=== PATIENT | male | born 1960 | race Caucasian/White ===

== ENCOUNTER 2016-06-26 | Outpatient (CLI) | END 2016-06-26 19:19 | disposition EMS.NT ==

== ENCOUNTER 2016-06-27 | Outpatient (CLI) | END 2016-06-27 01:01 | disposition critical access hospital (66) | CPT/HCPCS: A0425; A0429 ==

== ENCOUNTER 2016-06-27 01:21 | Inpatient (IN) | payer MEDICARE, MEDICAID ==
[2016-06-27] MEDS ORDERED: IPRATROPIUM/ALBUTEROL 3 ML NEB INH STA (01:31)
[2016-06-27] MEDS ORDERED: SODIUM CHLORIDE 0.9% 1,000 ML IV ONE ×3 (01:31→05:01)
[2016-06-27] MEDS ORDERED: IPRATROPIUM/ALBUTEROL 3 ML NEB INH ONE (01:56)
[2016-06-27] MEDS ORDERED: POTASSIUM CHLORIDE 20 MEQ TABLET PO STA (02:53)
[2016-06-27] MEDS ORDERED: POTASSIUM CHLORIDE 20 MEQ TABLET PO ONE (02:56)
[2016-06-27] MEDS ORDERED: POTASSIUM CHLOR 20 MEQ/100 ML 100 ML IV ONE (05:01)
[2016-06-27] MEDS ORDERED: POTASSIUM CHLOR 10 MEQ/100 ML 100 ML IV ONE ×2 (05:21→06:06)
[2016-06-27] MEDS ORDERED: MORPHINE IR 15 MG TABLET PO PRN (08:01)
[2016-06-27] MEDS ORDERED: ONDANSETRON 4 MG/2 ML VIAL IVP PRN (08:01)
[2016-06-27] MEDS ORDERED: SODIUM CHLORIDE FLUSH 0.9% 10 ML SYRINGE IVP PRN (08:01)
[2016-06-27] MEDS: NICOTINE 14 MG PATCH TOP SCH (08:40)
[2016-06-27] MEDS: POLYETHYLENE GLYCOL 3350 17 GM PACKET PO SCH (08:40)
[2016-06-27] MEDS: POTASSIUM CHLORIDE 10 MEQ CAPSULE PO SCH ×3 (08:40→17:48)
[2016-06-27] MEDS ORDERED: MORPHINE ER 15 MG TABLET PO SCH (09:00)
[2016-06-27] MEDS: SODIUM CHLORIDE FLUSH 0.9% 10 ML SYRINGE IVP SCH ×2 (13:05→21:31)
[2016-06-27] MEDS: GABAPENTIN 400 MG CAPSULE PO SCH ×2 (14:53→21:31)
[2016-06-27] MEDS: MORPHINE ER 15 MG TABLET PO SCH ×2 (14:53→21:33)
[2016-06-27] MEDS: DARUNAVIR ETHANOLATE 800 MG PO SCH (16:31)
[2016-06-27] MEDS: RITONAVIR 100 MG PO SCH (16:31)
[2016-06-27] MEDS: TESTOSTERONE TOP SCH (16:32)
[2016-06-27] MEDS: [UNRECOGNIZED DRUG - OTHER] PO SCH (16:32)
[2016-06-27] MEDS: tiZANidine 4 MG TABLET PO PRN (17:48)
[2016-06-27] MEDS ORDERED: traZODone 50 MG TABLET PO SCH (21:00)
[2016-06-28] MEDS: GABAPENTIN 400 MG CAPSULE PO SCH ×2 (05:09→13:30)
[2016-06-28] MEDS: MORPHINE ER 15 MG TABLET PO SCH ×2 (05:10→13:30)
[2016-06-28] MEDS: SODIUM CHLORIDE FLUSH 0.9% 10 ML SYRINGE IVP SCH ×2 (05:10→13:31)
[2016-06-28] MEDS: NICOTINE 14 MG PATCH TOP SCH (08:51)
[2016-06-28] MEDS: DARUNAVIR ETHANOLATE 800 MG PO SCH (08:54)
[2016-06-28] MEDS: RITONAVIR 100 MG PO SCH (08:54)
[2016-06-28] MEDS: [UNRECOGNIZED DRUG - OTHER] PO SCH (08:55)
[2016-06-28] MEDS: TESTOSTERONE TOP SCH (08:55)
[2016-06-28] MEDS: POLYETHYLENE GLYCOL 3350 17 GM PACKET PO SCH (08:55)
[2016-06-28] MEDS: tiZANidine 4 MG TABLET PO PRN (13:36)
== END 2016-06-28 17:55 | disposition home or self-care (01) | DRG 683 ==
DX: N17.9 Acute kidney failure, unspecified (principal); E87.1 Hypo-osmolality and hyponatremia; E87.6 Hypokalemia; I95.9 Hypotension, unspecified; I73.9 Peripheral vascular disease, unspecified; N18.4 Chronic kidney disease, stage 4 (severe); I73.89 Other specified peripheral vascular diseases; F17.200 Nicotine dependence, unspecified, uncomplicated; F32.9 Major depressive disorder, single episode, unspecified; F41.0 Panic disorder [episodic paroxysmal anxiety]; F17.210 Nicotine dependence, cigarettes, uncomplicated; I69.392 Facial weakness following cerebral infarction; Z21 Asymptomatic human immunodeficiency virus [HIV] infection status; Z79.891 Long term (current) use of opiate analgesic; Z89.612 Acquired absence of left leg above knee; Z89.611 Acquired absence of right leg above knee; Z95.5 Presence of coronary angioplasty implant and graft; Z99.3 Dependence on wheelchair

== ENCOUNTER 2016-06-28 | Outpatient (CLI) | END 2016-06-28 17:57 | disposition home or self-care (01) | CPT/HCPCS: A0425; A0428 ==

== ENCOUNTER 2017-01-02 09:15 | Outpatient (CLI) | payer MEDICARE, MEDICAID ==
[2017-01-02] MEDS ORDERED: ALBUTEROL NEB 2.5 MG/3 ML INH ONE (09:54)
== END 2017-01-02 09:16 | disposition home or self-care (01) ==
LOC: RT 09:15
PROVIDERS: ATTEND Family Medicine
DX: G47.34 Idiopathic sleep related nonobstructive alveolar hypoventilation (principal)
CPT/HCPCS: 94060; 94729; J7613

== ENCOUNTER 2017-01-17 21:00 | Outpatient (CLI) | payer MEDICARE, MEDICAID | END 2017-01-17 21:01 | disposition EMS.NT | LOC: EMS 21:00 | PROVIDERS: ATTEND Surgery | DX: Z03.89 Encounter for observation for other suspected diseases and conditions ruled out (principal); W05.0XXA Fall from non-moving wheelchair, initial encounter; Y92.009 Unspecified place in unspecified non-institutional (private) residence as the place of occurrence of the external cause ==

== ENCOUNTER 2017-01-23 02:54 | Outpatient (CLI) | payer MEDICARE, MEDICAID | END 2017-01-23 02:55 | disposition EMS.NT | LOC: EMS 02:54 | PROVIDERS: ATTEND Surgery | DX: S00.81XA Abrasion of other part of head, initial encounter (principal); W22.8XXA Striking against or struck by other objects, initial encounter; W05.0XXA Fall from non-moving wheelchair, initial encounter; Y92.031 Bathroom in apartment as the place of occurrence of the external cause ==

== ENCOUNTER 2017-06-18 13:46 | Outpatient (CLI) | payer MEDICARE, MEDICAID | END 2017-06-18 13:47 | disposition EMS.NT | LOC: EMS 13:46 | PROVIDERS: ATTEND Surgery | DX: Z03.89 Encounter for observation for other suspected diseases and conditions ruled out (principal) ==

== ENCOUNTER 2017-07-02 12:18 | Outpatient (CLI) | payer MEDICARE, MEDICAID ==
[2017-07-02] MEDS ORDERED: IOPAMIDOL-300 100 ML VIAL ONE (12:40)
[2017-07-02] MEDS ORDERED: IOPAMIDOL-300 100 ML VIAL IVP ONE (13:14)
--- NOTE | 2017-07-02 16:26 | CT Report ---
DATE OF SERVICE: 07/02/2017 CT CHEST WITH CONTRAST: 07/02/2017 CLINICAL INDICATION: Unexplained weight loss, vascular disease, smoking history. TECHNIQUE: Axial CT images of the chest were obtained with 60 mL Isovue [address] is available for comparison. Comparison is made to chest x-ray of 06/27/2016. FINDINGS: The heart and great vessels demonstrate atherosclerotic calcifications. No hilar or mediastinal lymphadenopathy is present. The lungs demonstrate emphysematous changes. No suspicious pulmonary nodule or mass lesion is present. No effusion or pneumothorax is present. Limited evaluation of upper abdominal structures demonstrates normal adrenal glands. There is occlusion of the infrarenal abdominal aorta. Osseous structures demonstrate degenerative changes, with severe degeneration of both glenohumeral joints. IMPRESSION: 1. EMPHYSEMA. NO EVIDENT PULMONARY MALIGNANCY TO EXPLAIN PATIENT'S WEIGHT LOSS. 2. OCCLUSION OF THE INFRARENAL ABDOMINAL AORTA. In accordance with CT protocol optimization, one or more of the following dose reduction techniques were utilized for this exam: automated exposure control, adjustment of mA and/or KV based on patient size, or use of iterative reconstructive technique. TD: 07/02/2017 17:23
== END 2017-07-02 12:19 | disposition home or self-care (01) ==
LOC: DI 12:18
PROVIDERS: ATTEND Internal Medicine Infectious Disease
DX: Z12.2 Encounter for screening for malignant neoplasm of respiratory organs (principal); J43.9 Emphysema, unspecified; I70.1 Atherosclerosis of renal artery; F17.210 Nicotine dependence, cigarettes, uncomplicated; R63.4 Abnormal weight loss
CPT/HCPCS: 71260; Q9967

== ENCOUNTER 2017-07-17 13:49 | Outpatient (CLI) | payer MEDICARE, MEDICAID | END 2017-07-17 13:50 | disposition critical access hospital (66) | LOC: EMS 13:49 | PROVIDERS: ATTEND Surgery | DX: R53.1 Weakness (principal); R42 Dizziness and giddiness | CPT/HCPCS: A0425; A0429 ==

== ENCOUNTER 2017-07-17 14:09 | Emergency (ER) | payer MEDICARE, MEDICAID ==
--- NOTE | 2017-07-17 16:47 | ED Physician Documentation ---
History of Present Illness - Stated complaint Stated Complaint: WEAKNESS - Chief complaint Chief Complaint: Neuro - History obtained from History obtained from: Patient (pt is here for evaluation of feeling light headed. he staes that it happened while he was at home today. states that he did not eat today. did take his BP meds. He has bilateral AKA and was sitting at the time. EMS reports pt was hypotensive on their arrival. pt denied any other symptoms.) Review of Systems Constitutional: denies: Fever, Chills Cardiac: denies: Chest pain / pressure, Palpitations Respiratory: denies: Dyspnea, Cough GI: denies: Abdominal Pain, Nausea, Vomiting : denies: Dysuria Skin: denies: Rash, Lesions Musculoskeletal: denies: Back pain Neurologic: reports: Other (lightheaded). denies: Generalized weakness, Focal weakness, Syncope, Headache PD PAST MEDICAL HISTORY - Past Medical History Cardiovascular: Peripheral Vascular Disease Neuro: CVA GI: Hiatal hernia : None HEENT: Chronic sinusitis Psych: Depression, Panic attacks - Past Surgical History Past Surgical History: Yes General: Hiatal hernia repair Ortho: Amputation Cardiovascular: Coronary stent, Fempop bypass - Present Medications Home Medications: Ambulatory Orders Medication Instructions Recorded Confirmed tiZANidine [Zanaflex] 4 mg PO Q8H PRN 02/04/14 07/17/17 Lisinopril 10 mg PO DAILY 06/27/16 07/17/17 Morphine Sulfate [Ms Contin] 10 mg PO TID 06/27/16 07/17/17 Trazodone HCl 100 mg PO QPM 06/27/16 07/17/17 Dolutegravir Sodium [Tivicay] 1 tab PO DAILY 07/17/17 07/17/17 Emtricitabine/Tenofov Alafenam 1 tab PO DAILY 07/17/17 07/17/17 [Descovy 200-25 mg Tablet] - Allergies Allergies/Adverse Reactions: Allergies Allergy/AdvReac Type Severity Reaction Status Date / Time vancomycin Allergy Rash Verified 07/17/17 14:14 - Social History Does the pt smoke?: Yes Smoking Status: Current every day smoker Does the pt drink ETOH?: Yes Does the pt have substance abuse?: Yes - Immunizations Immunizations are current?: Yes - POLST Patient has POLST: No PD ED PE NORMAL - Vitals Vital signs reviewed: Yes - General General: Alert and oriented X 3, No acute distress - Cardiac Cardiac: RRR, No murmur - Respiratory Respiratory: No respiratory distress, Clear bilaterally - Abdomen Abdomen: Soft, Non tender - Derm Derm: Normal color, No rash - Extremities Extremities: Other (bilateral AKA) - Neuro Neuro: Alert and oriented X 3 Eye Opening: Spontaneous Motor: Obeys Commands Verbal: Oriented GCS Score: 15 - Psych Psych: Normal mood, Normal affect Results - Vitals Vitals: Vital Signs - 24 hr 07/17/17 07/17/17 07/17/17 14:10 14:39 14:43 Temperature 36.7 C Heart Rate 87 Respiratory 16 Rate Blood Pressure 86/57 L 69/48 L 72/58 L O2 Saturation 100 07/17/17 15:34 Temperature 36.5 C Heart Rate 86 Respiratory 18 Rate Blood Pressure 82/56 L O2 Saturation 100 Oxygen O2 Source Room air - EKG (time done) 1419 Rate: Rate (enter#) Rhythm: NSR [place]: Normal Intervals: QRS normal. No: Prolonged QT QRS: Normal Ischemia: Non specific changes PD MEDICAL DECISION MAKING - ED course Complexity details: d/w patient ED course: pt was asymptomatic in the ER. was able to transition between his chair and the bed without problems. was hypotensive in the ER with SBPin th 80's but map in the mid 60's discussed with the patient. he was given return precautions. Departure - Departure Disposition: 01 Home, Self Care Clinical Impression: Hypotensive episode Condition: Good Instructions: Hypotension Dc Follow-Up: ASHISH ENGLAND [Primary Care Provider] - Comments: Increase your fluid intake. Call your primary care provider for a follow up. Return to the ER for any new or worsening symptoms.
[2017-07-17 17:34] VITALS: BP 88/62
== END 2017-07-17 18:20 | disposition home or self-care (01) ==
LOC: EDUNIT# → ED 14:09
DX: I95.9 Hypotension, unspecified (principal); I73.9 Peripheral vascular disease, unspecified; F17.200 Nicotine dependence, unspecified, uncomplicated; Z86.73 Personal history of transient ischemic attack (TIA), and cerebral infarction without residual deficits; Z95.5 Presence of coronary angioplasty implant and graft
CPT/HCPCS: 93005; 99283

== ENCOUNTER 2017-09-12 22:16 | Outpatient (CLI) | payer MEDICARE, MEDICAID | END 2017-09-12 22:17 | disposition critical access hospital (66) | LOC: EMS 22:16 → EDUNIT# 22:16 → EMS 22:17 | PROVIDERS: ATTEND Surgery | DX: R06.00 Dyspnea, unspecified (principal) | CPT/HCPCS: A0425; A0427 ==

== ENCOUNTER 2017-09-12 22:33 | Inpatient (IN) | payer MEDICARE, MEDICAID ==
[2017-09-12] MEDS ORDERED: methylPREDNISolone SUCCINATE 125 MG/2 ML VIAL IVP STA (22:43)
[2017-09-12] MEDS ORDERED: IPRATROPIUM/ALBUTEROL 3 ML NEB INH STA (22:43)
[2017-09-12 23:10] LABS: BASOPHILS % (AUTO) 5.1 %; EOSINOPHILS % (AUTO) 1.9 %; LYMPHOCYTES % (AUTO) 34.5 %; MEAN CORPUSCULAR HEMOGLOBIN 28.2 pg (27.0-31.0); MEAN CORPUSCULAR HGB CONC 32.3 g/dL (32.0-36.0); MEAN CORPUSCULAR VOLUME 87.3 fL (80.0-94.0); MEAN PLATELET VOLUME 10.8 fL (7.4-11.4); MONOCYTES % (AUTO) 5.5 %; PLT - PLATELET COUNT 103 10^3/uL (130-450); RED BLOOD COUNT 2.05 10^6/uL (4.70-6.10); RED CELL DISTRIBUTION WIDTH 23.1 % (12.0-15.0); WHITE BLOOD COUNT 8.8 x10^3/uL (4.8-10.8)
[2017-09-12 23:11] LABS: ALBUMIN/GLOBULIN RATIO 1.2 (1.0-2.2); BILIRUBIN,TOTAL 0.9 mg/dL (0.2-1.0); CALCIUM 8.3 mg/dL (8.5-10.3); CREATININE 1.4 mg/dL (0.6-1.2); TOTAL PROTEIN 7.3 g/dL (6.7-8.2)
[2017-09-12 23:12] LABS: HGB - HEMOGLOBIN 5.8 g/dL (14.0-18.0)
[2017-09-12 23:13] LABS: ABNORMAL LYMPHS % (MANUAL) 0 %
--- NOTE | 2017-09-12 23:16 | XRAY Preliminary Report ---
Exam: XR CHEST 1 VIEW X-RAY IMPRESSION: 1. Bilateral interstitial and air space opacities possibly due to pulmonary edema or volume overload. Infiltrate not excluded. [facility] SITE ID: [id number]
--- NOTE | 2017-09-12 23:17 | XRAY Report ---
EXAM: CHEST RADIOGRAPHY EXAM DATE: 09/12/2017 10:52 PM. CLINICAL HISTORY: Cough, hypoxia. COMPARISON: 06/27/2016. TECHNIQUE: 1 view. FINDINGS: Lungs/Pleura: Bilateral interstitial and airspace opacities. Small pleural effusions. No pneumothorax . Mediastinum: Within exam limitations, the cardiomediastinal contour is normal. Other: Severe chronic deformities in both shoulders. Old bilateral rib fractures. IMPRESSION: 1. Bilateral interstitial and air space opacities possibly due to pulmonary edema or volume overload. Infiltrate not excluded. [facility] Referring Provider Line: [phone] SITE ID: [id number]
[2017-09-12 23:29] LABS: INR 1.2 (0.8-1.2); PT - PROTHROMBIN TIME 13.9 secs (9.9-12.6)
[2017-09-13 00:02] LABS: BAND NEUTROPHILS % (MANUAL) 3 %; BASOPHILS # (MANUAL) 0.3 10^3/uL (0-0.1); BASOPHILS % (MANUAL) 3 %; EOSINOPHILS # (MANUAL) 0.3 10^3/uL (0-0.7); LYMPHOCYTES # (MANUAL) 3.2 10^3/uL (1.5-3.5); LYMPHOCYTES % (MANUAL) 36 %; METAMYELOCYTES % (MANUAL) 1 %; MONOCYTES # (MANUAL) 0.3 10^3/uL (0.0-1.0); NEUTROPHILS # (MANUAL) 4.8 10^3/uL (1.5-6.6); NEUTROPHILS % (MANUAL) 51 %
[2017-09-13 00:03] LABS: DIFFERENTIAL COMMENT MANUAL DIFFERENTIAL; PLATELET ESTIMATE, MANUAL DECREASED (<130,000) (NORMAL)
[2017-09-13] MEDS ORDERED: SODIUM CHLORIDE 0.9% 500 ML IV ONE (00:12)
[2017-09-13] MEDS ORDERED: SODIUM CHLORIDE FLUSH 0.9% 10 ML SYRINGE IVP PRN (00:18)
[2017-09-13] MEDS ORDERED: ONDANSETRON ODT 4 MG TABLET TL PRN (00:18)
[2017-09-13] MEDS ORDERED: ONDANSETRON 4 MG/2 ML VIAL IVP PRN (00:18)
[2017-09-13] MEDS ORDERED: oxyCODONE 5 MG TABLET PO PRN (00:18)
[2017-09-13] MEDS ORDERED: ACETAMINOPHEN 325 MG TABLET PO PRN (00:18)
[2017-09-13] MEDS ORDERED: ACETAMINOPHEN 325 MG TABLET PO SCH (00:21)
--- NOTE | 2017-09-13 00:30 | ED Physician Documentation ---
PD HPI DYSPNEA - Stated complaint Stated Complaint: SOA - Chief complaint Chief Complaint: Resp - History obtained from History obtained from: Patient, EMS - History of Present Illness Timing - onset: Today Timing - onset during: Rest Timing - details: Gradual onset, Still present Improved by: O2 Worsened by: Laying flat Associated symptoms: Cough, Wheezing Similar symptoms before: Has not had sx before Recently seen: Not recently seen - Additional information Additional information: Patient is a 57 year old male with severe peripheral vascular disease s/p aka and copd who still smokes who is presenting to the emergency department for shortness of breath. Patient states that the symptoms started this evening around 6. Patient wasn't feeling too well at that time and got progressively more short of breath. patient states that he called ems around 10. When ems arrived patient had accessory muscle use but was oxygenating in the high 90s on room air. Review of Systems Constitutional: denies: Fever, Chills Eyes: reports: Reviewed and negative Ears: reports: Reviewed and negative Nose: reports: Reviewed and negative Throat: reports: Reviewed and negative Cardiac: reports: Chest pain / pressure, Palpitations Respiratory: reports: Dyspnea, Cough, Wheezing GI: denies: Nausea, Vomiting : reports: Reviewed and negative Skin: denies: Rash, Lesions Musculoskeletal: denies: Back pain Neurologic: denies: Generalized weakness, Focal weakness Immunocompromised: denies: Immunocompromised PD PAST MEDICAL HISTORY - Past Medical History Past Medical History: Yes Cardiovascular: Peripheral Vascular Disease Neuro: CVA GI: Hiatal hernia : None HEENT: Chronic sinusitis Psych: Depression, Panic attacks - Past Surgical History Past Surgical History: Yes General: Hiatal hernia repair Ortho: Amputation Cardiovascular: Coronary stent, Fempop bypass - Present Medications Home Medications: Ambulatory Orders Medication Instructions Recorded Confirmed tiZANidine [Zanaflex] 4 mg PO Q8H PRN 02/04/14 07/17/17 Lisinopril 10 mg PO DAILY 06/27/16 07/17/17 Morphine Sulfate [Ms Contin] 10 mg PO TID 06/27/16 07/17/17 Trazodone HCl 100 mg PO QPM 06/27/16 07/17/17 Dolutegravir Sodium [Tivicay] 1 tab PO DAILY 07/17/17 07/17/17 Emtricitabine/Tenofov Alafenam 1 tab PO DAILY 07/17/17 07/17/17 [Descovy 200-25 mg Tablet] - Allergies Allergies/Adverse Reactions: Allergies Allergy/AdvReac Type Severity Reaction Status Date / Time vancomycin Allergy Rash Verified 09/12/17 22:44 - Social History Does the pt smoke?: Yes Smoking Status: Current every day smoker Does the pt drink ETOH?: Yes Does the pt have substance abuse?: Yes - Immunizations Immunizations are current?: Yes - POLST Patient has POLST: No PD ED PE NORMAL - General General: Alert and oriented X 3 - HEENT HEENT: Atraumatic - Abdomen Abdomen: Soft, Non tender, Non distended PD ED PE EXPANDED - HEENT HEENT: Dry mucous membranes - Neck Neck: JVD present - Cardiac Cardiac: Tachy - Rectal Rectal: Heme Occult Pos - QC +, Other (occult stool slightly positive but firm light colored stool) - Extremities Extremities: Other (aka amputations bilaterally) Results - Vitals Vitals: Vital Signs - 24 hr 09/12/17 09/12/17 09/12/17 22:39 23:00 23:05 Temperature 36.6 C Heart Rate 133 H 124 H 121 H Respiratory 32 H 20 20 Rate Blood Pressure 189/106 H 155/73 H O2 Saturation 100 100 09/12/17 09/13/17 09/13/17 23:36 00:03 00:31 Temperature Heart Rate 120 H 114 H 110 H Respiratory 19 23 21 Rate Blood Pressure 135/75 H 95/55 L 92/52 L O2 Saturation 96 100 100 09/13/17 00:43 Temperature Heart Rate 109 H Respiratory 22 Rate Blood Pressure 99/54 L O2 Saturation 100 Oxygen O2 Source Nasal cannula Oxygen Flow Rate 2 - EKG (time done) 2244 Rate: Rate (enter#) (132) Rhythm: Sinus tachycardia [place]: Normal QRS: LVH Other comments: Other comments (rate related ischemia) - Labs Labs: Laboratory Tests 09/12/17 09/12/17 09/12/17 22:53 22:53 22:53 WBC 8.8 RBC 2.05 L Hgb 5.8 L* Hct 17.9 L* MCV 87.3 MCH 28.2 MCHC 32.3 RDW 23.1 H Plt Count 103 L MPV 10.8 Neut # Not Reportable Lymph # Not Reportable [place] # Not Reportable Eos # Not Reportable Baso # Not Reportable Absolute Nucleated RBC Not Reportable Total Counted 100 Band Neuts % (Manual) 3 Abnorm Lymph % (Manual) 0 Metamyelocytes % 1 H Nucleated RBC % Not Reportable Neutrophils # (Manual) 4.8 Lymphocytes # (Manual) 3.2 Monocytes # (Manual) 0.3 Eosinophils # (Manual) 0.3 Basophils # (Manual) 0.3 H Nucleated RBCs 4 Differential Comment MANUAL DIFFERENTIAL Platelet Estimate DECREASED (<130,000) Platelet Morphology 1+ GIANT PLATELETS RBC Morph Micro Appear 1+ SCHISTOCYTES PT INR APTT Sodium 132 L Potassium 3.7 Chloride 102 Carbon Dioxide 15 L Anion Gap 15.0 H BUN 15 Creatinine 1.4 H Estimated GFR (MDRD) 52 L Glucose 260 H Calcium 8.3 L Total Bilirubin 0.9 AST 24 ALT 13 Alkaline Phosphatase 66 Troponin I 0.06 B-Natriuretic Peptide Total Protein 7.3 Albumin 4.0 Globulin 3.3 Albumin/Globulin Ratio 1.2 Lipase 15 L Blood Type Blood Type Recheck Antibody Screen Crossmatch IS Only 09/12/17 09/12/17 09/12/17 22:53 22:53 22:55 WBC RBC Hgb Hct MCV MCH MCHC RDW Plt Count MPV Neut # Lymph # [place] # Eos # Baso # Absolute Nucleated RBC Total Counted Band Neuts % (Manual) Abnorm Lymph % (Manual) Metamyelocytes % Nucleated RBC % Neutrophils # (Manual) Lymphocytes # (Manual) Monocytes # (Manual) Eosinophils # (Manual) Basophils # (Manual) Nucleated RBCs Differential Comment Platelet Estimate Platelet Morphology RBC Morph Micro Appear PT 13.9 H INR 1.2 APTT 23.2 L Sodium Potassium Chloride Carbon Dioxide Anion Gap BUN Creatinine Estimated GFR (MDRD) Glucose Calcium Total Bilirubin AST ALT Alkaline Phosphatase Troponin I B-Natriuretic Peptide 470 H Total Protein Albumin Globulin Albumin/Globulin Ratio Lipase Blood Type Blood Type Recheck A POSITIVE Antibody Screen Crossmatch IS Only 09/12/17 09/12/17 23:30 23:30 WBC RBC Hgb Hct MCV MCH MCHC RDW Plt Count MPV Neut # Lymph # [place] # Eos # Baso # Absolute Nucleated RBC Total Counted Band Neuts % (Manual) Abnorm Lymph % (Manual) Metamyelocytes % Nucleated RBC % Neutrophils # (Manual) Lymphocytes # (Manual) Monocytes # (Manual) Eosinophils # (Manual) Basophils # (Manual) Nucleated RBCs Differential Comment Platelet Estimate Platelet Morphology RBC Morph Micro Appear PT INR APTT Sodium Potassium Chloride Carbon Dioxide Anion Gap BUN Creatinine Estimated GFR (MDRD) Glucose Calcium Total Bilirubin AST ALT Alkaline Phosphatase Troponin I 0.06 B-Natriuretic Peptide Total Protein Albumin Globulin Albumin/Globulin Ratio Lipase Blood Type A POSITIVE Blood Type Recheck Antibody Screen NEGATIVE Crossmatch IS Only See Detail - Rads (name of study) chest x-ray Radiology: Final report received (bilateral opacities likely pulmonary edema) PD MEDICAL DECISION MAKING - ED course Complexity details: reviewed old records, reviewed results, re-evaluated patient , considered differential, d/w patient, d/w design center consultant ED course: Patient was seen and examined at bedside. IV access was gained and labs were drawn. Patient was originally treated with duoneb and solumedrol. patient was placed on a monitor. ekg was performed and showed sinus tach with rate related ischemia. Chest x-ray was performed and it was concerning for edema, vascular congestion. When patient's labs came back he was found to have hemoglobin of 5.6. rbcs were ordered for the patient. Patient was treated with a 500ml bolus. Case was discussed with the hospitalist and patient was admitted for further evaluation and care. Departure - Departure Disposition: 66 [facility] DC/Xfer Clinical Impression: Congestive heart failure, Symptomatic anemia Condition: Stable
[2017-09-13] MEDS: SODIUM CHLORIDE FLUSH 0.9% 10 ML SYRINGE IVP SCH ×3 (02:33→17:16)
--- NOTE | 2017-09-13 06:44 | HISTORY & PHYSICAL EXAMINATION ---
DATE OF SERVICE: 09/13/2017 Physician: Suzanna Sr MD PRIMARY CARE PROVIDER: Jose Kang MD ADMITTING PROVIDER: Suzanna Sr MD CHIEF COMPLAINT: Shortness of breath. HISTORY OF PRESENT ILLNESS: This 57-year-old, white male has a long history of smoking and COPD. He does have nighttime hypoxemia and is supposed to be on oxygen. He continues to smoke. He has had several episodes for which he was seen in the emergency room over the past couple of years, but has never had to be intubated for acute respiratory failure. He states that he has not had any antecedent illness. No fevers, no chills, no chest congestion. He does not feel like he has had a flu or a cold. Today, around 6 o'clock, he started getting short of breath. He is always short of breath and always tired, but this was worse than usual. As the evening progressed, he was not getting any better and he called EMS. EMS brought him to the emergency room, where his temperature was 36.6. Pulse was 109 and blood pressure 99/54, with respirations of 22, and he was 100% saturating with 2 liters nasal cannula. On examination, he was alert and oriented, had dry mucous membranes, was tachycardic. Abdomen was benign, and his stool was Hemoccult positive, but only slightly. It was a very hard, light-colored stool. He has his amputations present. A pertinent finding was a hemoglobin of 5.8 and a hematocrit of 17.9. This gentleman had a hemoglobin of 15.9 on 06/27/2016, and a hematocrit of 46.3. Platelets back then were 280 and today they are 103. He denies any hematochezia, hematemesis. He takes antiviral therapies for HIV status, but does not take nonsteroidals on a regular basis. He is not an alcoholic. The patient is now brought in for hypotension, shortness of breath, most likely secondary to anemia. ASSESSMENT/PLAN 1. Human immunodeficiency virus positive, on antivirals. 2. Hepatitis in 1980s. 3. Peripheral vascular disease with femoral-popliteal bypass surgery, subsequently followed by 2 [id number] amputations. and essentially a hemipelvectomy. 4. Coronary artery disease history with stent. 5. Transient ischemic attacks x2. 6. Hiatal hernia with repair in the past. 7. Chronic sinusitis. 8. Depression with panic attacks. 9. Osteoporosis with chronic pain syndrome. He has had bilateral shoulder fractures, approximately 2012. 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 He also has glenohumeral deformity. 10. Chronic pain syndrome. He was seen by pain specialist in September 2014. An attempt was made to see if they could decrease his opiates, but the patient refused to interact, and left the appointment and refuses to consider anything but opiates. 11. Mild nighttime hypoxemia. ALLERGIES: ALLERGIC TO VANCOMYCIN. MEDICATIONS 1. Tivicay 50 mg tablet daily. 2. Emtricitabine/tenofovir alafenamide 1 tablet daily. 3. Lisinopril 10 mg daily. 4. MS Contin 10 mg p.o. t.i.d. 5. Zanaflex 4 mg daily. 6. Trazodone 100 mg q.p.m. SOCIAL HISTORY: He was born in [place], raised and went to school in [place]. In 2012, while visiting someone in [place], he played wheelchair rugby and fell out of the chair, and had bilateral broken shoulders. He has been living on [facility] since approximately 2014. 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 He used to smoke 3 packs per day, and now smokes 1 pack per day. He denies a history of alcohol abuse. He denies recreational substance abuse. FAMILY HISTORY: Dad is . Mom with alcoholism, cancer, diabetes, glaucoma, and [place]. One brother of alcoholism and also had an [place], hypertension and cancer. One sister of a stroke. REVIEW OF SYSTEMS CONSTITUTIONAL: He has no generalized complaints of fever, chills, unexpected weight changes. HEENT: Has chronic sinusitis problems, but denies any change in vision or hearing or swallowing or speaking. PULMONARY: He always has coughing and wheezing. More short of breath today than usual. No change in phlegm production. CARDIAC: He occasionally has chest pain with palpitations, especially when he is stressed out. GASTROINTESTINAL: Denies change in bowel habits. Mildly constipated. No blood in urine or stool. GENITOURINARY: Negative for urgency, frequency, dysuria. SKIN: Negative for any new lesions or rash. MUSCULOSKELETAL: Chronic pain from the shoulders and back. NEUROLOGIC: He denies any focal weakness, headaches, syncope, seizures. PHYSICAL EXAMINATION VITAL SIGNS: On examination in ICU temperature is 36.7, pulse is 104, blood pressure 117/63. 96-100% with 2 liters. Repiratory rate 20. I have ordered 2 units of blood, but unfortunately the blood was typed and crossed using identification that cannot be matched to the patient. As such, there we will be delay and he will have to be redrawn. GENERAL: He is a nonstop talker, circumferential tangential speaker. Thin balding, there seems to be area of scarring from soft tissue loss at the top of his scalp. HEAD AND NECK: Unremarkable. Neck is supple, with minimal JVD sitting upright. LUNGS: Clear to auscultation and percussion in spite of CHF on CXR. No increased respiratory rate and he appears comfortable with uninterrupted speech and no tachypnea but he keeps stating "I' m short of breath." No wheezing. HEART: PMI is normally placed with a regular rate and rhythm, and a soft murmur. ABDOMEN: Soft, nontender. Normal bowel sounds. No hepatosplenomegaly. EXTREMITIES: Show the amputations/hemipelvectomy. NEUROLOGIC: He is alert and oriented to person, place and time. No focal deficits. LABORATORY DATA: White cell count is 8.8, hemoglobin 5.8, hematocrit 17.9, platelets 103. One percent metamyelocytes. INR is 1.2. Sodium 132 and he is chronically hyponatremic in the EMR. Potassium 3.7, anion gap is high at 15, BUN 15, creatinine 1.4, and stable for him. His creatinine varies between 1.3 to 1.8. GFR varies from 40-58. Random glucose 260. Troponin #1 is 0.06. Troponin #2 is 0.06. Liver enzymes normal. BNP mildly elevated at 470. In June 2016, his BNP was 96. Chest x-ray with bilateral interstitial and airspace opacities due to pulmonary edema. ASSESSMENT/PLAN 1. Shortness of breath at rest secondary to problem #2 and #3. No acute failure at this time needing bilevel positive airway pressure. Attestation: The patient will be admitted less than 96 hours. At 96 hours, he will be evaluated for transfer or discharge. 2. Acute on chronic systolic failure by examination. Give Lasix once blood has been given. Check echo. Two sets of troponins were already negative. TSH is normal. 3. Chronic anemia that seems to have been worsening over the last year. In June 2016, his hemoglobin was 15.9. A day later, hemoglobin was 12.7. Today it is 5.8. He has thrombocytopenia as well. Check iron studies. Stool was faintly positive in the emergency room. Transfused 2 units, after surgery consult for EGD possibility. Start proton pump inhibitor. Avoid nonsteroidals. 4. Chronic kidney disease stage 2, stable. 5. Chronic obstructive pulmonary disease history, stable. 6. Human immunodeficiency virus status. Continue antivirals. See if the medication he is on would cause pancytopenia. 7. Chronic pain syndrome. He is on extended release morphine 3 times a day and that will be continued. No change in regimen anticipated. 8. FULL CODE. 9. Deep venous thrombosis prophylaxis. TD: 09/13/2017 06:43 [place]
[2017-09-13] MEDS: PANTOPRAZOLE 40 MG VIAL IVP SCH ×2 (07:33→16:08)
[2017-09-13 10:19] LABS: BASOPHILS % (AUTO) 1.3 %; EOSINOPHILS % (AUTO) 0.3 %; HGB - HEMOGLOBIN 8.5 g/dL (14.0-18.0); LYMPHOCYTES % (AUTO) 13.2 %; MEAN CORPUSCULAR HEMOGLOBIN 28.8 pg (27.0-31.0); MEAN CORPUSCULAR HGB CONC 35.3 g/dL (32.0-36.0); MEAN CORPUSCULAR VOLUME 81.6 fL (80.0-94.0); MEAN PLATELET VOLUME 10.9 fL (7.4-11.4); MONOCYTES % (AUTO) 2.4 %; NEUTROPHILS % (AUTO) 82.8 %; RED BLOOD COUNT 2.96 10^6/uL (4.70-6.10); RED CELL DISTRIBUTION WIDTH 18.9 % (12.0-15.0); WHITE BLOOD COUNT 6.1 x10^3/uL (4.8-10.8)
[2017-09-13 10:20] LABS: RED BLOOD COUNT 2.96 10^6/uL (4.70-6.10)
[2017-09-13] MEDS: POLYETHYLENE GLYCOL 3350 17 GM PACKET PO SCH (10:35)
[2017-09-13 10:53] LABS: PLATELET ESTIMATE, MANUAL DECREASED (<130,000) (NORMAL); PLATELET MORPHOLOGY RARE GIANT PLATELETS (NORMAL)
[2017-09-13 10:54] LABS: ABNORMAL LYMPHS % (MANUAL) 0 %
[2017-09-13 11:01] LABS: BAND NEUTROPHILS % (MANUAL) 1 %; LYMPHOCYTES % (MANUAL) 12 %; METAMYELOCYTES % (MANUAL) 3 %; MONOCYTES # (MANUAL) 0.2 10^3/uL (0.0-1.0); MYELOCYTES % (MANUAL) 2 %; NEUTROPHILS # (MANUAL) 4.6 10^3/uL (1.5-6.6); NEUTROPHILS % (MANUAL) 74 %; RBC MORPHOLOGY (MULTIPLE) 3+ ANISOCYTOSIS (NORMAL)
[2017-09-13 11:02] LABS: DIFFERENTIAL COMMENT MANUAL DIFFERENTIAL
[2017-09-13 11:03] LABS: PLT - PLATELET COUNT 62 10^3/uL (130-450)
[2017-09-13 11:08] LABS: % IRON SATURATION 83 % (20-50); IRON 243 ug/dL (45-182); TOTAL IRON BINDING CAPACITY 293 ug/dL (250-450); TRANSFERRIN 209 mg/dL (180-329)
[2017-09-13] MEDS ORDERED: LIDOCAINE OINTMENT 5% 35.44 GM TUBE TOP SCH (12:00)
[2017-09-13] MEDS: NICOTINE 21 MG PATCH TOP SCH (12:08)
[2017-09-13] MEDS: LIDOCAINE OINTMENT 5% 35.44 GM TUBE TOP SCH ×3 (12:10→22:59)
--- NOTE | 2017-09-13 14:39 | CONSULTATION NOTE ---
Referring Provider Name of Referring Provider:: Dr. Sr Consult Date: 09/13/17 Chief Complaint - Chief Complaint Chief Complaint: Shortness of breath - anemia (new diagnosis) History of Present Illness - Admitted From Admitted From:: Emergency Department [facility] - History Obtained From Records Reviewed: Yes History obtained from: Patient Exam Limitations: None but patient a bit difficult to keep focused - History of Present Illness HPI Comment/Other: Patient is a 57 year old male with HIV, COPD, PVD, wo continues to smoke but he is down to 1 ppd from his previous normal of 3 ppd. In reference he felt so badly yesterday he only smoked 6 cigarettes. His shortness of breath was the worst he ever experienced and he told the first responders to hurry up because he thought he would . He states that he has never been diagnosed with anemia previously. He has not had a recent colonoscopy or endoscopy and states that the last 2 Hemoccult cards were negative. He denies hematochezia, hematemesis, melena or hematuria. He states that recently he has had a profound weight loss. History - Past Medical History Cardiovascular: reports: Peripheral Vascular Disease Respiratory: reports: COPD, Shortness of breath, Other (Chronic inveterate smoker.) Neuro: reports: CVA GI: reports: Hiatal hernia : reports: None HEENT: reports: Chronic sinusitis Psych: reports: Depression, Panic attacks MRSA Hx?: Yes - Past Surgical History General: reports: Hiatal hernia repair Ortho: reports: Amputation Cardiovascular: reports: Coronary stent, Fempop bypass - POLST Patient has POLST: No Meds/Allgy - Home Medications Home Medications: Ambulatory Orders Medication Instructions Recorded Confirmed tiZANidine [Zanaflex] 8 mg PO Q8H PRN 02/04/14 09/13/17 Lisinopril 10 mg PO DAILY 06/27/16 07/17/17 Trazodone HCl 100 mg PO QPM 06/27/16 09/13/17 Dolutegravir Sodium [Tivicay] 50 mg PO DAILY 07/17/17 09/13/17 Emtricitabine/Tenofov Alafenam 1 tab PO DAILY 07/17/17 09/13/17 [Descovy 200-25 mg Tablet] Albuterol Sulfate [Proair Hfa 2 puffs INH Q4H PRN 09/13/17 09/13/17 Inhaler] Azelastine HCl 2 spray ELI BID 09/13/17 09/13/17 Mirtazapine [Mirtazapine] 15 mg PO QPM 09/13/17 09/13/17 Morphine Sulfate [Morphine Sulfate 30 mg PO DAILY 09/13/17 09/13/17 ER] Omeprazole [Omeprazole] 40 mg PO QDAC 09/13/17 09/13/17 Tiotropium [place] [Spiriva] 2 puffs INH DAILY 09/13/17 09/13/17 - Allergies Allergies/Adverse Reactions: Allergies Allergy/AdvReac Type Severity Reaction Status Date / Time vancomycin Allergy Rash Verified 09/12/17 22:44 Review of Systems - Constitutional Constitutional: reports: Fatigue, Poor appetite, Weight loss - Eyes Eyes: denies: Pain - Ears, Nose & Throat Ears, Nose & Throat: denies: Ear pain - Cardiovascular Cariovascular: reports: Syncope. denies: Irregular heart rate - Respiratory Respiratory: reports: Cough, SOB at rest, SOB with exertion - Gastrointestinal Gastrointestinal: reports: Change in bowel habits (More constipation recently.) . denies: Abdominal pain, Black stools, Bloody stools, Nausea, Vomiting, Edwardo blood emesis, Coffee grounds emesis - Genitourinary Genitourinary: denies: Hematuria - Neurological Neurological: reports: General weakness - Psychiatric Psychiatric: reports: Anxiety - Endocrine Endocrine: denies: Polyuria, Polydypsia, Polyphagia - Hematologic/Lymphatic Hematologic/Lymphatic: reports: Anemia (New.) Exam - Vital Signs Reviewed Vital Signs: Yes Vital Signs: Vital Signs x48h Temp Pulse Pulse Resp BP BP Pulse Ox 09/13/17 14:19 37.5 C 09/13/17 14:06 100 22 141/76 H 95 09/13/17 13:26 107 H 19 141/76 H 97 09/13/17 12:00 103 H 20 148/83 H 96 09/13/17 11:42 104 H 20 144/74 H 98 09/13/17 11:17 103 H 24 144/74 H 100 09/13/17 10:34 107 H 17 155/91 H 100 09/13/17 10:00 107 H 21 155/91 H 100 09/13/17 09:20 37.5 C 108 H 18 153/82 H 09/13/17 09:03 103 H 18 170/79 H 100 09/13/17 09:00 21 100 09/13/17 08:03 101 H 10 L 118/68 100 09/13/17 07:45 37.5 C 09/13/17 06:52 37.8 C H 105 H 17 150/78 H - Physical Exam General Appearance: positive: No acute distress, Other (Some cachexia.) Eyes Bilateral: positive: No lid inflammation, Conjunctivae nml, No scleral icterus ENT: positive: Dry mucous membranes Neck: positive: Trachea midline Respiratory: positive: Chest non-tender, Other (Decreased motion and air sounds throughout.) Cardiovascular: positive: Tachycardia Skin: positive: Pallor Extremities: positive: Other (Bilateral AKA.) Neurologic/Psychiatric: positive: Oriented x3 Conclusion/Plan - Diagnosis Diagnosis: Anemia - Plan Plan: Esophagogastroduodenoscopy with possible biopsies and/or polypectomies. Verbal and written informed consent was obtained. Patient is aware of risks, benefits and alternatives. Continue NPO have patient in endoscopy suite as soon as possible. - Lab Results Fish Bones: 09/13/17 09:57 09/12/17 22:53
[2017-09-13] MEDS ORDERED: PROPOFOL 200 MG/20 ML VIAL IVP ONE (15:00)
[2017-09-13] MEDS ORDERED: MIDAZOLAM 2 MG/2 ML VIAL IVP ONE (15:00)
[2017-09-13] MEDS ORDERED: ETOMIDATE 40 MG/20 ML VIAL IVP ONE (15:00)
[2017-09-13] MEDS ORDERED: IOPAMIDOL-300 100 ML VIAL ONE (16:49)
[2017-09-13] MEDS ORDERED: IOPAMIDOL-300 100 ML VIAL IVP ONE (19:33)
--- NOTE | 2017-09-13 19:51 | CT Report ---
EXAM: CT ABDOMEN AND PELVIS EXAM DATE: 09/13/2017 07:30 PM. CLINICAL HISTORY: Anemia with negative EGD. HIV+. R/o rectal CA. COMPARISONS: None. TECHNIQUE: Routine helical CT imaging was performed through the abdomen and pelvis. IV contrast: 56 M L ISOVUE 300. Enteric contrast: No. Reconstructions: Coronal and sagittal. In accordance with CT protocol optimization, one or more of the following dose reduction techniques w ere utilized for this exam: automated exposure control, adjustment of mA and/or KV based on patient s ize, or use of iterative reconstructive technique. FINDINGS: Lung Bases: Small bilateral pleural effusions. Liver: Normal. No masses. Gallbladder/Bile Ducts: Unremarkable. Spleen: Normal. Pancreas: Normal. Adrenal Glands: Normal. Kidneys: Atrophic right kidney, otherwise unremarkable Peritoneal Cavity/Bowel: Normal. No free fluid, free air or adenopathy. No masses or acute inflammato ry process. The appendix is well visualized and normal. Pelvic Organs: The prostate and bladder are unremarkable. 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 Bones: Chronic pars defects at L5 with anterolisthesis at L5-S1. Aseptic necrosis of both femoral hea ds. Other: None. IMPRESSION: 1. Small bilateral pleural effusions. 2. Atrophic right kidney. 3. 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 4. Chronic pars defects at L5 with anterolisthesis at L5-S1. 5. Aseptic necrosis of both femoral heads. [facility] Referring Provider Line: [phone] SITE ID: [id number]
[2017-09-13] MEDS ORDERED: AZELASTINE HCL NAS SCH (21:00)
[2017-09-13] MEDS ORDERED: ALBUTEROL NEB 2.5 MG/3 ML INH PRN (21:25)
[2017-09-13] MEDS ORDERED: ACETAMINOPHEN 1,000 MG/100 ML 100 ML IV SCH (21:42)
[2017-09-13] MEDS: METOPROLOL 5 MG/5 ML VIAL IVP SCH ×2 (21:42→21:49)
[2017-09-13] MEDS ORDERED: MORPHINE 2 MG/ML SYRINGE IVP PRN (21:44)
[2017-09-13] MEDS ORDERED: diphenhydrAMINE INJ 50 MG/ML VIAL IVP SCH (21:48)
[2017-09-13] MEDS ORDERED: METOPROLOL 5 MG/5 ML VIAL IVP SCH (21:49)
[2017-09-13] MEDS: IPRATROPIUM/ALBUTEROL 3 ML NEB INH SCH (21:50)
[2017-09-13] MEDS ORDERED: SODIUM CHLORIDE 0.9% 1,000 ML IV ONE (21:53)
[2017-09-13] MEDS ORDERED: SODIUM CHLORIDE FLUSH 0.9% 10 ML SYRINGE ONE (21:54)
--- NOTE | 2017-09-13 22:12 | XRAY Report ---
EXAM: CHEST RADIOGRAPHY EXAM DATE: 09/13/2017 10:04 PM. CLINICAL HISTORY: Acute HTN shortness of breath wheezing, tachycardia to 170 w blood transfusion. COMPARISON: 09/12/2017. TECHNIQUE: 1 view. FINDINGS: Lungs/Pleura: Bilateral interstitial and airspace opacities are unchanged or slightly improved. Trace pleural effusions are suspected. No pneumothorax is seen. Mediastinum: Within exam limitations, the cardiomediastinal contour is normal. Other: Severe chronic deformity is again seen in the shoulders. IMPRESSION: 1. Bilateral interstitial and airspace opacities are unchanged or slightly improved. 2. Probable trace pleural effusions. [facility] Referring Provider Line: [phone] SITE ID: [id number]
--- NOTE | 2017-09-13 22:12 | XRAY Preliminary Report ---
Exam: XR CHEST 1 VIEW X-RAY IMPRESSION: 1. Bilateral interstitial and airspace opacities are unchanged or slightly improved. 2. Probable trace pleural effusions. [facility] SITE ID: [id number]
--- NOTE | 2017-09-13 22:53 | PROVIDER PROGRESS NOTE ---
Rn Clinical Documentation Note - Rn Clinical Documentation Note Rn Clinical Documentation Note: 09/13/17 23:21 I was called to see the patient at 21:40 for sudden shortness of breath, tachycardia to 170's, hypertension to 210 systolic with acute respiratory distress. He is in the midst of receiving his 4th unit of PRBC's for anemia of unknown cause with his pretransfusion Hgb being 5.6 grams last night. He usually takes LABA and steroid inhalers and hasn't received any here so far for his COPD. He has severe PVD and has a hemipelvectomy for loss of blood below the distal aorta. So far he doesn't have CHF hx or CAD hx. EGD today did not reveal ulcers or source of bleeding. At 21:42 he was diaphoretic w sweat pouring off of him, beet red face, struggling to breath with audible wheezing, RR of 24, Temp 37.7 and O2 sat 96% on NRB. Pulse was 170's and narrow complex tachy on tele. No chest pain, "I just can't catch my breath". he feel this is the same thing he did when he was home and EMS was called to take him to ER and the same thing that happened once he got to ICU last night. Exam showed thin, white male with no legs, sitting forward in bed trying to tripod and in respiratory distress. JVD evident. Transfusion stopped. metoprolol 5 mg IVP slowed him to 140. Systolic of 210 went to 160. Duoneb given stat Ofimerv given stat Benadryl driven stat 21:49 Metoprolol 5 mg IVP slowed rate from 140 to 109. Systolic went from 160 to 140. Morphine 2 mg slowed respiration to 20. wheezing no longer audible without a stethescope and moving more air. CXR compared to 09/12/17 and bilat interstitial and airspace opacities unchanged or slightly improved, Probable trace pleural effusions. 21:57 Within 15 minutes, able to lay back. Relax. Still c/o sob but no longer sitting forward. no longer diaphoretic except at base of cricoid. Blood bank here to assess for transfusion reaction and checking band. I've ordered BNP, retic, LDH, Direct Kj. 22:[address] elevation in a lead. EKG done and he has NSR, rate of 90. LVH and old Q waves in inferior leads but no ST elevation. 23:19 He now has pulse 88, 97%, RR 20, BP 129/94 Temp 37.6 He has musical rhonchi and wheezing diffusely and bilaterally but able to breathe still a little sob subjectively A/P TACO vs. TRALI or anaphylaxis or AHTR. Will await blood work. Continue to monitor. patient would like some steroids to help w wheezing.
[2017-09-13] MEDS: CETIRIZINE 10 MG TABLET PO SCH (23:02)
[2017-09-14] MEDS: methylPREDNISolone SUCCINATE 125 MG/2 ML VIAL IVP SCH ×2 (00:12→06:40)
[2017-09-14] MEDS: SODIUM CHLORIDE FLUSH 0.9% 10 ML SYRINGE IVP SCH ×2 (00:13→06:40)
[2017-09-14 06:03] LABS: BASOPHILS # (AUTO) 0.1 10^3/uL (0.0-0.1); BASOPHILS % (AUTO) 0.9 %; EOSINOPHILS % (AUTO) 0.4 %; HGB - HEMOGLOBIN 13.5 g/dL (14.0-18.0); LYMPHOCYTES # (AUTO) 1.2 10^3/uL (1.5-3.5); LYMPHOCYTES % (AUTO) 11.2 %; MEAN CORPUSCULAR HEMOGLOBIN 28.7 pg (27.0-31.0); MEAN CORPUSCULAR HGB CONC 34.5 g/dL (32.0-36.0); MEAN CORPUSCULAR VOLUME 83.2 fL (80.0-94.0); MONOCYTES # (AUTO) 0.3 10^3/uL (0.0-1.0); MONOCYTES % (AUTO) 2.8 %; NEUTROPHILS # (AUTO) 8.8 10^3/uL (1.5-6.6); NEUTROPHILS % (AUTO) 84.7 %; RED BLOOD COUNT 4.73 10^6/uL (4.70-6.10); RED CELL DISTRIBUTION WIDTH 17.4 % (12.0-15.0); WHITE BLOOD COUNT 10.3 x10^3/uL (4.8-10.8)
[2017-09-14 06:21] LABS: MEAN RETIC VALUE 120.7; RED BLOOD COUNT 4.78 10^6/uL (4.70-6.10)
[2017-09-14] MEDS: PANTOPRAZOLE 40 MG VIAL IVP SCH (06:40)
[2017-09-14 06:52] LABS: DIFFERENTIAL COMMENT MANUAL=AUTO DIFF; MEAN PLATELET VOLUME 11.8 fL (7.4-11.4); PLATELET ESTIMATE, MANUAL DECREASED (<130,000) (NORMAL); PLATELET MORPHOLOGY NORMAL APPEARANCE (NORMAL); PLT - PLATELET COUNT 71 10^3/uL (130-450)
[2017-09-14] MEDS: IPRATROPIUM/ALBUTEROL 3 ML NEB INH SCH ×2 (07:12→10:37)
[2017-09-14] MEDS: LIDOCAINE OINTMENT 5% 35.44 GM TUBE TOP SCH (07:42)
[2017-09-14] MEDS: CETIRIZINE 10 MG TABLET PO SCH (08:57)
[2017-09-14] MEDS: NICOTINE 21 MG PATCH TOP SCH (08:58)
[2017-09-14 11:09] VITALS: BP 159/91
[2017-09-14] MEDS: POLYETHYLENE GLYCOL 3350 17 GM PACKET PO SCH (11:09)
--- NOTE | 2017-09-14 11:33 | Discharge Plan ---
Discharge Plan Disposition: Home, Self Care Condition: Fair Prescriptions: Lisinopril 2.5 mg PO DAILY #30 tablet Metoprolol Succinate 25 mg PO DAILY #30 tab.er.24h Pantoprazole Sodium [Protonix] 20 mg PO DAILY #30 tablet. Diet: Regular Activity Restrictions: Activity as Tolerated Shower Restrictions: No Driving Restrictions: No Assistance Devices: Wheelchair Additional Instructions or Follow Up instructions: You presented to the ER with shortness of breath and were found to have a hb of 5.6 after receiving 3 units of blood it came up to normal. You underwent an EGD which did not show any source of bleeding. We also did a CT scan of your abdomen which did not show any source of bleeding either. Your Iron and B12 levels were normal. We could not figure out why your blood count dropped down the way it did. We would like you to follow up with the surgical clinic for a colonoscopy in 2 weeks. In the meantime please take protonix which we have prescribed to you. Also you were found to have congestive heart failure with an ejection fraction of 45%. To help to improve that we would like you to restart your lopressor and continue taking lisinopril. 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 No Smoking: If you smoke, Please STOP! Call for help. Follow-up with: Jonny Yates MD [Provider Admit Priv/Credential] -
--- NOTE | 2017-09-14 18:17 | DISCHARGE SUMMARY ---
Discharge Summary Admit Date: 09/13/17 Discharge Date: 09/14/17 Discharging Provider: Isiah Neri MD Primary Care Provider: Radha Mendieta MD Code Status: Attempt Resuscitation Condition at Discharge: Fair Discharge Disposition: 01 Home, Self Care - DIAGNOSES Admission Diagnoses: 1. Shortness of breath at rest 2. Acute on chronic systolic heart failure 3. Chronic anemia with worsening 4. Chronic kidney disease stage II 5. Chronic obstructive pulmonary disease 6. Human immunodeficiency virus 7. Chronic pain syndrome 8. DVT prophylaxis Discharge Diagnoses with Status of Each Condition: 1. Anemia unspecified: Stable 2. Systolic heart failure: Stable 3. Chronic kidney disease stage II: Stable 4. COPD: Stable 5. HIV: Stable 6. Chronic pain syndrome: Stable - HPI History of Present Illness: Patient is a 57-year-old gentleman with a past medical history significant for HIV, hepatitis status post treatment, peripheral vascular disease with femoropopliteal bypass surgery, subsequently followed by above-knee amputations and essentially a milady-polypectomy, coronary disease with stents, TIA, chronic sinusitis, depression, osteoporosis and COPD who presented to the emergency department with a chief complaint of shortness of breath. EMS brought the patient to the emergency department at which time his temperature was 36.6, pulse was 109 and blood pressure was 99/55 with respiration rate of 22 and he was saturating at 100% on 2 L. Patient's examination revealed that he had dry mucous membranes, was tachycardic and appeared pale. Patient's abdomen was benign and his stool was Hemoccult positive but only slightly. The patient's initial hemoglobin was 5.8 with hematocrit of 17.9. Patient was admitted to the ICU with GI bleed and anemia. - HOSPITAL COURSE Hospital Course: Patient was hospitalized with severe anemia and likely GI bleed. The patient was transfused 3 units of packed RBCs with which the patient's hemoglobin improved from 5.8 up to 13.5 by the time of discharge. The patient underwent an EGD which was completely clean with no evidence of any active bleeding. The patient did have a Hemoccult in the hospital which was negative. The patient underwent iron studies which were all within normal limits. The patient also had vitamin B12 checked which was normal. The patient underwent a CT of his abdomen and pelvis looking for possible rectal cancer or other source of bleeding and this was also negative. The patient had no further evidence of bleeding during the hospitalization. The surgeon asked for the patient to follow-up in 2 weeks for an outpatient colonoscopy as he was stable. During the hospitalization the patient did have an episode of respiratory distress while he was getting his third unit of blood. This resolved after a few hours and at the time of discharge the patient was stable. The patient did undergo an echocardiogram which did show that the patient had a reduced ejection fraction of 40%. The patient was placed on optimal treatment for congestive heart failure with metoprolol and lisinopril. The patient was also discharged home on Protonix which she will take until he is seen by surgery. Patient will follow up with his primary care physician. - ALLERGIES Allergies/Adverse Reactions: Allergies Allergy/AdvReac Type Severity Reaction Status Date / Time vancomycin Allergy Rash Verified 09/12/17 22:44 - MEDICATIONS Home Medications: Ambulatory Orders Medication Instructions Recorded Confirmed tiZANidine [Zanaflex] 8 mg PO Q8H PRN 02/04/14 09/13/17 Lisinopril 10 mg PO DAILY 06/27/16 07/17/17 Trazodone HCl 100 mg PO QPM 06/27/16 09/13/17 Dolutegravir Sodium [Tivicay] 50 mg PO DAILY 07/17/17 09/13/17 Emtricitabine/Tenofov Alafenam 1 tab PO DAILY 07/17/17 09/13/17 [Descovy 200-25 mg Tablet] Albuterol Sulfate [Proair Hfa 2 puffs INH Q4H PRN 09/13/17 09/13/17 Inhaler] Azelastine HCl 2 spray ELI BID 09/13/17 09/13/17 Mirtazapine 15 mg PO QPM 09/13/17 09/13/17 Morphine Sulfate [Morphine Sulfate 30 mg PO DAILY 09/13/17 09/13/17 ER] Omeprazole 40 mg PO QDAC 09/13/17 09/13/17 Tiotropium [place] [Spiriva] 2 puffs INH DAILY 09/13/17 09/13/17 Lisinopril 2.5 mg PO DAILY #30 tablet 09/14/17 Metoprolol Succinate 25 mg PO DAILY #30 tab.er.24h 09/14/17 Pantoprazole Sodium [Protonix] 20 mg PO DAILY #30 tablet. 09/14/17 - PHYSICAL EXAM AT DISCHARGE General Appearance: positive: No acute distress, Alert Eyes Bilateral: positive: Normal inspection, PERRL, EOMI, No lid inflammation, Conjunctivae nml, No scleral icterus ENT: positive: ENT inspection nml, Pharynx nml, No signs of dehydration. negative: Purulent nasal drainage, Pharyngeal erythema, Oral lesions Neck: positive: Nml inspection, Thyroid nml, No JVD, Trachea midline. negative : Thyromegaly, Lymphadenopathy (R), Lymphadenopathy (L), Stiff neck, Carotid bruit, Tracheal deviation Respiratory: positive: Chest non-tender, No respiratory distress, Breath sounds nml. negative: Wheezes, Rales, Rhonchi Cardiovascular: positive: Regular rate & rhythm, No murmur, No gallop Peripheral Pulses: positive: 2+ Abdomen: positive: Non-tender, No organomegaly, Nml bowel sounds, No distention. negative: Guarding, Rebound, Hepatomegaly, Splenomegaly Back: positive: Nml inspection. negative: CVA tenderness (R), CVA tenderness (L ) Skin: positive: Color nml, No rash, Warm. negative: Diaphoresis Extremities: positive: Non-tender, Other (Above knee amputation) Neurologic/Psychiatric: positive: Oriented x3, CN's nml (2-12), Motor nml, Sensation nml, Mood/affect nml - LABS Result Diagrams: 09/14/17 05:27 09/12/17 22:53 Other Lab Results: Laboratory Results WBC 10.3 x10^3/uL (4.8-10.8) 09/14/17 05:27 RBC 4.78 10^6/uL (4.70-6.10) 09/14/17 05:27 Hgb 13.5 g/dL (14.0-18.0) L 09/14/17 05:27 Hct 39.3 % (42.0-52.0) L 09/14/17 05:27 MCV 83.2 fL (80.0-94.0) 09/14/17 05:27 MCH 28.7 pg (27.0-31.0) 09/14/17 05:27 MCHC 34.5 g/dL (32.0-36.0) 09/14/17 05:27 RDW 17.4 % (12.0-15.0) H 09/14/17 05:27 Plt Count 71 10^3/uL (130-450) L 09/14/17 05:27 MPV 11.8 fL (7.4-11.4) H 09/14/17 05:27 Reticulocyte % (Auto) 0.83 % (0.5-2.3) 09/14/17 05:27 Neut # 8.8 10^3/uL (1.5-6.6) H 09/14/17 05:27 Lymph # 1.2 10^3/uL (1.5-3.5) L 09/14/17 05:27 Perkins # 0.3 10^3/uL (0.0-1.0) 09/14/17 05:27 Eos # 0.0 10^3/uL (0.0-0.7) 09/14/17 05:27 Baso # 0.1 10^3/uL (0.0-0.1) 09/14/17 05:27 Absolute Nucleated RBC 0.05 x10^3/uL 09/14/17 05:27 Total Counted 100 09/13/17 09:57 Band Neuts % (Manual) Not Reportable 09/14/17 05:27 Reactive Lymphs % (Man) 4 % 09/13/17 09:57 Abnorm Lymph % (Manual) Not Reportable 09/14/17 05:27 Metamyelocytes % 3 % (-0) H 09/13/17 09:57 Myelocytes % 2 % (-0) H 09/13/17 09:57 Nucleated RBC % 0.5 /100WBC 09/14/17 05:27 Neutrophils # (Manual) Not Reportable 09/14/17 05:27 Lymphocytes # (Manual) Not Reportable 09/14/17 05:27 Monocytes # (Manual) Not Reportable 09/14/17 05:27 Eosinophils # (Manual) Not Reportable 09/14/17 05:27 Basophils # (Manual) Not Reportable 09/14/17 05:27 Nucleated RBCs 5 % 09/13/17 09:57 Differential Comment MANUAL=AUTO DIFF 09/14/17 05:27 Manual Slide Review Indicated 09/14/17 05:27 Platelet Estimate DECREASED (<130,000) (NORMAL) 09/14/17 05:27 Platelet Morphology RARE GIANT PLATELETS (NORMAL) 09/13/17 09:57 Platelet Morphology NORMAL APPEARANCE (NORMAL) 09/14/17 05:27 RBC Morph Micro Appear 3+ ANISOCYTOSIS (NORMAL) 1+ MACROCYTOSIS (NORMAL) 2+ MICROCYTOSIS (NORMAL) 2+ OVALOCYTES (NORMAL) 1+ SCHISTOCYTES (NORMAL) 09/12 22:53 RBC Morph Micro Appear 3+ ANISOCYTOSIS (NORMAL) 1+ MACROCYTOSIS (NORMAL) 2+ MICROCYTOSIS (NORMAL) 2+ OVALOCYTES (NORMAL) 1+ SCHISTOCYTES (NORMAL) 09/12 22:53 RBC Morph Micro Appear 3+ ANISOCYTOSIS (NORMAL) 1+ MACROCYTOSIS (NORMAL) 2+ MICROCYTOSIS (NORMAL) 2+ OVALOCYTES (NORMAL) 1+ SCHISTOCYTES (NORMAL) 09/12 22:53 RBC Morph Micro Appear 3+ ANISOCYTOSIS (NORMAL) 09/13/17 09:57 RBC Morph Micro Appear 1+ ANISOCYTOSIS (NORMAL) 1+ POLYCHROMASIA (NORMAL) 09/14/17 05:27 RBC Morph Micro Appear 1+ ANISOCYTOSIS (NORMAL) 1+ POLYCHROMASIA (NORMAL) 09/14/17 05:27 Absolute Retic 0.040 10^6/uL (0.020-0.110) 09/14/17 05:27 PT 13.9 secs (9.9-12.6) H 09/12/17 22:53 INR 1.2 (0.8-1.2) 09/12/17 22:53 APTT 23.2 secs (24.9-33.3) L 09/12/17 22:53 Sodium 132 mmol/L (135-145) L 09/12/17 22:53 Potassium 3.7 mmol/L (3.5-5.0) 09/12/17 22:53 Chloride 102 mmol/L (101-111) 09/12/17 22:53 Carbon Dioxide 15 mmol/L (21-32) L 09/12/17 22:53 Anion Gap 15.0 (6-13) H 09/12/17 22:53 BUN 15 mg/dL (6-20) 09/12/17 22:53 Creatinine 1.4 mg/dL (0.6-1.2) H 09/12/17 22:53 Estimated GFR (MDRD) 52 (>89) L 09/12/17 22:53 Glucose 260 mg/dL (70-100) H 09/12/17 22:53 Calcium 8.3 mg/dL (8.5-10.3) L 09/12/17 22:53 Iron 243 ug/dL (45-182) H 09/13/17 09:57 TIBC 293 ug/dL (250-450) 09/13/17 09:57 % Saturation 83 % (20-50) H 09/13/17 09:57 Transferrin 209 mg/dL (180-329) 09/13/17 09:57 Ferritin 317.3 ng/mL (23.9-336.2) 09/13/17 09:57 Total Bilirubin 0.9 mg/dL (0.2-1.0) 09/12/17 22:53 AST 24 IU/L (10-42) 09/12/17 22:53 ALT 13 IU/L (10-60) 09/12/17 22:53 Alkaline Phosphatase 66 IU/L (42-121) 09/12/17 22:53 Lactate Dehydrogenase 444 IU/L (91-225) H 09/13/17 22:41 Troponin I 0.06 ng/mL (<0.49) 09/12/17 23:30 B-Natriuretic Peptide 2013 pg/mL (5-100) H 09/14/17 05:27 Total Protein 7.3 g/dL (6.7-8.2) 09/12/17 22:53 Albumin 4.0 g/dL (3.2-5.5) 09/12/17 22:53 Globulin 3.3 g/dL (2.1-4.2) 09/12/17 22:53 Albumin/Globulin Ratio 1.2 (1.0-2.2) 09/12/17 22:53 Lipase 15 U/L (22-51) L 09/12/17 22:53 Vitamin B12 546 pg/mL (180-914) 09/13/17 09:57 Blood Type A POSITIVE 09/13/17 03:00 Blood Type Recheck A POSITIVE 09/12/17 22:55 Antibody Screen NEGATIVE 09/13/17 03:00 ANNALEE, Polyspecific NEGATIVE 09/14/17 08:00 Crossmatch IS Only See Detail 09/13/17 03:00 - DIAGNOSTIC IMAGING Diagnostic Imaging Results: Final report reviewed Diagnostic Imaging Results Comments: EXAM: [id number] XR/[id number] ([id number]) EXAM: CHEST RADIOGRAPHY EXAM DATE: 09/13/2017 10:04 PM. CLINICAL HISTORY: Acute HTN shortness of breath wheezing, tachycardia to 170 w blood transfusion. COMPARISON: 09/12/2017. TECHNIQUE: 1 view. FINDINGS: Lungs/Pleura: Bilateral interstitial and airspace opacities are unchanged or slightly improved. Trace pleural effusions are suspected. No pneumothorax is seen. Mediastinum: Within exam limitations, the cardiomediastinal contour is normal. Other: Severe chronic deformity is again seen in the shoulders. IMPRESSION: 1. Bilateral interstitial and airspace opacities are unchanged or slightly improved. 2. Probable trace pleural effusions. EXAM: [id number] XR/[id number] ([id number]) EXAM: CHEST RADIOGRAPHY EXAM DATE: 09/13/2017 10:04 PM. CLINICAL HISTORY: Acute HTN shortness of breath wheezing, tachycardia to 170 w blood transfusion. COMPARISON: 09/12/2017. TECHNIQUE: 1 view. FINDINGS: Lungs/Pleura: Bilateral interstitial and airspace opacities are unchanged or slightly improved. Trace pleural effusions are suspected. No pneumothorax is seen. Mediastinum: Within exam limitations, the cardiomediastinal contour is normal. Other: Severe chronic deformity is again seen in the shoulders. IMPRESSION: 1. Bilateral interstitial and airspace opacities are unchanged or slightly improved. 2. Probable trace pleural effusions. EXAM: [id number] XR/[id number] ([id number]) EXAM: CHEST RADIOGRAPHY EXAM DATE: 09/12/2017 10:52 PM. CLINICAL HISTORY: Cough, hypoxia. COMPARISON: 06/27/2016. TECHNIQUE: 1 view. FINDINGS: Lungs/Pleura: Bilateral interstitial and airspace opacities. Small pleural effusions. No pneumothorax. Mediastinum: Within exam limitations, the cardiomediastinal contour is normal. Other: Severe chronic deformities in both shoulders. Old bilateral rib fractures. IMPRESSION: 1. Bilateral interstitial and air space opacities possibly due to pulmonary edema or volume overload. Infiltrate not excluded. - FOLLOW UP Follow Up: Patient will follow up with PCP and surgery in 2 weeks. Will need colonoscopy with surgery. Started on protonix. Also prescribed metoprolol and lisinopril for CHF. - TIME SPENT Time Spent in Discharge (Minutes): 40
== END 2017-09-14 12:34 | disposition home or self-care (01) | DRG 811 ==
LOC: EDUNIT# → ED 22:33 → EDUNIT# 09-13 00:18 → ICU 09-13 00:18
PROVIDERS: ADMIT Specialist; ATTEND Internal Medicine
PROC: 30233N1 Transfusion of Nonautologous Red Blood Cells into Peripheral Vein, Percutaneous Approach (ICD-10-PCS; 2017-09-13)
PROC: 0DJ08ZZ Inspection of Upper Intestinal Tract, Via Natural or Artificial Opening Endoscopic (ICD-10-PCS; principal; 2017-09-13 15:00)
DX: I50.9 Heart failure, unspecified (principal); D64.9 Anemia, unspecified; I50.23 Acute on chronic systolic (congestive) heart failure; D69.6 Thrombocytopenia, unspecified; F17.200 Nicotine dependence, unspecified, uncomplicated; N18.2 Chronic kidney disease, stage 2 (mild); J44.9 Chronic obstructive pulmonary disease, unspecified; G89.4 Chronic pain syndrome; Z89.612 Acquired absence of left leg above knee; Z89.611 Acquired absence of right leg above knee; T80.89XA Other complications following infusion, transfusion and therapeutic injection, initial encounter; R06.03 Acute respiratory distress; Y84.8 Other medical procedures as the cause of abnormal reaction of the patient, or of later complication, without mention of misadventure at the time of the procedure; Y92.230 Patient room in hospital as the place of occurrence of the external cause; I73.9 Peripheral vascular disease, unspecified; I25.10 Atherosclerotic heart disease of native coronary artery without angina pectoris; F32.9 Major depressive disorder, single episode, unspecified; M81.0 Age-related osteoporosis without current pathological fracture; K44.9 Diaphragmatic hernia without obstruction or gangrene; K21.9 Gastro-esophageal reflux disease without esophagitis; F17.210 Nicotine dependence, cigarettes, uncomplicated; Z79.899 Other long term (current) drug therapy; Z21 Asymptomatic human immunodeficiency virus [HIV] infection status; Z95.5 Presence of coronary angioplasty implant and graft; Z89.629 Acquired absence of unspecified hip joint; Z89.619 Acquired absence of unspecified leg above knee; Z86.73 Personal history of transient ischemic attack (TIA), and cerebral infarction without residual deficits; Z79.891 Long term (current) use of opiate analgesic; Z79.51 Long term (current) use of inhaled steroids
CPT/HCPCS: 36415; 71045; 74177; 80053; 82270; 82607; 82728; 83540; 83615; 83690; 83880; 84466; 84484; 85025; 85044; 85610; 85730; 86850; 86880; 86900; 86901; 86920; 87150; 93005; 93306; 94640; 96374; 99284; 99285

== ENCOUNTER 2017-10-20 07:25 | Day surgery (SDC) | payer MEDICARE, MEDICAID ==
[2017-10-20] MEDS ORDERED: LACTATED RINGERS 1,000 ML IV ONE (08:18)
[2017-10-20] MEDS ORDERED: fentaNYL 250 MCG/5 ML VIAL IVP ONE (09:19)
[2017-10-20] MEDS ORDERED: MIDAZOLAM 2 MG/2 ML VIAL IVP ONE (09:19)
[2017-10-20 09:36] VITALS: BP 90/66
== END 2017-10-20 07:26 | disposition home or self-care (01) ==
LOC: SDS 07:25
PROVIDERS: ATTEND Surgery
PROC: 0DBN8ZX Excision of Sigmoid Colon, Via Natural or Artificial Opening Endoscopic, Diagnostic (ICD-10-PCS; principal; 2017-10-20 08:45)
DX: D50.9 Iron deficiency anemia, unspecified (principal); D12.5 Benign neoplasm of sigmoid colon; K64.8 Other hemorrhoids; F17.210 Nicotine dependence, cigarettes, uncomplicated; I50.9 Heart failure, unspecified; B20 Human immunodeficiency virus [HIV] disease; K21.9 Gastro-esophageal reflux disease without esophagitis; J45.909 Unspecified asthma, uncomplicated
CPT/HCPCS: 45385; J3010; J7120; 88305

== ENCOUNTER 2017-10-23 12:00 | Outpatient (CLI) | payer MEDICARE, MEDICAID | END 2017-10-23 23:59 | LOC: RT 12:00 | PROVIDERS: ATTEND Internal Medicine Cardiovascular Disease | DX: I50.9 Heart failure, unspecified (principal) | CPT/HCPCS: 93005 ==

== ENCOUNTER 2017-11-09 20:18 | Outpatient (CLI) | payer MEDICARE, MEDICAID | END 2017-11-09 20:19 | disposition EMS.NT | LOC: EMS 20:18 | PROVIDERS: ATTEND Surgery | DX: Z03.89 Encounter for observation for other suspected diseases and conditions ruled out (principal); W07.XXXA Fall from chair, initial encounter; Y92.039 Unspecified place in apartment as the place of occurrence of the external cause ==

== ENCOUNTER 2017-11-12 14:18 | Outpatient (CLI) | payer MEDICARE, MEDICAID | END 2017-11-12 14:19 | disposition critical access hospital (66) | LOC: EMS 14:18 | PROVIDERS: ATTEND Surgery | DX: R42 Dizziness and giddiness (principal) | CPT/HCPCS: A0425; A0427 ==

== ENCOUNTER 2017-11-12 14:36 | Inpatient (IN) | payer MEDICARE, MEDICAID ==
[2017-11-12] MEDS ORDERED: SODIUM CHLORIDE 0.9% 1,000 ML IV ONE (15:47)
--- NOTE | 2017-11-12 15:49 | ED Physician Documentation ---
History of Present Illness - Stated complaint Stated Complaint: DIZZY - Chief complaint Chief Complaint: Cardiac - History obtained from History obtained from: Patient - History of Present Illness Timing: Today - Additonal information Additional information: 57 y/o male with bilateral AKA from peripheral vascular disease has had a recent transfusion for symptomatic anemia and he is again feeling light headed and dizzy. He has called the ambulance to come to the hospital. Review of Systems Constitutional: denies: Fever Eyes: denies: Decreased vision Ears: denies: Ear pain Nose: denies: Congestion Throat: denies: Sore throat Cardiac: denies: Chest pain / pressure, Palpitations Respiratory: denies: Dyspnea, Cough GI: denies: Abdominal Pain, Nausea, Vomiting : denies: Dysuria, Frequency Skin: denies: Rash Musculoskeletal: denies: Neck pain, Back pain, Extremity pain Neurologic: reports: Generalized weakness. denies: Focal weakness, Numbness PD PAST MEDICAL HISTORY - Past Medical History Past Medical History: Yes Cardiovascular: Congestive heart failure, Hypertension, High cholesterol, Peripheral Vascular Disease, Deep vein thrombosis Respiratory: COPD, Other Endocrine/Autoimmune: Other GI: GERD, Hiatal hernia : None HEENT: Chronic sinusitis Psych: Depression, Panic attacks Musculoskeletal: Other Derm: Other - Past Surgical History Past Surgical History: Yes General: Colonoscopy, Other Ortho: Amputation Cardiovascular: Fempop bypass - Present Medications Home Medications: Ambulatory Orders Medication Instructions Recorded Confirmed tiZANidine [Zanaflex] 8 mg PO Q8H PRN 02/04/14 11/12/17 Trazodone HCl 100 mg PO QPM 06/27/16 11/12/17 Dolutegravir Sodium [Tivicay] 50 mg PO DAILY 07/17/17 11/12/17 Emtricitabine/Tenofov Alafenam 1 tab PO DAILY 07/17/17 11/12/17 [Descovy 200-25 mg Tablet] Albuterol Sulfate [Proair Hfa 2 puffs INH Q4H PRN 09/13/17 11/12/17 Inhaler] Azelastine HCl 2 spray ELI BID 09/13/17 11/12/17 Mirtazapine 15 mg PO QPM 09/13/17 11/12/17 Morphine Sulfate [Morphine Sulfate 30 mg PO DAILY 09/13/17 11/12/17 ER] Omeprazole 40 mg PO QDAC 09/13/17 11/12/17 Tiotropium [place] [Spiriva] 2 puffs INH DAILY 09/13/17 11/12/17 Metoprolol Succinate 25 mg PO DAILY #30 tab.er.24h 09/14/17 11/12/17 Pantoprazole Sodium [Protonix] 20 mg PO DAILY #30 tablet. 09/14/17 11/12/17 Gabapentin 800 mg PO TID PRN 10/20/17 11/12/17 Lisinopril [Lisinopril] 2.5 mg PO DAILY 11/12/17 11/12/17 - Allergies Allergies/Adverse Reactions: Allergies Allergy/AdvReac Type Severity Reaction Status Date / Time vancomycin Allergy Rash Verified 09/12/17 22:44 - Social History Does the pt smoke?: Yes Smoking Status: Current every day smoker Does the pt drink ETOH?: Yes Does the pt have substance abuse?: Yes - Immunizations Immunizations are current?: Yes - POLST Patient has POLST: No PD ED PE NORMAL - Vitals Vital signs reviewed: Yes (tachy and hypoxia) - General General: Alert and oriented X 3, No acute distress, Well developed/nourished, Other (small 57 y/o male with no legs ) - HEENT HEENT: Atraumatic, PERRL - Neck Neck: Supple, no meningeal sign - Cardiac Cardiac: No murmur, Other (tachy to 110) - Respiratory Respiratory: No respiratory distress, Clear bilaterally - Abdomen Abdomen: Soft, Non tender - Derm Derm: Normal color, Warm and dry, No rash - Extremities Extremities: No edema, Other (there are bilateral AKA's ) - Neuro Neuro: Alert and oriented X 3, No motor deficit, No sensory deficit Eye Opening: Spontaneous Motor: Obeys Commands Verbal: Oriented GCS Score: 15 - Psych Psych: Normal mood, Normal affect Results - Vitals Vitals: Vital Signs - 24 hr 11/12/17 14:46 Temperature 37.0 C Heart Rate 99 Respiratory 18 Rate Blood Pressure 101/69 O2 Saturation 89 L Oxygen O2 Source Room air - EKG (time done) 1444 Rate: Rate (enter#) (95) Ischemia: ST elevation c/w ischemia (isolated to V1 and V2 mild ), Q waves, Other (lateral T wave flatening. ) Compare to prior EKG: Changed from prior EKG (SPT 10-23-2017 rate has increased. ) Computer interpretation: Agree with computer - Labs Labs: Laboratory Tests 11/12/17 11/12/17 11/12/17 15:49 15:49 15:49 WBC 6.2 RBC 1.82 L Hgb 5.2 L* Hct 15.3 L* MCV 83.9 MCH 28.8 MCHC 34.3 RDW 18.4 H Plt Count 29 L* MPV 11.5 H Manual Slide Review Indicated Sodium 130 L Potassium 4.5 Chloride 99 L Carbon Dioxide 21 Anion Gap 10.0 BUN 21 H Creatinine 1.3 H Estimated GFR (MDRD) 57 L Glucose 110 H Calcium 8.2 L Total Bilirubin 0.7 AST 15 ALT 10 Alkaline Phosphatase 48 Troponin I < 0.04 Total Protein 7.0 Albumin 3.8 Globulin 3.2 Albumin/Globulin Ratio 1.2 Lipase 25 Procedures - IVC sono (time) 1525 Bedside IVC sono: IVC measures (cm) (1.22), IVC collapsed c insp (cm) (complete) , Dehydration (est 1 liter deficit) PD MEDICAL DECISION MAKING - ED course Complexity details: reviewed results, re-evaluated patient, considered differential, d/w patient ED course: 57-year-old male who has peripheral vascular disease and is status post bilateral AKA has developed some lightheadedness and dizziness today. He states that this is happened to him previously when his blood pressure is fluctuating and that he does not have a blood pressure cuff but feels that it would be important to take his blood pressure before taking his blood pressure medicines. He has come to the emergency department with this previously has been diagnosed with anemia and required transfusion and work up was negative for source of bleeding. Today he is volume depleted and has significant anemia. Departure - Departure Disposition: [facility] DC/Xfer Clinical Impression: Symptomatic anemia
[2017-11-12 16:12] LABS: BASOPHILS % (AUTO) 4.9 %; EOSINOPHILS % (AUTO) 0.5 %; LYMPHOCYTES % (AUTO) 18.8 %; MEAN CORPUSCULAR HEMOGLOBIN 28.8 pg (27.0-31.0); MEAN CORPUSCULAR HGB CONC 34.3 g/dL (32.0-36.0); MEAN CORPUSCULAR VOLUME 83.9 fL (80.0-94.0); MEAN PLATELET VOLUME 11.5 fL (7.4-11.4); MONOCYTES % (AUTO) 4.3 %; NEUTROPHILS % (AUTO) 71.5 %; RED BLOOD COUNT 1.82 10^6/uL (4.70-6.10); RED CELL DISTRIBUTION WIDTH 18.4 % (12.0-15.0); WHITE BLOOD COUNT 6.2 x10^3/uL (4.8-10.8)
[2017-11-12 16:14] LABS: HGB - HEMOGLOBIN 5.2 g/dL (14.0-18.0); PLT - PLATELET COUNT 29 10^3/uL (130-450)
[2017-11-12 16:28] LABS: ALBUMIN 3.8 g/dL (3.2-5.5); ALBUMIN/GLOBULIN RATIO 1.2 (1.0-2.2); BILIRUBIN,TOTAL 0.7 mg/dL (0.2-1.0); CALCIUM 8.2 mg/dL (8.5-10.3); CREATININE 1.3 mg/dL (0.6-1.2)
[2017-11-12] MEDS ORDERED: SODIUM CHLORIDE FLUSH 0.9% 10 ML SYRINGE IVP PRN (16:46)
--- NOTE | 2017-11-12 16:48 | HISTORY & PHYSICAL EXAMINATION ---
Chief Complaint - Chief Complaint Chief Complaint: dizziness, lethargy History of Present Illness - Admitted From Admitted From:: ED - History Obtained From Records Reviewed: yes, including Centricity History obtained from: patient, chart review Exam Limitations: none, patient very talkative. Poor historian. - History of Present Illness HPI Comment/Other: Jonny Jang is an ill appearing 57-year old white male with a past medical history of benign neoplasm of sigmoid colon, internal hemorrhoids, CHF, asthma, COPD, GERD, hiatal hernia, HIV since 1996, depression, anxiety, panic disorder, insomnia, tobacco dependence, marijuana use, vaping use, chronic opioid dependence, PVD with claudication, CVA, status post bilateral AKA, hypertension , coronary stent, fempop bypass, skin CA, osteoarthritis, history of left humerus fracture, bilateral carpal tunnel syndrome, sinusitis, chronic pain, osteomylitis with +MRSA, hypoganadism, dental caries, and malnutrition. The patient was brought in by EMS after complaints of dizziness, lethargy and once in the ED was found to be very anemic with a hemoglobin of 5.2 and a hematocrit of 15.3. He underwent a colonoscopy on 10/20/17 in which polyps were removed, sent to pathology and was negative for neoplasm. The patient will be admitted to inpatient for further work up; including administration of PRBCs. He denies SOB, chest pain, N/V, abdominal pain, changes in urination or bowel habits, or recent headaches. Case management will be contacted in the morning for insurance issues and a PCP who can prescribe chronic narcotics. 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 carpel tunnel) Derm: reports: Other (skin cancer anterior head (scalp).) MRSA Hx?: Yes - Past Surgical History General: reports: Colonoscopy, Other (bilateral inguinal hernia repair at age 18 years.) Ortho: reports: Amputation (bilateral AKA) Cardiovascular: reports: Coronary stent, Cardiac catheterization, Fempop bypass Derm: reports: Skin grafts, Skin cancer surgery - Family & Social History Family History: Mother: , Alzheimer's Disease, Diabetes, Type 2, Father : , PVD/PAD, Sister: , PVD/PAD, Brother: , PVD/PAD Family History Comment/Other: The patient has no more direct living family members. His mother had Alzheimers, DM, father had vascular disease, sister and brother with vascular disease. Living arrangement: At home Living Situation: Alone, With caregiver(s) (5 days per week commercial housekeeper. Patient is home bound. Having no legs inhibits his mobility.) Social History Notes: The patient grew up in [place], had no children and has never been . 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 He contracted HIV in the year 1996 and has been on disability since the year 1999. He moved to [facility] about 4 years ago as he had friends that live here. He no longer has any close family, friends or support to speak of. He currently lives alone and is considered home bound due to his extreme debility of having no legs. He has a resident care technician only for house work that comes to his home during the 5 week days. He has been affiliated with several clinics, but cannot seem to keep a provider for very long due to his chronic narcotic prescriptions, and claims that he can never urinate on command for a drug screen. He admits to previous alcohol use, current tobacco dependence that has decreased from ~3 PPD to just 1 PPD and he has been a life long smoker with no interest of quitting. He also admits to marijuana use and denies heroin, cocaine, or other illicit drug use. He wishes to be a FULL code. - Substance History Use: Uses substance without health or social issues: Tobacco, Cannabis Use Issues: Anxiety Disorder, Mood Disorder, Opioid Induced Psychotic, Sleep Disorder Abuse: Recurrent use of substance despite neg consequences: NONE, Cannabis Abuse Issues: Anxiety Disorder, Mood Disorder, Sleep Disorder Dependence: Experiences withdrawal or developed tolerances: Tobacco, Cannabis Dependence Issues: Anxiety Disorder, Mood Disorder Tobacco Details: Cigarettes, E-Cigarettes (vape) - POLST Patient has POLST: No POLST Status: Full Code Meds/Allgy - Home Medications Home Medications: Ambulatory Orders Medication Instructions Recorded Confirmed tiZANidine [Zanaflex] 8 mg PO Q8H PRN 02/04/14 11/12/17 Trazodone HCl 100 mg PO QPM 06/27/16 11/12/17 Dolutegravir Sodium [Tivicay] 50 mg PO DAILY 07/17/17 11/12/17 Emtricitabine/Tenofov Alafenam 1 tab PO DAILY 07/17/17 11/12/17 [Descovy 200-25 mg Tablet] Albuterol Sulfate [Proair Hfa 2 puffs INH Q4H PRN 09/13/17 11/12/17 Inhaler] Azelastine HCl 2 spray ELI BID 09/13/17 11/12/17 Mirtazapine 15 mg PO QPM 09/13/17 11/12/17 Morphine Sulfate [Morphine Sulfate 30 mg PO DAILY 09/13/17 11/12/17 ER] Omeprazole 40 mg PO QDAC 09/13/17 11/12/17 Tiotropium [place] [Spiriva] 2 puffs INH DAILY 09/13/17 11/12/17 Metoprolol Succinate 25 mg PO DAILY #30 tab.er.24h 09/14/17 11/12/17 Pantoprazole Sodium [Protonix] 20 mg PO DAILY #30 tablet.dr 09/14/17 11/12/17 Gabapentin 800 mg PO TID PRN 10/20/17 11/12/17 Lisinopril [Lisinopril] 2.5 mg PO DAILY 11/12/17 11/12/17 - Allergies Allergies/Adverse Reactions: Allergies Allergy/AdvReac Type Severity Reaction Status Date / Time vancomycin Allergy Rash Verified 09/12/17 22:44 Review of Systems - Constitutional Constitutional: reports: Fatigue, Weakness, Poor appetite - Eyes Eyes: reports: Corrective lenses - Ears, Nose & Throat Ears, Nose & Throat: reports: Postnasal drainage, Dental decay - Cardiovascular Cariovascular: reports: Lightheadedness - Respiratory Respiratory: reports: Orthopnea - Gastrointestinal Gastrointestinal: reports: Reflux/heartburn, Poor appetite - Musculoskeletal Musculoskeletal: reports: Muscle aches, Limited range of motion, Joint pain, Joint swelling - Integumentary Integumentary: reports: Lesions (skin cancer-not acute.), Dryness - Neurological Neurological: reports: General weakness, Dizziness, Memory problems, Pre- existing deficit - Psychiatric Psychiatric: reports: Depression, Anxiety, Other (panic disorder) - Hematologic/Lymphatic Hematologic/Lymphatic: reports: Anemia - All Other Systems All Other Systems: reports: Reviewed and negative Exam - Vital Signs Reviewed Vital Signs: Yes Vital Signs: Vital Signs x48h Temp Pulse Resp BP Pulse Ox 11/12/17 14:46 37.0 C 99 18 101/69 89 L - Physical Exam General Appearance: positive: No acute distress, Alert Eyes Bilateral: positive: Normal inspection, PERRL ENT: positive: ENT inspection nml, Pharynx nml, Pharyngeal erythema, Dry mucous membranes Neck: positive: Nml inspection, Thyroid nml, No JVD, Trachea midline, Stiff neck Respiratory: positive: Chest non-tender, No respiratory distress, Breath sounds nml Cardiovascular: positive: Regular rate & rhythm, No gallop, Systolic murmur, Decreased pulse(s) Peripheral Pulses: positive: 1+ (bilateral AKA) Abdomen: positive: Non-tender, No organomegaly, Nml bowel sounds Back: positive: Nml inspection Skin: positive: No rash, Warm, Dry, Pallor Extremities: positive: Non-tender (bilateral AKA, no other edema noted.) Neurologic/Psychiatric: positive: Oriented x3, CN's nml (2-12), Motor nml, Sensation nml, Weakness, Sensory loss, Depressed mood/affect Reflexes: Bicep (R): 3+, Bicep (L): 3+ Conclusion/Plan - Problem List (1) Iron deficiency anemia Conclusion/Plan: The patient has a history of this as per chart review. There is not suspected acute blood loss. This is likely a gradual decline of blood, and today the patient became symptomatic with a feeling of dizziness, lethargy and increased weakness/fatigue. He has +HIV, CKD and a history of osteomylitis that could be contributors to this anemia. Upon presentation to ED he was found to have an H/ H of just 5.2/15.3. He had a colonoscopy on 10/20/[address] Yates in which ~ 5 polyps were discovered, sent for pathology and was negative for neoplasm. Given that the patient has long-standing HIV infection, this may be the most likely cause of his anemia. Plan: Replace with PRBCs; one unit tonight followed by another tomorrow as per patient request. AM labs will include; CVC, peripheral blood smear, CMP, lactate dehydrogenase, haptoglobin levels, direct antiglobin (Kj) testing, vitamin B12, folate, serum iron, transferrin, ferritin, stool testing for malaria/intestinal parasitic infections, CD4 count, and erythropoietin levels. Qualifiers: Iron deficiency anemia type: unspecified iron deficiency Qualified Code(s) : D50.9 - Iron deficiency anemia, unspecified (2) HIV (human immunodeficiency virus infection) Conclusion/Plan: The patient is prescribed a combo regimn for his disease that include emtricitabine/tenofovir and dolutegravir. He states that he does not have the actual pill bottles as these are at his apartment. I suspect that our pharmacy does not provide these, so these may have to be placed on hold during this hospital stay. The patient is thought to be in stage 3 of 4 of his disease progression. Now he has unexplained anemia, and chronic thrombocytopenia for greater than one month, confirmatory diagnostic testing should be completed to confirm the AIDs diagnoses. Plan: Order CD4 level for the AM and monitor CBC. (3) S/P bilateral above knee amputation Conclusion/Plan: The patient has known PVD disease and has a history of a Fempop procedure. He states that he had a bilateral AKA in the year 2003 due to vascular disease. This has caused him to be permanently home bound and severely debilitated. He recieves house keeping services during the week 5 days per week, but no personal aides. He has had numerous episodes of osteomylitis and has been to our wound clinic in the past. He remains with 2 areas of non-healing lesions that appear scabbed over and slightly red upon exam, both on LLE. Plan: Continue to monitor, prevent falls by using a bed alarm if indicated. (4) Protein-calorie malnutrition Conclusion/Plan: As per literature review, nutritional deficiencies are common in patients with advanced immunosuppression, stemming from the combined impact of anorexia, medication related GI disturbances, wasting, and malabsorption. The patient admits to long standing anorexia and states, "I am just not hungry". Plan: Encourage PO intake and I appreciate a nutritional consult in the AM. Qualifiers: Protein-calorie malnutrition severity: mild Qualified Code(s): E44.1 - Mild protein-calorie malnutrition (5) Opioid dependence Conclusion/Plan: The patient admits to several years of narcotic use. He talked about not being able to get transportation to his previous pain clinics and being rejected care at pain clinics due to the urine drug screen non-compliance in which he could not provide a urine sample "on demand" as requested. He is astranged from most everyone from his past, including friends and family. He states that he has weaned off of his previous dose of up to 90mg daily to just 30mg daily ER. He is very concerned about his new PCP and her inability to prescribe a chronic narcotic. Plan: Prescribe short acting IV morphine for overnight and continue long acting is B/P allows. (6) Tobacco dependence Conclusion/Plan: The patient admits to life-long tobacco abuse, and states that he has really cut back from his previous habit of over 3 PPD now to just 1 PPD. He expresses no interest in quitting. Plan: Provide a nicotine patch while in the hospital. (7) Anxiety disorder Conclusion/Plan: The patient has evidence of "a loss of control", and talks about his difficulties with the healthcare system. Specifically regarding finding a PCP who will prescribe his chronic extended release morphine. He states that for several years he was prescribed up to 90mg per day, that is now at 30mg ER. He also stated that he took his long acting dose this AM and will not need another dose until tomorrow. The home medication list does not include any antipsychotic medications or antidepressants. Plan: Monitor mental status and well being. Provide extra time as needed for further recreational counselor. Refer patient to our case management team for assistance with a narcotic prescriber/pain clinic in the patient's community. Qualifiers: Anxiety disorder type: other mixed anxiety disorder Qualified Code(s): F41.3 - Other mixed anxiety disorders (8) Short-term memory loss Conclusion/Plan: The patient's chart does not reveal this and this may be a temporary problem due to his acute anemia. When questioned on certain facts regarding chronic illnesses, he denied or could not elaborate on details. Plan: Continue to monitor mental status. (9) Complete immobility due to severe physical disability or frailty Conclusion/Plan: The patient has profound debility and is considered home bound due to his ongoing bilateral AKA. He has house keeping services 5 days per week. Plan: PT/OT evaluation before discharge. Fall precautions and call light within reach. (10) CKD (chronic kidney disease) stage 3, GFR 30-59 ml/min Conclusion/Plan: The patient has known kidney failure and is considered in CKD stage 3. His GFR was 57 with a creatinine of 1.5 upon admit. This is likely a combination of factors including vascular disease, multiple surgeries, several chronic wounds with osteomylitis that required termite inspector antibiotics that were likely nephrotoxic. Plan: Continue to monitor labs, avoid nephrotoxins, and replace H/H. (11) Thrombocytopenia Conclusion/Plan: In addition to the patient being severely anemic, he is also found to have a low platelet level of just 29. This combination of both anemia; with a hemoglobin of less than 8, and a low platelet level less than 50, may be indicative of advanced HIV infection, AIDS, or a type of lymphoma. If the patient's platelet count is less than 10, I will plan to replace. Plan: I will reach out to a provider through the that specialize in the treatment and management of AIDs/HIVs. Watch for signs of bleeding or decline. - Lab Results Lab results reviewed: Yes Celso Bones: 11/12/17 15:49 11/12/17 15:49 - Diagnostic Imaging Results Diagnostic Imaging Results: positive: Prelim report reviewed - EKG Results EKG Interpreted Independently: Yes Core Measures - Anticipated LOS I expect patient to be DC'd or transferred within 96 hours.: Yes - DVT/VTE - Prophylaxis VTE/DVT Device ordered at admit?: Yes VTE/DVT Prophylaxis med ordered at admit?: Yes - Stroke - Rehab Assessment Rehab services assessment to be ordered?: Yes - AMI - Statin at Admit Aspirin Prescribed on Admit: Yes
[2017-11-12 17:11] LABS: ABNORMAL LYMPHS % (MANUAL) 3 %; BAND NEUTROPHILS % (MANUAL) 14 %; LYMPHOCYTES # (MANUAL) 1.1 10^3/uL (1.5-3.5); LYMPHOCYTES % (MANUAL) 15 %; METAMYELOCYTES % (MANUAL) 7 %; MONOCYTES # (MANUAL) 0.1 10^3/uL (0.0-1.0); MYELOCYTES % (MANUAL) 7 %; NEUTROPHILS % (MANUAL) 50 %; PROMYELOCYTES % (MANUAL) 3 %
[2017-11-12 17:13] LABS: PLATELET ESTIMATE, MANUAL DECREASED (<130,000) (NORMAL); PLATELET MORPHOLOGY 1+ GIANT PLATELETS (NORMAL)
[2017-11-12] MEDS ORDERED: ACETAMINOPHEN 325 MG TABLET PO ONE (17:44)
[2017-11-12] MEDS ORDERED: diphenhydrAMINE 25 MG CAPSULE PO ONE (17:45)
[2017-11-12] MEDS ORDERED: SODIUM CHLORIDE 0.9% 1,000 ML IV SCH (18:00)
[2017-11-12] MEDS: SODIUM CHLORIDE FLUSH 0.9% 10 ML SYRINGE IVP SCH ×3 (18:36→23:40)
[2017-11-12] MEDS: BUDESONIDE 0.5 MG/2 ML NEB INH SCH (20:10)
[2017-11-12] MEDS: IPRATROPIUM/ALBUTEROL 3 ML NEB INH PRN (20:10)
[2017-11-12] MEDS: traZODone 50 MG TABLET PO SCH (22:36)
[2017-11-12] MEDS: MORPHINE 2 MG/ML SYRINGE IVP PRN (22:36)
[2017-11-12] MEDS: NICOTINE 21 MG PATCH TOP SCH (22:37)
[2017-11-13] MEDS ORDERED: SODIUM CHLORIDE 0.65% NASAL SPRAY NAS PRN (00:02)
[2017-11-13] MEDS: OXYMETAZOLINE NASAL SPRAY NAS SCH ×3 (01:00→21:36)
[2017-11-13] MEDS ORDERED: ENOXAPARIN 40 MG/0.4 ML SYRINGE SUBQ SCH (01:00)
[2017-11-13] MEDS ORDERED: LIDOCAINE PATCH 5% TOP PRN (07:12)
[2017-11-13] MEDS: IPRATROPIUM/ALBUTEROL 3 ML NEB INH PRN ×2 (07:50→18:06)
[2017-11-13] MEDS: BUDESONIDE 0.5 MG/2 ML NEB INH SCH ×2 (07:50→18:06)
[2017-11-13] MEDS: METOPROLOL SUCCINATE 25 MG TABLET PO SCH (09:46)
[2017-11-13] MEDS: NICOTINE 21 MG PATCH TOP SCH (09:47)
[2017-11-13] MEDS: Emtricitabine/Tenofov Alafenam [Descovy 200-25 Mg Tablet] PO SCH (09:49)
[2017-11-13] MEDS: POLYETHYLENE GLYCOL 3350 17 GM PACKET PO SCH (09:49)
[2017-11-13] MEDS: SODIUM CHLORIDE FLUSH 0.9% 10 ML SYRINGE IVP SCH ×3 (09:49→23:47)
[2017-11-13] MEDS: Dolutegravir Sodium [Tivicay] 50 MG PO SCH (09:49)
[2017-11-13 10:10] LABS: BASOPHILS % (AUTO) 2.9 %; EOSINOPHILS % (AUTO) 0.7 %; LYMPHOCYTES % (AUTO) 15.4 %; MEAN CORPUSCULAR HEMOGLOBIN 30.1 pg (27.0-31.0); MEAN CORPUSCULAR HGB CONC 34.6 g/dL (32.0-36.0); MEAN PLATELET VOLUME 10.7 fL (7.4-11.4); RED BLOOD COUNT 2.31 10^6/uL (4.70-6.10); RED CELL DISTRIBUTION WIDTH 17.8 % (12.0-15.0); WHITE BLOOD COUNT 5.2 x10^3/uL (4.8-10.8)
[2017-11-13 10:17] LABS: HGB - HEMOGLOBIN 6.9 g/dL (14.0-18.0); PLT - PLATELET COUNT 22 10^3/uL (130-450)
[2017-11-13 10:24] LABS: ALBUMIN 3.7 g/dL (3.2-5.5); ALBUMIN/GLOBULIN RATIO 1.2 (1.0-2.2); BILIRUBIN,TOTAL 0.9 mg/dL (0.2-1.0); CALCIUM 8.4 mg/dL (8.5-10.3); CREATININE 1.1 mg/dL (0.6-1.2); TOTAL PROTEIN 6.8 g/dL (6.7-8.2)
[2017-11-13 10:42] LABS: ABNORMAL LYMPHS % (MANUAL) 0 %
[2017-11-13 10:51] LABS: BAND NEUTROPHILS % (MANUAL) 12 %; BASOPHILS # (MANUAL) 0.2 10^3/uL (0-0.1); BASOPHILS % (MANUAL) 4 %; LYMPHOCYTES # (MANUAL) 1.2 10^3/uL (1.5-3.5); LYMPHOCYTES % (MANUAL) 18 %; METAMYELOCYTES % (MANUAL) 7 %; MONOCYTES # (MANUAL) 0.1 10^3/uL (0.0-1.0); MYELOCYTES % (MANUAL) 9 %; NEUTROPHILS # (MANUAL) 2.9 10^3/uL (1.5-6.6); NEUTROPHILS % (MANUAL) 43 %
[2017-11-13 10:52] LABS: PLATELET ESTIMATE, MANUAL DECREASED (<130,000) (NORMAL); PLATELET MORPHOLOGY RARE GIANT PLATELETS (NORMAL); RBC MORPHOLOGY (MULTIPLE) 4+ ANISOCYTOSIS (NORMAL)
[2017-11-13 10:53] LABS: DIFFERENTIAL COMMENT MANUAL DIFFERENTIAL
[2017-11-13] MEDS ORDERED: TESTOSTERONE CYPIONATE 200 MG/ML VIAL IM ONE (17:12)
[2017-11-13] MEDS ORDERED: LORazepam 0.5 MG TABLET PO PRN (17:13)
[2017-11-13] MEDS ORDERED: tiZANidine 4 MG TABLET PO PRN (17:14)
[2017-11-13] MEDS ORDERED: GABAPENTIN 400 MG CAPSULE PO PRN (17:14)
--- NOTE | 2017-11-13 17:16 | PROVIDER PROGRESS NOTE ---
Subjective - Prog Note Date Prog Note Date: 11/13/17 Prog Note Time: 09:00 - Subjective Pt reports feeling: Improved Subjective: Jonny claims to feel much improved since getting only one unit of blood. He denies SOB, chest pain, N/V or a new cough. He wishes to be discharged, but I encouraged him to allow for one more unit of blood, allow for the send out results, and to obtain records from [facility], Dr. Munoz who is the patient's HIV provider. Current Medications - Current Medications Current Medications: Active Medications Albuterol/Ipratropium (Duoneb) 3 ml INH Q4HR PRN PRN Reason: Wheezing Last Admin: 11/13/17 07:50 Dose: 3 ml Budesonide (Pulmicort) 0.5 mg INH RTBID [facility] Last Admin: 11/13/17 07:50 Dose: 0.5 mg Diphenhydramine HCl (Benadryl) 25 mg PO Q4HR PRN PRN Reason: Allergy Symptoms Dronabinol (Marinol) 2.5 mg PO TID [facility] Lidocaine (Lidoderm Patch) 1 patch TOP DAILY PRN PRN Reason: PAIN Lorazepam (Ativan) 0.5 mg PO Q6H PRN PRN Reason: Anxiety Metoprolol Succinate (Toprol Xl) 25 mg PO DAILY [facility] Last Admin: 11/13/17 09:46 Dose: Not Given Mirtazapine (Remeron) 15 mg PO QPM [facility] Morphine Sulfate (Morphine) 2 mg IVP Q2H PRN PRN Reason: PAIN Last Admin: 11/12/17 22:36 Dose: 2 mg Nicotine (Nicoderm) 1 patch TOP DAILY [facility] Last Admin: 11/13/17 09:47 Dose: 1 patch Non-Formulary Medication (Gabapentin [Gabapentin]) 800 mg PO TID PRN PRN Reason: PAIN Non-Formulary Medication (Morphine Sulfate [Morphine Sulfate Er]) 30 mg PO DAILY [facility] Non-Formulary Medication (Pantoprazole Sodium [Protonix]) 20 mg PO DAILY [facility] Oxymetazoline HCl (Afrin) 2 sprays ELI BID [facility] Stop: 11/16/17 00:59 Last Admin: 11/13/17 13:12 Dose: Not Given Dolutegravir Sodium ([Tivicay] 50 Mg) 1 each PO DAILY [facility] Last Admin: 11/13/17 09:49 Dose: Not Given Emtricitabine/Tenofov Alafenam [ Descovy 200-25 Mg Tablet] 1 each PO DAILY [facility] Last Admin: 11/13/17 09:49 Dose: Not Given Polyethylene Glycol (Miralax) 17 gm PO DAILY [facility] Last Admin: 11/13/17 09:49 Dose: Not Given Multivit/Folic Acid/Iron ([facility] Rx 1) [facility] Sodium Chloride (Normal Saline Flush 0.9%) 10 ml IVP PRN PRN PRN Reason: NEEDED PER PROVIDER ORDERS Sodium Chloride (Normal Saline Flush 0.9%) 10 ml IVP 0100,0900,1700 [facility] Last Admin: 11/13/17 09:49 Dose: 10 ml Sodium Chloride (Blanche) 2 sprays ELI Q4HR PRN PRN Reason: Nasal Congestion Last Admin: 11/13/17 09:48 Dose: 1 spr Testosterone Cypionate (Depo-Testosterone) 200 mg IM ONCE ONE Stop: 11/13/17 17:13 Tizanidine HCl (Zanaflex) 8 mg PO Q8H PRN PRN Reason: Spasms Trazodone HCl (Desyrel) 100 mg PO QPM [facility] Last Admin: 11/12/17 22:36 Dose: 100 mg Triamcinolone Acetonide (Nasacort Aq) 2 sprays ELI DAILY [facility] tiZANidine [Zanaflex] 8 mg PO Q8H PRN 02/04/14 Trazodone HCl 100 mg PO QPM 06/27/16 Dolutegravir Sodium [Tivicay] 50 mg PO DAILY 07/17/17 Emtricitabine/Tenofov Alafenam [Descovy 200-25 mg Tablet] 1 tab PO DAILY Albuterol Sulfate [Proair Hfa Inhaler] 2 puffs INH Q4H PRN 09/13/17 Azelastine HCl 2 spray ELI BID 09/13/17 Mirtazapine 15 mg PO QPM 09/13/17 Morphine Sulfate [Morphine Sulfate ER] 30 mg PO DAILY 09/13/17 Omeprazole 40 mg PO QDAC 09/13/17 Tiotropium Guild [Spiriva] 2 puffs INH DAILY 09/13/17 Gabapentin 800 mg PO TID PRN 10/20/17 Lisinopril [Lisinopril] 2.5 mg PO DAILY 11/12/17 Objective - Vital Signs/Intake & Output Reviewed Vital Signs: Yes Vital Signs: Vital Signs x48h Temp Pulse Resp BP BP Pulse Ox 11/13/17 16:00 37.1 C 105 H 16 151/85 H 100 11/13/17 12:32 36.8 C 112 H 16 137/65 H 100 Intake & Output: Intake & Output 11/10/17 11/11/17 11/12/17 11/13/17 23:59 23:59 23:59 23:59 Intake Total 1562.5 960 Output Total 550 1775 Balance 1012.5 -815 - Objective General Appearance: positive: No acute distress, Alert, Anxious Eyes Bilateral: positive: Normal inspection Eyes: OU Conjunctivae pale ENT: positive: ENT inspection nml, Pharynx nml, Pharyngeal erythema, Dry mucous membranes Neck: positive: Nml inspection, Thyroid nml, No JVD, Trachea midline, Lymphadenopathy (R), Lymphadenopathy (L), Stiff neck Respiratory: positive: Chest non-tender, No respiratory distress, Breath sounds nml Cardiovascular: positive: Regular rate & rhythm, No gallop, Tachycardia Peripheral Pulses: 2+ Radial (R), 2+ Radial (L) Abdomen: positive: Non-tender, No organomegaly, Nml bowel sounds Back: positive: Nml inspection Skin: positive: No rash, Warm, Dry, Diaphoresis, Pallor Extremities: positive: Joint swelling (+carpel tunnel, tenderness, numbness and tingling to bilateral UEs.) Neurologic/Psychiatric: positive: Oriented x3, CN's nml (2-12), Motor nml, Sensation nml, Depressed mood/affect Reflexes: Bicep (R): 2+, Bicep (L): 2+ - Lab Results Fish Bones: 11/13/17 09:54 11/13/17 09:54 Other Labs: Lab Results x24hrs 11/13/17 11/13/17 11/13/17 Range/Units 09:54 09:54 09:54 WBC (4.8-10.8) x10^3/uL RBC (4.70-6.10) 10^6/uL Hgb (14.0-18.0) g/dL Hct (42.0-52.0) % MCV (80.0-94.0) fL MCH (27.0-31.0) pg MCHC (32.0-36.0) g/dL RDW (12.0-15.0) % Plt Count (130-450) 10^3/uL MPV (7.4-11.4) fL Neut # Lymph # [place] # Eos # Baso # Absolute Nucleated RBC Total Counted Band Neuts % (Manual) (0 - 10) % Reactive Lymphs % (Man) % Abnorm Lymph % (Manual) % Metamyelocytes % ( - 0) % Myelocytes % ( - 0) % Nucleated RBC % Neutrophils # (Manual) (1.5-6.6) 10^3/uL Lymphocytes # (Manual) (1.5-3.5) 10^3/uL Monocytes # (Manual) (0.0-1.0) 10^3/uL Eosinophils # (Manual) (0-0.7) 10^3/uL Basophils # (Manual) (0-0.1) 10^3/uL Nucleated RBCs % Differential Comment Manual Slide Review Platelet Estimate (NORMAL) Platelet Morphology (NORMAL) RBC Morph Micro Appear (NORMAL) Sodium (135-145) mmol/L Potassium (3.5-5.0) mmol/L Chloride (101-111) mmol/L Carbon Dioxide (21-32) mmol/L Anion Gap (6-13) BUN (6-20) mg/dL Creatinine (0.6-1.2) mg/dL Estimated GFR (MDRD) (>89) Glucose (70-100) mg/dL Calcium (8.5-10.3) mg/dL Iron (45-182) ug/dL TIBC (250-450) ug/dL % Saturation (20-50) % Transferrin (180-329) mg/dL Total Bilirubin (0.2-1.0) mg/dL AST (10-42) IU/L ALT (10-60) IU/L Alkaline Phosphatase (42-121) IU/L Lactate Dehydrogenase 411 H (91-225) IU/L Total Protein (6.7-8.2) g/dL Albumin (3.2-5.5) g/dL Globulin (2.1-4.2) g/dL Albumin/Globulin Ratio (1.0-2.2) Vitamin B12 547 (180-914) pg/mL Blood Type Antibody Screen ANNALEE, Polyspecific NEGATIVE Crossmatch IS Only 11/13/17 11/13/17 11/12/17 Range/Units 09:54 09:54 16:55 WBC 5.2 (4.8-10.8) x10^3/uL RBC 2.31 L (4.70-6.10) 10^6/uL Hgb 6.9 L* (14.0-18.0) g/dL Hct 20.0 L* (42.0-52.0) % MCV 87.0 (80.0-94.0) fL MCH 30.1 (27.0-31.0) pg MCHC 34.6 (32.0-36.0) g/dL RDW 17.8 H (12.0-15.0) % Plt Count 22 L* (130-450) 10^3/uL MPV 10.7 (7.4-11.4) fL Neut # Not Reportable Lymph # Not Reportable [place] # Not Reportable Eos # Not Reportable Baso # Not Reportable Absolute Nucleated RBC Not Reportable Total Counted 100 Band Neuts % (Manual) 12 H (0 - 10) % Reactive Lymphs % (Man) 6 % Abnorm Lymph % (Manual) 0 % Metamyelocytes % 7 H ( - 0) % Myelocytes % 9 H ( - 0) % Nucleated RBC % Not Reportable Neutrophils # (Manual) 2.9 (1.5-6.6) 10^3/uL Lymphocytes # (Manual) 1.2 L (1.5-3.5) 10^3/uL Monocytes # (Manual) 0.1 (0.0-1.0) 10^3/uL Eosinophils # (Manual) 0.0 (0-0.7) 10^3/uL Basophils # (Manual) 0.2 H (0-0.1) 10^3/uL Nucleated RBCs 1 % Differential Comment MANUAL DIFFERENTIAL Manual Slide Review Indicated Platelet Estimate DECREASED (<130,000) (NORMAL) Platelet Morphology RARE GIANT PLATELETS (NORMAL) RBC Morph Micro Appear 4+ ANISOCYTOSIS (NORMAL) Sodium 132 L (135-145) mmol/L Potassium 3.6 (3.5-5.0) mmol/L Chloride 103 (101-111) mmol/L Carbon Dioxide 22 (21-32) mmol/L Anion Gap 7.0 (6-13) BUN 14 (6-20) mg/dL Creatinine 1.1 (0.6-1.2) mg/dL Estimated GFR (MDRD) 69 L (>89) Glucose 123 H (70-100) mg/dL Calcium 8.4 L (8.5-10.3) mg/dL Iron 195 H (45-182) ug/dL TIBC 230 L (250-450) ug/dL % Saturation 85 H (20-50) % Transferrin 164 L (180-329) mg/dL Total Bilirubin 0.9 (0.2-1.0) mg/dL AST 16 (10-42) IU/L ALT 10 (10-60) IU/L Alkaline Phosphatase 53 (42-121) IU/L Lactate Dehydrogenase (91-225) IU/L Total Protein 6.8 (6.7-8.2) g/dL Albumin 3.7 (3.2-5.5) g/dL Globulin 3.1 (2.1-4.2) g/dL Albumin/Globulin Ratio 1.2 (1.0-2.2) Vitamin B12 (180-914) pg/mL Blood Type A POSITIVE Antibody Screen NEGATIVE ANNALEE, Polyspecific Crossmatch IS Only See Detail - Diagnostic Imaging Diagnostic Imaging Results: positive: Final report reviewed ABX Reporting Has patient been on IV antibiotics over the past 48 hours?: No Assessment/Plan - Problem List (1) Iron deficiency anemia Impression: The patient has a history of this as per chart review. There is not suspected acute blood loss. This is likely a gradual decline of blood, and today the patient became symptomatic with a feeling of dizziness, lethargy and increased weakness/fatigue. He has +HIV, CKD and a history of osteomylitis that could be contributors to this anemia. Upon presentation to ED he was found to have an H/ H of just 5.2/15.3, which improved to 6.9/20.0 after only one unit of PRBCs. He had a colonoscopy on 10/20/[address] Yates in which ~5 polyps were discovered, sent for pathology and was negative for neoplasm. Given that the patient has long-standing HIV infection, this may be the most likely cause of his anemia. Attempts to contact primary HIV provider Dr. Munoz. A fax was sent to obtain records. Lactate dehydrogenase was elevated at 411, which could indicate lymphoma, TB, or toxoplasmosis. This case is intended to be review further with Dr. Munoz. Plan: Replace with PRBCs and encourage one more night of stay. CD4 count is a send out and is pending. Qualifiers: Iron deficiency anemia type: unspecified iron deficiency Qualified Code(s) : D50.9 - Iron deficiency anemia, unspecified (2) HIV (human immunodeficiency virus infection) Impression: The patient is prescribed a combo regimn for his disease that include emtricitabine/tenofovir and dolutegravir. This is on hold while in the hospital and the patient did not bring his meds from home. The patient is thought to be in stage 3 of 4 of his disease progression. Now he has unexplained anemia, and chronic thrombocytopenia for greater than one month, confirmatory diagnostic testing should be completed to confirm the AIDs diagnoses. A fax to obtain records from Dr. Munoz was sent and I will attempt to make contact in the morning to review his case. Plan: A CD4 level is pending and is a "send out" to [employer] (3) S/P bilateral above knee amputation Impression: The patient has known PVD disease and has a history of a Fempop procedure. He states that he had a bilateral AKA in the year 2003 due to vascular disease. This has caused him to be permanently home bound and severely debilitated. He recieves house keeping services during the week 5 days per week, but no personal aides. He has had numerous episodes of osteomylitis and has been to our wound clinic in the past. He remains with 2 areas of non-healing lesions that appear scabbed over and slightly red upon exam, both on LLE. Plan: Continue to monitor, prevent falls by using a bed alarm if indicated. (4) Protein-calorie malnutrition Impression: As per literature review, nutritional deficiencies are common in patients with advanced immunosuppression, stemming from the combined impact of anorexia, medication related GI disturbances, wasting, and malabsorption. The patient admits to long standing anorexia and states, "I am just not hungry". A nutritional consult was completed and suggests to add a multi-vitamin. Plan: Encourage PO intake and give marinol PO with meals as prescribed. Qualifiers: Protein-calorie malnutrition severity: mild Qualified Code(s): E44.1 - Mild protein-calorie malnutrition (5) Opioid dependence Impression: The patient admits to several years of narcotic use. He talked about not being able to get transportation to his previous pain clinics and being rejected care at pain clinics due to the urine drug screen non-compliance in which he could not provide a urine sample "on demand" as requested. He is astranged from most everyone from his past, including friends and family. He states that he has weaned off of his previous dose of up to 90mg daily to just 30mg daily ER. He is very concerned about his new PCP and her inability to prescribe a chronic narcotic. Plan: Give normal home dose today. (6) Tobacco dependence Impression: The patient admits to life-long tobacco abuse, and states that he has really cut back from his previous habit of over 3 PPD now to just 1 PPD. He expresses no interest in quitting. Plan: Provide a nicotine patch while in the hospital. (7) Anxiety disorder Impression: The patient has evidence of "a loss of control", and talks about his difficulties with the healthcare system. Specifically regarding finding a PCP who will prescribe his chronic extended release morphine. He states that for several years he was prescribed up to 90mg per day, that is now at 30mg ER. The home medication list does not include any antipsychotic medications or antidepressants. Today upon exam, he expresses the need to return home this evening. He was encouraged to stay to get one more unit of PRBCs. Plan: Monitor mental status and well being. Provide extra time as needed for further budget counselor. Refer patient to our case management team for assistance with a narcotic prescriber/pain clinic in the patient's community. Qualifiers: Anxiety disorder type: other mixed anxiety disorder Qualified Code(s): F41.3 - Other mixed anxiety disorders (8) Short-term memory loss Impression: The patient's chart does not reveal this and this may be a temporary problem due to his acute anemia. When questioned on certain facts regarding chronic illnesses, he denied or could not elaborate on details. This is somewhat apparent today, but improved since admission. Plan: Continue to monitor mental status. (9) Complete immobility due to severe physical disability or frailty Impression: The patient has profound debility and is considered home bound due to his ongoing bilateral AKA. He has house keeping services 5 days per week. Transportation will be arranged by social work when it is time for discharge. Plan: Fall precautions and call light within reach. (10) Thrombocytopenia Impression: In addition to the patient being severely anemic, he is also found to have a low platelet level of just 29. This combination of both anemia; with a hemoglobin of less than 8, and a low platelet level less than 50, may be indicative of advanced HIV infection, AIDS, or a type of lymphoma. If the patient's platelet count is less than 10, I will plan to replace. A fax was sent to , Dr. Munoz to obtain records. Plan: Watch for signs of bleeding or decline. (11) CKD (chronic kidney disease) stage 2, GFR 60-89 ml/min Impression: The patient has known kidney failure and is considered in CKD stage 2. His GFR was 69 with a creatinine of 1.1 today which is improved since admission. This is likely a combination of factors including vascular disease, multiple surgeries, several chronic wounds with osteomylitis that required exterminator helper antibiotics that were likely nephrotoxic. Plan: Continue to monitor labs, avoid nephrotoxins, and give one more unit of PRBCs tonight.
[2017-11-13] MEDS: diphenhydrAMINE 25 MG CAPSULE PO PRN ×2 (17:29→21:35)
[2017-11-13] MEDS: PRENATAL VITAMIN TABLET PO SCH (19:12)
[2017-11-13] MEDS: DRONABINOL 2.5 MG CAPSULE PO SCH ×2 (19:12→21:35)
[2017-11-13] MEDS ORDERED: MIRTAZAPINE 15 MG TABLET PO SCH (21:00)
[2017-11-13] MEDS: traZODone 50 MG TABLET PO SCH (21:35)
[2017-11-13] MEDS ORDERED: BACLOFEN 10 MG TABLET PO PRN (23:29)
[2017-11-14] MEDS: MORPHINE 2 MG/ML SYRINGE IVP PRN (02:11)
[2017-11-14] MEDS: DRONABINOL 2.5 MG CAPSULE PO SCH (06:21)
[2017-11-14] MEDS ORDERED: PANTOPRAZOLE 40 MG TABLET PO SCH (07:00)
--- NOTE | 2017-11-14 07:40 | Discharge Plan ---
Discharge Plan Disposition: Home, Self Care Condition: Good Prescriptions: Dronabinol [Marinol] 2.5 mg PO TID #90 capsule Ferrous Sulfate 325 mg PO BID #60 tablet Diet: Regular Activity Restrictions: Activity as Tolerated Shower Restrictions: No Driving Restrictions: No Weight Bearing: Full Weight Additional Instructions or Follow Up instructions: You were admitted for dizziness and anemia. You were gently replaced using one unit at a time. I made a request for Dr. Munoz to call me back to review your case and this, along with requesting records. You should plan to see your PCP within one week. No Smoking: If you smoke, Please STOP! Call for help. Follow-up with: ASHISH ENGLAND [Primary Care Provider] -
[2017-11-14 07:48] LABS: BASOPHILS % (AUTO) 0.2 %; EOSINOPHILS % (AUTO) 1.1 %; HGB - HEMOGLOBIN 9.3 g/dL (14.0-18.0); MEAN CORPUSCULAR HGB CONC 35.1 g/dL (32.0-36.0); MEAN CORPUSCULAR VOLUME 88.2 fL (80.0-94.0); MEAN PLATELET VOLUME 10.5 fL (7.4-11.4); MONOCYTES % (AUTO) 3.7 %; RED CELL DISTRIBUTION WIDTH 17.9 % (12.0-15.0); WHITE BLOOD COUNT 7.8 x10^3/uL (4.8-10.8)
[2017-11-14 07:49] VITALS: BP 145/77
[2017-11-14 07:50] LABS: ABNORMAL LYMPHS % (MANUAL) 0 %; PLT - PLATELET COUNT 27 10^3/uL (130-450)
[2017-11-14 07:59] LABS: ALBUMIN 3.7 g/dL (3.2-5.5); ALBUMIN/GLOBULIN RATIO 1.2 (1.0-2.2); BILIRUBIN,TOTAL 0.8 mg/dL (0.2-1.0); CALCIUM 8.7 mg/dL (8.5-10.3); CREATININE 0.9 mg/dL (0.6-1.2); TOTAL PROTEIN 6.7 g/dL (6.7-8.2)
[2017-11-14] MEDS ORDERED: TRIAMCINOLONE 55 MCG NASAL SPRAY NAS SCH (08:00)
--- NOTE | 2017-11-14 08:00 | DISCHARGE SUMMARY ---
Discharge Summary Admit Date: 11/12/17 Discharge Date: 11/14/17 Discharging Provider: SOL Guillen Primary Care Provider: SOL Durand Code Status: Attempt Resuscitation Condition at Discharge: Good Discharge Disposition: 01 Home, Self Care - DIAGNOSES Admission Diagnoses: Iron deficiency anemia, unspecified (D50.9) Human immunodeficiency virus [HIV] disease (B20) Acquired absence of right leg above knee (Z89.611) Unspecified protein-calorie malnutrition (E46) Opioid abuse, uncomplicated (F11.10) Nicotine dependence, unspecified, uncomplicated (F17.200) Anxiety disorder, unspecified (F41.9) Other amnesia (R41.3) Functional quadriplegia (R53.2) Chronic kidney disease, stage 3 (moderate) (N18.3) Thrombocytopenia, unspecified (D69.6) Discharge Diagnoses with Status of Each Condition: Iron deficiency anemia (D50.9) -chronic, given 2 units of PRBCs, no platelets. HIV (human immunodeficiency virus infection) (B20) -chronic, undecided if this disease has progressed. S/P bilateral above knee amputation (Z89.611) -chronic, stable. Protein calorie malnutrition (E46) -chronic, Marinol prescription. Opioid abuse (F11.10) -chronic, not found to be a recent concern. Tobacco dependence (F17.200) -chronic, ongoing use. Anxiety disorder (F41.9) -chronic, stable. Short-term memory loss (R41.3) -resolved. Complete immobility due to severe physical disability or frailty (R53.2) - chronic, has problems finding a ride in the community for appointments. CKD (chronic kidney disease) stage 3, GFR 30-59 ml/min (N18.3)- chronic, stable. Thrombocytopenia (D69.6)-seemed to be a new problem as per Dr. Gonzalez-HIV provider from [place]. No platelets given. - HPI History of Present Illness: Jonny Jang is an ill appearing 57-year old white male with a past medical history of benign neoplasm of sigmoid colon, internal hemorrhoids, CHF, asthma, COPD, GERD, hiatal hernia, HIV since 1996, depression, anxiety, panic disorder, insomnia, tobacco dependence, marijuana use, vaping use, chronic opioid dependence, PVD with claudication, CVA, status post bilateral AKA, hypertension , coronary stent, fempop bypass, skin CA, osteoarthritis, history of left humerus fracture, bilateral carpal tunnel syndrome, sinusitis, chronic pain, osteomylitis with +MRSA, hypoganadism, dental caries, and malnutrition. The patient was brought in by EMS after complaints of dizziness, lethargy and once in the ED was found to be very anemic with a hemoglobin of 5.2 and a hematocrit of 15.3. He underwent a colonoscopy on 10/20/17 in which polyps were removed, sent to pathology and was negative for neoplasm. The patient will be admitted to inpatient for further work up; including administration of PRBCs. He denies SOB, chest pain, N/V, abdominal pain, changes in urination or bowel habits, or recent headaches. Case management will be contacted in the morning for insurance issues and a PCP who can prescribe chronic narcotics. - HOSPITAL COURSE Hospital Course: The following diagnoses were prevalent during this hospital stay: (1) Iron deficiency anemia The patient has a history of this as per chart review. There is not suspected acute blood loss. This is likely a gradual decline of blood, and today the patient became symptomatic with a feeling of dizziness, lethargy and increased weakness/fatigue. He has +HIV, CKD and a history of osteomylitis that could be contributors to this anemia. Upon presentation to ED he was found to have an H/ H of just 5.2/15.3, which improved to 6.9/20.0 after only one unit of PRBCs. He had a colonoscopy on 10/20/[address] Yates in which ~5 polyps were discovered, sent for pathology and was negative for neoplasm. Given that the patient has long-standing HIV infection, this may be the most likely cause of his anemia. Lactate dehydrogenase was elevated at 411, which could indicate lymphoma, TB, or toxoplasmosis. Dr. Gonzalez from [facility] knows this patient well and was most concerned with the thrombocytopenia. He was given the patient's personal phone as he wanted prompt follow up. (2) HIV (human immunodeficiency virus infection) The patient is prescribed a combo regimen for his disease that include emtricitabine/tenofovir and dolutegravir, which was prescribed ~November of 2016. Records from his last visit at [facility] with Dr. Gonzalez was obtained and noted that he was supposed to follow up in one month, which would have been one month from 07/23/17. His HIV medications were on hold while in the hospital and the patient did not bring his meds from home. The patient is thought to be in stage 3 of 4 of his disease progression, but this was not made reference to based on a chart review. Now he has unexplained anemia, and chronic thrombocytopenia for greater than one month, confirmatory diagnostic testing should be completed to confirm the AIDs diagnoses. (3) S/P bilateral above knee amputation The patient has known PVD disease and has a history of a Fempop procedure. He states that he had a bilateral AKA in the year 2003 due to vascular disease. This has caused him to be permanently home bound and severely debilitated. He recieves house keeping services during the week 5 days per week, but no personal aides. He has had numerous episodes of osteomylitis and has been to our wound clinic in the past. He remains with 2 areas of non-healing lesions that appear scabbed over and slightly red upon exam, both on LLE. (4) Protein-calorie malnutrition As per literature review, nutritional deficiencies are common in patients with advanced immunosuppression, stemming from the combined impact of anorexia, medication related GI disturbances, wasting, and malabsorption. The patient admits to long standing anorexia and states, "I am just not hungry". A nutritional consult was completed and suggests to add a multi-vitamin. The patient was started on Marinol while in the hospital that was continued upon discharge. (5) Opioid dependence The patient admits to several years of narcotic use. He talked about not being able to get transportation to his previous pain clinics and being rejected care at pain clinics due to the urine drug screen non-compliance in which he could not provide a urine sample "on demand" as requested. He is astranged from most everyone from his past, including friends and family. He states that he has weaned off of his previous dose of up to 90mg daily to just 30mg daily ER. He is very concerned about his new PCP and her inability to prescribe a chronic narcotic. Dr. Michelle was spoken to prior to discharge, and he stated that he would pass this along, although Dr. Ward would have been the correct person to contact. Dr. Michelle also notes that any PCP has the ability to prescribe long acting Morphine and would not see any problems doing this as it is a reasonable dose. Since transportation is such an issue, the PCP needs to assist if possible. (6) Tobacco dependence The patient admits to life-long tobacco abuse, and states that he has really cut back from his previous habit of over 3 PPD now to just 1 PPD. He expresses no interest in quitting. (7) Anxiety disorder The patient has evidence of "a loss of control", and talks about his difficulties with the healthcare system. Specifically regarding finding a PCP who will prescribe his chronic extended release morphine. He states that for several years he was prescribed up to 90mg per day, that is now at 30mg ER. The home medication list does not include any antipsychotic medications or antidepressants. He was encouraged to stay a second night to get one more unit of PRBCs. (8) Short-term memory loss The patient's chart does not reveal this and this may be a temporary problem due to his acute anemia. When questioned on certain facts regarding chronic illnesses, he denied or could not elaborate on details. This is considered resolved at the time of discharge. (9) Complete immobility due to severe physical disability or frailty The patient has profound debility and is considered home bound due to his ongoing bilateral AKA. He has house keeping services 5 days per week. Transportation was arranged by social work at discharge. His disability has been limiting medical follow ups and proper medical care for several years. (10) Thrombocytopenia In addition to the patient being severely anemic, he is also found to have a low platelet level of just 29. This combination of both anemia; with a hemoglobin of less than 8, and a low platelet level less than 50, may be indicative of advanced HIV infection, AIDS, or a type of lymphoma. Dr. Gonzalez from [facility] is his primary HIV provider and is very concerned with his current platelet values, since at his last visit on 07/23/17 he had a platelet level of 200. He demonstrated no obvious signs of bleeding, but will need prompt follow up. (11) CKD (chronic kidney disease) stage 2, GFR 60-89 ml/min The patient has known kidney failure and is considered in CKD stage 2. His GFR was 69 with a creatinine of 1.1 which has improved since admission. This is likely a combination of factors including vascular disease, multiple surgeries, several chronic wounds with osteomylitis that required [facility] antibiotics that were likely nephrotoxic. Disposition: The patient's overall condition was greatly improved at the time of discharge. His upcoming PCP appointment is to establish care. I request records from Dr. Mendieta (previous PCP) be sent to [facility] prior to his appointment ~11/18/17. He required no supplemental oxygen, had improved energy and was satisfied with his care at the time of discharge. - ALLERGIES Allergies/Adverse Reactions: Allergies Allergy/AdvReac Type Severity Reaction Status Date / Time vancomycin Allergy Rash Verified 09/12/17 22:44 - MEDICATIONS Home Medications: Ambulatory Orders Medication Instructions Recorded Confirmed tiZANidine [Zanaflex] 8 mg PO Q8H PRN 02/04/14 11/12/17 Trazodone HCl 100 mg PO QPM 06/27/16 11/12/17 Dolutegravir Sodium [Tivicay] 50 mg PO DAILY 07/17/17 11/12/17 Emtricitabine/Tenofov Alafenam 1 tab PO DAILY 07/17/17 11/12/17 [Descovy 200-25 mg Tablet] Albuterol Sulfate [Proair Hfa 2 puffs INH Q4H PRN 09/13/17 11/12/17 Inhaler] Azelastine HCl 2 spray ELI BID 09/13/17 11/12/17 Mirtazapine 15 mg PO QPM 09/13/17 11/12/17 Morphine Sulfate [Morphine Sulfate 30 mg PO DAILY 09/13/17 11/12/17 ER] Omeprazole 40 mg PO QDAC 09/13/17 11/12/17 Tiotropium [place] [Spiriva] 2 puffs INH DAILY 09/13/17 11/12/17 Metoprolol Succinate 25 mg PO DAILY #30 tab.er.24h 09/14/17 11/12/17 Pantoprazole Sodium [Protonix] 20 mg PO DAILY #30 tablet. 09/14/17 11/12/17 Gabapentin 800 mg PO TID PRN 10/20/17 11/12/17 Lisinopril 2.5 mg PO DAILY 11/12/17 11/12/17 Dronabinol [Marinol] 2.5 mg PO TID #90 capsule 11/14/17 Ferrous Sulfate 325 mg PO BID #60 tablet 11/14/17 - PHYSICAL EXAM AT DISCHARGE General Appearance: positive: No acute distress, Alert Eyes Bilateral: positive: Normal inspection, PERRL ENT: positive: ENT inspection nml, Pharynx nml, No signs of dehydration Neck: positive: Nml inspection, Thyroid nml, No JVD, Trachea midline Respiratory: positive: Chest non-tender, No respiratory distress, Other ( diminished.) Cardiovascular: positive: Regular rate & rhythm, No gallop, Systolic murmur, Decreased pulse(s) Peripheral Pulses: positive: 1+ Abdomen: positive: Non-tender, Nml bowel sounds Back: positive: Nml inspection Skin: positive: No rash, Warm, Dry, Pallor Extremities: positive: Non-tender, Nml appearance (upper extremities only as the patient has a history of bilateral AKA.) Neurologic/Psychiatric: positive: Oriented x3, CN's nml (2-12), Motor nml, Sensation nml, Weakness, Sensory loss, Depressed mood/affect Reflexes: Bicep (R): 3+, Bicep (L): 3+ - LABS Result Diagrams: 11/14/17 07:37 11/14/17 07:37 - FOLLOW UP Follow Up: Disposition: 01 Home, Self Care Condition: Good Prescriptions: Dronabinol [Marinol] 2.5 mg PO TID #90 capsule Ferrous Sulfate 325 mg PO BID #60 tablet Diet: Regular Activity Restrictions: Activity as Tolerated Shower Restrictions: No Driving Restrictions: No Weight Bearing: Full Weight Additional Instructions or Follow Up instructions: You were admitted for dizziness and anemia. You were gently replaced using one unit at a time. I made a request for Dr. Munoz to call me back to review your case and this, along with requesting records. You should plan to see your PCP within one week. - TIME SPENT Time Spent in Discharge (Minutes): 60
[2017-11-14 08:12] LABS: BAND NEUTROPHILS % (MANUAL) 10 %; BASOPHILS # (MANUAL) 0.3 10^3/uL (0-0.1); BASOPHILS % (MANUAL) 4 %; LYMPHOCYTES # (MANUAL) 0.9 10^3/uL (1.5-3.5); LYMPHOCYTES % (MANUAL) 10 %; METAMYELOCYTES % (MANUAL) 2 %; MONOCYTES # (MANUAL) 0.3 10^3/uL (0.0-1.0); MYELOCYTES % (MANUAL) 8 %; NEUTROPHILS # (MANUAL) 5.3 10^3/uL (1.5-6.6); NEUTROPHILS % (MANUAL) 58 %; PROMYELOCYTES % (MANUAL) 3 %
[2017-11-14 08:13] LABS: DIFFERENTIAL COMMENT MANUAL DIFFERENTIAL; RBC MORPHOLOGY (MULTIPLE) 3+ ANISOCYTOSIS (NORMAL)
[2017-11-14] MEDS: Emtricitabine/Tenofov Alafenam [Descovy 200-25 Mg Tablet] PO SCH (08:19)
[2017-11-14] MEDS: Dolutegravir Sodium [Tivicay] 50 MG PO SCH (08:19)
[2017-11-14] MEDS ORDERED: MORPHINE ER 15 MG TABLET PO SCH (09:00)
[2017-11-14] MEDS: IPRATROPIUM/ALBUTEROL 3 ML NEB INH PRN (09:24)
[2017-11-14] MEDS: BUDESONIDE 0.5 MG/2 ML NEB INH SCH (09:24)
[2017-11-14] MEDS: POLYETHYLENE GLYCOL 3350 17 GM PACKET PO SCH (09:53)
[2017-11-14] MEDS: NICOTINE 21 MG PATCH TOP SCH (09:53)
[2017-11-14] MEDS: PRENATAL VITAMIN TABLET PO SCH (09:54)
[2017-11-14] MEDS: METOPROLOL SUCCINATE 25 MG TABLET PO SCH (09:55)
[2017-11-14] MEDS: SODIUM CHLORIDE FLUSH 0.9% 10 ML SYRINGE IVP SCH (09:55)
[2017-11-14] MEDS: OXYMETAZOLINE NASAL SPRAY NAS SCH (09:57)
== END 2017-11-14 11:35 | disposition home or self-care (01) | DRG 811 ==
LOC: EDUNIT# → ED 14:36 → EEVIPCON 16:46 → MS3 16:46
PROVIDERS: ADMIT Nurse Practitioner; ATTEND Nurse Practitioner
PROC: 30233N1 Transfusion of Nonautologous Red Blood Cells into Peripheral Vein, Percutaneous Approach (ICD-10-PCS; principal; 2017-11-12)
DX: D64.9 Anemia, unspecified (principal); E86.0 Dehydration; D50.9 Iron deficiency anemia, unspecified; I11.0 Hypertensive heart disease with heart failure; R53.2 Functional quadriplegia; F17.200 Nicotine dependence, unspecified, uncomplicated; I13.0 Hypertensive heart and chronic kidney disease with heart failure and stage 1 through stage 4 chronic kidney disease, or unspecified chronic kidney disease; E44.1 Mild protein-calorie malnutrition; F11.10 Opioid abuse, uncomplicated; F41.3 Other mixed anxiety disorders; N18.2 Chronic kidney disease, stage 2 (mild); I50.9 Heart failure, unspecified; D69.6 Thrombocytopenia, unspecified; I73.9 Peripheral vascular disease, unspecified; G89.29 Other chronic pain; L98.9 Disorder of the skin and subcutaneous tissue, unspecified; F17.210 Nicotine dependence, cigarettes, uncomplicated; Z21 Asymptomatic human immunodeficiency virus [HIV] infection status; Z68.28 Body mass index [BMI] 28.0-28.9, adult; Z89.612 Acquired absence of left leg above knee; Z89.611 Acquired absence of right leg above knee; Z86.73 Personal history of transient ischemic attack (TIA), and cerebral infarction without residual deficits; Z95.5 Presence of coronary angioplasty implant and graft; Z85.828 Personal history of other malignant neoplasm of skin; Z86.14 Personal history of Methicillin resistant Staphylococcus aureus infection; Z86.010 Personal history of colon polyps; Z87.39 Personal history of other diseases of the musculoskeletal system and connective tissue; Z79.899 Other long term (current) drug therapy
CPT/HCPCS: 36415; 80053; 81599; 82607; 82668; 82747; 83010; 83540; 83615; 83690; 84466; 84484; 85025; 86850; 86880; 86900; 86901; 86920; 87640; 94640; 99283; 99285

== ENCOUNTER 2017-11-18 11:01 | Outpatient (CLI) | payer MEDICARE, MEDICAID ==
[2017-11-18 19:17] LABS: EOSINOPHILS % (AUTO) 0.6 %; LYMPHOCYTES % (AUTO) 21.6 %; MEAN CORPUSCULAR HEMOGLOBIN 30.5 pg (27.0-31.0); MEAN CORPUSCULAR HGB CONC 34.1 g/dL (32.0-36.0); MEAN CORPUSCULAR VOLUME 89.5 fL (80.0-94.0); MEAN PLATELET VOLUME 10.8 fL (7.4-11.4); MONOCYTES % (AUTO) 2.5 %; NEUTROPHILS % (AUTO) 71.3 %; RED BLOOD COUNT 2.95 10^6/uL (4.70-6.10); RED CELL DISTRIBUTION WIDTH 18.3 % (12.0-15.0); WHITE BLOOD COUNT 7.1 x10^3/uL (4.8-10.8)
[2017-11-18 19:43] LABS: ALBUMIN 3.9 g/dL (3.2-5.5); ALBUMIN/GLOBULIN RATIO 1.3 (1.0-2.2); ALKALINE PHOSPHATASE 58 IU/L (42-121); ALT ALANINE AMINOTRANSFERASE < 10 IU/L (10-60); AST ASPARTATE AMINOTRANSFERASE 18 IU/L (10-42); BUN - BLOOD UREA NITROGEN 14 mg/dL (6-20); CALCIUM 8.4 mg/dL (8.5-10.3); CARBON DIOXIDE - CO2 25 mmol/L (21-32); CHLORIDE 101 mmol/L (101-111); CHOL/HDL RATIO 4.3 (<5.0); CHOLESTEROL 125 mg/dL; GFR - MDRD 77 (>89); GLUCOSE 91 mg/dL (70-100); HDL CHOLESTEROL 29 mg/dL; LDL CHOLESTEROL,CALCULATED 72 mg/dL; LDL/HDL RATIO 2.5 (<3.6); SODIUM 134 mmol/L (135-145); VLDL CHOLESTEROL 24 mg/dL
[2017-11-18 22:04] LABS: ABNORMAL LYMPHS % (MANUAL) 0 %
[2017-11-18 22:10] LABS: BAND NEUTROPHILS % (MANUAL) 13 %; BASOPHILS # (MANUAL) 0.3 10^3/uL (0-0.1); BASOPHILS % (MANUAL) 4 %; EOSINOPHILS # (MANUAL) 0.1 10^3/uL (0-0.7); LYMPHOCYTES # (MANUAL) 1.1 10^3/uL (1.5-3.5); LYMPHOCYTES % (MANUAL) 16 %; METAMYELOCYTES % (MANUAL) 4 %; MONOCYTES # (MANUAL) 0.6 10^3/uL (0.0-1.0); MYELOCYTES % (MANUAL) 3 %; NEUTROPHILS # (MANUAL) 4.5 10^3/uL (1.5-6.6); NEUTROPHILS % (MANUAL) 51 %
[2017-11-18 22:11] LABS: DIFFERENTIAL COMMENT MANUAL DIFFERENTIAL; PLATELET ESTIMATE, MANUAL DECREASED (<130,000) (NORMAL); PLATELET MORPHOLOGY NORMAL APPEARANCE (NORMAL)
[2017-11-19 08:22] LABS: PLT - PLATELET COUNT 31 10^3/uL (130-450)
== END 2017-11-18 11:02 | disposition home or self-care (01) ==
LOC: LAB.N 11:01
PROVIDERS: ATTEND Nurse Practitioner Gerontology
DX: I50.9 Heart failure, unspecified (principal); Z13.9 Encounter for screening, unspecified; D50.8 Other iron deficiency anemias; B20 Human immunodeficiency virus [HIV] disease
CPT/HCPCS: 36415; 80053; 80061; 81599; 83721; 84443; 85025; 87536

== ENCOUNTER 2017-12-18 19:10 | Outpatient (CLI) | payer MEDICARE, MEDICAID | END 2017-12-18 19:11 | disposition critical access hospital (66) | LOC: EMS 19:10 | PROVIDERS: ATTEND Surgery | DX: R50.9 Fever, unspecified (principal); R53.1 Weakness | CPT/HCPCS: A0425; A0429 ==

== ENCOUNTER 2017-12-18 19:50 | Emergency (ER) | payer MEDICARE, MEDICAID ==
[2017-12-18] MEDS ORDERED: SODIUM CHLORIDE 0.9% 1,000 ML IV ONE ×2 (20:17)
[2017-12-18 20:34] LABS: BASOPHILS % (AUTO) 0.2 %; HGB - HEMOGLOBIN 8.1 g/dL (14.0-18.0); LYMPHOCYTES % (AUTO) 15.1 %; MEAN CORPUSCULAR HEMOGLOBIN 30.1 pg (27.0-31.0); MEAN CORPUSCULAR HGB CONC 33.8 g/dL (32.0-36.0); MEAN CORPUSCULAR VOLUME 89.1 fL (80.0-94.0); MEAN PLATELET VOLUME 8.6 fL (7.4-11.4); MONOCYTES % (AUTO) 1.5 %; NEUTROPHILS % (AUTO) 82.2 %; RED BLOOD COUNT 2.69 10^6/uL (4.70-6.10); RED CELL DISTRIBUTION WIDTH 14.7 % (12.0-15.0); WHITE BLOOD COUNT 9.3 x10^3/uL (4.8-10.8)
--- NOTE | 2017-12-18 20:38 | ED Physician Documentation ---
History of Present Illness - Stated complaint Stated Complaint: TEMP/WEAK - Chief complaint Chief Complaint: General - History obtained from History obtained from: Patient, EMS - History of Present Illness Timing: Today Pain level max: 0 Pain level now: 0 Improved by: tylenol Worsened by: nothing - Additonal information Additional information: Patient is a 57-year-old HIV-positive male who presents to the emergency department with a fever today. He has had ongoing issues with anemia and thrombocytopenia, most recently admitted to [place] in [place] last week for same had a bone marrow biopsy and has a follow-up with oncology this week for results of his bone marrow biopsy. States he had a fever of 101 at home also has had mild cough. No vomiting. Does have bilateral AKA's as well. Review of Systems Ten Systems: 10 systems reviewed and negative Constitutional: reports: Fever Eyes: denies: Decreased vision, Photophobia Nose: denies: Rhinorrhea / runny nose, Congestion Throat: denies: Sore throat Cardiac: denies: Chest pain / pressure Respiratory: reports: Cough (dry) GI: denies: Abdominal Pain, Vomiting, Diarrhea Skin: denies: Rash Musculoskeletal: denies: Neck pain, Back pain Neurologic: denies: Headache PD PAST MEDICAL HISTORY - Past Medical History Cardiovascular: Congestive heart failure, Hypertension, High cholesterol, Peripheral Vascular Disease, Deep vein thrombosis Respiratory: Asthma, COPD, Other Neuro: CVA Endocrine/Autoimmune: Other GI: GERD, Hiatal hernia 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 : Other HEENT: Chronic vision loss, Chronic sinusitis Psych: Depression, Anxiety, Panic attacks Musculoskeletal: Osteoarthritis, Other Derm: Other - Past Surgical History Past Surgical History: Yes General: Colonoscopy, Other Ortho: Amputation Cardiovascular: Coronary stent, Cardiac catheterization, Fempop bypass Derm: Skin grafts, Skin cancer surgery - Present Medications Home Medications: Ambulatory Orders Medication Instructions Recorded Confirmed tiZANidine [Zanaflex] 8 mg PO Q8H PRN 02/04/14 11/12/17 Trazodone HCl 100 mg PO QPM 06/27/16 11/12/17 Dolutegravir Sodium [Tivicay] 50 mg PO DAILY 07/17/17 11/12/17 Emtricitabine/Tenofov Alafenam 1 tab PO DAILY 07/17/17 11/12/17 [Descovy 200-25 mg Tablet] Albuterol Sulfate [Proair Hfa 2 puffs INH Q4H PRN 09/13/17 11/12/17 Inhaler] Azelastine HCl 2 spray ELI BID 09/13/17 11/12/17 Mirtazapine 15 mg PO QPM 09/13/17 11/12/17 Morphine Sulfate [Morphine Sulfate 30 mg PO DAILY 09/13/17 11/12/17 ER] Omeprazole 40 mg PO QDAC 09/13/17 11/12/17 Tiotropium [place] [Spiriva] 2 puffs INH DAILY 09/13/17 11/12/17 Metoprolol Succinate 25 mg PO DAILY #30 tab.er.24h 09/14/17 11/12/17 Pantoprazole Sodium [Protonix] 20 mg PO DAILY #30 tablet.dr 09/14/17 11/12/17 Gabapentin 800 mg PO TID PRN 10/20/17 11/12/17 Lisinopril 2.5 mg PO DAILY 11/12/17 11/12/17 Dronabinol [Marinol] 2.5 mg PO TID #90 capsule 11/14/17 Ferrous Sulfate 325 mg PO BID #60 tablet 11/14/17 - Allergies Allergies/Adverse Reactions: Allergies Allergy/AdvReac Type Severity Reaction Status Date / Time vancomycin Allergy Rash Verified 09/12/17 22:44 - Social History Does the pt smoke?: Yes Smoking Status: Current every day smoker Does the pt drink ETOH?: Yes Does the pt have substance abuse?: Yes - Immunizations Immunizations are current?: Yes - POLST Patient has POLST: No POLST Status: Full Code PD ED PE NORMAL - Vitals Vital signs reviewed: Yes - General General: Alert and oriented X 3, No acute distress, Well developed/nourished - HEENT HEENT: Moist mucous membranes - Neck Neck: Supple, no meningeal sign - Cardiac Cardiac: RRR, Strong equal pulses - Respiratory Respiratory: No respiratory distress, Clear bilaterally - Abdomen Abdomen: Normal bowel sounds, Soft, Non tender, Non distended - Derm Derm: Warm and dry - Extremities Extremities: Other (B AKA without signs of infection) - Neuro Neuro: Alert and oriented X 3 - Psych Psych: Normal mood, Normal affect Results - Vitals Vitals: Oxygen O2 Source Room air - Labs Labs: Laboratory Tests 12/18/17 12/18/17 12/18/17 20:26 20:26 20:26 WBC 9.3 RBC 2.69 L Hgb 8.1 L Hct 24.0 L MCV 89.1 MCH 30.1 MCHC 33.8 RDW 14.7 Plt Count 25 L* MPV 8.6 Neut # (Auto) Not Reportable Lymph # (Auto) Not Reportable Wilson # (Auto) Not Reportable Eos # (Auto) Not Reportable Baso # (Auto) Not Reportable Absolute Nucleated RBC Not Reportable Total Counted 100 Band Neuts % (Manual) 19 H Abnorm Lymph % (Manual) 0 Metamyelocytes % 6 H Myelocytes % 8 H Promyelocytes % 1 H Blast Cells % 7 H* Nucleated RBC % Not Reportable Neutrophils # (Manual) 5.8 Lymphocytes # (Manual) 1.2 L Monocytes # (Manual) 0.0 Eosinophils # (Manual) 0.1 Basophils # (Manual) 0.2 H Differential Comment MANUAL DIFFERENTIAL Manual Slide Review Indicated WBC Morphology 1+ TOXIC GRANULATION Platelet Estimate DECREASED (<130,000) Platelet Morphology 1+AGRANULAR/HYPOGRAN RBC Morph Micro Appear 1+ POLYCHROMASIA Sodium 133 L Potassium 4.0 Chloride 100 L Carbon Dioxide 26 Anion Gap 7.0 BUN 14 Creatinine 1.0 Estimated GFR (MDRD) 77 L Glucose 142 H Lactic Acid 1.1 Calcium 8.8 Total Bilirubin 0.6 AST 19 ALT 11 Alkaline Phosphatase 62 Total Protein 7.2 Albumin 3.6 Globulin 3.6 Albumin/Globulin Ratio 1.0 Lipase 19 L Urine Color Urine Clarity Urine pH Ur Specific [place] Urine Protein Urine Glucose (UA) Urine Ketones Urine Occult Blood Urine Nitrite Urine Bilirubin Urine Urobilinogen Ur Leukocyte Esterase Ur Microscopic Review Urine Culture Comments 12/18/17 20:50 WBC RBC Hgb Hct MCV MCH MCHC RDW Plt Count MPV Neut # (Auto) Lymph # (Auto) Wilson # (Auto) Eos # (Auto) Baso # (Auto) Absolute Nucleated RBC Total Counted Band Neuts % (Manual) Abnorm Lymph % (Manual) Metamyelocytes % Myelocytes % Promyelocytes % Blast Cells % Nucleated RBC % Neutrophils # (Manual) Lymphocytes # (Manual) Monocytes # (Manual) Eosinophils # (Manual) Basophils # (Manual) Differential Comment Manual Slide Review WBC Morphology Platelet Estimate Platelet Morphology RBC Morph Micro Appear Sodium Potassium Chloride Carbon Dioxide Anion Gap BUN Creatinine Estimated GFR (MDRD) Glucose Lactic Acid Calcium Total Bilirubin AST ALT Alkaline Phosphatase Total Protein Albumin Globulin Albumin/Globulin Ratio Lipase Urine Color YELLOW Urine Clarity CLEAR Urine pH 7.5 Ur Specific [place] 1.015 Urine Protein TRACE Urine Glucose (UA) NEGATIVE Urine Ketones NEGATIVE Urine Occult Blood NEGATIVE Urine Nitrite NEGATIVE Urine Bilirubin NEGATIVE Urine Urobilinogen 0.2 (NORMAL) Ur Leukocyte Esterase NEGATIVE Ur Microscopic Review NOT INDICATED Urine Culture Comments NOT INDICATED - Rads (name of study) cxr Radiology: Prelim report reviewed, EMP read contemporaneously, See rad report ( RLL consolidation) PD MEDICAL DECISION MAKING - ED course Complexity details: reviewed results, re-evaluated patient, considered differential, d/w patient ED course: Patient is a 57-year-old male who presents to the emergency department with fever at home today of unclear etiology. No hypoxia. Does have a mild cough. Appears to have pneumonia on chest x-ray. He was discharged without antibiotics , therefore a follow-up call will be made by the nurses to call on antibiotics for him for home. Patient is very well-appearing, nontoxic. No evidence of sepsis. Patient counseled regarding signs and symptoms for which I believe and urgent re-evaluation would be necessary. Patient with good understanding of and agreement to plan and is comfortable going home at this time This document was made in part using voice recognition software. While efforts are made to proofread this document, sound alike and grammatical errors may occur. - Sepsis Event Vital Signs: Oxygen O2 Source Room air Departure - Departure Disposition: 01 Home, Self Care Clinical Impression: Chronic anemia, Thrombocytopenia Fever Qualifiers: Fever type: unspecified Qualified Code(s): R50.9 - Fever, unspecified Condition: Stable Instructions: ED Fever Unconf Cause Follow-Up: your,doctor within 3 days [Other] Comments: The cause of your fever at home today is unclear. Return if you worsen. Make sure to follow-up closely with your doctor. Continue your medications as prescribed. Discharge Date/Time: 12/18/17 22:50
[2017-12-18 20:44] LABS: ALBUMIN 3.6 g/dL (3.2-5.5); BILIRUBIN,TOTAL 0.6 mg/dL (0.2-1.0); CALCIUM 8.8 mg/dL (8.5-10.3); TOTAL PROTEIN 7.2 g/dL (6.7-8.2)
[2017-12-18 20:58] LABS: BILIRUBIN,URINE NEGATIVE (NEGATIVE); GLUCOSE, URINE (UA) NEGATIVE (NEGATIVE); KETONES,URINE (UA) NEGATIVE (NEGATIVE); LEUKOCYTE ESTERASE, URINE NEGATIVE (NEGATIVE); NITRITE,URINE NEGATIVE (NEGATIVE); OCCULT BLOOD,URINE NEGATIVE (NEGATIVE); PH,URINE 7.5 PH (5.0-7.5); PROTEIN,URINE TRACE mg/dL (NEGATIVE); UROBILINOGEN,URINE 0.2 (NORMAL) E.U./dL (NORMAL)
[2017-12-18 20:59] LABS: ABNORMAL LYMPHS % (MANUAL) 0 %
[2017-12-18 21:03] LABS: CLARITY,URINE CLEAR (CLEAR)
[2017-12-18 21:09] LABS: BAND NEUTROPHILS % (MANUAL) 19 %; BASOPHILS # (MANUAL) 0.2 10^3/uL (0-0.1); BASOPHILS % (MANUAL) 2 %; EOSINOPHILS # (MANUAL) 0.1 10^3/uL (0-0.7); LYMPHOCYTES # (MANUAL) 1.2 10^3/uL (1.5-3.5); LYMPHOCYTES % (MANUAL) 13 %; METAMYELOCYTES % (MANUAL) 6 %; MYELOCYTES % (MANUAL) 8 %; NEUTROPHILS # (MANUAL) 5.8 10^3/uL (1.5-6.6); NEUTROPHILS % (MANUAL) 43 %; PROMYELOCYTES % (MANUAL) 1 %
[2017-12-18 21:11] LABS: DIFFERENTIAL COMMENT MANUAL DIFFERENTIAL; PLATELET ESTIMATE, MANUAL DECREASED (<130,000) (NORMAL); PLATELET MORPHOLOGY 1+AGRANULAR/HYPOGRAN (NORMAL)
[2017-12-18 21:12] LABS: PLT - PLATELET COUNT 25 10^3/uL (130-450)
--- NOTE | 2017-12-18 21:27 | XRAY Report ---
Procedure Date: 12/18/2017 Accession Number: [id number] / [id number] Procedure: XR - Chest 1 View X-Ray CPT Code: 79478 FULL RESULT: EXAM: CHEST RADIOGRAPHY EXAM DATE: 12/18/2017 08:49 PM. CLINICAL HISTORY: Fever, cough. COMPARISON: 09/13/2017. TECHNIQUE: 1 view. FINDINGS: Lungs/Pleura: Patchy groundglass opacities are noted in the right lower lobe. Bronchial wall thickening is present in both aurora. No effusions or pneumothorax. Mediastinum: Within exam limitations, the cardiomediastinal contour is normal. Other: Convexity to the right curvature of the mid to lower thoracic spine. Marked resorption of both humerus heads is noted. Multiple old left-sided rib fractures are noted. IMPRESSION: 1. Right lower lobe consolidation. 2. No effusions or pneumothorax. RADIA
[2017-12-18 22:18] VITALS: BP 137/80
== END 2017-12-18 22:50 | disposition home or self-care (01) ==
LOC: EDUNIT# → ED 19:50
DX: D64.9 Anemia, unspecified (principal); D69.6 Thrombocytopenia, unspecified; B20 Human immunodeficiency virus [HIV] disease; I10 Essential (primary) hypertension; F17.200 Nicotine dependence, unspecified, uncomplicated
CPT/HCPCS: 36415; 71045; 80053; 81001; 81003; 83605; 83690; 85025; 87086; 96360; 99283

== ENCOUNTER 2017-12-28 14:13 | Outpatient (CLI) | payer MEDICARE, MEDICAID | END 2017-12-28 14:14 | disposition critical access hospital (66) | LOC: EMS 14:13 | PROVIDERS: ATTEND Surgery | DX: R53.1 Weakness (principal); R03.1 Nonspecific low blood-pressure reading; R50.9 Fever, unspecified | CPT/HCPCS: A0425; A0427 ==

== ENCOUNTER 2017-12-28 14:34 | Observation (INO) | payer MEDICARE, MEDICAID ==
[2017-12-28] MEDS ORDERED: SODIUM CHLORIDE 0.9% 1,000 ML IV ONE (15:07)
--- NOTE | 2017-12-28 15:09 | ED Physician Documentation ---
History of Present Illness - Stated complaint Stated Complaint: LOW BP - Chief complaint Chief Complaint: General - History obtained from History obtained from: Patient, EMS - History of Present Illness Timing: Today Pain level max: 0 Pain level now: 0 Improved by: ivf Worsened by: nothing - Additonal information Additional information: Patient is a 57-year-old male, states that his blood pressure was low today. States his normal systolic blood pressures are in the 90s to the low 100 words. Today it was 80/60. He was feeling normal at that time. States he did take his temperature and it was 100.2. He states that he recently had pneumonia and finished doxycycline recently. He is concerned that he may have recurrent pneumonia. He is also being followed by oncology for possible myeloproliferative disorder? He is scheduled to have a blood draw tomorrow. His blood pressure did improve with IV fluids from EMS. Review of Systems Ten Systems: 10 systems reviewed and negative Constitutional: reports: Fever (100.2) Ears: denies: Ear pain Nose: denies: Rhinorrhea / runny nose, Congestion Throat: denies: Sore throat Cardiac: denies: Chest pain / pressure Respiratory: denies: Cough, Wheezing GI: denies: Vomiting, Diarrhea Skin: denies: Rash Musculoskeletal: denies: Neck pain, Back pain Neurologic: denies: Headache PD PAST MEDICAL HISTORY - Past Medical History Cardiovascular: Congestive heart failure, Hypertension, High cholesterol, Peripheral Vascular Disease, Deep vein thrombosis Respiratory: Asthma, COPD, Other Neuro: CVA Endocrine/Autoimmune: Other GI: GERD, Hiatal hernia PATCH WORKER: None : Other HEENT: Chronic vision loss, Chronic sinusitis Psych: Depression, Anxiety, Panic attacks Musculoskeletal: Osteoarthritis, Other Derm: Other - Past Surgical History Past Surgical History: Yes General: Colonoscopy, Other Ortho: Amputation Cardiovascular: Coronary stent, Cardiac catheterization, Fempop bypass Derm: Skin grafts, Skin cancer surgery - Present Medications Home Medications: Ambulatory Orders Medication Instructions Recorded Confirmed tiZANidine [Zanaflex] 8 mg PO Q8H PRN 02/04/14 12/28/17 Trazodone HCl 50 mg PO QPM 06/27/16 12/28/17 Dolutegravir Sodium [Tivicay] 50 mg PO DAILY 07/17/17 12/28/17 Emtricitabine/Tenofov Alafenam 1 tab PO DAILY 07/17/17 12/28/17 [Descovy 200-25 mg Tablet] Albuterol Sulfate [Proair Hfa 2 puffs INH Q4H PRN 09/13/17 12/28/17 Inhaler] Azelastine HCl 2 spray ELI BID 09/13/17 12/28/17 Mirtazapine 15 mg PO QPM 09/13/17 12/28/17 Morphine Sulfate [Morphine Sulfate 30 mg PO DAILY 09/13/17 12/28/17 ER] Tiotropium [place] [Spiriva] 2 puffs INH DAILY MDD 18 mcg 09/13/17 12/28/17 Metoprolol Succinate 25 mg PO DAILY #30 tab.er.24h 09/14/17 12/28/17 Pantoprazole Sodium [Protonix] 20 mg PO DAILY #30 tablet.dr 09/14/17 12/28/17 Gabapentin 800 mg PO TID PRN 10/20/17 12/28/17 Lisinopril 2.5 mg PO DAILY 11/12/17 12/28/17 Dronabinol [Marinol] 2.5 mg PO TID #90 capsule 11/14/17 12/28/17 Ferrous Sulfate 325 mg PO BID #60 tablet 11/14/17 12/28/17 - Allergies Allergies/Adverse Reactions: Allergies Allergy/AdvReac Type Severity Reaction Status Date / Time vancomycin Allergy Rash Verified 09/12/17 22:44 - Social History Does the pt smoke?: Yes Smoking Status: Current every day smoker Does the pt drink ETOH?: Yes Does the pt have substance abuse?: Yes - Immunizations Immunizations are current?: Yes - POLST Patient has POLST: No POLST Status: Full Code PD ED PE NORMAL - Vitals Vital signs reviewed: Yes - General General: Alert and oriented X 3, No acute distress - HEENT HEENT: Moist mucous membranes - Neck Neck: Supple, no meningeal sign - Cardiac Cardiac: RRR, Strong equal pulses - Respiratory Respiratory: No respiratory distress, Clear bilaterally - Abdomen Abdomen: Soft, Non tender, Non distended - Derm Derm: Warm and dry - Extremities Extremities: Other (B AKA) - Neuro Neuro: Alert and oriented X 3 - Psych Psych: Normal mood, Normal affect Results - Vitals Vitals: Vital Signs - 24 hr 12/28/17 12/28/17 14:48 17:07 Temperature 37.0 C Heart Rate 89 95 Respiratory 17 13 Rate Blood Pressure 98/48 L 129/70 O2 Saturation 98 100 Oxygen O2 Source Room air - Labs Labs: Laboratory Tests 12/28/17 12/28/17 12/28/17 15:51 15:51 15:51 WBC 5.6 RBC 1.70 L Hgb 5.1 L* Hct 15.6 L* MCV 92.3 MCH 30.3 MCHC 32.8 RDW 14.7 Plt Count 29 L* MPV 9.8 Neut # (Auto) Not Reportable Lymph # (Auto) Not Reportable [place] # (Auto) Not Reportable Eos # (Auto) Not Reportable Baso # (Auto) Not Reportable Absolute Nucleated RBC Not Reportable Total Counted 100 Band Neuts % (Manual) 10 Abnorm Lymph % (Manual) 0 Metamyelocytes % 2 H Myelocytes % 5 H Promyelocytes % 4 H Nucleated RBC % Not Reportable Neutrophils # (Manual) 3.3 Lymphocytes # (Manual) 1.4 L Monocytes # (Manual) 0.2 Eosinophils # (Manual) 0.0 Basophils # (Manual) 0.1 Nucleated RBCs 4 Manual Slide Review Indicated Platelet Estimate DECREASED (<130,000) Platelet Morphology NORMAL APPEARANCE RBC Morph Micro Appear 1+ DEBORAH CELLS Sodium 134 L Potassium 4.0 Chloride 101 Carbon Dioxide 26 Anion Gap 7.0 BUN 17 Creatinine 1.3 H Estimated GFR (MDRD) 57 L Glucose 121 H Lactic Acid 0.8 Calcium 8.1 L Total Bilirubin 0.5 AST 14 ALT 10 Alkaline Phosphatase 52 Total Protein 6.2 L Albumin 2.9 L Globulin 3.3 Albumin/Globulin Ratio 0.9 L Lipase 19 L Blood Type Antibody Screen Crossmatch IS Only 12/28/17 12/28/17 16:55 16:55 WBC RBC Hgb Hct MCV MCH MCHC RDW Plt Count MPV Neut # (Auto) Lymph # (Auto) Bosque # (Auto) Eos # (Auto) Baso # (Auto) Absolute Nucleated RBC Total Counted Band Neuts % (Manual) Abnorm Lymph % (Manual) Metamyelocytes % Myelocytes % Promyelocytes % Nucleated RBC % Neutrophils # (Manual) Lymphocytes # (Manual) Monocytes # (Manual) Eosinophils # (Manual) Basophils # (Manual) Nucleated RBCs Manual Slide Review Platelet Estimate Platelet Morphology RBC Morph Micro Appear Sodium Potassium Chloride Carbon Dioxide Anion Gap BUN Creatinine Estimated GFR (MDRD) Glucose Lactic Acid Calcium Total Bilirubin AST ALT Alkaline Phosphatase Total Protein Albumin Globulin Albumin/Globulin Ratio Lipase Blood Type A POSITIVE Cancelled Antibody Screen NEGATIVE Cancelled Crossmatch IS Only See Detail - Rads (name of study) cxr Radiology: Prelim report reviewed, EMP read contemporaneously, See rad report ( Increased mild airspace opacity in the medial right lung base which may reflect pneumonia.) PD MEDICAL DECISION MAKING - ED course Complexity details: reviewed old records, reviewed results, re-evaluated patient , considered differential, d/w patient, d/w technology sales consultant ED course: Patient is a 57-year-old male with a history of HIV who also has myeloproliferative disorder apparently in the fibrotic stage. His hemoglobin has dropped down to 5. Will require blood transfusion per oncology notes. He also has persistent pneumonia. Will start on anti-biotics. Given IV Rocephin and azithromycin. Will place in the hospital for blood transfusion and further care. He is not ill-appearing. No hypoxia. Discussed the case with Dr. Sampson, hospitalist who accepts. This document was made in part using voice recognition software. While efforts are made to proofread this document, sound alike and grammatical errors may occur. - Sepsis Event Vital Signs: Vital Signs - 24 hr 12/28/17 12/28/17 14:48 17:07 Temperature 37.0 C Heart Rate 89 95 Respiratory 17 13 Rate Blood Pressure 98/48 L 129/70 O2 Saturation 98 100 Oxygen O2 Source Room air Departure - Departure Disposition: ED Place in Observation Clinical Impression: Pneumonia Qualifiers: Pneumonia type: due to unspecified organism Laterality: right Lung location: lower lobe of lung Qualified Code(s): J18.1 - Lobar pneumonia, unspecified organism Anemia Qualifiers: Anemia type: unspecified type Qualified Code(s): D64.9 - Anemia, unspecified Condition: Stable Discharge Date/Time: 12/28/17 18:50
--- NOTE | 2017-12-28 15:44 | XRAY Report ---
Procedure Date: 12/28/2017 Accession Number: [id number] / [id number] Procedure: XR - Chest 2 View X-Ray CPT Code: 62601 FULL RESULT: EXAM: CHEST RADIOGRAPHY EXAM DATE: 12/28/2017 03:35 PM. CLINICAL HISTORY: Fever, recent pneumonia. COMPARISON: 12/18/2017. TECHNIQUE: 2 views. FINDINGS: Lungs/Pleura: Increased mild airspace consolidation in the medial right lung base. Left lung clear. No interstitial abnormality. No pneumothorax or pleural effusion. Mediastinum: Chronic posterior attic deformity bilateral humeral heads. Other: None. IMPRESSION: Increased mild airspace opacity in the medial right lung base which may reflect pneumonia. RADIA
[2017-12-28] MEDS ORDERED: cefTRIAXone 1 GM VIAL IVP STA (15:57)
[2017-12-28 16:04] LABS: BASOPHILS % (AUTO) 0.9 %; EOSINOPHILS % (AUTO) 1.2 %; LYMPHOCYTES % (AUTO) 24.7 %; MEAN CORPUSCULAR HEMOGLOBIN 30.3 pg (27.0-31.0); MEAN CORPUSCULAR HGB CONC 32.8 g/dL (32.0-36.0); MEAN CORPUSCULAR VOLUME 92.3 fL (80.0-94.0); MEAN PLATELET VOLUME 9.8 fL (7.4-11.4); MONOCYTES % (AUTO) 2.2 %; RED CELL DISTRIBUTION WIDTH 14.7 % (12.0-15.0); WHITE BLOOD COUNT 5.6 x10^3/uL (4.8-10.8)
[2017-12-28 16:06] LABS: ALBUMIN 2.9 g/dL (3.2-5.5); ALBUMIN/GLOBULIN RATIO 0.9 (1.0-2.2); BILIRUBIN,TOTAL 0.5 mg/dL (0.2-1.0); CALCIUM 8.1 mg/dL (8.5-10.3); CREATININE 1.3 mg/dL (0.6-1.2); HGB - HEMOGLOBIN 5.1 g/dL (14.0-18.0); PLT - PLATELET COUNT 29 10^3/uL (130-450); TOTAL PROTEIN 6.2 g/dL (6.7-8.2)
[2017-12-28 16:08] LABS: ABNORMAL LYMPHS % (MANUAL) 0 %
[2017-12-28 16:31] LABS: BAND NEUTROPHILS % (MANUAL) 10 %; BASOPHILS # (MANUAL) 0.1 10^3/uL (0-0.1); BASOPHILS % (MANUAL) 1 %; LYMPHOCYTES # (MANUAL) 1.4 10^3/uL (1.5-3.5); LYMPHOCYTES % (MANUAL) 25 %; METAMYELOCYTES % (MANUAL) 2 %; MONOCYTES # (MANUAL) 0.2 10^3/uL (0.0-1.0); MYELOCYTES % (MANUAL) 5 %; NEUTROPHILS # (MANUAL) 3.3 10^3/uL (1.5-6.6); NEUTROPHILS % (MANUAL) 49 %; PROMYELOCYTES % (MANUAL) 4 %
[2017-12-28 16:39] LABS: PLATELET ESTIMATE, MANUAL DECREASED (<130,000) (NORMAL); PLATELET MORPHOLOGY NORMAL APPEARANCE (NORMAL)
[2017-12-28] MEDS ORDERED: AZITHROMYCIN INJ 500 MG in SODIUM CHLORIDE 0.9% 250 ML IV STA (16:46)
[2017-12-28] MEDS ORDERED: SODIUM CHLORIDE FLUSH 0.9% 10 ML SYRINGE IVP PRN (17:26)
[2017-12-28] MEDS ORDERED: MORPHINE 2 MG/ML SYRINGE IVP PRN (17:26)
[2017-12-28] MEDS ORDERED: TEMAZEPAM 15 MG CAPSULE PO PRN (17:26)
[2017-12-28] MEDS ORDERED: FUROSEMIDE 20 MG/2 ML VIAL IVP PRN (17:32)
[2017-12-28] MEDS ORDERED: ACETAMINOPHEN 325 MG TABLET PO ONE (17:32)
--- NOTE | 2017-12-28 17:40 | HISTORY & PHYSICAL EXAMINATION ---
Chief Complaint - Chief Complaint Chief Complaint: weakness History of Present Illness - Admitted From Admitted From:: Home - History Obtained From History obtained from: patient, ED physician - History of Present Illness HPI Comment/Other: Mr. Jonny Jang is a very pleasant 57-year-old gentleman with an extensive past medical history significant for myeloproliferative disorder, peripheral vascular disease, severe, frequent acute kidney injuries, COPD, HIV, iron deficiency anemia, hypertension, and insomnia. The patient was diagnosed with myeloproliferative disorder about a month ago and was scheduled to have blood work done tomorrow but felt very weak today and so came to the emergency department. In the emergency department he was discovered to have a hemoglobin of 5.1 and a pneumonia. We will admit him to an observation bed for transfusions and IV antibiotics with plans to discharge him home tomorrow on oral antibiotics for his pneumonia. History - Past Medical History Cardiovascular: reports: Congestive heart failure, Hypertension, High cholesterol, Peripheral Vascular Disease, Deep vein thrombosis Respiratory: reports: Asthma, COPD, Other Neuro: reports: CVA Endocrine/Autoimmune: reports: Other GI: reports: GERD, Hiatal hernia SYRUPER: reports: None : reports: Other HEENT: reports: Chronic vision loss, Chronic sinusitis Psych: reports: Depression, Anxiety, Panic attacks Musculoskeletal: reports: Osteoarthritis, Other Derm: reports: Other MRSA Hx?: Yes - Past Surgical History General: reports: Colonoscopy, Other Ortho: reports: Amputation (B AKA) Cardiovascular: reports: Coronary stent, Cardiac catheterization, Fempop bypass Derm: reports: Skin grafts, Skin cancer surgery - Family & Social History Family History: Mother: , Alzheimer's Disease, Diabetes, Type 2, Father : , PVD/PAD, Sister: , PVD/PAD, Brother: , PVD/PAD Family History Comment/Other: The patient has no more direct living family members. His mother had Alzheimers, DM, father had vascular disease, sister and brother with vascular disease. Living arrangement: At home Living Situation: Alone Social History Notes: The patient grew up in [place], had no children and has never been . 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 He contracted HIV in the year 1996 and has been on disability since the year 1999. He moved to this [place] about 4 years ago as he had friends that live here. He no longer has any close family, friends or support to speak of. He currently lives alone and is considered home bound due to his extreme debility of having no legs. He has a health care technician only for house work that comes to his home during the 5 week days. He has been affiliated with several clinics, but cannot seem to keep a provider for very long due to his chronic narcotic prescriptions, and claims that he can never urinate on command for a drug screen. He admits to previous alcohol use, current tobacco dependence that has decreased from ~3 PPD to just 1 PPD and he has been a life long smoker with no interest of quitting. He also admits to marijuana use and denies heroin, cocaine, or other illicit drug use. He wishes to be a FULL code. - Substance History Use: Uses substance without health or social issues: Tobacco, Cannabis - POLST Patient has POLST: No POLST Status: Full Code Meds/Allgy - Home Medications Home Medications: Ambulatory Orders Medication Instructions Recorded Confirmed tiZANidine [Zanaflex] 8 mg PO Q8H PRN 02/04/14 12/23/17 Trazodone HCl 100 mg PO QPM 06/27/16 12/23/17 Dolutegravir Sodium [Tivicay] 50 mg PO DAILY 07/17/17 12/23/17 Emtricitabine/Tenofov Alafenam 1 tab PO DAILY 07/17/17 12/23/17 [Descovy 200-25 mg Tablet] Albuterol Sulfate [Proair Hfa 2 puffs INH Q4H PRN 09/13/17 12/23/17 Inhaler] Azelastine HCl 2 spray ELI BID 09/13/17 12/23/17 Mirtazapine 15 mg PO QPM 09/13/17 12/23/17 Morphine Sulfate [Morphine Sulfate 30 mg PO DAILY 09/13/17 12/23/17 ER] Tiotropium [place] [Spiriva] 2 puffs INH DAILY 09/13/17 12/23/17 Metoprolol Succinate 25 mg PO DAILY #30 tab.er.24h 09/14/17 12/23/17 Pantoprazole Sodium [Protonix] 20 mg PO DAILY #30 tablet. 09/14/17 12/23/17 Gabapentin 800 mg PO TID PRN 10/20/17 12/23/17 Lisinopril 2.5 mg PO DAILY 11/12/17 12/23/17 Dronabinol [Marinol] 2.5 mg PO TID #90 capsule 11/14/17 12/23/17 Ferrous Sulfate 325 mg PO BID #60 tablet 11/14/17 12/23/17 - Allergies Allergies/Adverse Reactions: Allergies Allergy/AdvReac Type Severity Reaction Status Date / Time vancomycin Allergy Rash Verified 09/12/17 22:44 Review of Systems - Constitutional Constitutional: reports: Fatigue, Weakness, Poor appetite. denies: Fever, Chills, Malaise - Eyes Eyes: denies: Pain, Irritation, Blurred vision, Dipolpia - Ears, Nose & Throat Ears, Nose & Throat: denies: Ear pain, Tinnitus, Vertigo, Nasal discharge, Nosebleeds - Cardiovascular Cariovascular: denies: Palpitations, Chest pain, Edema, Syncope, Orthopnea - Respiratory Respiratory: denies: Cough, Sputum production, Wheezing, Snoring, Hemoptysis, Orthopnea, SOB at rest - Gastrointestinal Gastrointestinal: denies: Abdominal pain, Abdominal distention, Constipation, Diarrhea, Change in bowel habits, Rectal bleeding - Genitourinary Genitourinary: denies: Dysuria, Frequency, Urgency, Hematuria - Musculoskeletal Musculoskeletal: reports: Back pain, Muscle aches, Stiffness, Limited range of motion. denies: Muscle pain, Gout - Integumentary Integumentary: denies: Rash, Pruritis, Lesions, Dryness - Neurological Neurological: reports: General weakness. denies: Focal weakness, Headache, Dizziness, Numbness, Seizures - Psychiatric Psychiatric: denies: Depression, Anxiety, Suicidal, Hallucinations - Endocrine Endocrine: denies: Polyuria, Polydypsia, Polyphagia - Hematologic/Lymphatic Hematologic/Lymphatic: reports: Anemia, Bruising, Other (Newly diagnosed myeloproliferative disorder). denies: Petechiae, Lymphadenopathy - All Other Systems All Other Systems: reports: Reviewed and negative Exam - Vital Signs Reviewed Vital Signs: Yes Vital Signs: Vital Signs x48h Temp Pulse Resp BP Pulse Ox 12/28/17 17:07 95 13 129/70 100 12/28/17 14:48 37.0 C 89 17 98/48 L 98 - Physical Exam General Appearance: positive: No acute distress, Alert Eyes Bilateral: positive: Normal inspection, PERRL, EOMI, No lid inflammation, Conjunctivae nml, No scleral icterus ENT: positive: ENT inspection nml, Pharynx nml, No signs of dehydration Neck: positive: Nml inspection, Thyroid nml, No JVD, Trachea midline. negative : Thyromegaly Respiratory: positive: Chest non-tender, No respiratory distress, Breath sounds nml. negative: Wheezes, Rales, Rhonchi Cardiovascular: positive: Regular rate & rhythm, No murmur, No gallop Peripheral Pulses: positive: 1+ Abdomen: positive: Non-tender, No organomegaly, Nml bowel sounds, No distention. negative: Guarding, Rebound Back: positive: Nml inspection. negative: CVA tenderness (R), CVA tenderness (L ) Skin: positive: Color nml, No rash, Warm, Dry, Other (Multiple lesions which the patient says is skin cancer to his scalp). negative: Cyanosis Extremities: positive: Non-tender, Full ROM, Nml appearance, Other (Patient is status post bilateral above-knee amputations) Neurologic/Psychiatric: positive: Oriented x3, CN's nml (2-12), Motor nml, Sensation nml, Mood/affect nml Conclusion/Plan - Problem List (1) Myeloproliferative disorder Conclusion/Plan: Recently diagnosed, the patient was to have lab work done tomorrow. His hemoglobin on presentation to the emergency department was 5.1. We will transfuse him 3 units of packed red blood cells and recheck his levels as he is a bilateral above-knee amputee I believe that this should bring his hemoglobin up to between 9 and 10. (2) Pneumonia Conclusion/Plan: Patient's chest x-ray suggests that he may have a right medial base pneumonia. We will start him on ceftriaxone and azithromycin. Qualifiers: Pneumonia type: due to unspecified organism Laterality: right Lung location: lower lobe of lung Qualified Code(s): J18.1 - Lobar pneumonia, unspecified organism (3) Peripheral vascular disease Conclusion/Plan: Severe, the patient is a bilateral above-knee amputee and has lost all his siblings and his father to peripheral vascular disease. We will continue him on his home care. (4) COPD (chronic obstructive pulmonary disease) Conclusion/Plan: The patient has a history of COPD and takes albuterol and Spiriva at home. We will continue these while he is inpatient. He is not showing any signs of acute exacerbation of COPD at this time and is breathing easily on room air. (5) Hypertension Conclusion/Plan: The patient has a history of hypertension and takes metoprolol and lisinopril at home. We will continue these while he is inpatient. His blood pressure is within normal limits at this time. (6) Insomnia Conclusion/Plan: The patient has a history of insomnia and takes mirtazapine and trazodone for sleep. We will continue these while he is inpatient. (7) CAT (acute kidney injury) Conclusion/Plan: Patient's creatinine on admission is 1.3, probably related to some dehydration. In reviewing his chart his creatinine has been as high as 3.6 last year and he typically runs between 1 and 1.3. We will recheck after he has been hydrated with IV fluids. (8) HIV (human immunodeficiency virus infection) Conclusion/Plan: The patient has been HIV positive for over 20 years. We will continue him on his home HIV medication regimen. (9) Iron deficiency anemia Conclusion/Plan: The patient was diagnosed with iron deficiency anemia on his last visit to [facility]. He takes ferrous sulfate at home. We will continue him on this while he is inpatient. Qualifiers: Iron deficiency anemia type: unspecified iron deficiency Qualified Code(s) : D50.9 - Iron deficiency anemia, unspecified - Lab Results Lab results reviewed: Yes Fish Bones: 12/28/17 15:51 12/28/17 15:51 - Diagnostic Imaging Results Diagnostic Imaging Results: positive: Final report reviewed Diagnostic Imaging Results Comments: EXAM: CHEST RADIOGRAPHY EXAM DATE: 12/28/2017 03:35 PM. CLINICAL HISTORY: Fever, recent pneumonia. COMPARISON: 12/18/2017. TECHNIQUE: 2 views. FINDINGS: Lungs/Pleura: Increased mild airspace consolidation in the medial right lung base. Left lung clear. No interstitial abnormality. No pneumothorax or pleural effusion. Mediastinum: Chronic posterior attic deformity bilateral humeral heads. Other: None. IMPRESSION: Increased mild airspace opacity in the medial right lung base which may reflect pneumonia. Core Measures - Anticipated LOS I expect patient to be DC'd or transferred within 96 hours.: Yes - DVT/VTE - Prophylaxis VTE/DVT Device ordered at admit?: Yes
[2017-12-28] MEDS ORDERED: diphenhydrAMINE 25 MG CAPSULE PO PRN (18:00)
[2017-12-28] MEDS ORDERED: SODIUM CHLORIDE 0.9% 1,000 ML IV SCH (18:00)
[2017-12-28 18:49] LABS: BILIRUBIN,URINE NEGATIVE (NEGATIVE); GLUCOSE, URINE (UA) NEGATIVE (NEGATIVE); KETONES,URINE (UA) NEGATIVE (NEGATIVE); LEUKOCYTE ESTERASE, URINE NEGATIVE (NEGATIVE); NITRITE,URINE NEGATIVE (NEGATIVE); OCCULT BLOOD,URINE NEGATIVE (NEGATIVE); PH,URINE 6.5 PH (5.0-7.5); PROTEIN,URINE NEGATIVE (NEGATIVE); UROBILINOGEN,URINE 0.2 (NORMAL) E.U./dL (NORMAL)
[2017-12-28 18:58] LABS: CLARITY,URINE CLEAR (CLEAR)
[2017-12-28] MEDS: D5.45NS W/20 MEQ KCL 1,000 ML IV SCH (22:31)
[2017-12-29] MEDS ORDERED: GABAPENTIN 800 MG PO PRN (01:40)
[2017-12-29] MEDS ORDERED: TRAZODONE HCL 50 MG PO SCH (01:42)
[2017-12-29] MEDS ORDERED: GABAPENTIN 400 MG CAPSULE PO PRN (01:59)
[2017-12-29] MEDS: SODIUM CHLORIDE FLUSH 0.9% 10 ML SYRINGE IVP SCH ×2 (02:03→08:13)
[2017-12-29] MEDS ORDERED: traZODone 50 MG TABLET PO SCH (02:30)
[2017-12-29 06:15] LABS: CALCIUM 7.9 mg/dL (8.5-10.3); HGB - HEMOGLOBIN 7.2 g/dL (14.0-18.0); MEAN CORPUSCULAR HEMOGLOBIN 30.3 pg (27.0-31.0); MEAN CORPUSCULAR HGB CONC 34.1 g/dL (32.0-36.0); MEAN CORPUSCULAR VOLUME 88.8 fL (80.0-94.0); MEAN PLATELET VOLUME 10.2 fL (7.4-11.4); RED BLOOD COUNT 2.39 10^6/uL (4.70-6.10); RED CELL DISTRIBUTION WIDTH 14.6 % (12.0-15.0); WHITE BLOOD COUNT 8.3 x10^3/uL (4.8-10.8)
[2017-12-29] MEDS ORDERED: PANTOPRAZOLE 40 MG TABLET PO SCH (07:00)
[2017-12-29] MEDS ORDERED: tiZANidine 4 MG TABLET PO PRN (07:27)
[2017-12-29] MEDS ORDERED: ALBUTEROL NEB 2.5 MG/3 ML INH PRN (07:28)
[2017-12-29] MEDS ORDERED: ACETAMINOPHEN 325 MG TABLET PO ONE (08:30)
[2017-12-29] MEDS: D5.45NS W/20 MEQ KCL 1,000 ML IV SCH (08:50)
[2017-12-29] MEDS ORDERED: Dolutegravir Sodium [Tivicay] 50 MG TAB PO SCH (09:00)
[2017-12-29] MEDS ORDERED: METOPROLOL SUCCINATE 25 MG TABLET PO SCH (09:00)
[2017-12-29] MEDS ORDERED: AZELASTINE HCL NAS SCH (09:00)
[2017-12-29] MEDS ORDERED: NICOTINE 21 MG PATCH TOP SCH (09:00)
[2017-12-29] MEDS ORDERED: FUROSEMIDE 20 MG/2 ML VIAL IVP PRN (09:00)
[2017-12-29] MEDS ORDERED: EMTRICITABINE PO SCH (09:00)
[2017-12-29] MEDS ORDERED: DRONABINOL 2.5 MG CAPSULE PO SCH (09:00)
[2017-12-29] MEDS ORDERED: POLYETHYLENE GLYCOL 3350 17 GM PACKET PO SCH (09:00)
[2017-12-29] MEDS ORDERED: PANTOPRAZOLE SODIUM 20 MG PO SCH (09:00)
[2017-12-29] MEDS ORDERED: FERROUS SULFATE 325 MG TABLET PO SCH ×2 (09:00→12:00)
[2017-12-29] MEDS ORDERED: TENOFOV ALAFENAM PO SCH (09:00)
[2017-12-29] MEDS ORDERED: MORPHINE ER 15 MG TABLET PO SCH (09:00)
[2017-12-29] MEDS ORDERED: LISINOPRIL 5 MG TABLET PO SCH (09:00)
[2017-12-29] MEDS ORDERED: TIOTROPIUM INHALER PO SCH (09:00)
[2017-12-29] MEDS ORDERED: NON FORMULARY MED (Lisinopril [Lisinopril] 2.5 MG) PO SCH (09:00)
--- NOTE | 2017-12-29 10:45 | ADVANCE CARE PLANNING NOTE ---
Advance Care Planning - Date/Time Date: 12/29/17 Time: 10:43 - Purpose of encounter Text: The patient was seen today to discuss advanced care planning. He has a new cancer diagnosis (myelofibrosis). - Parties in attendance Parties in attendance: Jonny SchaeferYi martinez DO - Decisional capacity Decisional capacity of: Mr. Jang is alert and oriented 4, and understands his situation. - Subjective/Patient's story Subjective/Patient's story: Patient is a 57-year-old gentleman with severe peripheral vascular disease, status post bilateral above-knee amputations who was diagnosed last month with myelofibrosis. He says that all of his family has predeceased him and he is ready to go whenever his time comes. - Objective/Medical story Objective/Medical Story: The patient is a 57-year-old gentleman who underwent bilateral above-knee amputations, almost to the hip, at age 42 for severe peripheral vascular disease. Prior to this he had had 3 years of her severe peripheral vascular disease which left him with no skin on either of his legs. He has been disabled since that time but has been doing fairly well, however most if not all of his family has from this disease. He now says he has no living relatives and no close friends and is ready to go whenever his time comes. - Goals of Care Goals of care determinations: Comfort. - Plan Plan: We will change the patient's CODE STATUS to DO NOT RESUSCITATE. He is requesting comfort measures only. - Code Status Code Status: Do Not Attempt Resuscitation - Time Spent on Advance Care Planning Time spent on advance care plannin
--- NOTE | 2017-12-29 10:57 | Discharge Plan ---
Discharge Plan Disposition: Home, Self Care Condition: Stable Prescriptions: Azithromycin [Zithromax] 250 mg PO DAILY #5 tablet Diet: Regular Activity Restrictions: Activity as Tolerated Shower Restrictions: No Driving Restrictions: No Assistance Devices: Wheelchair Weight Bearing: No Weight Additional Instructions or Follow Up instructions: Take all antibiotics until gone. Return if you worsen. Follow-up closely with your doctor for further care. No Smoking: If you smoke, Please STOP! Call for help. Follow-up with: ASHISH ENGLAND [Primary Care Provider] -
[2017-12-29] MEDS ORDERED: SODIUM CHLORIDE 1 GM TABLET PO SCH (11:00)
[2017-12-29] MEDS ORDERED: AZITHROMYCIN 250 MG TABLET PO ONE (11:30)
[2017-12-29 13:28] VITALS: BP 124/80
--- NOTE | 2017-12-29 14:00 | DISCHARGE SUMMARY ---
Discharge Summary Admit Date: 12/28/17 Discharge Date: 12/29/17 Discharging Provider: Yi Sampson DO Primary Care Provider: Radha Mendieta Code Status: Do Not Attempt Resuscitation Condition at Discharge: Stable Discharge Disposition: 01 Home, Self Care - DIAGNOSES Admission Diagnoses: 1. Myelofibrosis 2. Pneumonia 3. Peripheral vascular disease 4. COPD 5. Hypertension 6. Insomnia 7. Acute kidney injury 8. HIV disease 9. Iron deficiency anemia Discharge Diagnoses with Status of Each Condition: 1. Myelofibrosis- The patient was admitted with severe anemia secondary to the mild fibrosis. He is newly diagnosed, and following with the parachutist/combatant diver qualified/ oncologist. We transfused him 2 units of packed red blood cells and due to the fact that he has no legs this was enough to raise his hemoglobin from 5.1 to the 9s. Patient will follow up with his Heme/onc. 2. Pneumonia- The patient has possible right medial base infiltrate. He has not shown an elevated white blood cell count or fevers. He has no dyspnea or cough. We will send him home with a prescription for azithromycin. 3. Peripheral vascular disease- Severe, the patient is status post bilateral above-knee amputations. It does not appear to be having any significant ischemia at this time. Continue present home care. 4. COPD- The patient has a history of COPD and takes albuterol and Spiriva at home. We continued these while he was inpatient. He is not showing any signs of acute exacerbation of COPD at this time and is breathing easily on room air. He will resume these at home 5. Hypertension- The patient has a history of hypertension and takes metoprolol and lisinopril at home. We continued these while he was inpatient. His blood pressure is within normal limits at this time. Resume home medication regimen. 6. Insomnia- The patient has a history of insomnia and takes mirtazapine and trazodone for sleep. We continued these while he was inpatient. 7. Acute kidney injury- Patient's creatinine on admission is 1.3, probably related to some dehydration. In reviewing his chart his creatinine has been as high as 3.6 last year and he typically runs between 1.0 and 1.3. Today his creatinine is down to 1.0. 8. HIV disease- The patient has been HIV positive for over 20 years. He will continue his home HIV medication regimen. 9. Iron deficiency anemia- The patient was diagnosed with iron deficiency anemia on his last visit to [facility]. He takes ferrous sulfate at home. We continue this while he was inpatient at the hospital and he will resume this at home. - HPI History of Present Illness: Mr. Jonny Jang is a very pleasant 57-year-old gentleman with an extensive past medical history significant for myeloproliferative disorder, peripheral vascular disease, severe, frequent acute kidney injuries, COPD, HIV, iron deficiency anemia, hypertension, and insomnia. The patient was diagnosed with myeloproliferative disorder about a month ago and was scheduled to have blood work done tomorrow but felt very weak today and so came to the emergency department. In the emergency department he was discovered to have a hemoglobin of 5.1 and a pneumonia. We will admit him to an observation bed for transfusions and IV antibiotics with plans to discharge him home tomorrow on oral antibiotics for his pneumonia. - HOSPITAL COURSE Hospital Course: The patient was seen in the emergency room and diagnosed with severe anemia ( Hgb 5.1) secondary to myeloproliferative disorder and a Right medial base pneumonia on chest xray. He has never had a fever, cough, dyspnea, or an elevated white blood cell count. He was started on IV antibiotics and transfused and his hemoglobin is now above 9. He will be discharged home with a prescription for azithromycin for community acquired pneumonia. - ALLERGIES Allergies/Adverse Reactions: Allergies Allergy/AdvReac Type Severity Reaction Status Date / Time vancomycin Allergy Rash Verified 09/12/17 22:44 - MEDICATIONS Home Medications: Ambulatory Orders Medication Instructions Recorded Confirmed Dolutegravir Sodium [Tivicay] 50 mg PO DAILY 07/17/17 12/29/17 Emtricitabine/Tenofov Alafenam 1 tab PO DAILY 07/17/17 12/29/17 [Descovy 200-25 mg Tablet] Albuterol Sulfate [Proair Hfa 2 puffs INH Q4H PRN 09/13/17 12/29/17 Inhaler] Azelastine HCl 2 spray ELI BID 09/13/17 12/29/17 Mirtazapine 15 mg PO QPM 09/13/17 12/29/17 Morphine Sulfate [Morphine Sulfate 30 mg PO DAILY 09/13/17 12/29/17 ER] Tiotropium [place] [Spiriva] 2 puffs INH DAILY MDD 18 mcg 09/13/17 12/29/17 Metoprolol Succinate 25 mg PO DAILY #30 tab.er.24h 09/14/17 12/29/17 Gabapentin 800 mg PO TID PRN 10/20/17 12/29/17 Lisinopril 2.5 mg PO DAILY 11/12/17 12/29/17 Dronabinol [Marinol] 2.5 mg PO TID #90 capsule 11/14/17 12/29/17 Ferrous Sulfate 325 mg PO BID #60 tablet 11/14/17 12/29/17 Omeprazole [Omeprazole] 40 mg PO DAILY 12/29/17 12/29/17 - PHYSICAL EXAM AT DISCHARGE General Appearance: positive: No acute distress, Alert Eyes Bilateral: positive: Normal inspection, PERRL, EOMI, No lid inflammation, Conjunctivae nml, No scleral icterus ENT: positive: ENT inspection nml, Pharynx nml, No signs of dehydration Neck: positive: Nml inspection, Thyroid nml, No JVD, Trachea midline. negative : Thyromegaly Respiratory: positive: Chest non-tender, No respiratory distress, Breath sounds nml. negative: Wheezes, Rales, Rhonchi Cardiovascular: positive: Regular rate & rhythm, No murmur, No gallop Peripheral Pulses: positive: 1+ Abdomen: positive: Non-tender, No organomegaly, Nml bowel sounds, No distention. negative: Guarding, Rebound Back: positive: Nml inspection. negative: CVA tenderness (R), CVA tenderness (L ) Skin: positive: Color nml, No rash, Warm, Dry, Other (multiple skin cancers to the pt's scalp). negative: Cyanosis Extremities: positive: Non-tender, Full ROM, Other (Patient is status post bilateral above-knee amputations) Neurologic/Psychiatric: positive: Oriented x3, CN's nml (2-12), Motor nml, Sensation nml, Mood/affect nml - LABS Result Diagrams: 12/29/17 05:33 12/29/17 05:33 - DIAGNOSTIC IMAGING Diagnostic Imaging Results: Final report reviewed Diagnostic Imaging Results Comments: EXAM: CHEST RADIOGRAPHY EXAM DATE: 12/28/2017 03:35 PM. CLINICAL HISTORY: Fever, recent pneumonia. COMPARISON: 12/18/2017. TECHNIQUE: 2 views. FINDINGS: Lungs/Pleura: Increased mild airspace consolidation in the medial right lung base. Left lung clear. No interstitial abnormality. No pneumothorax or pleural effusion. Mediastinum: Chronic posterior attic deformity bilateral humeral heads. Other: None. IMPRESSION: Increased mild airspace opacity in the medial right lung base which may reflect pneumonia. - FOLLOW UP Follow Up: Follow up with Radha Mendieta this week - TIME SPENT Time Spent in Discharge (Minutes): 40
[2017-12-29] MEDS ORDERED: MIRTAZAPINE 15 MG TABLET PO SCH (21:00)
[2017-12-30] MEDS ORDERED: AZITHROMYCIN 250 MG TABLET PO SCH (09:00)
== END 2017-12-29 14:39 | disposition home or self-care (01) ==
LOC: EDUNIT# → ED 14:34 → SUPCPDRO 14:34 → OBS 17:26
PROVIDERS: ADMIT Hospitalist; ATTEND Hospitalist
DX: D75.81 Myelofibrosis (principal); J18.1 Lobar pneumonia, unspecified organism; I11.0 Hypertensive heart disease with heart failure; I50.9 Heart failure, unspecified; E78.00 Pure hypercholesterolemia, unspecified; J44.0 Chronic obstructive pulmonary disease with (acute) lower respiratory infection; K21.9 Gastro-esophageal reflux disease without esophagitis; I73.9 Peripheral vascular disease, unspecified; D50.9 Iron deficiency anemia, unspecified; F17.210 Nicotine dependence, cigarettes, uncomplicated; G47.00 Insomnia, unspecified; N17.9 Acute kidney failure, unspecified; C44.40 Unspecified malignant neoplasm of skin of scalp and neck; Z86.73 Personal history of transient ischemic attack (TIA), and cerebral infarction without residual deficits; Z86.718 Personal history of other venous thrombosis and embolism; Z21 Asymptomatic human immunodeficiency virus [HIV] infection status; Z95.5 Presence of coronary angioplasty implant and graft; Z85.828 Personal history of other malignant neoplasm of skin; Z79.891 Long term (current) use of opiate analgesic; Z89.612 Acquired absence of left leg above knee; Z89.611 Acquired absence of right leg above knee; Z79.899 Other long term (current) drug therapy; Z66 Do not resuscitate; Z82.49 Family history of ischemic heart disease and other diseases of the circulatory system
CPT/HCPCS: 36415; 36430; 71046; 80048; 80053; 81003; 83605; 83690; 85025; 85027; 86850; 86900; 86901; 86920; 96361; 96365; 96375; 99284; 99285; A9270; G0378; P9016; Q0167; 81001; 87086

== ENCOUNTER 2018-04-10 11:41 | Emergency (ER) | payer MEDICARE, MEDICAID ==
[2018-04-10 12:01] VITALS: BP 141/68
[2018-04-10 13:09] LABS: BASOPHILS % (AUTO) 0.6 %; EOSINOPHILS % (AUTO) 1.6 %; HGB - HEMOGLOBIN 11.2 g/dL (14.0-18.0); LYMPHOCYTES % (AUTO) 6.2 %; MEAN CORPUSCULAR HEMOGLOBIN 29.9 pg (27.0-31.0); MEAN CORPUSCULAR HGB CONC 34.9 g/dL (32.0-36.0); MEAN CORPUSCULAR VOLUME 85.7 fL (80.0-94.0); MEAN PLATELET VOLUME 10.5 fL (7.4-11.4); MONOCYTES % (AUTO) 1.3 %; NEUTROPHILS % (AUTO) 90.3 %; PLT - PLATELET COUNT 41 10^3/uL (130-450); RED BLOOD COUNT 3.74 10^6/uL (4.70-6.10); RED CELL DISTRIBUTION WIDTH 16.3 % (12.0-15.0); WHITE BLOOD COUNT 11.5 x10^3/uL (4.8-10.8)
[2018-04-10 13:15] LABS: ABNORMAL LYMPHS % (MANUAL) 0 %
[2018-04-10 13:20] LABS: ALBUMIN 3.3 g/dL (3.2-5.5); ALBUMIN/GLOBULIN RATIO 0.8 (1.0-2.2); BILIRUBIN,TOTAL 0.9 mg/dL (0.2-1.0); CALCIUM 8.6 mg/dL (8.5-10.3); CREATININE 1.1 mg/dL (0.6-1.2); TOTAL PROTEIN 7.3 g/dL (6.7-8.2)
[2018-04-10 13:23] LABS: INR 1.4 (0.8-1.2); PT - PROTHROMBIN TIME 15.1 secs (9.9-12.6)
[2018-04-10 14:06] LABS: BAND NEUTROPHILS % (MANUAL) 3 %; BASOPHILS # (MANUAL) 0.2 10^3/uL (0-0.1); BASOPHILS % (MANUAL) 2 %; LYMPHOCYTES # (MANUAL) 0.8 10^3/uL (1.5-3.5); LYMPHOCYTES % (MANUAL) 7 %; METAMYELOCYTES % (MANUAL) 2 %; MONOCYTES # (MANUAL) 0.5 10^3/uL (0.0-1.0); MYELOCYTES % (MANUAL) 3 %; NEUTROPHILS # (MANUAL) 9.4 10^3/uL (1.5-6.6); NEUTROPHILS % (MANUAL) 79 %
[2018-04-10 14:08] LABS: PLATELET ESTIMATE, MANUAL DECREASED (<130,000) (NORMAL); PLATELET MORPHOLOGY 1+ GIANT PLATELETS (NORMAL)
[2018-04-10 14:09] LABS: DIFFERENTIAL COMMENT MANUAL DIFFERENTIAL
--- NOTE | 2018-04-10 14:22 | ED Physician Documentation ---
PD HPI SKIN - Stated complaint Stated Complaint: RASH TYPE SPOTS ON TORSO - Chief complaint Chief Complaint: Wound - History obtained from History obtained from: Patient - History of Present Illness Timing - onset: Yesterday Location: Chest, Abdomen Quality / character: Discolored, Raised Recently seen: Clinic (Sent to ED from [facility] - Additional information Additional information: The patient is a 57-year-old with history of myeloproliferative disorder, status post transfusion of 3 units packed red blood cells in the past 2 days, who presents with a rash that was first noticed yesterday. The rash is better today than it was yesterday. There is no associated itching. [facility] and referred here for further evaluation and treatment. He denies fever, difficulty breathing, or nausea. He denies history of similar symptoms in the past. In addition to myeloproliferative disease, he has history of peripheral vascular disease and is status post bilateral above-knee amputations. Review of Systems Constitutional: denies: Fever, Fatigue Nose: denies: Congestion Throat: denies: Sore throat Cardiac: denies: Chest pain / pressure Respiratory: denies: Dyspnea, Cough GI: denies: Abdominal Pain, Nausea, Vomiting Skin: reports: Rash Musculoskeletal: denies: Back pain Neurologic: denies: Headache PD PAST MEDICAL HISTORY - Past Medical History Cardiovascular: Congestive heart failure, Hypertension, High cholesterol, Peripheral Vascular Disease, Deep vein thrombosis Respiratory: Asthma, COPD, Other Neuro: CVA Endocrine/Autoimmune: Other GI: GERD, Hiatal hernia TONE REGULATOR: None : Other HEENT: Chronic vision loss, Chronic sinusitis Psych: Depression, Anxiety, Panic attacks Musculoskeletal: Osteoarthritis, Other Derm: Other - Past Surgical History Past Surgical History: Yes General: Colonoscopy, Other Ortho: Amputation Cardiovascular: Coronary stent, Cardiac catheterization, Fempop bypass Derm: Skin grafts, Skin cancer surgery - Present Medications Home Medications: Ambulatory Orders Medication Instructions Recorded Confirmed Dolutegravir Sodium [Tivicay] 50 mg PO DAILY 07/17/17 04/07/18 Emtricitabine/Tenofov Alafenam 1 tab PO DAILY 07/17/17 04/07/18 [Descovy 200-25 mg Tablet] Albuterol Sulfate [Proair Hfa 2 puffs INH Q4H PRN 09/13/17 04/07/18 Inhaler] Azelastine HCl 2 spray ELI BID 09/13/17 04/07/18 Mirtazapine 15 mg PO QPM 09/13/17 04/07/18 Morphine Sulfate [Morphine Sulfate 30 mg PO DAILY 09/13/17 04/07/18 ER] Tiotropium [place] [Spiriva] 2 puffs INH DAILY MDD 18 mcg 09/13/17 04/07/18 Metoprolol Succinate 25 mg PO DAILY #30 tab.er.24h 09/14/17 04/07/18 Gabapentin 800 mg PO TID PRN 10/20/17 04/07/18 Lisinopril 2.5 mg PO DAILY 11/12/17 04/07/18 Dronabinol [Marinol] 2.5 mg PO TID #90 capsule 11/14/17 04/07/18 Ferrous Sulfate 325 mg PO BID #60 tablet 11/14/17 04/07/18 Lenalidomide [Revlimid] 5 mg PO DAILY 03/02/18 04/07/18 Mupirocin 1 applic TD TID 03/24/18 04/07/18 Sulfamethoxazole/Trimethoprim 1 tab PO BID 04/06/18 04/07/18 [Bactrim 400-80 mg Tablet] - Allergies Allergies/Adverse Reactions: Allergies Allergy/AdvReac Type Severity Reaction Status Date / Time vancomycin Allergy Rash Verified 04/10/18 11:52 - Social History Does the pt smoke?: Yes Smoking Status: Current every day smoker Does the pt drink ETOH?: Yes Does the pt have substance abuse?: Yes - Immunizations Immunizations are current?: Yes - POLST Patient has POLST: No POLST Status: Full Code PD ED PE NORMAL - Vitals Vital signs reviewed: Yes (borderline systolic hypertension.) - General General: Alert and oriented X 3, Other (Sitting in his wheelchair.) - HEENT HEENT: Atraumatic, Moist mucous membranes, Pharynx benign - Neck Neck: No adenopathy, No JVD - Cardiac Cardiac: RRR - Respiratory Respiratory: No respiratory distress, Clear bilaterally - Abdomen Abdomen: Soft, Non tender - Derm Derm: Other (Erythematous papules scattered about the trunk, mostly in the anterior chest and abdomen, more on the left than the right. A few of the papules have pustular centers. There is no involvement of the extremities or face.) - Extremities Extremities: Other (Bilateral above-knee amputations. No sores are evident on stumps.) - Neuro Neuro: Alert and oriented X 3, No motor deficit, Normal speech Results - Vitals Vitals: Oxygen O2 Source Room air - Labs Labs: Laboratory Tests 04/10/18 04/10/18 04/10/18 12:59 12:59 12:59 WBC 11.5 H RBC 3.74 L Hgb 11.2 L Hct 32.0 L MCV 85.7 MCH 29.9 MCHC 34.9 RDW 16.3 H Plt Count 41 L MPV 10.5 Neut # (Auto) CLIP RIVETER Lymph # (Auto) CLIP RIVETER [place] # (Auto) CLIP RIVETER Eos # (Auto) CLIP RIVETER Baso # (Auto) CLIP RIVETER Absolute Nucleated RBC CLIP RIVETER Total Counted 100 Band Neuts % (Manual) 3 Abnorm Lymph % (Manual) 0 Metamyelocytes % 2 H Myelocytes % 3 H Nucleated RBC % CLIP RIVETER Neutrophils # (Manual) 9.4 H Lymphocytes # (Manual) 0.8 L Monocytes # (Manual) 0.5 Eosinophils # (Manual) 0.0 Basophils # (Manual) 0.2 H Differential Comment MANUAL DIFFERENTIAL Platelet Estimate DECREASED (<130,000) Platelet Morphology 1+ GIANT PLATELETS RBC Morph Micro Appear 1+ POIKILOCYTOSIS PT 15.1 H INR 1.4 H APTT 26.2 Sodium 134 L Potassium 4.3 Chloride 98 L Carbon Dioxide 26 Anion Gap 10.0 BUN 22 H Creatinine 1.1 Estimated GFR (MDRD) 69 L Glucose 116 H Calcium 8.6 Total Bilirubin 0.9 AST 15 ALT 11 Alkaline Phosphatase 56 Total Protein 7.3 Albumin 3.3 Globulin 4.0 Albumin/Globulin Ratio 0.8 L Lipase 22 PD MEDICAL DECISION MAKING - ED course Complexity details: reviewed results, considered differential, d/w patient ED course: The patient's presentation is most consistent with folliculitis. He is at increased risk for such infections given his treatment with immune suppressive therapy. The rash does not appear to be an allergic reaction, and is not a purpuric rash. It does not appear viral in etiology. He is otherwise asymptomatic. He is being discharged with prescription for mupirocin ointment. I discussed with him the diagnosis, treatment and outpatient follow-up, as well as potentially worrisome signs or symptoms that should prompt reevaluation she department. Departure - Departure Disposition: 01 Home, Self Care Clinical Impression: Folliculitis, Myeloproliferative disorder, S/P bilateral above knee amputation Condition: Stable Instructions: ED Folliculitis Follow-Up: ASHISH ENGLAND [Primary Care Provider] - Comments: Wash the affected area with warm soapy water twice daily. Apply mupirocin ointment twice daily after thorough washing. Follow-up with your primary physician within 1-2 weeks. Call to schedule appointment. Return to the emergency department if increasing rash, or otherwise worsening symptoms. Discharge Date/Time: 04/10/18 14:32
== END 2018-04-10 14:32 | disposition home or self-care (01) ==
LOC: ED 11:41
DX: L73.9 Follicular disorder, unspecified (principal); C94.6 Myelodysplastic disease, not elsewhere classified; Z89.612 Acquired absence of left leg above knee; Z89.611 Acquired absence of right leg above knee; I10 Essential (primary) hypertension; J44.9 Chronic obstructive pulmonary disease, unspecified; I50.9 Heart failure, unspecified; F17.200 Nicotine dependence, unspecified, uncomplicated
CPT/HCPCS: 36415; 80053; 83690; 85025; 85610; 85730; 99282; 99283

== ENCOUNTER 2018-04-24 13:11 | Emergency (ER) | payer MEDICARE, MEDICAID ==
[2018-04-24 13:26] VITALS: BP 122/65
[2018-04-24] MEDS ORDERED: DOXYCYCLINE 100 MG TABLET PO STA (15:55)
--- NOTE | 2018-04-24 15:55 | ED Physician Documentation ---
PD HPI SKIN - Stated complaint Stated Complaint: LT ELBOW REDNESS - Chief complaint Chief Complaint: Wound - Additional information Additional information: 57-year-old male presents the emergency department with pustules on his left elbow which started this morning. The patient reports redness and irritation and now pustules. No fevers or chills. The patient denies joint swelling or pain with range of motion of the joint. No fevers or chills. The patient is a cancer patient and treated for HIV. The patient has been taking his medications as prescribed. No other associated symptoms. No relieving factors. 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 : Other HEENT: Chronic vision loss, Chronic sinusitis Psych: Depression, Anxiety, Panic attacks Musculoskeletal: Osteoarthritis, Other Derm: Other - Past Surgical History Past Surgical History: Yes General: Colonoscopy, Other Ortho: Amputation Cardiovascular: Coronary stent, Cardiac catheterization, Fempop bypass Derm: Skin grafts, Skin cancer surgery - Present Medications Home Medications: Ambulatory Orders Medication Instructions Recorded Confirmed Dolutegravir Sodium [Tivicay] 50 mg PO DAILY 07/17/17 04/07/18 Emtricitabine/Tenofov Alafenam 1 tab PO DAILY 07/17/17 04/07/18 [Descovy 200-25 mg Tablet] Albuterol Sulfate [Proair Hfa 2 puffs INH Q4H PRN 09/13/17 04/07/18 Inhaler] Azelastine HCl 2 spray ELI BID 09/13/17 04/07/18 Mirtazapine 15 mg PO QPM 09/13/17 04/07/18 Morphine Sulfate [Morphine Sulfate 30 mg PO DAILY 09/13/17 04/07/18 ER] Tiotropium [place] [Spiriva] 2 puffs INH DAILY MDD 18 mcg 09/13/17 04/07/18 Metoprolol Succinate 25 mg PO DAILY #30 tab.er.24h 09/14/17 04/07/18 Gabapentin 800 mg PO TID PRN 10/20/17 04/07/18 Lisinopril 2.5 mg PO DAILY 11/12/17 04/07/18 Dronabinol [Marinol] 2.5 mg PO TID #90 capsule 11/14/17 04/07/18 Lenalidomide [Revlimid] 5 mg PO DAILY 03/02/18 04/07/18 Mupirocin 1 applic TD TID 03/24/18 04/07/18 Sulfamethoxazole/Trimethoprim 1 tab PO BID 04/06/18 04/07/18 [Bactrim 400-80 mg Tablet] Lactose-Reduced Food [Ensure 1 ea PO TID 04/14/18 04/14/18 Compact] Doxycycline Hyclate 100 mg PO BID #20 capsule 04/24/18 - Allergies Allergies/Adverse Reactions: Allergies Allergy/AdvReac Type Severity Reaction Status Date / Time vancomycin Allergy Rash Verified 04/24/18 13:26 - Social History Does the pt smoke?: Yes Smoking Status: Current every day smoker Does the pt drink ETOH?: Yes Does the pt have substance abuse?: Yes - Immunizations Immunizations are current?: Yes - POLST Patient has POLST: No POLST Status: Full Code PD ED PE NORMAL - General General: Alert and oriented X 3, Other (57-year-old male who appears chronically ill and debilitated) - HEENT HEENT: Atraumatic, PERRL, EOMI, Ears normal - Cardiac Cardiac: RRR, Strong equal pulses - Respiratory Respiratory: No respiratory distress - Derm Derm: Other (The patient has erythema over the posterior aspect of the distal humerus, there is pustules which are purulent filled. When the pustules were unroofed with a release a purulent sanguinous material. There is no under lying abscess. The patient has full active range of motion of the elbow and there appears to be no joint effusion. The patient has a normal distal pulse.) - Neuro Neuro: Alert and oriented X 3, Normal speech - Psych Psych: Normal affect Results - Vitals Vitals: Vital Signs - 24 hr 04/24/18 13:23 Temperature 2.8 C L Heart Rate 108 H Respiratory 16 Rate Blood Pressure 122/65 O2 Saturation 100 Oxygen O2 Source Room air PD MEDICAL DECISION MAKING - ED course ED course: The lesions appear to most likely be from a Staphylococcus etiology, the lesions appear to be more bacterial in nature rather than viral. Culture was sent and a viral culture was sent. The patient will be started on a course of doxycycline since he recently had Bactrim. Presently there is no clinical evidence of sepsis and the patient appears appropriate for discharge and ongoing outpatient management. I discussed with him warning signs and recommended that he should return to the emergency department immediately for any worsening or any concerns. Departure - Departure Disposition: Home, Self Care Clinical Impression: Folliculitis Cellulitis Qualifiers: Site of cellulitis: extremity Site of cellulitis of extremity: upper extremity Laterality: left Qualified Code(s): L03.114 - Cellulitis of left upper limb Condition: Good Instructions: Cellulitis Dc Follow-Up: ASHISH ENGLAND [Primary Care Provider] - Within 3 Days Prescriptions: Doxycycline Hyclate 100 mg PO BID #20 capsule Comments: Please return to the emergency department for worsening symptoms or any concerns
[2018-04-24] MEDS ORDERED: HYDROcod/ACETAM 10 MG/325 MG TABLET PO STA (16:11)
== END 2018-04-24 16:21 | disposition home or self-care (01) ==
LOC: ED 13:11
DX: L73.9 Follicular disorder, unspecified (principal); L03.114 Cellulitis of left upper limb; I11.0 Hypertensive heart disease with heart failure; I50.9 Heart failure, unspecified; Z21 Asymptomatic human immunodeficiency virus [HIV] infection status; F17.200 Nicotine dependence, unspecified, uncomplicated; Z79.899 Other long term (current) drug therapy
CPT/HCPCS: 81599; 87070; 87205; 99283; A9270; 87252

== ENCOUNTER 2018-06-11 10:52 | Outpatient (CLI) | payer MEDICARE, MEDICAID ==
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
== END 2018-06-11 10:53 | disposition home or self-care (01) ==
LOC: PC 10:52
PROVIDERS: ATTEND Nurse Practitioner Adult Health
DX: Z51.5 Encounter for palliative care (principal); G89.4 Chronic pain syndrome; C94.6 Myelodysplastic disease, not elsewhere classified; D61.818 Other pancytopenia; D75.81 Myelofibrosis; Z79.899 Other long term (current) drug therapy; Z79.52 Long term (current) use of systemic steroids; Z21 Asymptomatic human immunodeficiency virus [HIV] infection status; E43 Unspecified severe protein-calorie malnutrition; K59.03 Drug induced constipation; T40.2X5A Adverse effect of other opioids, initial encounter; Z99.3 Dependence on wheelchair; Z66 Do not resuscitate
CPT/HCPCS: 99205

== ENCOUNTER 2018-09-03 09:35 | Outpatient (CLI) | payer MEDICARE, MEDICAID | END 2018-09-03 09:36 | disposition critical access hospital (66) | LOC: EMS 09:35 | PROVIDERS: ATTEND Surgery | DX: L76.21 Postprocedural hemorrhage of skin and subcutaneous tissue following a dermatologic procedure (principal) | CPT/HCPCS: A0425; A0429 ==

== ENCOUNTER 2018-09-03 09:53 | Emergency (ER) | payer MEDICARE, MEDICAID ==
--- NOTE | 2018-09-03 10:56 | ED Physician Documentation ---
History of Present Illness - Stated complaint Stated Complaint: HEAD BLEEDING POST PROCEDURE - Chief complaint Chief Complaint: General - History obtained from History obtained from: Patient, EMS - Additonal information Additional information: The patient is a 58-year-old who arrives via ambulance with bleeding from his scalp. Yesterday he underwent excision of a cancerous skin lesion from the vert ex of his scalp. He awoke this morning with blood soaked pillow. His past medical history is significant for vascular disease for which he is status post bilateral above-knee amputations. He has history of myeloproliferative disease, requiring occasional blood transfusions. Review of Systems Constitutional: denies: Fever Ears: denies: Tinnitus/ringing Nose: denies: Congestion Cardiac: denies: Chest pain / pressure Respiratory: denies: Dyspnea, Cough GI: denies: Abdominal Pain, Nausea, Vomiting : denies: Frequency Skin: reports: Other (Excision of cancerous skin lesion from scalp.) Musculoskeletal: denies: Back pain Neurologic: denies: Focal weakness, Numbness, Headache PD PAST MEDICAL HISTORY - Past Medical History Cardiovascular: Congestive heart failure, Hypertension, High cholesterol, Peripheral Vascular Disease, Deep vein thrombosis Respiratory: Asthma, COPD, Other (tobacco abuse) Neuro: CVA Endocrine/Autoimmune: Other (HIV in remission) GI: GERD, Hiatal hernia 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: None : Other HEENT: Chronic vision loss, Chronic sinusitis Psych: Depression, Anxiety, Panic attacks Musculoskeletal: Osteoarthritis, Other (bilateral above knee amputaton) Derm: Other - Past Surgical History Past Surgical History: Yes General: Colonoscopy Ortho: Amputation Cardiovascular: Coronary stent, Cardiac catheterization, Fempop bypass Derm: Skin grafts, Skin cancer surgery - Present Medications Home Medications: Ambulatory Orders Medication Instructions Recorded Confirmed Dolutegravir Sodium [Tivicay] 50 mg PO DAILY 07/17/17 08/25/18 Emtricitabine/Tenofov Alafenam 1 tab PO DAILY 07/17/17 08/25/18 [Descovy 200-25 mg Tablet] Albuterol Sulfate [Proair Hfa 2 puffs INH Q4H PRN 09/13/17 08/25/18 Inhaler] Azelastine HCl 2 spray ELI BID 09/13/17 08/25/18 Mirtazapine 15 mg PO QPM 09/13/17 08/25/18 Morphine Sulfate [Morphine Sulfate 30 mg PO DAILY 09/13/17 08/25/18 ER] Tiotropium [place] [Spiriva] 2 puffs INH DAILY MDD 18 mcg 09/13/17 08/25/18 Metoprolol Succinate 25 mg PO DAILY #30 tab.er.24h 09/14/17 08/25/18 Gabapentin 800 mg PO TID PRN 10/20/17 08/25/18 Lisinopril 2.5 mg PO DAILY 11/12/17 08/25/18 Dronabinol [Marinol] 2.5 mg PO TID #90 capsule 11/14/17 08/25/18 Mupirocin 1 applic TD TID 03/24/18 08/25/18 Lactose-Reduced Food [Ensure 1 ea PO TID 04/14/18 08/25/18 Compact] - Allergies Allergies/Adverse Reactions: Allergies Allergy/AdvReac Type Severity Reaction Status Date / Time vancomycin Allergy Rash Verified 08/25/18 11:59 lenalidomide [From Revlimid] AdvReac Rash Verified 08/25/18 11:59 - Social History Does the pt smoke?: Yes Smoking Status: Current every day smoker Does the pt drink ETOH?: Yes Does the pt have substance abuse?: Yes - Immunizations Immunizations are current?: Yes - POLST Patient has POLST: Yes POLST Status: Full Code PD ED PE NORMAL - Vitals Vital signs reviewed: Yes (normal) - General General: Alert and oriented X 3, Well developed/nourished, Other (Blood soaked dressing on head.) - HEENT HEENT: PERRL, EOMI, Other (2 cm diameter bleeding excision site on vertex of scalp.) - Cardiac Cardiac: RRR - Respiratory Respiratory: No respiratory distress, Clear bilaterally - Abdomen Abdomen: Soft, Non tender - Derm Derm: No rash - Extremities Extremities: Other (Bilateral AKA's.) - Neuro Neuro: Alert and oriented X 3, No motor deficit, No sensory deficit Results - Vitals Vitals: Oxygen O2 Source Room air - Labs Labs: Laboratory Tests 09/03/18 10:48 WBC 30.3 H RBC 3.80 L Hgb 10.0 L Hct 31.1 L MCV 81.9 MCH 26.4 L MCHC 32.2 RDW 21.4 H Plt Count 49 L MPV 8.3 Neut # (Auto) Not Reportable Lymph # (Auto) Not Reportable Terrell # (Auto) Not Reportable Eos # (Auto) Not Reportable Baso # (Auto) Not Reportable Absolute Nucleated RBC Not Reportable Total Counted 100 Band Neuts % (Manual) 19 H Abnorm Lymph % (Manual) 0 Metamyelocytes % 6 H Myelocytes % 13 H Promyelocytes % 9 H Blast Cells % 3 H* Nucleated RBC % Not Reportable Neutrophils # (Manual) 14.5 H Lymphocytes # (Manual) 1.8 Monocytes # (Manual) 0.0 Eosinophils # (Manual) 2.4 H Basophils # (Manual) 2.1 H Differential Comment MANUAL DIFFERENTIAL Manual Slide Review Indicated Platelet Estimate DECREASED (<130,000) Platelet Morphology RARE GIANT PLATELETS RBC Morph Micro Appear SCHISTOCYTES PD MEDICAL DECISION MAKING - ED course Complexity details: reviewed old records, reviewed results, re-evaluated patient, considered differential, d/w patient ED course: The patient's presentation is significant for bleeding from a surgical excision site of a cancerous skin lesion on his scalp. His hemoglobin and hematocrit are 10.0 and 31.1, which is better than 3 days ago prior to the excision, when his hemoglobin and hematocrit were 9.0 and 28.1. His platelet count is 49,000. 3 days ago prior to his surgery his platelet count was 21,000, and he was miller sfused platelets prior to surgery, to a platelet count of 71,000. Treatment in the emergency department included cleaning the wound, and applying Gelfoam and bulky gauze dressing. This resulted in resolution of the bleeding. At discharge, I discussed with him potentially worrisome signs or symptoms that should prompt reevaluation in the emergency department. Departure - Departure Disposition: 01 Home, Self Care Clinical Impression: Hemorrhage, Postoperative bleeding from incision, Myeloproliferative disorder Condition: Stable Instructions: ED Wound Check Post Op Bleeding Follow-Up: ASHISH ENGLAND [Primary Care Provider] - Comments: Keep the wound dressing in place for 2 days, if possible. Then you can begin changing it daily if it is no longer bleeding. Return to the emergency department if you develop increasing bleeding from the wound, or otherwise worsening times. Discharge Date/Time: 09/03/18 12:26
[2018-09-03 11:05] LABS: BASOPHILS % (AUTO) 8.2 %; EOSINOPHILS % (AUTO) 2.9 %; LYMPHOCYTES % (AUTO) 10.6 %; MEAN CORPUSCULAR HEMOGLOBIN 26.4 pg (27.0-31.0); MEAN CORPUSCULAR HGB CONC 32.2 g/dL (32.0-36.0); MEAN CORPUSCULAR VOLUME 81.9 fL (80.0-94.0); MEAN PLATELET VOLUME 8.3 fL (7.4-11.4); MONOCYTES % (AUTO) 2.5 %; NEUTROPHILS % (AUTO) 75.8 %; PLT - PLATELET COUNT 49 10^3/uL (130-450); RED CELL DISTRIBUTION WIDTH 21.4 % (12.0-15.0); WHITE BLOOD COUNT 30.3 x10^3/uL (4.8-10.8)
[2018-09-03 11:46] LABS: ABNORMAL LYMPHS % (MANUAL) 0 %
[2018-09-03 11:47] LABS: BAND NEUTROPHILS % (MANUAL) 19 %; BASOPHILS # (MANUAL) 2.1 10^3/uL (0-0.1); BASOPHILS % (MANUAL) 7 %; EOSINOPHILS # (MANUAL) 2.4 10^3/uL (0-0.7); LYMPHOCYTES # (MANUAL) 1.8 10^3/uL (1.5-3.5); LYMPHOCYTES % (MANUAL) 6 %; METAMYELOCYTES % (MANUAL) 6 %; MYELOCYTES % (MANUAL) 13 %; NEUTROPHILS # (MANUAL) 14.5 10^3/uL (1.5-6.6); NEUTROPHILS % (MANUAL) 29 %; PROMYELOCYTES % (MANUAL) 9 %
[2018-09-03 11:50] LABS: DIFFERENTIAL COMMENT MANUAL DIFFERENTIAL; PLATELET ESTIMATE, MANUAL DECREASED (<130,000) (NORMAL); PLATELET MORPHOLOGY RARE GIANT PLATELETS (NORMAL)
[2018-09-03 12:25] VITALS: BP 120/72
== END 2018-09-03 12:26 | disposition home or self-care (01) ==
LOC: EDUNIT# → ED 09:53
DX: L76.22 Postprocedural hemorrhage of skin and subcutaneous tissue following other procedure (principal); Y83.9 Surgical procedure, unspecified as the cause of abnormal reaction of the patient, or of later complication, without mention of misadventure at the time of the procedure; C94.6 Myelodysplastic disease, not elsewhere classified; C44.40 Unspecified malignant neoplasm of skin of scalp and neck; I11.0 Hypertensive heart disease with heart failure; I50.9 Heart failure, unspecified; E78.00 Pure hypercholesterolemia, unspecified; F17.200 Nicotine dependence, unspecified, uncomplicated; I73.9 Peripheral vascular disease, unspecified; Z95.5 Presence of coronary angioplasty implant and graft; Z86.73 Personal history of transient ischemic attack (TIA), and cerebral infarction without residual deficits
CPT/HCPCS: 36415; 85025; 99283; 99284

== ENCOUNTER 2018-09-09 10:26 | Outpatient (CLI) | payer MEDICARE, MEDICAID | END 2018-09-09 10:27 | disposition critical access hospital (66) | LOC: EMS 10:26 | PROVIDERS: ATTEND Surgery | DX: L76.21 Postprocedural hemorrhage of skin and subcutaneous tissue following a dermatologic procedure (principal); Y83.8 Other surgical procedures as the cause of abnormal reaction of the patient, or of later complication, without mention of misadventure at the time of the procedure | CPT/HCPCS: A0425; A0429 ==

== ENCOUNTER 2018-09-09 10:46 | Emergency (ER) | payer MEDICARE, MEDICAID ==
--- NOTE | 2018-09-09 11:06 | ED Physician Documentation ---
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 He has had bleeding into the wound throughout the night and he is come here today with saturated dressings. Shortly after arrival to the emergency department the patient becomes diaphoretic and has a near syncopal episode. Review of Systems Constitutional: reports: Chills, Myalgias, Fatigue. denies: Fever Eyes: denies: Decreased vision Ears: denies: Ear pain Nose: reports: Congestion. denies: Rhinorrhea / runny nose Throat: denies: Sore throat Cardiac: denies: Chest pain / pressure, Palpitations Respiratory: denies: Dyspnea, Cough GI: denies: Abdominal Pain, Nausea, Vomiting : denies: Dysuria, Frequency Skin: denies: Rash Musculoskeletal: denies: Neck pain, Back pain Neurologic: reports: Generalized weakness. 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 : Other HEENT: Chronic vision loss, Chronic sinusitis Psych: Depression, Anxiety, Panic attacks Musculoskeletal: Osteoarthritis, Other (bilateral above knee amputaton) Derm: Other - Past Surgical History Past Surgical History: Yes General: Colonoscopy Ortho: Amputation Cardiovascular: Coronary stent, Cardiac catheterization, Fempop bypass Derm: Skin grafts, Skin cancer surgery - Present Medications Home Medications: Ambulatory Orders Medication Instructions Recorded Confirmed Dolutegravir Sodium [Tivicay] 50 mg PO DAILY 07/17/17 08/25/18 Emtricitabine/Tenofov Alafenam 1 tab PO DAILY 07/17/17 08/25/18 [Descovy 200-25 mg Tablet] Albuterol Sulfate [Proair Hfa 2 puffs INH Q4H PRN 09/13/17 08/25/18 Inhaler] Azelastine HCl 2 spray ELI BID 09/13/17 08/25/18 Mirtazapine 15 mg PO QPM 09/13/17 08/25/18 Morphine Sulfate [Morphine Sulfate 30 mg PO DAILY 09/13/17 08/25/18 ER] Tiotropium [place] [Spiriva] 2 puffs INH DAILY MDD 18 mcg 09/13/17 08/25/18 Metoprolol Succinate 25 mg PO DAILY #30 tab.er.24h 09/14/17 08/25/18 Gabapentin 800 mg PO TID PRN 10/20/17 08/25/18 Lisinopril 2.5 mg PO DAILY 11/12/17 08/25/18 Dronabinol [Marinol] 2.5 mg PO TID #90 capsule 11/14/17 08/25/18 Mupirocin 1 applic TD TID 03/24/18 08/25/18 Lactose-Reduced Food [Ensure 1 ea PO TID 04/14/18 08/25/18 Compact] - Allergies Allergies/Adverse Reactions: Allergies Allergy/AdvReac Type Severity Reaction Status Date / Time vancomycin Allergy Rash Verified 08/25/18 11:59 lenalidomide [From Revlimid] AdvReac Rash Verified 08/25/18 11:59 - Social History Does the pt smoke?: Yes Smoking Status: Current every day smoker Does the pt drink ETOH?: Yes Does the pt have substance abuse?: Yes - Immunizations Immunizations are current?: Yes - POLST Patient has POLST: Yes POLST Status: Full Code PD ED PE NORMAL - Vitals Vital signs reviewed: Yes (bradycardic and hypotensive ) - General General: Alert and oriented X 3, Well developed/nourished, Other (58 y/o male with no legs is diaphoretic and withdrawn on initial exam. ) - HEENT HEENT: PERRL, EOMI, Other (The wound is no longer bleeding and there is about 200ml of blood in the dressings. There is no surrounding erythema to the wound. ) - Neck Neck: Supple, no meningeal sign, No bony TTP - Cardiac Cardiac: RRR, No murmur - Respiratory Respiratory: No respiratory distress, Clear bilaterally - Abdomen Abdomen: Soft, Non tender - Back Back: No CVA TTP, No spinal TTP - Derm Derm: Normal color, Warm and dry, No rash - Extremities Extremities: Other (both legs are missing form AKA) - Neuro Neuro: Alert and oriented X 3, foreclosure paralegal 2-12 intact, No motor deficit, No sensory de ficit Eye Opening: Spontaneous Motor: Obeys Commands Verbal: Oriented GCS Score: 15 - Psych Psych: Normal mood, Normal affect PD ED PE EXPANDED - HEENT HEENT Visual: 1 - laceration (missing skin with escar) 2 - laceration (bleeding is occuring from the margin) Results - Vitals Vitals: Vital Signs - 24 hr 09/09/18 09/09/18 09/09/18 10:52 11:17 11:24 Temperature 35.4 C L Heart Rate 57 L 74 79 Respiratory 11 L 19 16 Rate Blood Pressure 65/51 L 83/57 L 84/57 L O2 Saturation 100 100 100 09/09/18 09/09/18 09/09/18 11:49 12:00 12:22 Temperature Heart Rate 85 92 88 Respiratory 18 15 12 Rate Blood Pressure 94/52 L 105/59 L 107/57 L O2 Saturation 100 100 100 09/09/18 09/09/18 09/09/18 13:44 13:49 13:51 Temperature 36.8 C 37 C 37.2 C Heart Rate 92 95 92 Respiratory 13 16 16 Rate Blood Pressure 106/61 100/65 99/60 O2 Saturation 100 09/09/18 09/09/18 09/09/18 14:01 14:25 14:33 Temperature 37.2 C 36.8 C 37.1 C Heart Rate 90 92 92 Respiratory 16 19 19 Rate Blood Pressure 103/60 112/64 118/65 O2 Saturation 100 09/09/18 09/09/18 09/09/18 14:40 14:41 14:48 Temperature 36.9 C 37.1 C Heart Rate 94 90 89 Respiratory 20 16 16 Rate Blood Pressure 123/65 123/65 114/65 O2 Saturation 100 09/09/18 09/09/18 15:05 15:14 Temperature 37 C 37 C Heart Rate 89 86 Respiratory 10 L 13 Rate Blood Pressure 125/72 124/70 O2 Saturation 100 Oxygen O2 Source Room air - Labs Labs: Laboratory Tests 09/09/18 09/09/18 09/09/18 11:04 11:45 11:45 WBC 14.5 H RBC 2.46 L Hgb 6.4 L* Hct 20.5 L MCV 83.6 MCH 26.2 L MCHC 31.4 L RDW 21.7 H Plt Count 19 L* MPV 7.1 L Neut # (Auto) LEARNING AND DEVELOPMENT ASSISTANT Lymph # (Auto) LEARNING AND DEVELOPMENT ASSISTANT [place] # (Auto) LEARNING AND DEVELOPMENT ASSISTANT Eos # (Auto) LEARNING AND DEVELOPMENT ASSISTANT Baso # (Auto) LEARNING AND DEVELOPMENT ASSISTANT Absolute Nucleated RBC LEARNING AND DEVELOPMENT ASSISTANT Total Counted 100 Band Neuts % (Manual) 6 Abnorm Lymph % (Manual) 0 Metamyelocytes % 4 H Myelocytes % 6 H Promyelocytes % 3 H Nucleated RBC % LEARNING AND DEVELOPMENT ASSISTANT Neutrophils # (Manual) 8.4 H Lymphocytes # (Manual) 2.3 Monocytes # (Manual) 0.6 Eosinophils # (Manual) 0.3 Basophils # (Manual) 1.0 H Differential Comment MANUAL DIFFERENTIAL WBC Morphology NORMAL APPEARANCE Platelet Estimate DECREASED (<130,000) Platelet Morphology NORMAL APPEARANCE RBC Morph Micro Appear 1+ SCHISTOCYTES Sodium 136 Potassium 3.6 Chloride 106 Carbon Dioxide 23 Anion Gap 7.0 BUN 11 Creatinine 1.4 H Estimated GFR (MDRD) 52 L Glucose 137 H Lactic Acid Calcium 7.7 L Total Bilirubin 1.1 H AST 18 ALT < 10 L Alkaline Phosphatase 40 L Troponin I Total Protein 5.8 L Albumin 3.2 Globulin 2.6 Albumin/Globulin Ratio 1.2 Lipase 25 Blood Type A POSITIVE Antibody Screen NEGATIVE Crossmatch IS Only See Detail 09/09/18 09/09/18 11:45 11:45 WBC RBC Hgb Hct MCV MCH MCHC RDW Plt Count MPV Neut # (Auto) Lymph # (Auto) [place] # (Auto) Eos # (Auto) Baso # (Auto) Absolute Nucleated RBC Total Counted Band Neuts % (Manual) Abnorm Lymph % (Manual) Metamyelocytes % Myelocytes % Promyelocytes % Nucleated RBC % Neutrophils # (Manual) Lymphocytes # (Manual) Monocytes # (Manual) Eosinophils # (Manual) Basophils # (Manual) Differential Comment WBC Morphology Platelet Estimate Platelet Morphology RBC Morph Micro Appear Sodium Potassium Chloride Carbon Dioxide Anion Gap BUN Creatinine Estimated GFR (MDRD) Glucose Lactic Acid 1.7 Calcium Total Bilirubin AST ALT Alkaline Phosphatase Troponin I < 0.04 Total Protein Albumin Globulin Albumin/Globulin Ratio Lipase Blood Type Antibody Screen Crossmatch IS Only Procedures - Laceration (location) scalp Length in cm: 1 Wound type: Linear, Clean Neurovascular status: Sensory intact, Motor intact, Vascular intact Anesthesia: Lidocaine 1%, With bicarb Wound Preparation: Irrigated copiously NS, Wound explored, To the base Skin layer closure: Nylon, Running, Size #-0 - enter number (5-0) Other: Patient tolerated well, No complications, Neurovascular intact, Dressing applied, Tetanus UTD PD MEDICAL DECISION MAKING - ED course Complexity details: reviewed results, re-evaluated patient, considered differential, d/w patient ED course: 58-year-old male with a history of HIV and myeloproliferative disorder as well as vascular disease has had a cancer removed from the top of his head and he had a dressing change done yesterday at the [facility] and following that he has had some oozing of blood all night long. The patient has long- standing anemia and has required numerous transfusions. Today he is now feeling weak and as he comes into the emergency department he begins to get diaphoretic and has near syncope. He is found to be hypotensive and he is moved into a monitored room. The patient has had this surgery to his scalp a week ago and prior to that he had platelets given for the surgery and he had control of the bleeding following that. Last night bleeding was controlled but after the patient got into his home bleeding was oozing and the blood oozed into the dressing that he had on a ll night long. The patient was found to be significantly anemic and was transfused 2 units of packed red blood cells. His wound continued to ooze from a specific area and the wound was cleansed infiltrated with a local anesthetic and suture was placed in a running fashion. This appeared to give good hemostasis. Departure - Departure Disposition: 01 Home, Self Care Clinical Impression: Anemia Qualifiers: Anemia type: other cause Other causes of anemia: other cause, not classified Qualified Code(s): D64.89 - Other specified anemias Condition: Stable Instructions: ED Laceration Scalp Stitch Or Stap Follow-Up: ASHISH ENGLAND [Primary Care Provider] - Comments: Today we were able to control the bleeding on this laceration with suturing. The suture will need to be removed in about 10 days. Today your platelet count is 19,000. You will need platelets before any further surgical intervention.
[2018-09-09] MEDS ORDERED: SODIUM CHLORIDE 0.9% 1,000 ML IV ONE (11:10)
[2018-09-09 12:04] LABS: BASOPHILS % (AUTO) 11.4 %; EOSINOPHILS % (AUTO) 3.3 %; LYMPHOCYTES % (AUTO) 11.7 %; MEAN CORPUSCULAR HEMOGLOBIN 26.2 pg (27.0-31.0); MEAN CORPUSCULAR HGB CONC 31.4 g/dL (32.0-36.0); MEAN CORPUSCULAR VOLUME 83.6 fL (80.0-94.0); MEAN PLATELET VOLUME 7.1 fL (7.4-11.4); MONOCYTES % (AUTO) 2.6 %; RED BLOOD COUNT 2.46 10^6/uL (4.70-6.10); RED CELL DISTRIBUTION WIDTH 21.7 % (12.0-15.0)
[2018-09-09 12:07] LABS: ALBUMIN 3.2 g/dL (3.2-5.5); ALBUMIN/GLOBULIN RATIO 1.2 (1.0-2.2); ALKALINE PHOSPHATASE 40 IU/L (42-121); ALT ALANINE AMINOTRANSFERASE < 10 IU/L (10-60); AST ASPARTATE AMINOTRANSFERASE 18 IU/L (10-42); BILIRUBIN,TOTAL 1.1 mg/dL (0.2-1.0); BUN - BLOOD UREA NITROGEN 11 mg/dL (6-20); CALCIUM 7.7 mg/dL (8.5-10.3); CARBON DIOXIDE - CO2 23 mmol/L (21-32); CHLORIDE 106 mmol/L (101-111); CREATININE 1.4 mg/dL (0.6-1.2); GFR - MDRD 52 (>89); GLUCOSE 137 mg/dL (70-100); HGB - HEMOGLOBIN 6.4 g/dL (14.0-18.0); LIPASE 25 U/L (22-51); SODIUM 136 mmol/L (135-145); TOTAL PROTEIN 5.8 g/dL (6.7-8.2)
[2018-09-09 12:09] LABS: ABNORMAL LYMPHS % (MANUAL) 0 %
[2018-09-09 12:17] LABS: PLT - PLATELET COUNT 19 10^3/uL (130-450)
[2018-09-09 12:34] LABS: BAND NEUTROPHILS % (MANUAL) 6 %; BASOPHILS % (MANUAL) 7 %; LYMPHOCYTES % (MANUAL) 16 %; METAMYELOCYTES % (MANUAL) 4 %; MYELOCYTES % (MANUAL) 6 %; NEUTROPHILS % (MANUAL) 52 %; PROMYELOCYTES % (MANUAL) 3 %
[2018-09-09 12:43] LABS: DIFFERENTIAL COMMENT MANUAL DIFFERENTIAL; PLATELET ESTIMATE, MANUAL DECREASED (<130,000) (NORMAL); PLATELET MORPHOLOGY NORMAL APPEARANCE (NORMAL)
[2018-09-09 12:45] LABS: WHITE BLOOD COUNT 14.5 x10^3/uL (4.8-10.8)
[2018-09-09 12:46] LABS: EOSINOPHILS # (MANUAL) 0.3 10^3/uL (0-0.7); LYMPHOCYTES # (MANUAL) 2.3 10^3/uL (1.5-3.5); MONOCYTES # (MANUAL) 0.6 10^3/uL (0.0-1.0); NEUTROPHILS # (MANUAL) 8.4 10^3/uL (1.5-6.6)
[2018-09-09] MEDS ORDERED: TRANEXAMIC ACID 1,000 MG/10 ML VIAL NAS STA (14:03)
[2018-09-09] MEDS ORDERED: TRANEXAMIC ACID 1,000 MG in SODIUM CHLORIDE 0.9% 100ML 100 ML IV STA (14:08)
[2018-09-09] MEDS ORDERED: BUFFERED LIDOCAINE 10 ML SYRINGE SUBQ STA (15:26)
[2018-09-09 16:23] VITALS: BP 126/64
== END 2018-09-09 16:37 | disposition home or self-care (01) ==
LOC: EDBD → ED 10:46
DX: L76.21 Postprocedural hemorrhage of skin and subcutaneous tissue following a dermatologic procedure (principal); D64.89 Other specified anemias; B20 Human immunodeficiency virus [HIV] disease; C94.6 Myelodysplastic disease, not elsewhere classified; I73.9 Peripheral vascular disease, unspecified; I10 Essential (primary) hypertension; F17.200 Nicotine dependence, unspecified, uncomplicated; C44.40 Unspecified malignant neoplasm of skin of scalp and neck
CPT/HCPCS: 12001; 36415; 36430; 80053; 83605; 83690; 84484; 85025; 86850; 86900; 86901; 86920; 87040; 93005; 96361; 96365; 99283; 99284; P9016

== ENCOUNTER 2018-09-18 11:05 | Emergency (ER) | payer MEDICARE, MEDICAID ==
[2018-09-18 11:11] VITALS: BP 111/69
--- NOTE | 2018-09-18 11:34 | ED Physician Documentation ---
PD HPI WOUND RECHECK - Stated complaint Stated Complaint: STITCHES REMOVAL - Chief complaint Chief Complaint: Wound - Histroy obtained from History obtained from: Patient - History of Present Illness Location: Scalp - Additional information Additional information: 58-year-old male presents to the emergency department for suture removal. Sutures were placed 9 days ago for a wound dehiscence after a biopsy to the top of his head. Has had no issues. No fevers. No drainage. No bleeding. Review of Systems Constitutional: denies: Fever PD PAST MEDICAL HISTORY - Past Medical History Cardiovascular: Congestive heart failure, Hypertension, High cholesterol, Peripheral Vascular Disease, Deep vein thrombosis Respiratory: Asthma, COPD, Other (tobacco abuse) Neuro: CVA Endocrine/Autoimmune: Other (HIV in remission) GI: GERD, Hiatal hernia PHARMACY STUDENT: None : Other HEENT: Chronic vision loss, Chronic sinusitis Psych: Depression, Anxiety, Panic attacks Musculoskeletal: Osteoarthritis, Other (bilateral above knee amputaton) Derm: Other - Past Surgical History Past Surgical History: Yes General: Colonoscopy Ortho: Amputation Cardiovascular: Coronary stent, Cardiac catheterization, Fempop bypass Derm: Skin grafts, Skin cancer surgery - Present Medications Home Medications: Ambulatory Orders Medication Instructions Recorded Confirmed Dolutegravir Sodium [Tivicay] 50 mg PO DAILY 07/17/17 09/18/18 Emtricitabine/Tenofov Alafenam 1 tab PO DAILY 07/17/17 09/18/18 [Descovy 200-25 mg Tablet] Albuterol Sulfate [Proair Hfa 2 puffs INH Q4H PRN 09/13/17 09/18/18 Inhaler] Azelastine HCl 2 spray ELI BID 09/13/17 09/18/18 Mirtazapine 15 mg PO QPM 09/13/17 09/18/18 Morphine Sulfate [Morphine Sulfate 30 mg PO DAILY 09/13/17 09/18/18 ER] Tiotropium [place] [Spiriva] 2 puffs INH DAILY MDD 18 mcg 09/13/17 09/18/18 Metoprolol Succinate 25 mg PO DAILY #30 tab.er.24h 09/14/17 09/18/18 Gabapentin 800 mg PO TID PRN 10/20/17 09/18/18 Lisinopril 2.5 mg PO DAILY 11/12/17 09/18/18 Dronabinol [Marinol] 2.5 mg PO TID #90 capsule 11/14/17 09/18/18 Lactose-Reduced Food [Ensure 1 ea PO TID 04/14/18 09/18/18 Compact] - Allergies Allergies/Adverse Reactions: Allergies Allergy/AdvReac Type Severity Reaction Status Date / Time vancomycin Allergy Rash Verified 09/18/18 11:11 lenalidomide [From Revlimid] AdvReac Rash Verified 09/18/18 11:11 - Social History Does the pt smoke?: Yes Smoking Status: Current every day smoker Does the pt drink ETOH?: Yes Does the pt have substance abuse?: Yes - Immunizations Immunizations are current?: Yes - POLST Patient has POLST: Yes POLST Status: Full Code PD ED PE NORMAL - Vitals Vital signs reviewed: Yes - General General: Alert and oriented X 3 - Derm Derm: Warm and dry, Other (Well-healed area of sutures on the top of the head. No signs of infection) - Neuro Neuro: Alert and oriented X 3 Results - Vitals Vitals: Vital Signs - 24 hr 09/18/18 11:09 Temperature 36.0 C L Heart Rate 90 Respiratory 14 Rate Blood Pressure 111/69 O2 Saturation 96 Oxygen O2 Source Room air PD MEDICAL DECISION MAKING - ED course Complexity details: considered differential, d/w patient ED course: Sutures removed by nursing staff. No dehiscence. Warnings of infection and instructions on wound care given at bedside. Also counseled on how to minimize scarring. Patient counseled regarding signs and symptoms for which I believe and urgent re-evaluation would be necessary. Patient with good understanding of and agreement to plan and is comfortable going home at this time This document was made in part using voice recognition software. While efforts are made to proofread this document, sound alike and grammatical errors may oc cur. Departure - Departure Disposition: 01 Home, Self Care Clinical Impression: Visit for suture removal Condition: Good Instructions: ED Wound Check Sutr Remove No Infec Follow-Up: Abi Mendieta ARNP [Primary Care Provider] - Within 3 Days Comments: Keep the wound clean. Return if you worsen, especially for redness swelling or drainage from the wound. Discharge Date/Time: 09/18/18 11:41
== END 2018-09-18 11:41 | disposition home or self-care (01) ==
LOC: ED 11:05
DX: S01.00XD Unspecified open wound of scalp, subsequent encounter (principal); X58.XXXD Exposure to other specified factors, subsequent encounter; I11.0 Hypertensive heart disease with heart failure; I50.9 Heart failure, unspecified; I73.9 Peripheral vascular disease, unspecified; Z86.73 Personal history of transient ischemic attack (TIA), and cerebral infarction without residual deficits; E78.00 Pure hypercholesterolemia, unspecified; Z89.512 Acquired absence of left leg below knee; Z89.511 Acquired absence of right leg below knee; Z95.5 Presence of coronary angioplasty implant and graft
CPT/HCPCS: 99282

== ENCOUNTER 2019-01-13 09:55 | Emergency (ER) | payer MEDICARE, MEDICAID ==
--- NOTE | 2019-01-13 10:05 | ED Physician Documentation ---
History of Present Illness - Stated complaint Stated Complaint: CHEST PAIN - Chief complaint Chief Complaint: Cardiac - History obtained from History obtained from: Patient - History of Present Illness Timing: Prior to arrival - Additonal information Additional information: Patient is a 58-year-old male with complicated past medical history including pancytopenia, myelofibrosis from his myeloproliferative disorder, hypertension, hyperlipidemia, peripheral vascular disease, lower extremity bilateral amputation, HIV positive in remission presenting with about 30 minutes of right- sided and substernal chest discomfort that occurred while going to wound care evaluation today. Patient denies symptoms similar to GERD. Patient also denies associated symptoms of lightheadedness, dizziness, syncope, shortness of breath, productive cough, fever, nausea, vomiting, abdominal pain, urinary or stool changes. No other improving or worsening factors noted. 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 : Other HEENT: Chronic vision loss, Chronic sinusitis Psych: Depression, Anxiety, Panic attacks Musculoskeletal: Osteoarthritis, Other Derm: Other - Past Surgical History Past Surgical History: Yes General: Colonoscopy Ortho: Amputation Cardiovascular: Coronary stent, Cardiac catheterization, Fempop bypass Derm: Skin grafts, Skin cancer surgery - Present Medications Home Medications: Ambulatory Orders Medication Instructions Recorded Confirmed Dolutegravir Sodium [Tivicay] 50 mg PO DAILY 07/17/17 01/05/19 Emtricitabine/Tenofov Alafenam 1 tab PO DAILY 07/17/17 01/05/19 [Descovy 200-25 mg Tablet] Albuterol Sulfate [Proair Hfa 2 puffs INH Q4H PRN 09/13/17 01/05/19 Inhaler] Azelastine HCl 2 spray ELI BID 09/13/17 01/05/19 Mirtazapine 15 mg PO QPM 09/13/17 01/05/19 Morphine Sulfate [Morphine Sulfate 30 mg PO DAILY 09/13/17 01/05/19 ER] Tiotropium [place] [Spiriva] 2 puffs INH DAILY MDD 18 mcg 09/13/17 01/05/19 Metoprolol Succinate 25 mg PO DAILY #30 tab.er.24h 09/14/17 01/05/19 Gabapentin 800 mg PO TID PRN 10/20/17 01/05/19 Lisinopril 2.5 mg PO DAILY 11/12/17 01/05/19 Dronabinol [Marinol] 2.5 mg PO TID #90 capsule 11/14/17 01/05/19 Lactose-Reduced Food [Ensure 1 ea PO TID 04/14/18 01/05/19 Compact] Prednisone 20 mg PO DAILY 11/10/18 01/05/19 - Allergies Allergies/Adverse Reactions: Allergies Allergy/AdvReac Type Severity Reaction Status Date / Time vancomycin Allergy Rash Verified 01/13/19 10:02 lenalidomide [From Revlimid] AdvReac Rash Verified 01/13/19 10:02 - Social History Does the pt smoke?: Yes Smoking Status: Current every day smoker Does the pt drink ETOH?: Yes Does the pt have substance abuse?: Yes - Immunizations Immunizations are current?: Yes - POLST Patient has POLST: Yes POLST Status: Full Code PD ED PE NORMAL - Vitals Vital signs reviewed: Yes - General General: Alert and oriented X 3, No acute distress, Well developed/nourished - HEENT HEENT: Atraumatic, Moist mucous membranes - Cardiac Cardiac: RRR, No murmur, Other (No reproducible pain with palpation) - Respiratory Respiratory: No respiratory distress, Clear bilaterally - Abdomen Abdomen: Normal bowel sounds, Soft, Non tender, Non distended - Derm Derm: Warm and dry, Other (Scattered ecchymoses of variable age) - Extremities Extremities: Other (Bilateral above-knee amputation) - Neuro Neuro: Alert and oriented X 3, No motor deficit, No sensory deficit - Psych Psych: Normal mood, Normal affect Results - Vitals Vitals: Vital Signs - 24 hr 01/13/19 01/13/19 01/13/19 09:59 10:23 13:05 Temperature 36.4 C L Heart Rate 99 102 H 108 H Respiratory 18 18 18 Rate Blood Pressure 169/84 H 154/86 H 165/108 H O2 Saturation 100 100 100 01/13/19 13:16 Temperature Heart Rate 64 Respiratory 20 Rate Blood Pressure 165/108 H O2 Saturation 97 Oxygen O2 Source Room air - EKG (time done) 1007 Rate: Rate (enter#) (98) Rhythm: NSR QRS: LVH Other comments: Other comments (Pronounced q waves) - Labs Labs: Laboratory Tests 01/13/19 01/13/19 01/13/19 11:12 11:12 11:12 WBC 30.3 H RBC 3.90 L Hgb 10.5 L Hct 34.3 L MCV 87.9 MCH 26.9 L MCHC 30.6 L RDW 21.8 H Plt Count 40 L Neut # (Auto) MEDICAL DETAIL REPRESENTATIVE Lymph # (Auto) MEDICAL DETAIL REPRESENTATIVE [place] # (Auto) MEDICAL DETAIL REPRESENTATIVE Eos # (Auto) MEDICAL DETAIL REPRESENTATIVE Baso # (Auto) MEDICAL DETAIL REPRESENTATIVE Absolute Nucleated RBC MEDICAL DETAIL REPRESENTATIVE Total Counted 100 Band Neuts % (Manual) 9 Reactive Lymphs % (Man) 7 Abnorm Lymph % (Manual) 0 Metamyelocytes % 6 H Myelocytes % 10 H Promyelocytes % 1 H Blast Cells % 7 H* Nucleated RBC % MEDICAL DETAIL REPRESENTATIVE Neutrophils # (Manual) 17.9 H Lymphocytes # (Manual) 4.2 H Monocytes # (Manual) 0.6 Eosinophils # (Manual) 0.0 Basophils # (Manual) 0.3 H Nucleated RBCs 52 Differential Comment MANUAL DIFFERENTIAL Manual Slide Review Indicated PT 13.5 H INR 1.2 APTT 24.2 L Sodium 139 Potassium 4.5 Chloride 102 Carbon Dioxide 21 Anion Gap 16.0 H BUN 17 Creatinine 1.2 Estimated GFR (MDRD) 62 L Glucose 91 Calcium 8.6 Total Bilirubin 1.2 H AST 18 ALT < 10 L Alkaline Phosphatase 57 Troponin I Troponin I High Sens Total Protein 6.8 Albumin 3.6 Globulin 3.2 Albumin/Globulin Ratio 1.1 Lipase 23 01/13/19 01/13/19 11:12 13:10 WBC RBC Hgb Hct MCV MCH MCHC RDW Plt Count Neut # (Auto) Lymph # (Auto) [place] # (Auto) Eos # (Auto) Baso # (Auto) Absolute Nucleated RBC Total Counted Band Neuts % (Manual) Reactive Lymphs % (Man) Abnorm Lymph % (Manual) Metamyelocytes % Myelocytes % Promyelocytes % Blast Cells % Nucleated RBC % Neutrophils # (Manual) Lymphocytes # (Manual) Monocytes # (Manual) Eosinophils # (Manual) Basophils # (Manual) Nucleated RBCs Differential Comment Manual Slide Review PT INR APTT Sodium Potassium Chloride Carbon Dioxide Anion Gap BUN Creatinine Estimated GFR (MDRD) Glucose Calcium Total Bilirubin AST ALT Alkaline Phosphatase Troponin I < 0.04 < 0.04 Troponin I High Sens 16.3 19.7 Total Protein Albumin Globulin Albumin/Globulin Ratio Lipase PD MEDICAL DECISION MAKING - ED course Complexity details: reviewed old records, reviewed results, re-evaluated patient, considered differential, d/w patient ED course: Patient presenting with right-sided chest discomfort that resolved while in the ED. Patient received aspirin and fentanyl, but patient reports that he believes it resolved prior to the fentanyl administration. Patient has complicated past medical history and screening lab work reflects his underlying disease processes including leukocytosis and pancytopenia, but similar to prior measurements. EKG did not reflect ischemia. Troponin and high-sensitivity troponin within normal limits and repeated several hours later and remained within normal limits. Again, patient was chest pain-free and requesting discharge home. At this time, feel that patient is safe to discharge home, but did alert him to the finding of an extremely early possible opacity in the lung that could represent pneumonia. Patient denies productive cough or difficulty breathing and at this time, do not feel he requires emergent antibiotics, particularly as his HIV is in remission, but did have this discussion with the patient. Also discussed other results and recommendations including strict return precautions, close follow-up, and other supportive cares. Patient voiced understanding and is comfortable with discharge plan. Departure - Departure Disposition: 01 Home, Self Care Clinical Impression: Chest pain Qualifiers: Chest pain type: unspecified Qualified Code(s): R07.9 - Chest pain, unspecified Condition: Good Instructions: ED Chest Pain Atypical Unkn Cause Follow-Up: ASHISH ENGLAND [Primary Care Provider] - Within 3 Days Comments: Please continue all home medications as previously instructed. Recommend close follow-up with your primary care physician in the next 1 to 2 days and possible referral to outpatient cardiology for further heart work-up possibly to include stress tests or ultrasound. Return to ED sooner if experience chest pain or other complications.
[2019-01-13] MEDS ORDERED: fentaNYL 100 MCG/2 ML VIAL IVP STA (10:26)
[2019-01-13] MEDS ORDERED: ASPIRIN CHEW 81 MG TABLET PO STA (10:26)
[2019-01-13 11:18] LABS: BASOPHILS % (AUTO) 4.7 %; EOSINOPHILS % (AUTO) 1.4 %; HGB - HEMOGLOBIN 10.5 g/dL (14.0-18.0); LYMPHOCYTES % (AUTO) 5.5 %; MEAN CORPUSCULAR HEMOGLOBIN 26.9 pg (27.0-31.0); MEAN CORPUSCULAR HGB CONC 30.6 g/dL (32.0-36.0); MEAN CORPUSCULAR VOLUME 87.9 fL (80.0-94.0); MONOCYTES % (AUTO) 12.2 %; NEUTROPHILS % (AUTO) 45.9 %; RED CELL DISTRIBUTION WIDTH 21.8 % (12.0-15.0); WHITE BLOOD COUNT 30.3 x10^3/uL (4.8-10.8)
[2019-01-13 11:25] LABS: INR 1.2 (0.8-1.2); PT - PROTHROMBIN TIME 13.5 secs (9.9-12.6)
[2019-01-13 11:31] LABS: BUN - BLOOD UREA NITROGEN 17 mg/dL (6-20); CARBON DIOXIDE - CO2 21 mmol/L (21-32); CHLORIDE 102 mmol/L (101-111); CREATININE 1.2 mg/dL (0.6-1.2); GFR - MDRD 62 (>89); SODIUM 139 mmol/L (135-145)
[2019-01-13 11:32] LABS: ALKALINE PHOSPHATASE 57 IU/L (42-121); ALT ALANINE AMINOTRANSFERASE < 10 IU/L (10-60); AST ASPARTATE AMINOTRANSFERASE 18 IU/L (10-42); BILIRUBIN,TOTAL 1.2 mg/dL (0.2-1.0); CALCIUM 8.6 mg/dL (8.5-10.3); GLUCOSE 91 mg/dL (70-100)
[2019-01-13 11:33] LABS: ALBUMIN 3.6 g/dL (3.2-5.5); ALBUMIN/GLOBULIN RATIO 1.1 (1.0-2.2); LIPASE 23 U/L (22-51); PARTIAL THROMBOPLASTIN TIME 24.2 secs (24.9-33.3); TOTAL PROTEIN 6.8 g/dL (6.7-8.2)
[2019-01-13 11:41] LABS: TROPONIN I < 0.04 ng/mL (<0.49)
[2019-01-13 11:42] LABS: PLT - PLATELET COUNT 40 10^3/uL (130-450)
--- NOTE | 2019-01-13 11:42 | XRAY Report ---
Reason: cough Procedure Date: 01/13/2019 Accession Number: [id number] / [id number] Procedure: XR - Chest 2 View X-Ray CPT Code: 87103 FULL RESULT: EXAM: CHEST RADIOGRAPHY EXAM DATE: 01/13/2019 11:29 AM. CLINICAL HISTORY: Cough. Substernal chest pain. COMPARISON: CHEST 2 VIEW 12/28/2017 3:17 PM. TECHNIQUE: 2 views. FINDINGS: Lungs/Pleura: Interstitial markings in the right upper lobe are slightly more prominent. No pleural effusion. No pneumothorax. Normal volumes. Mediastinum: Heart size is normal. Aorta is mildly tortuous. Other: Dextroscoliosis of the thoracic spine. Chronic deformities of both shoulders again seen. Healed left-sided rib fractures. Degenerative changes of the thoracic spine. IMPRESSION: 1. Slightly prominent right upper lobe lung markings possibly focus of early consolidation. RADIA
[2019-01-13 11:44] LABS: ABNORMAL LYMPHS % (MANUAL) 0 %
[2019-01-13 11:58] LABS: BAND NEUTROPHILS % (MANUAL) 9 %; BASOPHILS # (MANUAL) 0.3 10^3/uL (0-0.1); BASOPHILS % (MANUAL) 1 %; LYMPHOCYTES # (MANUAL) 4.2 10^3/uL (1.5-3.5); LYMPHOCYTES % (MANUAL) 7 %; METAMYELOCYTES % (MANUAL) 6 %; MONOCYTES # (MANUAL) 0.6 10^3/uL (0.0-1.0); MYELOCYTES % (MANUAL) 10 %; PROMYELOCYTES % (MANUAL) 1 %
[2019-01-13 12:00] LABS: DIFFERENTIAL COMMENT MANUAL DIFFERENTIAL
[2019-01-13 13:36] LABS: TROPONIN I < 0.04 ng/mL (<0.49)
[2019-01-13 14:02] VITALS: BP 160/99
== END 2019-01-13 14:02 | disposition home or self-care (01) ==
LOC: ED 09:55
DX: R07.89 Other chest pain (principal); D61.818 Other pancytopenia; C94.6 Myelodysplastic disease, not elsewhere classified; Z21 Asymptomatic human immunodeficiency virus [HIV] infection status; I10 Essential (primary) hypertension; E78.5 Hyperlipidemia, unspecified; K21.9 Gastro-esophageal reflux disease without esophagitis; I73.9 Peripheral vascular disease, unspecified; Z89.612 Acquired absence of left leg above knee; Z89.611 Acquired absence of right leg above knee; Z86.73 Personal history of transient ischemic attack (TIA), and cerebral infarction without residual deficits; Z95.5 Presence of coronary angioplasty implant and graft; F17.200 Nicotine dependence, unspecified, uncomplicated
CPT/HCPCS: 36415; 71046; 80053; 83690; 84484; 85025; 85610; 85730; 93005; 96374; 99282; 99284; A9270

== ENCOUNTER 2019-04-05 13:36 | Outpatient (CLI) | payer MEDICARE, MEDICAID | END 2019-04-05 13:37 | disposition critical access hospital (66) | LOC: EMS 13:36 | PROVIDERS: ATTEND Surgery | DX: S41.112A Laceration without foreign body of left upper arm, initial encounter (principal); W22.8XXA Striking against or struck by other objects, initial encounter; Y92.032 Bedroom in apartment as the place of occurrence of the external cause | CPT/HCPCS: A0425; A0427 ==

== ENCOUNTER 2019-04-05 14:01 | Emergency (ER) | payer MEDICARE, MEDICAID ==
[2019-04-05] MEDS ORDERED: TETANUS/DIPHTHERIA/PERTUSSIS 0.5 ML SYRINGE IM ONE (14:10)
[2019-04-05] MEDS ORDERED: fentaNYL 100 MCG/2 ML VIAL IVP STA (14:17)
[2019-04-05] MEDS ORDERED: SODIUM CHLORIDE 0.9% 1,000 ML IV ONE (14:17)
--- NOTE | 2019-04-05 14:20 | ED Physician Documentation ---
PD HPI UPPER EXT INJURY - Stated complaint Stated Complaint: FALL - Chief complaint Chief Complaint: Trauma Ext - History obtained from History obtained from: Patient - History of Present Illness Location: Left (58-year-old gentleman with history of myelodysplasia and HIV. 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 Last night he fell out of bed onto the ground and scraped his left upper extremity on the arm of his wheelchair. Tetanus is unknown. It was bleeding all night. No other injuries. He is adamant that he did not hit his head. His only other pain is from a left buttock pressure ulcer.) Review of Systems Ten Systems: 10 systems reviewed and negative Constitutional: denies: Fever, Chills Nose: denies: Rhinorrhea / runny nose, Congestion Cardiac: denies: Chest pain / pressure, Palpitations Respiratory: denies: Dyspnea, Cough PD PAST MEDICAL HISTORY - Past Medical History Cardiovascular: Congestive heart failure, Hypertension, High cholesterol, Peripheral Vascular Disease, Deep vein thrombosis Respiratory: Asthma, COPD, Other Neuro: CVA Endocrine/Autoimmune: Other GI: GERD, Hiatal hernia NUTRITIONALIST: None : Other HEENT: Chronic vision loss, Chronic sinusitis Psych: Depression, Anxiety, Panic attacks Musculoskeletal: Osteoarthritis, Other Derm: Other - Past Surgical History Past Surgical History: Yes General: Colonoscopy Ortho: Amputation Cardiovascular: Coronary stent, Cardiac catheterization, Fempop bypass Derm: Skin grafts, Skin cancer surgery - Present Medications Home Medications: Ambulatory Orders Medication Instructions Recorded Confirmed Dolutegravir Sodium [Tivicay] 50 mg PO DAILY 07/17/17 03/30/19 Emtricitabine/Tenofov Alafenam 1 tab PO DAILY 07/17/17 03/30/19 [Descovy 200-25 mg Tablet] Albuterol Sulfate [Proair Hfa 2 puffs INH Q4H PRN 09/13/17 03/30/19 Inhaler] Azelastine HCl 2 spray ELI BID 09/13/17 03/30/19 Mirtazapine 15 mg PO QPM 09/13/17 03/30/19 Morphine Sulfate [Morphine Sulfate 30 mg PO DAILY 09/13/17 03/30/19 ER] Tiotropium [place] [Spiriva] 2 puffs INH DAILY MDD 18 mcg 09/13/17 03/30/19 Metoprolol Succinate 25 mg PO DAILY #30 tab.er.24h 09/14/17 03/30/19 Gabapentin 800 mg PO TID PRN 10/20/17 03/30/19 Lisinopril 2.5 mg PO DAILY 11/12/17 03/30/19 Dronabinol [Marinol] 2.5 mg PO TID #90 capsule 11/14/17 03/30/19 Lactose-Reduced Food [Ensure 1 ea PO TID 04/14/18 03/30/19 Compact] Prednisone 20 mg PO DAILY 11/10/18 03/30/19 Ciprofloxacin HCl [Cipro] 1 cap PO BID 04/02/19 04/02/19 - Allergies Allergies/Adverse Reactions: Allergies Allergy/AdvReac Type Severity Reaction Status Date / Time vancomycin Allergy Rash Verified 03/16/19 11:54 lenalidomide [From Revlimid] AdvReac Rash Verified 03/16/19 11:54 - Social History Does the pt smoke?: Yes Smoking Status: Current every day smoker Does the pt drink ETOH?: Yes Does the pt have substance abuse?: Yes - Immunizations Immunizations are current?: Yes - POLST Patient has POLST: Yes POLST Status: Full Code PD ED PE NORMAL - Vitals Vital signs reviewed: Yes (Febrile, tachycardic, borderline blood pressure) - General General: Alert and oriented X 3, No acute distress - HEENT HEENT: PERRL, EOMI, Other (There is a bandaged wound on the top of the head from a skin graft that did not quite take.) - Neck Neck: Supple, no meningeal sign, No bony TTP - Cardiac Cardiac: RRR, No murmur - Respiratory Respiratory: No respiratory distress, Clear bilaterally - Abdomen Abdomen: Non tender - Extremities Extremities: Other (He has a 2 x 3 cm skin tear that is shallow remedy with evidence of recent bleeding but no active bleeding. There is a large infected pressure ulcer on the left buttock with pinpoint area of drainage.). No: No deformity (Bilateral above knee amputations) - Neuro Neuro: Alert and oriented X 3, Normal speech - Psych Psych: Normal mood, Normal affect Results - Vitals Vitals: Vital Signs - 24 hr 04/05/19 04/05/19 14:02 16:27 Temperature 38.0 C H 36.6 C Heart Rate 114 H 97 Respiratory 14 18 Rate Blood Pressure 94/62 98/69 O2 Saturation 100 95 Oxygen O2 Source Room air - Labs Labs: Laboratory Tests 04/05/19 04/05/19 04/05/19 14:20 14:20 14:20 WBC 12.9 H RBC 2.48 L Hgb 6.2 L* Hct 21.4 L MCV 86.3 MCH 25.0 L MCHC 29.0 L RDW 23.0 H Plt Count 57 L Neut # (Auto) Not Reportable Lymph # (Auto) Not Reportable [place] # (Auto) Not Reportable Eos # (Auto) Not Reportable Baso # (Auto) Not Reportable Absolute Nucleated RBC Not Reportable Total Counted 100 Band Neuts % (Manual) 7 Abnorm Lymph % (Manual) 0 Metamyelocytes % 6 H Myelocytes % 1 H Blast Cells % 5 H* Nucleated RBC % Not Reportable Neutrophils # (Manual) 8.5 H Lymphocytes # (Manual) 1.7 Monocytes # (Manual) 0.9 Eosinophils # (Manual) 0.3 Basophils # (Manual) 0.0 Differential Comment MANUAL DIFFERENTIAL Platelet Estimate DECREASED (<130,000) Platelet Morphology NORMAL APPEARANCE RBC Morph Micro Appear 2+ STOMATOCYTES PT 15.6 H INR 1.4 H Sodium 135 Potassium 4.1 Chloride 103 Carbon Dioxide 23 Anion Gap 9.0 BUN 15 Creatinine 1.2 Estimated GFR (MDRD) 62 L Glucose 128 H Lactic Acid Calcium 7.8 L Total Bilirubin 1.0 AST 19 ALT < 10 L Alkaline Phosphatase 49 Total Protein 6.1 L Albumin 2.7 L Globulin 3.4 Albumin/Globulin Ratio 0.8 L Lipase 20 L Blood Type Antibody Screen Crossmatch IS Only 04/05/19 04/05/19 14:20 14:50 WBC RBC Hgb Hct MCV MCH MCHC RDW Plt Count Neut # (Auto) Lymph # (Auto) [place] # (Auto) Eos # (Auto) Baso # (Auto) Absolute Nucleated RBC Total Counted Band Neuts % (Manual) Abnorm Lymph % (Manual) Metamyelocytes % Myelocytes % Blast Cells % Nucleated RBC % Neutrophils # (Manual) Lymphocytes # (Manual) Monocytes # (Manual) Eosinophils # (Manual) Basophils # (Manual) Differential Comment Platelet Estimate Platelet Morphology RBC Morph Micro Appear PT INR Sodium Potassium Chloride Carbon Dioxide Anion Gap BUN Creatinine Estimated GFR (MDRD) Glucose Lactic Acid 1.8 Calcium Total Bilirubin AST ALT Alkaline Phosphatase Total Protein Albumin Globulin Albumin/Globulin Ratio Lipase Blood Type A POSITIVE Antibody Screen NEGATIVE Crossmatch IS Only See Detail - Rads (name of study) Ct Pelvis with IV contrast Radiology: EMP read contemporaneously (Deep posterior left buttock soft tissue wound with osteomyelitis and myesha bony destruction.) Procedures - Laceration (location) L arm skin tear Length in cm: 2 Wound type: Superficial Wound Preparation: Irrigated copiously NS Skin layer closure: Dermabond, Steri strips Other: Tetanus booster given Complexity: Simple PD MEDICAL DECISION MAKING - ED course ED course: 58-year-old gentleman with multiple comorbidities presents after a fall from bed last night scraping his left arm with a persistently bleeding wound there likely due to thrombocytopenia. However he is noted to be hypotensive, tachycardic, and febrile with a large infected pressure ulcer of the left buttock. Verbal report from the radiologist here suggest that this infection goes deep and does have some osteomyelitis of the pelvis without evidence of necrotizing soft tissue infection. Case was discussed by phone with Dr. Schuler here who felt he should be transferred for higher level of care for infectious disease, potential plastic surgery consultation. [facility] was called for potential transfer at 3:41 PM. Previous culture from the wound was reviewed, enterococcus sensitive to ampicillin and vancomycin. Unasyn and linezolid were ordered noting vancomycin allergy. [facility] subsequently had not beds Accepted Kayley Salinas at [facility], [place] were completed. He is stable for transport to a higher level of care and does need a higher level of care for potential multispecialty consultation. Departure - Departure Disposition: 02 Transfer Acute Care Hosp Clinical Impression: Complete immobility due to severe physical disability or frailty, Myeloproliferative disorder, Peripheral vascular disease, Symptomatic anemia Acute osteomyelitis, pelvic region and thigh Qualifiers: Laterality: left Qualified Code(s): M86.152 - Other acute osteomyelitis, left femur Protein-calorie malnutrition Qualifiers: Protein-calorie malnutrition severity: unspecified severity Qualified Code(s): E46 - Unspecified protein-calorie malnutrition HIV (human immunodeficiency virus infection) Qualifiers: HIV symptom status: asymptomatic Qualified Code(s): Z21 - Asymptomatic human immunodeficiency virus [HIV] infection status Condition: Serious
[2019-04-05] MEDS ORDERED: IOVERSOL 320 100 ML VIAL IVP ONE ×2 (14:30→15:15)
[2019-04-05 14:31] LABS: BASOPHILS % (AUTO) 2.6 %; EOSINOPHILS % (AUTO) 1.7 %; LYMPHOCYTES % (AUTO) 3.6 %; MEAN CORPUSCULAR VOLUME 86.3 fL (80.0-94.0); MONOCYTES % (AUTO) 17.2 %; NEUTROPHILS % (AUTO) 53.5 %; PLT - PLATELET COUNT 57 10^3/uL (130-450); RED BLOOD COUNT 2.48 10^6/uL (4.70-6.10); WHITE BLOOD COUNT 12.9 x10^3/uL (4.8-10.8)
[2019-04-05 14:33] LABS: HGB - HEMOGLOBIN 6.2 g/dL (14.0-18.0)
[2019-04-05 14:34] LABS: ABNORMAL LYMPHS % (MANUAL) 0 %
[2019-04-05 14:35] LABS: INR 1.4 (0.8-1.2); PT - PROTHROMBIN TIME 15.6 secs (9.9-12.6)
[2019-04-05 14:42] LABS: ALBUMIN 2.7 g/dL (3.2-5.5); ALBUMIN/GLOBULIN RATIO 0.8 (1.0-2.2); ALKALINE PHOSPHATASE 49 IU/L (42-121); ALT ALANINE AMINOTRANSFERASE < 10 IU/L (10-60); AST ASPARTATE AMINOTRANSFERASE 19 IU/L (10-42); BUN - BLOOD UREA NITROGEN 15 mg/dL (6-20); CALCIUM 7.8 mg/dL (8.5-10.3); CARBON DIOXIDE - CO2 23 mmol/L (21-32); CHLORIDE 103 mmol/L (101-111); CREATININE 1.2 mg/dL (0.6-1.2); GFR - MDRD 62 (>89); GLUCOSE 128 mg/dL (70-100); LIPASE 20 U/L (22-51); SODIUM 135 mmol/L (135-145); TOTAL PROTEIN 6.1 g/dL (6.7-8.2)
[2019-04-05 15:07] LABS: BAND NEUTROPHILS % (MANUAL) 7 %; EOSINOPHILS # (MANUAL) 0.3 10^3/uL (0-0.7); LYMPHOCYTES # (MANUAL) 1.7 10^3/uL (1.5-3.5); LYMPHOCYTES % (MANUAL) 13 %; METAMYELOCYTES % (MANUAL) 6 %; MONOCYTES # (MANUAL) 0.9 10^3/uL (0.0-1.0); MYELOCYTES % (MANUAL) 1 %
[2019-04-05 15:09] LABS: DIFFERENTIAL COMMENT MANUAL DIFFERENTIAL; PLATELET ESTIMATE, MANUAL DECREASED (<130,000) (NORMAL); PLATELET MORPHOLOGY NORMAL APPEARANCE (NORMAL)
[2019-04-05] MEDS ORDERED: LINEZOLID 600 MG/300 ML 600 MG/300 ML BAG IV ONE (15:21)
[2019-04-05] MEDS ORDERED: AMPICILLIN/SULBACTAM 3 GM in SODIUM CHLORIDE 0.9% MINIBAG 100 ML IV STA (15:21)
--- NOTE | 2019-04-05 15:46 | CT Report ---
Reason: IV only, L buttock infected ulcer Procedure Date: 04/05/2019 Accession Number: [id number] / [id number] Procedure: CT - PELVIS W CPT Code: FULL RESULT: EXAM: CT PELVIS EXAM DATE: 04/05/2019 03:13 PM. CLINICAL HISTORY: IV only, left buttock infected ulcer. COMPARISONS: ABDOMEN/PELVIS W/ 09/13/2017 7:16 PM. TECHNIQUE: Routine helical CT imaging was performed through the pelvis. IV contrast: 80 mL Optiray 320. Enteric contrast: No. Reconstructions: Coronal and sagittal. In accordance with CT protocol optimization, one or more of the following dose reduction techniques were utilized for this exam: automated exposure control, adjustment of mA and/or KV based on patient size, or use of iterative reconstructive technique. FINDINGS: Visualized Abdominal Organs: Unremarkable as seen. Peritoneal Cavity/Bowel: No bowel obstruction. No free fluid, free air or adenopathy. No masses or acute inflammatory process. Negative for appendicitis. Pelvic Organs: Splenomegaly. Vasculature: Prominent atherosclerotic disease with calcification seen centrally within the aorta suggesting so-called popcorn atherosclerosis. Bones: There is an open soft tissue wound following the inferior-posterior buttock which extends to the posterior left pubic ramus where there is osseous destruction and gas adjacent to bone indicating osteomyelitis and deep soft tissue infection. There is no spread of soft tissue gas along muscular fascial compartments to suggest Maryam's gangrene/necrotizing fasciitis. Masslike nonenhancing area of the wound encompasses approximately 6.5 x 5.2 cm, likely to benefit from debridement. Severe right hip osteoarthritis. Moderate left hip osteoarthritis. Bilateral chronic femoral head avascular necrosis. Diffuse left femoral head sclerosis from avascular necrosis. There is a nonfused medial right femoral head osseous fragment 2.5 cm x 2.5 cm from avascular necrosis. Superior right femoral head subcortical crescent infraction with mild collapse. Negative for acute femoral neck fracture. Other: None. IMPRESSION: Deep posterior left buttock soft tissue wound with osteomyelitis as evidenced by myesha bony destruction. CRITICAL RESULT: The findings were discussed with Dr. Choi on 04/05/2019 at approximally 3:15 PM. NOLBERTO
[2019-04-05] MEDS ORDERED: NICOTINE 21 MG PATCH TOP STA (18:05)
[2019-04-05 18:48] VITALS: BP 128/70
== END 2019-04-05 19:27 | disposition short-term general hospital (02) ==
LOC: ED 14:01
DX: S41.112A Laceration without foreign body of left upper arm, initial encounter (principal); W06.XXXA Fall from bed, initial encounter; Y93.89 Activity, other specified; Y92.59 Other trade areas as the place of occurrence of the external cause; Z23 Encounter for immunization; L89.329 Pressure ulcer of left buttock, unspecified stage; M86.152 Other acute osteomyelitis, left femur; E46 Unspecified protein-calorie malnutrition; D64.9 Anemia, unspecified; C94.6 Myelodysplastic disease, not elsewhere classified; Z21 Asymptomatic human immunodeficiency virus [HIV] infection status; I73.9 Peripheral vascular disease, unspecified; Z89.612 Acquired absence of left leg above knee; Z89.611 Acquired absence of right leg above knee; I10 Essential (primary) hypertension; R53.2 Functional quadriplegia; F17.200 Nicotine dependence, unspecified, uncomplicated
CPT/HCPCS: 36415; 72193; 80053; 83605; 83690; 85025; 85610; 86850; 86900; 86901; 86920; 87040; 90471; 90715; 96361; 96365; 96366; 96368; 96375; 99285; A9270; J2020; P9040; Q9967

== ENCOUNTER 2019-06-11 17:56 | Outpatient (CLI) | payer MEDICARE, MEDICAID | END 2019-06-11 17:57 | disposition critical access hospital (66) | LOC: EMS 17:56 | PROVIDERS: ATTEND Surgery | DX: L89.324 Pressure ulcer of left buttock, stage 4 (principal); R52 Pain, unspecified; Z89.612 Acquired absence of left leg above knee; Z89.611 Acquired absence of right leg above knee | CPT/HCPCS: A0425; A0429 ==

== ENCOUNTER 2019-06-11 18:16 | Emergency (ER) | payer MEDICARE, MEDICAID ==
--- NOTE | 2019-06-11 18:53 | ED Physician Documentation ---
PD HPI WOUND RECHECK - Stated complaint Stated Complaint: PRESSURE WOUND - Chief complaint Chief Complaint: Wound - Histroy obtained from History obtained from: Patient - History of Present Illness Location: Back (58-year-old gentleman with history of HIV, myeloproliferative disorder, peripheral vascular disease status post bilateral leg amputations, COPD. I sent him to [facility] about 2 months ago for osteomyelitis of the pelvis. He said they did do surgery. He has been having wound care ever since. He says he feels fine, but his wound care nurse called 911 today to have him evaluated because she felt the wound looked worse. He is having minimal to no pain. 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 : Other HEENT: Chronic vision loss, Chronic sinusitis Psych: Depression, Anxiety, Panic attacks Musculoskeletal: Osteoarthritis, Other Derm: Other - Past Surgical History Past Surgical History: Yes General: Colonoscopy Ortho: Amputation Cardiovascular: Coronary stent, Cardiac catheterization, Fempop bypass Derm: Skin grafts, Skin cancer surgery - Present Medications Home Medications: Ambulatory Orders Medication Instructions Recorded Confirmed Dolutegravir Sodium [Tivicay] 50 mg PO DAILY 07/17/17 06/01/19 Emtricitabine/Tenofov Alafenam 1 tab PO DAILY 07/17/17 06/01/19 [Descovy 200-25 mg Tablet] Albuterol Sulfate [Proair Hfa 2 puffs INH Q4H PRN 09/13/17 06/01/19 Inhaler] Azelastine HCl 2 spray ELI BID 09/13/17 06/01/19 Mirtazapine 15 mg PO QPM 09/13/17 06/01/19 Morphine Sulfate [Morphine Sulfate 30 mg PO DAILY 09/13/17 06/01/19 ER] Tiotropium [place] [Spiriva] 2 puffs INH DAILY MDD 18 mcg 09/13/17 06/01/19 Metoprolol Succinate 25 mg PO DAILY #30 tab.er.24h 09/14/17 06/01/19 Gabapentin 800 mg PO TID PRN 10/20/17 06/01/19 Lisinopril 2.5 mg PO DAILY 11/12/17 06/01/19 Dronabinol [Marinol] 2.5 mg PO TID #90 capsule 11/14/17 06/01/19 Lactose-Reduced Food [Ensure 1 ea PO TID 04/14/18 06/01/19 Compact] Prednisone 20 mg PO DAILY 11/10/18 06/01/19 Ciprofloxacin HCl [Cipro] 1 cap PO BID 04/02/19 06/01/19 Atovaquone/Proguanil HCl 1 tab PO DAILY 06/01/19 06/01/19 [Atovaquone-Proguanil 62.5-25] Omeprazole 20 mg PO DAILY 06/01/19 06/01/19 - Allergies Allergies/Adverse Reactions: Allergies Allergy/AdvReac Type Severity Reaction Status Date / Time vancomycin Allergy Rash Verified 06/11/19 18:19 lenalidomide [From Revlimid] AdvReac Rash Verified 06/11/19 18:19 - Social History Does the pt smoke?: Yes Smoking Status: Current every day smoker Does the pt drink ETOH?: Yes Does the pt have substance abuse?: Yes - Immunizations Immunizations are current?: Yes - POLST Patient has POLST: Yes POLST Status: Full Code PD ED PE NORMAL - Vitals Vital signs reviewed: Yes - General General: Alert and oriented X 3, Other (Appears chronically malnourished, he is without legs.) - HEENT HEENT: PERRL, EOMI - Neck Neck: Supple, no meningeal sign, No bony TTP - Cardiac Cardiac: RRR, No murmur - Respiratory Respiratory: No respiratory distress, Clear bilaterally - Abdomen Abdomen: Non tender - Male Male : Other (He has a small buttock wound on the right, stage I pressure ulcer. There is a stage III pressure ulcer on the left which does not look like it is down through the bone. There is minimal surrounding cellulitis. A culture was taken of this during exam) - Neuro Neuro: Alert and oriented X 3, Normal speech Results - Vitals Vitals: Vital Signs - 24 hr 06/11/19 18:19 Temperature 37.4 C Heart Rate 101 H Respiratory 18 Rate Blood Pressure 106/75 O2 Saturation 98 Oxygen O2 Source CPAP - Labs Labs: Laboratory Tests 06/11/19 06/11/19 06/11/19 18:54 18:54 18:54 WBC 18.4 H RBC 2.75 L Hgb 7.1 L Hct 24.0 L MCV 87.3 MCH 25.8 L MCHC 29.6 L RDW 21.3 H Plt Count 64 L Manual Slide Review Indicated Sodium 133 L Potassium 4.1 Chloride 99 L Carbon Dioxide 25 Anion Gap 9.0 BUN 16 Creatinine 1.1 Estimated GFR (MDRD) 69 L Glucose 118 H Lactic Acid 1.0 Calcium 8.0 L Total Bilirubin 0.5 AST 16 ALT < 10 L Alkaline Phosphatase 50 Total Protein 6.2 L Albumin 2.7 L Globulin 3.5 Albumin/Globulin Ratio 0.8 L Lipase 23 PD MEDICAL DECISION MAKING - ED course ED course: He has a stage III pressure ulcer. Does not look actively infected. He is already on Levaquin. A culture was taken. I do not see any necessity for surgical intervention at this point and he does not want to go to a tertiary care center for evaluation now. Departure - Departure Disposition: 01 Home, Self Care Clinical Impression: Myeloproliferative disorder, Pressure ulcer of right buttock, stage 1, Stage 3 pressure ulcer with suspected deep tissue injury Condition: Stable Record reviewed to determine appropriate education?: Yes Instructions: Pressure Ulcer Tx Clean Dress, Pressure Injury Dc Comments: Continue the current antibiotic and wound care. We will call if you need to change antibiotic from levaquin in a few days. Follow-up with your primary care physician next week for recheck, continue wound care.
[2019-06-11 19:00] LABS: BASOPHILS % (AUTO) 1.6 %; EOSINOPHILS % (AUTO) 0.9 %; HGB - HEMOGLOBIN 7.1 g/dL (14.0-18.0); LYMPHOCYTES % (AUTO) 2.3 %; MEAN CORPUSCULAR HEMOGLOBIN 25.8 pg (27.0-31.0); MEAN CORPUSCULAR HGB CONC 29.6 g/dL (32.0-36.0); MEAN CORPUSCULAR VOLUME 87.3 fL (80.0-94.0); MONOCYTES % (AUTO) 8.9 %; NEUTROPHILS % (AUTO) 62.5 %; PLT - PLATELET COUNT 64 10^3/uL (130-450); RED BLOOD COUNT 2.75 10^6/uL (4.70-6.10); RED CELL DISTRIBUTION WIDTH 21.3 % (12.0-15.0); WHITE BLOOD COUNT 18.4 x10^3/uL (4.8-10.8)
[2019-06-11 19:08] LABS: ABNORMAL LYMPHS % (MANUAL) 0 %
[2019-06-11 19:12] LABS: ALBUMIN 2.7 g/dL (3.2-5.5); ALBUMIN/GLOBULIN RATIO 0.8 (1.0-2.2); ALKALINE PHOSPHATASE 50 IU/L (42-121); ALT ALANINE AMINOTRANSFERASE < 10 IU/L (10-60); AST ASPARTATE AMINOTRANSFERASE 16 IU/L (10-42); BILIRUBIN,TOTAL 0.5 mg/dL (0.2-1.0); BUN - BLOOD UREA NITROGEN 16 mg/dL (6-20); CARBON DIOXIDE - CO2 25 mmol/L (21-32); CHLORIDE 99 mmol/L (101-111); CREATININE 1.1 mg/dL (0.6-1.2); GFR - MDRD 69 (>89); GLUCOSE 118 mg/dL (70-100); LIPASE 23 U/L (22-51); SODIUM 133 mmol/L (135-145); TOTAL PROTEIN 6.2 g/dL (6.7-8.2)
[2019-06-11 19:50] LABS: BAND NEUTROPHILS % (MANUAL) 5 %; BASOPHILS # (MANUAL) 0.2 10^3/uL (0-0.1); BASOPHILS % (MANUAL) 1 %; EOSINOPHILS # (MANUAL) 0.2 10^3/uL (0-0.7); LYMPHOCYTES # (MANUAL) 0.4 10^3/uL (1.5-3.5); LYMPHOCYTES % (MANUAL) 2 %; METAMYELOCYTES % (MANUAL) 1 %; MONOCYTES # (MANUAL) 1.1 10^3/uL (0.0-1.0); MYELOCYTES % (MANUAL) 6 %; PROMYELOCYTES % (MANUAL) 3 %
[2019-06-11 19:54] LABS: DIFFERENTIAL COMMENT MANUAL DIFFERENTIAL; PLATELET ESTIMATE, MANUAL DECREASED (<130,000) (NORMAL); PLATELET MORPHOLOGY NORMAL APPEARANCE (NORMAL)
[2019-06-11 20:04] VITALS: BP 93/65
== END 2019-06-11 20:42 | disposition home or self-care (01) ==
LOC: EDUNIT# → ED 18:16
DX: L89.323 Pressure ulcer of left buttock, stage 3 (principal); L89.311 Pressure ulcer of right buttock, stage 1; C94.6 Myelodysplastic disease, not elsewhere classified; I73.9 Peripheral vascular disease, unspecified; Z89.612 Acquired absence of left leg above knee; Z89.611 Acquired absence of right leg above knee; I11.0 Hypertensive heart disease with heart failure; I50.9 Heart failure, unspecified; J44.9 Chronic obstructive pulmonary disease, unspecified; F17.200 Nicotine dependence, unspecified, uncomplicated; B20 Human immunodeficiency virus [HIV] disease
CPT/HCPCS: 36415; 80053; 83605; 83690; 85025; 87040; 87070; 87205; 99283; 99284

== ENCOUNTER 2019-06-21 10:39 | Outpatient (CLI) | payer MEDICARE, MEDICAID | END 2019-06-21 10:40 | disposition critical access hospital (66) | LOC: EMS 10:39 | PROVIDERS: ATTEND Surgery | DX: M54.5 Low back pain (principal); L98.8 Other specified disorders of the skin and subcutaneous tissue | CPT/HCPCS: A0425; A0429 ==

== ENCOUNTER 2019-06-21 10:58 | Inpatient (IN) | payer MEDICARE, MEDICAID ==
--- NOTE | 2019-06-21 11:56 | ED Physician Documentation ---
History of Present Illness - Stated complaint Stated Complaint: WOUND CHECK - Chief complaint Chief Complaint: General - History obtained from History obtained from: Patient, Caregiver - History of Present Illness Timing: How many days ago (2) - Additonal information Additional information: This is a 58-year-old man with a history of HIV, peripheral vascular disease status post bilateral lower extremity amputations above the knee who is wheelchair-bound and developed a severe decubitus ulcer which is being cared for by in-home wound care. A new wound care nurse came on Friday of last week removed his wedge from his wheelchair and removed his lifeline from his neck. Patient does not have caregivers come in during the weekend and on Friday got on the toilet to have a bowel movement and because the wedge was not in his wheelchair he was unable to get out and off the toilet. He sat on the toilet leaning his head forward against something and spent the entire weekend there. He says he was kept yelling for help but nobody at the [facility] heard him. His caregiver arrived this morning at 9 AM and found him there. He has new bruising to the side of his face as well as his right hip and right leg. He did not fall off the toilet. He has been receiving wound care Friday and Friday the wound care nurse had not arrived yet today. He has a history of leukemia as well. He is currently on Levaquin. He has an appointment with his primary care provider tomorrow in [place]. He has not been recently physically ill other than the decubitus ulcer. He feels very thirsty right now. Review of Systems Constitutional: denies: Fever Respiratory: denies: Dyspnea GI: reports: Constipation. denies: Nausea, Vomiting : denies: Dysuria Skin: reports: Other (Decubitus ulcer in the left and right buttocks. New bruising to the side of his face, right hip and right thigh.) Neurologic: reports: Generalized weakness. denies: Headache, Head injury Immunocompromised: reports: HIV/AIDS. 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 : Other HEENT: Chronic vision loss, Chronic sinusitis Psych: Depression, Anxiety, Panic attacks Musculoskeletal: Osteoarthritis, Other Derm: Other - Past Surgical History Past Surgical History: Yes General: Colonoscopy Ortho: Amputation Cardiovascular: Coronary stent, Cardiac catheterization, Fempop bypass Derm: Skin grafts, Skin cancer surgery - Present Medications Home Medications: Ambulatory Orders Medication Instructions Recorded Confirmed Dolutegravir Sodium [Tivicay] 50 mg PO DAILY 07/17/17 06/01/19 Emtricitabine/Tenofov Alafenam 1 tab PO DAILY 07/17/17 06/01/19 [Descovy 200-25 mg Tablet] Albuterol Sulfate [Proair Hfa 2 puffs INH Q4H PRN 09/13/17 06/01/19 Inhaler] Azelastine HCl 2 spray ELI BID 09/13/17 06/01/19 Mirtazapine 15 mg PO QPM 09/13/17 06/01/19 Morphine Sulfate [Morphine Sulfate 30 mg PO DAILY 09/13/17 06/01/19 ER] Tiotropium [place] [Spiriva] 2 puffs INH DAILY MDD 18 mcg 09/13/17 06/01/19 Metoprolol Succinate 25 mg PO DAILY #30 tab.er.24h 09/14/17 06/01/19 Gabapentin 800 mg PO TID PRN 10/20/17 06/01/19 lisinopriL [Lisinopril] 2.5 mg PO DAILY 11/12/17 06/01/19 Dronabinol [Marinol] 2.5 mg PO TID #90 capsule 11/14/17 06/01/19 Lactose-Reduced Food [Ensure 1 ea PO TID 04/14/18 06/01/19 Compact] Prednisone 20 mg PO DAILY 11/10/18 06/01/19 Ciprofloxacin HCl [Cipro] 1 cap PO BID 04/02/19 06/01/19 Atovaquone/Proguanil HCl 1 tab PO DAILY 06/01/19 06/01/19 [Atovaquone-Proguanil 62.5-25] Omeprazole 20 mg PO DAILY 06/01/19 06/01/19 - Allergies Allergies/Adverse Reactions: Allergies Allergy/AdvReac Type Severity Reaction Status Date / Time vancomycin Allergy Rash Verified 06/21/19 11:23 lenalidomide [From Revlimid] AdvReac Rash Verified 06/21/19 11:23 - Social History Does the pt smoke?: Yes Smoking Status: Current every day smoker Does the pt drink ETOH?: Yes Does the pt have substance abuse?: Yes - Immunizations Immunizations are current?: Yes - POLST Patient has POLST: Yes POLST Status: Full Code PD ED PE NORMAL - Vitals Vital signs reviewed: Yes - General General: Alert and oriented X 3, Other (He is very thin. Dark discolorations to the skin of his upper extremities. There is multiple bruises across his forehead and the right side of his cheek. His eyes are sunken.) - HEENT HEENT: PERRL. No: Moist mucous membranes (Dry mucous membranes) - Neck Neck: No adenopathy - Cardiac Cardiac: RRR, No murmur, Strong equal pulses - Respiratory Respiratory: No respiratory distress, Clear bilaterally - Abdomen Abdomen: Normal bowel sounds, Soft, Other (Cachectic scaphoid abdomen) - Derm Derm: Other (Deep decubitus ulcer to the left buttock. There is a decubitus ulcer to the right buttock as well but is not as deep. There is new bruising across the sacral area according to the caregiver. There is also bruising and pressure appearing wound to the right iliac crest and the posterior inner aspect of the right thigh.) - Extremities Extremities: Other (He is status post of bilateral above-knee amputations) - Neuro Neuro: Alert and oriented X 3, No motor deficit, No sensory deficit, Normal speech - Psych Psych: Normal mood, Normal affect Results - Vitals Vitals: Vital Signs - 24 hr 06/21/19 06/21/19 11:18 12:37 Temperature 36.6 C Heart Rate 101 H 84 Respiratory 20 16 Rate Blood Pressure 105/72 128/85 H O2 Saturation 98 100 Oxygen O2 Source Room air - Labs Labs: Laboratory Tests 06/21/19 06/21/19 12:09 12:09 WBC 14.5 H RBC 2.86 L Hgb 7.3 L Hct 25.0 L MCV 87.4 MCH 25.5 L MCHC 29.2 L RDW 21.8 H Plt Count 61 L Neut # (Auto) Not Reportable Lymph # (Auto) Not Reportable [place] # (Auto) Not Reportable Eos # (Auto) Not Reportable Baso # (Auto) Not Reportable Absolute Nucleated RBC Not Reportable Total Counted 100 Band Neuts % (Manual) 1 Abnorm Lymph % (Manual) 0 Metamyelocytes % 8 H Myelocytes % 2 H Promyelocytes % 1 H Nucleated RBC % Not Reportable Neutrophils # (Manual) 9.9 H Lymphocytes # (Manual) 2.0 Monocytes # (Manual) 1.0 Eosinophils # (Manual) 0.0 Basophils # (Manual) 0.0 Nucleated RBCs 8 Differential Comment MANUAL DIFFERENTIAL Platelet Estimate DECREASED (<130,000) Platelet Morphology NORMAL APPEARANCE RBC Morph Micro Appear 2+ ANISOCYTOSIS Sodium 140 Potassium 3.7 Chloride 104 Carbon Dioxide 19 L Anion Gap 17.0 H BUN 40 H Creatinine 1.6 H Estimated GFR (MDRD) 45 L Glucose 88 Calcium 7.8 L Total Bilirubin 1.4 H AST 405 H ALT 180 H Alkaline Phosphatase 57 Total Creatine Kinase 1168 H* Total Protein 6.4 L Albumin 2.6 L Globulin 3.8 Albumin/Globulin Ratio 0.7 L Lipase 19 L Departure - Departure Disposition: [facility] DC/Xfer Clinical Impression: Rhabdomyolysis Qualifiers: Rhabdomyolysis type: non-traumatic Qualified Code(s): M62.82 - Rhabdomyolysis Condition: Good Comments: Ice to heel. Ibuprofen may help with the pain more than Tylenol. Stretches to the foot as discussed can help to prevent the pain when you first get out of bed. Follow-up with your primary care provider if the pain continues.
[2019-06-21] MEDS ORDERED: ONDANSETRON 4 MG/2 ML VIAL IVP STA (11:59)
[2019-06-21] MEDS ORDERED: MORPHINE 2 MG/ML CARPUJECT IVP STA ×2 (11:59→14:22)
[2019-06-21] MEDS ORDERED: SODIUM CHLORIDE 0.9% 1,000 ML IV ONE (11:59)
[2019-06-21 12:16] LABS: BASOPHILS % (AUTO) 1.2 %; EOSINOPHILS % (AUTO) 0.3 %; HGB - HEMOGLOBIN 7.3 g/dL (14.0-18.0); LYMPHOCYTES % (AUTO) 2.4 %; MEAN CORPUSCULAR HEMOGLOBIN 25.5 pg (27.0-31.0); MEAN CORPUSCULAR HGB CONC 29.2 g/dL (32.0-36.0); MEAN CORPUSCULAR VOLUME 87.4 fL (80.0-94.0); MONOCYTES % (AUTO) 9.2 %; NEUTROPHILS % (AUTO) 67.1 %; PLT - PLATELET COUNT 61 10^3/uL (130-450); RED BLOOD COUNT 2.86 10^6/uL (4.70-6.10); RED CELL DISTRIBUTION WIDTH 21.8 % (12.0-15.0); WHITE BLOOD COUNT 14.5 x10^3/uL (4.8-10.8)
[2019-06-21 12:17] LABS: ABNORMAL LYMPHS % (MANUAL) 0 %
[2019-06-21 12:41] LABS: BAND NEUTROPHILS % (MANUAL) 1 %; LYMPHOCYTES % (MANUAL) 14 %; METAMYELOCYTES % (MANUAL) 8 %; MYELOCYTES % (MANUAL) 2 %; PROMYELOCYTES % (MANUAL) 1 %
[2019-06-21 12:43] LABS: DIFFERENTIAL COMMENT MANUAL DIFFERENTIAL; PLATELET ESTIMATE, MANUAL DECREASED (<130,000) (NORMAL); PLATELET MORPHOLOGY NORMAL APPEARANCE (NORMAL)
[2019-06-21 12:51] LABS: ALBUMIN 2.6 g/dL (3.2-5.5); ALBUMIN/GLOBULIN RATIO 0.7 (1.0-2.2); BILIRUBIN,TOTAL 1.4 mg/dL (0.2-1.0); CALCIUM 7.8 mg/dL (8.5-10.3); CREATININE 1.6 mg/dL (0.6-1.2); TOTAL PROTEIN 6.4 g/dL (6.7-8.2)
[2019-06-21 13:36] LABS: GLUCOSE, URINE (UA) NEGATIVE (NEGATIVE); KETONES,URINE (UA) TRACE mg/dL (NEGATIVE); LEUKOCYTE ESTERASE, URINE NEGATIVE (NEGATIVE); NITRITE,URINE NEGATIVE (NEGATIVE); OCCULT BLOOD,URINE LARGE (NEGATIVE); PH,URINE 5.5 PH (5.0-7.5); PROTEIN,URINE >=300 mg/dL (NEGATIVE); UROBILINOGEN,URINE 0.2 (NORMAL) E.U./dL (NORMAL)
[2019-06-21 13:41] LABS: BILIRUBIN,URINE NEGATIVE (NEGATIVE); CLARITY,URINE CLEAR (CLEAR); ICTOTEST,URINE NEGATIVE
[2019-06-21 13:53] LABS: SQUAMOUS EPITHELIAL CELL,UR NONE SEEN (<= Few)
[2019-06-21 13:54] LABS: AMORPHOUS SEDIMENT,UR Few /LPF; BACTERIA,URINE None Seen /HPF (None Seen)
[2019-06-21] MEDS ORDERED: ONDANSETRON 4 MG/2 ML VIAL IVP PRN (13:55)
[2019-06-21] MEDS ORDERED: ZOLPIDEM 5 MG TABLET PO PRN (13:55)
[2019-06-21] MEDS ORDERED: ALBUTEROL NEB 2.5 MG/3 ML INH PRN (14:05)
[2019-06-21] MEDS ORDERED: IPRATROPIUM/ALBUTEROL 3 ML NEB INH PRN (14:05)
[2019-06-21] MEDS: SODIUM CHLORIDE 0.9% 1,000 ML IV SCH (15:04)
--- NOTE | 2019-06-21 15:18 | HISTORY & PHYSICAL EXAMINATION ---
Chief Complaint - Chief Complaint Chief Complaint: weakness History of Present Illness - History of Present Illness HPI Comment/Other: Mr. Jang is 57-year old white male with a past medical history significant of significant malnutrition, muscle wasting, cachexia, HIV since 1996, Leukemia, benign neoplasm of sigmoid colon, internal hemorrhoids, CHF with EF at 45%, asthma, COPD, GERD, hiatal hernia, depression, anxiety, panic disorder, insomnia, current tobacco dependence, marijuana use, vaping use, chronic opioid dependence, PVD with claudication and s/p bilateral AKA, CVA, CKD, hypertension, coronary stent, fempop bypass, skin CA, osteoarthritis, history of left humerus fracture, bilateral carpal tunnel syndrome, sinusitis, chronic pain, o steomylitis with +MRSA, hypoganadism, dental caries, severe decubitus ulcer, who present ER for complain of weakness. Since he had bilateral lower extremity amputations above the knee he became wheelchair-bound. on Friday pt got on the toilet to have a bowel movement because the wedge was removed by wound care nurse then he was weak and unable to get out and off the toilet. Since pt does not have caregivers during the weekend, then he has been sitting on the toilet leaning his head forward against the wall for about 48 hours until today morning his caregiver came to see him. pt also present bruising to his bilateral upper extremities, the side of his face as well as his right hip and right leg. pt also had severe decubitus ulcer. pt's Route lab found pt's CK is 1168. pt also present severe dehydration, elevated creatinine and anion gap. pt also has elevated liver enzyme, elevated WBC 14.5, HGB 7.3. pt denies injuries, fever, chill, cough, chest pain, headache, abdominal pain, nausea, vomiting or diarrhea. 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: reports: None : reports: Other HEENT: reports: Chronic vision loss, Chronic sinusitis Psych: reports: Depression, Anxiety, Panic attacks Musculoskeletal: reports: Osteoarthritis, Other Derm: reports: Other MRSA Hx?: Yes - Past Surgical History General: reports: Colonoscopy Ortho: reports: Amputation Cardiovascular: reports: Coronary stent, Cardiac catheterization, Fempop bypass Derm: reports: Skin grafts, Skin cancer surgery - Family & Social History Family History: Mother: , Alzheimer's Disease, Diabetes, Type 2, Father: , PVD/PAD, Brother: , PVD/PAD Family History Comment/Other: The patient has no more direct living family members. His mother had Alzheimers, DM, father had vascular disease, sister and brother with vascular disease. Social History Notes: The patient grew up in [place], had no children and has never been . 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 He contracted HIV in the year 1996 and has been on disability since the year 1999. He moved to [facility] about 4 years ago as he had friends that live here. He no longer has any close family, friends or support to speak of. He currently lives alone and is considered home bound due to his extreme debility of having no legs. He has a memory care director only for house work that comes to his home during the 5 week days. He has been affiliated with several clinics, but cannot seem to keep a provider for very long due to his chronic narcotic prescriptions, and claims that he can never urinate on command for a drug screen. He admits to previous alcohol use, current tobacco dependence that has decreased from ~3 PPD to just 1 PPD and he has been a life long smoker with no interest of quitting. He also admits to marijuana use and denies heroin, cocaine, or other illicit drug use. He wishes to be a FULL code. - Substance History Use: Uses substance without health or social issues: Tobacco, Cannabis - POLST Patient has POLST: Yes POLST Status: Full Code Meds/Allgy - Home Medications Home Medications: Ambulatory Orders Medication Instructions Recorded Confirmed Albuterol Sulfate [Proair Hfa 2 puffs INH Q4H PRN 09/13/17 06/21/19 Inhaler] Mirtazapine 15 mg PO QPM 09/13/17 06/01/19 Morphine Sulfate [Morphine Sulfate 30 mg PO DAILY 09/13/17 06/01/19 ER] Tiotropium [place] [Spiriva] 2 puffs INH DAILY MDD 18 mcg 09/13/17 06/21/19 Gabapentin 800 mg PO BID 10/20/17 06/21/19 Dronabinol [Marinol] 2.5 mg PO TID #90 capsule 11/14/17 06/01/19 Lactose-Reduced Food [Ensure 1 ea PO TID 04/14/18 06/01/19 Compact] Prednisone 20 mg PO DAILY 11/10/18 06/21/19 Atovaquone/Proguanil HCl 1 tab PO DAILY 06/01/19 06/01/19 [Atovaquone-Proguanil 62.5-25] Omeprazole 20 mg PO DAILY 06/01/19 06/21/19 - Allergies Allergies/Adverse Reactions: Allergies Allergy/AdvReac Type Severity Reaction Status Date / Time vancomycin Allergy Rash Verified 06/21/19 11:23 lenalidomide [From Revlimid] AdvReac Rash Verified 06/21/19 11:23 Review of Systems - Constitutional Constitutional: reports: Fatigue, Weakness, Poor appetite. denies: Fever, Chills, Malaise, Diaphoresis, Night sweats - Eyes Eyes: denies: Pain, Irritation, Amaurosis, Blurred vision, Spots in vision, F ield loss, Vision loss, Dipolpia - Ears, Nose & Throat Ears, Nose & Throat: denies: Ear pain, Hearing loss, Tinnitus, Vertigo, Nasal pain, Nasal discharge, Nosebleeds, Nasal obstruction, Nasal congestion, Postnasal drainage, Dentures, Sore throat, Hoarseness, Mouth lesions, Bleeding gums - Cardiovascular Cariovascular: denies: Irregular heart rate, Palpitations, Chest pain, Edema, Lightheadedness, Syncope, Exertional dyspnea, Decr. exercise tolerance - Respiratory Respiratory: denies: Cough, Sputum production, Wheezing, Snoring, Hemoptysis, Orthopnea, SOB at rest, SOB with exertion - Gastrointestinal Gastrointestinal: denies: Abdominal pain, Abdominal distention, Constipation, Diarrhea, Change in bowel habits, Rectal bleeding, Black stools, Bloody stools, Nausea, Vomiting, Bile emesis, Edwardo blood emesis, Coffee grounds emesis, Refl ux/heartburn - Genitourinary Genitourinary: denies: Dysuria, Frequency, Urgency, Hematuria, Incontinence, Flank pain, Nocturia, Urethral discharge - Musculoskeletal Musculoskeletal: reports: Muscle pain, Back pain. denies: Muscle aches, Stiffness, Limited range of motion, Muscle weakness, Gout, Joint pain - Integumentary Integumentary: reports: Rash, Lesions. denies: Pruritis, Dryness, Lumps, Acne, Pigment changes, Nail changes - Neurological Neurological: reports: General weakness. denies: Focal weakness, Headache, Dizziness, Numbness, Memory problems, Pre-existing deficit, Abnormal gait, Seizures, Incoordination, Slurred speech - Psychiatric Psychiatric: denies: Depression, Anxiety, Suicidal, Delusions, Hallucinations - Endocrine Endocrine: denies: Polyuria, Polydypsia, Polyphagia, Intolerance to cold - Hematologic/Lymphatic Hematologic/Lymphatic: reports: Anemia, Bruising, Petechiae. denies: Blood clots, Lymphadenopathy, Bleeding tendencies Exam - Vital Signs Reviewed Vital Signs: Yes Vital Signs: Vital Signs x48h Temp Pulse Resp BP Pulse Ox 06/21/19 14:41 98 18 93/66 99 06/21/19 12:37 84 16 128/85 H 100 06/21/19 11:18 36.6 C 101 H 20 105/72 98 - Physical Exam General Appearance: positive: Alert, Mild distress. negative: Lethargic Eyes Bilateral: positive: Normal inspection, PERRL, No lid inflammation ENT: positive: ENT inspection nml, Dry mucous membranes. negative: Purulent nasal drainage Neck: positive: Nml inspection, Thyroid nml, Trachea midline. negative: Thyromegaly, Lymphadenopathy (R), Lymphadenopathy (L), Stiff neck, Tracheal deviation Respiratory: positive: Chest non-tender, No respiratory distress. negative: Wheezes, Rales, Rhonchi Cardiovascular: positive: Regular rate & rhythm, No murmur, No gallop. negative: Irregularly irregular, Extrasystoles, Tachycardia, Bradycardia, JVD present, Systolic murmur, Diastolic murmur Peripheral Pulses: positive: 2+ Abdomen: positive: Non-tender, No organomegaly, Nml bowel sounds, No distention. negative: Tenderness, Guarding, Rebound Back: positive: Nml inspection. negative: CVA tenderness (R), CVA tenderness (L) Skin: positive: Warm, Dry, Skin rash, Decubitus (left severe decubitus stage 4 ulcer) Extremities: positive: Non-tender, Other (AKA bilateral lower extremities). negative: Nml appearance Neurologic/Psychiatric: positive: Oriented x3, Motor nml, Sensation nml, Mood/affect nml. negative: Weakness, Sensory loss, Facial droop, Slurred/abnml speech, Depressed mood/affect Conclusion/Plan - Problem List (1) Rhabdomyolysis Conclusion/Plan: pt sat in toilet for about 48 hours, pt has significant elevated CK plan: IVF, daily lab monitor and monitor kidney function. Qualifiers: Rhabdomyolysis type: non-traumatic Qualified Code(s): M62.82 - Rhabdomyolysis (2) CAT (acute kidney injury) Conclusion/Plan: pt has elevated creatinine, anion gap, and elevated BUN, it appears from hypovolumia and dehydration IVF of NS, daily lab monitor (3) Stage 3 pressure ulcer with suspected deep tissue injury Conclusion/Plan: pt has severe decubitus ulcer with around tissue erythema, warmth and elevated WBC, pt has hx of HIV culture of wound wound care consult start on antibiotics of Zosyn and Daptomycin. pt is sensitive to Vancomycin. (4) Cachexia Conclusion/Plan: pt report he has very poor appetite, he has only 38kg weight, muscle wasting. consult with nutrition, ensure per meal resume Marinol (5) Muscle wasting Conclusion/Plan: pt has HIV for 22 yrs, pt present severe muscle wasting, weight is 38 kig. resume marinol and consult with product support rep (6) HIV (human immunodeficiency virus infection) Conclusion/Plan: pt has hx of HIV for 22 yrs, will resume home HIV after verified. pt has no fever, chill or cough, clinically pt does not present PCP. (7) Anemia Conclusion/Plan: pt has chronic anemia with HGB 7.3. it seems from pt's chronic multiple diseases. order anemia study, will followup. daily lab monitor Qualifiers: Anemia type: other cause Other causes of anemia: other cause, not classified Qualified Code(s): D64.89 - Other specified anemias (8) Elevated liver enzymes Conclusion/Plan: pt has significant elevated total bili, AST and ALT, unknown etiology. check acute hepatitis panel, lab monitor, will consider US of abdomen if continue high hold hepatic toxical agents (9) COPD (chronic obstructive pulmonary disease) Conclusion/Plan: stable, resume home PRN albuterol and DUONEB (10) Systolic heart failure Conclusion/Plan: pt has hx of systolic HF with EF 45% on 2018, will order new ECHO precaution of IVF, tele, vital monitor. pt has slight lower BP, will hold BP meds (11) Current smoker Conclusion/Plan: pt report he is still a smoker and request Nicotin Patch (12) Full code status Conclusion/Plan: pt request full code. - Lab Results Fish Bones: 06/21/19 12:09 06/21/19 12:09 Core Measures - Anticipated LOS I expect patient to be DC'd or transferred within 96 hours.: Yes - DVT/VTE - Prophylaxis VTE/DVT Device ordered at admit?: Yes VTE/DVT Prophylaxis med ordered at admit?: Yes
--- NOTE | 2019-06-21 15:46 | PHARMACY PROGRESS NOTE ---
- Best Possible Medication History Admit Date and Time: 06/21/19 8181 Processed by: Pharmacy Medication History completed: In progress (AWAITING CLARIFICATION ON MEDS (DOSES) FROM CAREGIVER; WILL BRING MED BOTTLES FROM HOME) As the person ultimately responsible for medication therapy, providers are able to order a medication from an existing home medication list in [facility] via the "Reconcile Routine" prior to Confirmation of that medication by customer support assistant. Such practice is discouraged except when the physician, in their clinical judgment, deems that a medical need exists for a medication without regard to previous use.
[2019-06-21] MEDS: SODIUM CHLORIDE FLUSH 0.9% 10 ML SYRINGE IVP SCH (16:59)
[2019-06-21] MEDS ORDERED: PIPERACILLIN/TAZOBACTAM 2.25 GM in SODIUM CHLORIDE 0.9% MINIBAG 100 ML IV SCH (17:00)
[2019-06-21] MEDS: ACETAMINOPHEN 325 MG TABLET PO PRN ×2 (17:20→21:48)
[2019-06-21] MEDS: MORPHINE 2 MG/ML CARPUJECT IVP PRN ×2 (17:20→21:51)
[2019-06-21] MEDS: NICOTINE 7 MG PATCH TOP SCH (17:43)
[2019-06-21 18:13] LABS: ABSOLUTE RETICS # AUTO 0.057 10^6/uL (0.020-0.110); RED BLOOD COUNT 2.44 10^6/uL (4.70-6.10)
[2019-06-21 18:26] LABS: % IRON SATURATION 102 % (20-50); IRON 155 ug/dL (45-182); TOTAL IRON BINDING CAPACITY 153 ug/dL (250-450); TRANSFERRIN 109 mg/dL (180-329)
[2019-06-21] MEDS ORDERED: tiZANidine 4 MG TABLET PO PRN (19:24)
[2019-06-21 19:48] LABS: FERRITIN > 15000.0 ng/mL (23.9-336.2)
[2019-06-21] MEDS ORDERED: HEPARIN 5,000 UNIT/ML VIAL SUBQ SCH (21:00)
[2019-06-21] MEDS: NYSTATIN 500000 UNITS/5 ML UDC PO SCH (21:47)
[2019-06-21] MEDS ORDERED: DAPTOMYCIN IV SCH (22:00)
[2019-06-21] MEDS ORDERED: SODIUM CHLORIDE 0.9% IV SCH (22:00)
[2019-06-21] MEDS ORDERED: CLINDAMYCIN 600 MG/50 ML 50 ML IV SCH (23:45)
[2019-06-22] MEDS: traZODone 50 MG TABLET PO SCH ×2 (01:22→20:41)
[2019-06-22] MEDS: MIRTAZAPINE 15 MG TABLET PO SCH ×2 (01:23→20:42)
[2019-06-22] MEDS: SODIUM CHLORIDE FLUSH 0.9% 10 ML SYRINGE IVP SCH ×3 (01:35→16:29)
[2019-06-22] MEDS: SODIUM CHLORIDE 0.9% 1,000 ML IV SCH ×3 (01:35→21:01)
[2019-06-22] MEDS: MORPHINE 2 MG/ML CARPUJECT IVP PRN (02:52)
[2019-06-22] MEDS: NYSTATIN 500000 UNITS/5 ML UDC PO SCH ×4 (02:59→21:00)
[2019-06-22] MEDS ORDERED: PIPERACILLIN/TAZOBACTAM 2.25 GM in SODIUM CHLORIDE 0.9% MINIBAG 100 ML IV SCH ×2 (04:00→06:00)
[2019-06-22 06:01] LABS: BASOPHILS % (AUTO) 0.8 %; EOSINOPHILS % (AUTO) 0.6 %; MEAN CORPUSCULAR HEMOGLOBIN 25.7 pg (27.0-31.0); MEAN CORPUSCULAR HGB CONC 28.6 g/dL (32.0-36.0); MEAN CORPUSCULAR VOLUME 89.9 fL (80.0-94.0); MONOCYTES % (AUTO) 5.3 %; NEUTROPHILS % (AUTO) 72.8 %; PLT - PLATELET COUNT 42 10^3/uL (130-450); RED BLOOD COUNT 2.37 10^6/uL (4.70-6.10); RED CELL DISTRIBUTION WIDTH 21.9 % (12.0-15.0); WHITE BLOOD COUNT 8.6 x10^3/uL (4.8-10.8)
[2019-06-22 06:14] LABS: ALBUMIN 2.3 g/dL (3.2-5.5); ALBUMIN/GLOBULIN RATIO 0.7 (1.0-2.2); BILIRUBIN,TOTAL 1.1 mg/dL (0.2-1.0); CALCIUM 6.9 mg/dL (8.5-10.3); CREATININE 1.2 mg/dL (0.6-1.2); MAGNESIUM 2.2 mg/dL (1.7-2.8); TOTAL PROTEIN 5.5 g/dL (6.7-8.2)
[2019-06-22 06:19] LABS: HGB - HEMOGLOBIN 6.1 g/dL (14.0-18.0)
[2019-06-22 06:20] LABS: ABNORMAL LYMPHS % (MANUAL) 0 %
[2019-06-22 06:27] LABS: BAND NEUTROPHILS % (MANUAL) 7 %; BASOPHILS # (MANUAL) 0.2 10^3/uL (0-0.1); BASOPHILS % (MANUAL) 2 %; EOSINOPHILS # (MANUAL) 0.1 10^3/uL (0-0.7); LYMPHOCYTES # (MANUAL) 0.8 10^3/uL (1.5-3.5); LYMPHOCYTES % (MANUAL) 9 %; MONOCYTES # (MANUAL) 0.1 10^3/uL (0.0-1.0); MYELOCYTES % (MANUAL) 4 %
[2019-06-22] MEDS: PANTOPRAZOLE 40 MG TABLET PO SCH (06:32)
[2019-06-22] MEDS: MORPHINE IR 15 MG TABLET PO PRN ×2 (06:33→18:55)
[2019-06-22 06:35] LABS: DIFFERENTIAL COMMENT MANUAL DIFFERENTIAL; PLATELET ESTIMATE, MANUAL DECREASED (<130,000) (NORMAL); PLATELET MORPHOLOGY NORMAL APPEARANCE (NORMAL)
[2019-06-22] MEDS ORDERED: POTASSIUM CHLORIDE 20 MEQ TABLET PO ONE ×2 (07:02→08:00)
[2019-06-22] MEDS ORDERED: SODIUM CHLORIDE 0.9% 500 ML ONE (07:35)
[2019-06-22] MEDS: SACCHAROMYCES BOULARDII 250 MG CAPSULE PO SCH ×2 (08:10→16:27)
[2019-06-22] MEDS: ACETAMINOPHEN 325 MG TABLET PO PRN ×3 (08:10→20:42)
[2019-06-22] MEDS: ATOVAQUONE 750 MG/5 ML PO SCH (08:13)
[2019-06-22] MEDS: NICOTINE 7 MG PATCH TOP SCH (08:16)
[2019-06-22] MEDS ORDERED: CALCIUM GLUCONATE 1,000 MG in SODIUM CHLORIDE 0.9% 50 ML IV ONE ×2 (09:00→11:00)
[2019-06-22] MEDS ORDERED: levoFLOXacin 250 MG TABLET PO SCH (09:00)
[2019-06-22] MEDS ORDERED: LINEZOLID 600 MG/300 ML 600 MG/300 ML BAG IV SCH (09:00)
[2019-06-22] MEDS ORDERED: METOPROLOL SUCCINATE 25 MG TABLET PO SCH (09:00)
[2019-06-22] MEDS ORDERED: CLINDAMYCIN 600 MG/50 ML 50 ML IV SCH (09:00)
--- NOTE | 2019-06-22 10:08 | CONSULTATION NOTE ---
Consultation Report: Call to place IV after multiple failed attempts, history difficult IV placement. 20ga IV placed at R AC attempt x2 using US. Aspirates and flushes easily after cap and extension. Dressed, secured. 22ga IV placed at L AC attempt x2 using US. Aspirates and flushes easily after cap and extension. Dressed, secured. Pt tolerated procedure without complaint/complication.
[2019-06-22] MEDS: CLINDAMYCIN 600 MG/50 ML 50 ML IV SCH ×2 (10:28→18:31)
[2019-06-22] MEDS: PIPERACILLIN/TAZOBACTAM 2.25 GM in SODIUM CHLORIDE 0.9% MINIBAG 100 ML IV SCH ×2 (10:33→18:24)
[2019-06-22] MEDS: SODIUM CHLORIDE FLUSH 0.9% 10 ML SYRINGE IVP PRN (10:35)
--- NOTE | 2019-06-22 12:35 | PROVIDER PROGRESS NOTE ---
Subjective - Prog Note Date Prog Note Date: 06/22/19 - Subjective Pt reports feeling: Worse Subjective: pt feel more weak today, his BP is low. but pt continue asking more pain meds. he agree to have palliative care, he had palliative care before. he denies fever, chill, chest pain. Current Medications - Current Medications Current Medications: Active Medications Acetaminophen (Tylenol) 650 mg PO Q4HR PRN PRN Reason: Pain 1 to 4 Last Admin: 06/22/19 08:10 Dose: 650 mg Albuterol () 2.5 mg INH RTQ4H PRN PRN Reason: Wheezing Albuterol/Ipratropium (Duoneb) 3 ml INH RTQID PRN PRN Reason: Shortness of Air/Wheezing Dronabinol (Marinol) 2.5 mg PO BIDAC [facility] Last Admin: 06/22/19 08:11 Dose: 2.5 mg Piperacillin Sod/Tazobactam (Sod 2.25 gm/ Sodium Chloride) 100 mls @ 25 mls/hr IV Q8H [facility] Last Admin: 06/22/19 10:33 Dose: 25 mls/hr Clindamycin Phosphate (Cleocin 600 Mg/50 Ml) 50 mls @ 100 mls/hr IV Q8H [facility] Last Admin: 06/22/19 10:28 Dose: 100 mls/hr Sodium Chloride (Normal Saline 0.9%) 1,000 mls @ 83.333 mls/hr IV .Q12H [facility] Stop: 06/23/19 12:59 Lidocaine (Xylocaine Ointment 5%) 1 applic TOP BID [facility] Midodrine () 2.5 mg PO TIDWM [facility] Mineral Oil (Cavilon) 1 applic TOP PRN PRN PRN Reason: Skin Care Mirtazapine (Remeron) 15 mg PO QPM [facility] Last Admin: 06/22/19 01:23 Dose: Not Given Morphine Sulfate (Morphine (Carpuject)) 2 mg IVP Q2HR PRN PRN Reason: Pain 8 to 10 Last Admin: 06/22/19 02:52 Dose: 2 mg Morphine Sulfate (Ms Ir) 7.5 mg PO BID PRN PRN Reason: PAIN Last Admin: 06/22/19 06:33 Dose: 7.5 mg Multivitamins/Minerals (Theragran M) 1 tab PO DAILYWM [facility] Nicotine (Nicoderm) 1 patch TOP DAILY [facility] Last Admin: 06/22/19 08:16 Dose: 1 patch Nystatin (Mycostatin) 5 ml PO Q6H [facility] Last Admin: 06/22/19 08:09 Dose: 5 ml Ondansetron HCl (Zofran Inj) 4 mg IVP Q6HR PRN PRN Reason: Nausea / Vomiting Pantoprazole Sodium (Protonix) 40 mg PO QDAC [facility] Last Admin: 06/22/19 06:32 Dose: 40 mg Atovaquone 750mg/5ml 10 each PO DAILYWM [facility] Last Admin: 06/22/19 08:13 Dose: 10 each Biktarvy 50-200-25 (Mg Tablet) 1 each PO DAILY [facility] Last Admin: 06/22/19 08:12 Dose: 1 each Prednisone (Deltasone) 20 mg PO DAILYWM [facility] Saccharomyces Boulardii (Florastor) 250 mg PO BIDWM [facility] Last Admin: 06/22/19 08:10 Dose: 250 mg Sodium Chloride (Normal Saline Flush 0.9%) 10 ml IVP PRN PRN PRN Reason: NEEDED PER PROVIDER ORDERS Last Admin: 06/22/19 10:35 Dose: 10 ml Sodium Chloride (Normal Saline Flush 0.9%) 10 ml IVP 0100,0900,1700 [facility] Last Admin: 06/22/19 02:52 Dose: 10 ml Tizanidine HCl (Zanaflex) 8 mg PO Q8H PRN PRN Reason: muscle relaxant Trazodone HCl (Desyrel) 50 mg PO QPM [facility] Last Admin: 06/22/19 01:22 Dose: Not Given Albuterol Sulfate [Proair Hfa Inhaler] 2 puffs INH Q4H PRN 09/13/17 Mirtazapine 15 mg PO QPM 09/13/17 Morphine Sulfate [Morphine Sulfate ER] 30 mg PO DAILY 09/13/17 Tiotropium [place] [Spiriva] 2 puffs INH DAILY MDD 18 mcg 09/13/17 Gabapentin 800 mg PO Q12H PRN 10/20/17 Lactose-Reduced Food [Ensure Compact] 1 ea PO TID 04/14/18 Prednisone 20 mg PO DAILY 11/10/18 Atovaquone/Proguanil HCl [Atovaquone-Proguanil 62.5-25] 1 tab PO DAILY 06/01/19 Omeprazole 20 mg PO DAILY 06/01/19 Atovaquone 10 ml PO DAILY 06/21/19 Bictegrav/Emtricit/Tenofov Ala [Biktarvy 50-200-25 mg Tablet] 1 tab PO DAILY 06/21/19 Dronabinol [Marinol] 2.5 mg PO TID 06/21/19 Levofloxacin [Levaquin] 750 mg PO DAILY 06/21/19 Morphine Sulfate 7.5 mg PO BID PRN 06/21/19 Nystatin 5 ml PO Q6H 06/21/19 Trazodone HCl 50 mg PO QPM 06/21/19 tiZANidine [Zanaflex] 8 mg PO Q8H PRN MDD 3 doses in 24 hours 06/21/19 Objective - Vital Signs/Intake & Output Reviewed Vital Signs: Yes Vital Signs: Vital Signs x48h Temp Pulse Pulse Resp BP BP BP 06/22/19 12:15 37.1 C 89 18 89/54 L 06/22/19 10:35 37.2 C 92 16 90/60 06/22/19 10:20 37.0 C 94 16 88/59 L 06/22/19 08:17 37.1 C 97 18 108/51 L 06/22/19 05:00 36.7 C 92 16 100/45 L Pulse Ox 06/22/19 12:15 100 06/22/19 10:35 06/22/19 10:20 06/22/19 08:17 99 06/22/19 05:00 96 Intake & Output: Intake & Output 06/19/19 06/20/19 06/21/19 06/22/19 23:59 23:59 23:59 23:59 Intake Total 3370.941 1844.917 Output Total 0 1000 Balance 1102.083 497.917 - Objective General Appearance: positive: No acute distress, Alert. negative: Lethargic Eyes Bilateral: positive: Normal inspection, PERRL ENT: positive: No signs of dehydration. negative: Purulent nasal drainage, Dry mucous membranes Neck: positive: Thyroid nml, No JVD, Trachea midline. negative: Thyromegaly, Stiff neck, Tracheal deviation Respiratory: positive: Chest non-tender, No respiratory distress Cardiovascular: positive: Regular rate & rhythm, No murmur, No gallop. negative: Irregularly irregular, Extrasystoles, Tachycardia, Bradycardia, Systolic murmur, Diastolic murmur Peripheral Pulses: 2+ Radial (R), 2+ Radial (L) Abdomen: positive: Non-tender, Nml bowel sounds, No distention. negative: Tenderness, Guarding, Rebound Back: positive: Nml inspection Skin: positive: Warm, Dry, Skin rash (bruising dark skin at upper extremities. pt had stage 4 pressure ulcer at left decubitus area), Decubitus. negative: Cyanosis, Diaphoresis, Pallor Extremities: positive: Non-tender, Full ROM (pt has AKA for bilateral lower extremities). negative: Joint swelling Neurologic/Psychiatric: positive: Oriented x3, Motor nml, Sensation nml. negative: Weakness, Sensory loss, Facial droop, Slurred/abnml speech - Lab Results Fish Bones: 06/23/19 04:45 06/23/19 04:45 Other Labs: Lab Results x24hrs 06/22/19 06/22/19 06/22/19 Range/Units 07:06 05:31 05:31 WBC 8.6 (4.8-10.8) x10^3/uL RBC 2.37 L (4.70-6.10) 10^6/uL Hgb 6.1 L* (14.0-18.0) g/dL Hct 21.3 L (42.0-52.0) % MCV 89.9 (80.0-94.0) fL MCH 25.7 L (27.0-31.0) pg MCHC 28.6 L (32.0-36.0) g/dL RDW 21.9 H (12.0-15.0) % Plt Count 42 L (130-450) 10^3/uL Reticulocyte % (Auto) (0.5-2.3) % Neut # (Auto) Not Reportable Lymph # (Auto) Not Reportable [place] # (Auto) Not Reportable Eos # (Auto) Not Reportable Baso # (Auto) Not Reportable Absolute Nucleated RBC Not Reportable Total Counted 100 Band Neuts % (Manual) 7 (0 - 10) % Abnorm Lymph % (Manual) 0 % Metamyelocytes % ( - 0) % Myelocytes % 4 H ( - 0) % Promyelocytes % ( - 0) % Nucleated RBC % Not Reportable Neutrophils # (Manual) 7.1 H (1.5-6.6) 10^3/uL Lymphocytes # (Manual) 0.8 L (1.5-3.5) 10^3/uL Monocytes # (Manual) 0.1 (0.0-1.0) 10^3/uL Eosinophils # (Manual) 0.1 (0-0.7) 10^3/uL Basophils # (Manual) 0.2 H (0-0.1) 10^3/uL Nucleated RBCs 9 % Differential Comment MANUAL DIFFERENTIAL WBC Morphology NORMAL APPEARANCE (NORMAL) Platelet Estimate DECREASED (<130,000) (NORMAL) Platelet Morphology NORMAL APPEARANCE (NORMAL) RBC Morph Micro Appear 1+ HYPOCHROMASIA (NORMAL) Absolute Retic (0.020-0.110) 10^6/uL Sodium 136 (135-145) mmol/L Potassium 3.4 L (3.5-5.0) mmol/L Chloride 106 (101-111) mmol/L Carbon Dioxide 22 (21-32) mmol/L Anion Gap 8.0 (6-13) BUN 29 H (6-20) mg/dL Creatinine 1.2 (0.6-1.2) mg/dL Estimated GFR (MDRD) 62 L (>89) Glucose 93 (70-100) mg/dL Calcium 6.9 L (8.5-10.3) mg/dL Magnesium 2.2 (1.7-2.8) mg/dL Iron (45-182) ug/dL TIBC (250-450) ug/dL % Saturation (20-50) % Transferrin (180-329) mg/dL Ferritin (23.9-336.2) ng/mL Total Bilirubin 1.1 H (0.2-1.0) mg/dL AST 110 H (10-42) IU/L ALT 110 H (10-60) IU/L Alkaline Phosphatase 46 (42-121) IU/L Lactate Dehydrogenase (91-225) IU/L Total Creatine Kinase 675 H (22-269) IU/L Total Protein 5.5 L (6.7-8.2) g/dL Albumin 2.3 L (3.2-5.5) g/dL Globulin 3.2 (2.1-4.2) g/dL Albumin/Globulin Ratio 0.7 L (1.0-2.2) Lipase (22-51) U/L Vitamin B12 (180-914) pg/mL Urine Color Urine Clarity (CLEAR) Urine pH (5.0-7.5) PH Ur Specific [place] (1.002-1.030) Urine Protein (NEGATIVE) mg/dL Urine Glucose (UA) (NEGATIVE) mg/dL Urine Ketones (NEGATIVE) mg/dL Urine Occult Blood (NEGATIVE) Urine Nitrite (NEGATIVE) Urine Bilirubin (NEGATIVE) Urine Urobilinogen (NORMAL) E.U./dL Ur Leukocyte Esterase (NEGATIVE) Urine RBC (0-5) /HPF Urine WBC (0-3) /HPF Ur Squamous Epith Cells (<= Few) Amorphous Sediment /LPF Urine Bacteria (None Seen) /HPF Ur Microscopic Review Urine Culture Comments Blood Type A POSITIVE Antibody Screen NEGATIVE Crossmatch IS Only See Detail 06/21/19 06/21/19 06/21/19 Range/Units 17:57 17:57 17:57 WBC (4.8-10.8) x10^3/uL RBC (4.70-6.10) 10^6/uL Hgb (14.0-18.0) g/dL Hct (42.0-52.0) % MCV (80.0-94.0) fL MCH (27.0-31.0) pg MCHC (32.0-36.0) g/dL RDW (12.0-15.0) % Plt Count (130-450) 10^3/uL Reticulocyte % (Auto) (0.5-2.3) % Neut # (Auto) Lymph # (Auto) [place] # (Auto) Eos # (Auto) Baso # (Auto) Absolute Nucleated RBC Total Counted Band Neuts % (Manual) (0 - 10) % Abnorm Lymph % (Manual) % Metamyelocytes % ( - 0) % Myelocytes % ( - 0) % Promyelocytes % ( - 0) % Nucleated RBC % Neutrophils # (Manual) (1.5-6.6) 10^3/uL Lymphocytes # (Manual) (1.5-3.5) 10^3/uL Monocytes # (Manual) (0.0-1.0) 10^3/uL Eosinophils # (Manual) (0-0.7) 10^3/uL Basophils # (Manual) (0-0.1) 10^3/uL Nucleated RBCs % Differential Comment WBC Morphology (NORMAL) Platelet Estimate (NORMAL) Platelet Morphology (NORMAL) RBC Morph Micro Appear (NORMAL) Absolute Retic (0.020-0.110) 10^6/uL Sodium (135-145) mmol/L Potassium (3.5-5.0) mmol/L Chloride (101-111) mmol/L Carbon Dioxide (21-32) mmol/L Anion Gap (6-13) BUN (6-20) mg/dL Creatinine (0.6-1.2) mg/dL Estimated GFR (MDRD) (>89) Glucose (70-100) mg/dL Calcium (8.5-10.3) mg/dL Magnesium (1.7-2.8) mg/dL Iron 155 (45-182) ug/dL TIBC 153 L (250-450) ug/dL % Saturation 102 H (20-50) % Transferrin 109 L (180-329) mg/dL Ferritin > 74969.0 H (23.9-336.2) ng/mL Total Bilirubin (0.2-1.0) mg/dL AST (10-42) IU/L ALT (10-60) IU/L Alkaline Phosphatase (42-121) IU/L Lactate Dehydrogenase 625 H (91-225) IU/L Total Creatine Kinase (22-269) IU/L Total Protein (6.7-8.2) g/dL Albumin (3.2-5.5) g/dL Globulin (2.1-4.2) g/dL Albumin/Globulin Ratio (1.0-2.2) Lipase (22-51) U/L Vitamin B12 1611 H (180-914) pg/mL Urine Color Urine Clarity (CLEAR) Urine pH (5.0-7.5) PH Ur Specific [place] (1.002-1.030) Urine Protein (NEGATIVE) mg/dL Urine Glucose (UA) (NEGATIVE) mg/dL Urine Ketones (NEGATIVE) mg/dL Urine Occult Blood (NEGATIVE) Urine Nitrite (NEGATIVE) Urine Bilirubin (NEGATIVE) Urine Urobilinogen (NORMAL) E.U./dL Ur Leukocyte Esterase (NEGATIVE) Urine RBC (0-5) /HPF Urine WBC (0-3) /HPF Ur Squamous Epith Cells (<= Few) Amorphous Sediment /LPF Urine Bacteria (None Seen) /HPF Ur Microscopic Review Urine Culture Comments Blood Type Antibody Screen Crossmatch IS Only 06/21/19 06/21/19 06/21/19 Range/Units 17:57 13:26 12:09 WBC (4.8-10.8) x10^3/uL RBC 2.44 L (4.70-6.10) 10^6/uL Hgb (14.0-18.0) g/dL Hct (42.0-52.0) % MCV (80.0-94.0) fL MCH (27.0-31.0) pg MCHC (32.0-36.0) g/dL RDW (12.0-15.0) % Plt Count (130-450) 10^3/uL Reticulocyte % (Auto) 2.35 H (0.5-2.3) % Neut # (Auto) Lymph # (Auto) [place] # (Auto) Eos # (Auto) Baso # (Auto) Absolute Nucleated RBC Total Counted Band Neuts % (Manual) (0 - 10) % Abnorm Lymph % (Manual) % Metamyelocytes % ( - 0) % Myelocytes % ( - 0) % Promyelocytes % ( - 0) % Nucleated RBC % Neutrophils # (Manual) (1.5-6.6) 10^3/uL Lymphocytes # (Manual) (1.5-3.5) 10^3/uL Monocytes # (Manual) (0.0-1.0) 10^3/uL Eosinophils # (Manual) (0-0.7) 10^3/uL Basophils # (Manual) (0-0.1) 10^3/uL Nucleated RBCs % Differential Comment WBC Morphology (NORMAL) Platelet Estimate (NORMAL) Platelet Morphology (NORMAL) RBC Morph Micro Appear (NORMAL) Absolute Retic 0.057 (0.020-0.110) 10^6/uL Sodium 140 (135-145) mmol/L Potassium 3.7 (3.5-5.0) mmol/L Chloride 104 (101-111) mmol/L Carbon Dioxide 19 L (21-32) mmol/L Anion Gap 17.0 H (6-13) BUN 40 H (6-20) mg/dL Creatinine 1.6 H (0.6-1.2) mg/dL Estimated GFR (MDRD) 45 L (>89) Glucose 88 (70-100) mg/dL Calcium 7.8 L (8.5-10.3) mg/dL Magnesium (1.7-2.8) mg/dL Iron (45-182) ug/dL TIBC (250-450) ug/dL % Saturation (20-50) % Transferrin (180-329) mg/dL Ferritin (23.9-336.2) ng/mL Total Bilirubin 1.4 H (0.2-1.0) mg/dL AST 405 H (10-42) IU/L ALT 180 H (10-60) IU/L Alkaline Phosphatase 57 (42-121) IU/L Lactate Dehydrogenase (91-225) IU/L Total Creatine Kinase 1168 H* (22-269) IU/L Total Protein 6.4 L (6.7-8.2) g/dL Albumin 2.6 L (3.2-5.5) g/dL Globulin 3.8 (2.1-4.2) g/dL Albumin/Globulin Ratio 0.7 L (1.0-2.2) Lipase 19 L (22-51) U/L Vitamin B12 (180-914) pg/mL Urine Color DARK YELLOW Urine Clarity CLEAR (CLEAR) Urine pH 5.5 (5.0-7.5) PH Ur Specific [place] >=1.030 H (1.002-1.030) Urine Protein >=300 H (NEGATIVE) mg/dL Urine Glucose (UA) NEGATIVE (NEGATIVE) mg/dL Urine Ketones TRACE (NEGATIVE) mg/dL Urine Occult Blood LARGE H (NEGATIVE) Urine Nitrite NEGATIVE (NEGATIVE) Urine Bilirubin NEGATIVE (NEGATIVE) Urine Urobilinogen 0.2 (NORMAL) (NORMAL) E.U./dL Ur Leukocyte Esterase NEGATIVE (NEGATIVE) Urine RBC 11-25 H (0-5) /HPF Urine WBC 4-5 (0-3) /HPF Ur Squamous Epith Cells NONE SEEN (<= Few) Amorphous Sediment Few /LPF Urine Bacteria None Seen (None Seen) /HPF Ur Microscopic Review INDICATED Urine Culture Comments NOT INDICATED Blood Type Antibody Screen Crossmatch IS Only 06/21/19 Range/Units 12:09 WBC (4.8-10.8) x10^3/uL RBC (4.70-6.10) 10^6/uL Hgb (14.0-18.0) g/dL Hct (42.0-52.0) % MCV (80.0-94.0) fL MCH (27.0-31.0) pg MCHC (32.0-36.0) g/dL RDW (12.0-15.0) % Plt Count (130-450) 10^3/uL Reticulocyte % (Auto) (0.5-2.3) % Neut # (Auto) Not Reportable Lymph # (Auto) Not Reportable [place] # (Auto) Not Reportable Eos # (Auto) Not Reportable Baso # (Auto) Not Reportable Absolute Nucleated RBC Not Reportable Total Counted 100 Band Neuts % (Manual) 1 (0 - 10) % Abnorm Lymph % (Manual) 0 % Metamyelocytes % 8 H ( - 0) % Myelocytes % 2 H ( - 0) % Promyelocytes % 1 H ( - 0) % Nucleated RBC % Not Reportable Neutrophils # (Manual) 9.9 H (1.5-6.6) 10^3/uL Lymphocytes # (Manual) 2.0 (1.5-3.5) 10^3/uL Monocytes # (Manual) 1.0 (0.0-1.0) 10^3/uL Eosinophils # (Manual) 0.0 (0-0.7) 10^3/uL Basophils # (Manual) 0.0 (0-0.1) 10^3/uL Nucleated RBCs 8 % Differential Comment MANUAL DIFFERENTIAL WBC Morphology (NORMAL) Platelet Estimate DECREASED (<130,000) (NORMAL) Platelet Morphology NORMAL APPEARANCE (NORMAL) RBC Morph Micro Appear 2+ ANISOCYTOSIS (NORMAL) Absolute Retic (0.020-0.110) 10^6/uL Sodium (135-145) mmol/L Potassium (3.5-5.0) mmol/L Chloride (101-111) mmol/L Carbon Dioxide (21-32) mmol/L Anion Gap (6-13) BUN (6-20) mg/dL Creatinine (0.6-1.2) mg/dL Estimated GFR (MDRD) (>89) Glucose (70-100) mg/dL Calcium (8.5-10.3) mg/dL Magnesium (1.7-2.8) mg/dL Iron (45-182) ug/dL TIBC (250-450) ug/dL % Saturation (20-50) % Transferrin (180-329) mg/dL Ferritin (23.9-336.2) ng/mL Total Bilirubin (0.2-1.0) mg/dL AST (10-42) IU/L ALT (10-60) IU/L Alkaline Phosphatase (42-121) IU/L Lactate Dehydrogenase (91-225) IU/L Total Creatine Kinase (22-269) IU/L Total Protein (6.7-8.2) g/dL Albumin (3.2-5.5) g/dL Globulin (2.1-4.2) g/dL Albumin/Globulin Ratio (1.0-2.2) Lipase (22-51) U/L Vitamin B12 (180-914) pg/mL Urine Color Urine Clarity (CLEAR) Urine pH (5.0-7.5) PH Ur Specific [place] (1.002-1.030) Urine Protein (NEGATIVE) mg/dL Urine Glucose (UA) (NEGATIVE) mg/dL Urine Ketones (NEGATIVE) mg/dL Urine Occult Blood (NEGATIVE) Urine Nitrite (NEGATIVE) Urine Bilirubin (NEGATIVE) Urine Urobilinogen (NORMAL) E.U./dL Ur Leukocyte Esterase (NEGATIVE) Urine RBC (0-5) /HPF Urine WBC (0-3) /HPF Ur Squamous Epith Cells (<= Few) Amorphous Sediment /LPF Urine Bacteria (None Seen) /HPF Ur Microscopic Review Urine Culture Comments Blood Type Antibody Screen Crossmatch IS Only ABX Reporting Has patient been on IV antibiotics over the past 48 hours?: Yes Assessment/Plan - Problem List (1) Rhabdomyolysis Impression: 06/22 improved, CK is down to 600 from 1200. continue hydration appropriately, daily lab monitor pt sat in toilet for about 48 hours, pt has significant elevated CK plan: IVF, daily lab monitor and monitor kidney function. (2) CAT (acute kidney injury) Conclusion/Plan: 06/22 improved. continue IVF with slight decreased IVF of NS to 83cc/h continue lab monitor pt has elevated creatinine, anion gap, and elevated BUN, it appears from hypovolumia and dehydration IVF of NS, daily lab monitor (3) Stage 4 pressure ulcer with suspected deep tissue injury Conclusion/Plan: 06/22 wound care came to see pt, followup for dress change continue antibiotics wound culture is pending pt has severe decubitus ulcer with around tissue erythema, warmth and elevated WBC, pt has hx of HIV culture of wound wound care consult start on antibiotics of Zosyn and Daptomycin. pt is sensitive to Vancomycin. (4) Cachexia Conclusion/Plan: 06/22 consult with rehabilitation construction specialist, followup the recommendation for pt continue marinol pt report he has very poor appetite, he has only 38kg weight, muscle wasting. consult with nutrition, ensure per meal resume Marinol (5) Muscle wasting Conclusion/Plan: pt has HIV for 22 yrs, pt present severe muscle wasting, weight is 38 kig. resume marinol and consult with rehabilitation construction specialist (6) HIV (human immunodeficiency virus infection) Conclusion/Plan: 06/22 resume pt's home HIV meds, pcp prophylaxis with anti-fungus.our hospital can not order CD4 and HIV RNA RT-PCR to check virus load volume and copies. we do not know pt's HIV infection stage. pt had 22 yrs with HIV pt has hx of HIV for 22 yrs, will resume home HIV after verified. pt has no fever, chill or cough, clinically pt does not present PCP. (7) Anemia Conclusion/Plan: 06/22 pt's HGB is down to 6.1, pt had one unit of blood transfusion. pt had hx of HIV, MDS. continue lab monitor pt has chronic anemia with HGB 7.3. it seems from pt's chronic multiple diseases. order anemia study, will followup. daily lab monitor (8) Elevated liver enzymes Conclusion/Plan: 06/22 significant improved. it is likely from acute distress from elevated CK continue lab monitor pt has significant elevated total bili, AST and ALT, unknown etiology. check acute hepatitis panel, lab monitor, will consider US of abdomen if continue high hold hepatic toxical agents (9) COPD (chronic obstructive pulmonary disease) Conclusion/Plan: stable, resume home PRN albuterol and DUONEB (10) Systolic heart failure Conclusion/Plan: 06/22 pt still present hypotension, continue hold BP meds, order ECHO, but we do not have pbx technician to do it now. pt has hx of systolic HF with EF 45% on 2018, will order new ECHO precaution of IVF, tele, vital monitor. 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 De La Garza is his oncologist, tried to call but it is holiday, will call. [place] [id number], it is possible (13)pancytopenia pt present HGB and plt low, and pt required for blood transfusion. pt had hx of MDS, and 22 yrs with HIV. pt report he is following with Dr. De La Garza, and had multiple of blood transfusion and plt transfusion before continue CBC monitor and bleeding monitor, will advise pt followup with Dr. De La Garza closely transfusion of one RBC (14)hypotension pt present low SBP at 86. it seem to be caused by his multiple chronic diseases, acute dehydration. will caution to use his Morphine pain meds continue caution IVF for his dehydration add Midodrine closely vital monitor (15)palliative care pt request palliative care, called Ana Pacheco, she will see pt in hospital. Qualifiers: Rhabdomyolysis type: non-traumatic Qualified Code(s): M62.82 - Rhabdomyolysis (7) Anemia Qualifiers: Anemia type: other cause Other causes of anemia: other cause, not classified Qualified Code(s): D64.89 - Other specified anemias
[2019-06-22] MEDS ORDERED: MULTIVITAMIN W/MINERALS TABLET PO SCH (13:00)
[2019-06-22] MEDS: predniSONE 20 MG TABLET PO SCH (13:22)
[2019-06-22] MEDS: MIDODRINE 2.5 MG TABLET PO SCH ×2 (13:22→16:28)
[2019-06-22 15:27] LABS: HGB - HEMOGLOBIN 7.4 g/dL (14.0-18.0)
[2019-06-22] MEDS: LIDOCAINE OINTMENT 5% 35.44 GM TUBE TOP SCH (20:42)
[2019-06-23] MEDS: SODIUM CHLORIDE FLUSH 0.9% 10 ML SYRINGE IVP SCH ×3 (01:10→17:21)
[2019-06-23] MEDS: NYSTATIN 500000 UNITS/5 ML UDC PO SCH ×4 (02:35→21:25)
[2019-06-23] MEDS: PIPERACILLIN/TAZOBACTAM 2.25 GM in SODIUM CHLORIDE 0.9% MINIBAG 100 ML IV SCH ×3 (02:35→21:34)
[2019-06-23] MEDS: CLINDAMYCIN 600 MG/50 ML 50 ML IV SCH ×3 (02:44→21:42)
[2019-06-23 05:08] LABS: BASOPHILS % (AUTO) 0.4 %; HGB - HEMOGLOBIN 7.1 g/dL (14.0-18.0); LYMPHOCYTES % (AUTO) 4.4 %; MEAN CORPUSCULAR HEMOGLOBIN 26.2 pg (27.0-31.0); MEAN CORPUSCULAR HGB CONC 29.3 g/dL (32.0-36.0); MEAN CORPUSCULAR VOLUME 89.3 fL (80.0-94.0); MONOCYTES % (AUTO) 3.4 %; NEUTROPHILS % (AUTO) 73.4 %; RED BLOOD COUNT 2.71 10^6/uL (4.70-6.10); RED CELL DISTRIBUTION WIDTH 20.7 % (12.0-15.0); WHITE BLOOD COUNT 7.7 x10^3/uL (4.8-10.8)
[2019-06-23 05:17] LABS: PLT - PLATELET COUNT 29 10^3/uL (130-450)
[2019-06-23 05:18] LABS: ABNORMAL LYMPHS % (MANUAL) 0 %
[2019-06-23 05:22] LABS: ALBUMIN/GLOBULIN RATIO 0.7 (1.0-2.2); CALCIUM 6.9 mg/dL (8.5-10.3); TOTAL PROTEIN 4.7 g/dL (6.7-8.2)
[2019-06-23] MEDS: PANTOPRAZOLE 40 MG TABLET PO SCH (05:44)
[2019-06-23 06:26] LABS: BAND NEUTROPHILS % (MANUAL) 8 %; LYMPHOCYTES # (MANUAL) 0.2 10^3/uL (1.5-3.5); LYMPHOCYTES % (MANUAL) 3 %; METAMYELOCYTES % (MANUAL) 5 %; MONOCYTES # (MANUAL) 0.2 10^3/uL (0.0-1.0); MYELOCYTES % (MANUAL) 5 %
[2019-06-23 06:27] LABS: DIFFERENTIAL COMMENT MANUAL DIFFERENTIAL; PLATELET ESTIMATE, MANUAL DECREASED (<130,000) (NORMAL)
[2019-06-23] MEDS ORDERED: SODIUM CHLORIDE 0.9% 1,000 ML IV SCH (07:51)
[2019-06-23] MEDS: MIDODRINE 2.5 MG TABLET PO SCH ×3 (09:32→18:59)
[2019-06-23] MEDS: predniSONE 20 MG TABLET PO SCH (09:32)
[2019-06-23] MEDS: LIDOCAINE VISCOUS 2% 15 ML UDC MM PRN (09:33)
[2019-06-23] MEDS: ATOVAQUONE 750 MG/5 ML PO SCH (09:33)
[2019-06-23] MEDS: NICOTINE 7 MG PATCH TOP SCH (09:39)
[2019-06-23] MEDS: LIDOCAINE OINTMENT 5% 35.44 GM TUBE TOP SCH ×2 (09:42→21:25)
[2019-06-23] MEDS: LOPERAMIDE 2 MG CAPSULE PO PRN ×2 (11:32→18:57)
[2019-06-23] MEDS: MORPHINE 2 MG/ML CARPUJECT IVP PRN ×2 (11:33→21:13)
[2019-06-23] MEDS: MULTIVITAMIN W/MINERALS TABLET PO SCH (11:33)
[2019-06-23] MEDS ORDERED: ALBUMIN 25% 12.5 GM/50 ML VIAL IV SCH (11:40)
--- NOTE | 2019-06-23 16:16 | PROVIDER PROGRESS NOTE ---
Assessment/Plan - Problem List (1) Rhabdomyolysis Qualifiers: Rhabdomyolysis type: non-traumatic Qualified Code(s): M62.82 - Rhabdomyolysis Assessment/Plan: 06/23 improved. Ck is down to 300 from 1100 continue gently IVF and lab monitor 06/22 improved, CK is down to 600 from 1200. continue hydration appropriately, daily lab monitor pt sat in toilet for about 48 hours, pt has significant elevated CK plan: IVF, daily lab monitor and monitor kidney function. (2) CAT (acute kidney injury) Conclusion/Plan: 06/23 resolved 06/22 improved. continue IVF with slight decreased IVF of NS to 83cc/h continue lab monitor CK pt has elevated creatinine, anion gap, and elevated BUN, it appears from hypovolumia and dehydration IVF of NS, daily lab monitor (3) Stage 4 pressure ulcer with suspected deep tissue injury Conclusion/Plan: 06/23 continue dress change as wound care provider's recommendations nurse Q2H turn pt, pressure ulcer precaution 06/22 wound care came to see pt, followup for dress change continue antibiotics wound culture is pending pt has severe decubitus ulcer with around tissue erythema, warmth and elevated WBC, pt has hx of HIV culture of wound wound care consult start on antibiotics of Zosyn and Daptomycin. pt is sensitive to Vancomycin. (4) Cachexia Conclusion/Plan: 06/22 consult with commercial real estate broker, followup the recommendation for pt continue marinol pt report he has very poor appetite, he has only 38kg weight, muscle wasting. consult with nutrition, ensure per meal resume Marinol (5) Muscle wasting Conclusion/Plan: pt has HIV for 22 yrs, pt present severe muscle wasting, weight is 38 kig. resume marinol and consult with commercial real estate broker (6) HIV (human immunodeficiency virus infection) Conclusion/Plan: 06/22 resume pt's home HIV meds, pcp prophylaxis with anti-fungus.our hospital can not order CD4 and HIV RNA RT-PCR to check virus load volume and copies. we do not know pt's HIV infection stage. pt had 22 yrs with HIV pt has hx of HIV for 22 yrs, will resume home HIV after verified. pt has no fever, chill or cough, clinically pt does not present PCP. (7) Anemia Conclusion/Plan: 06/23 HGB improved, continue lab monitor 06/22 pt's HGB is down to 6.1, pt had one unit of blood transfusion. pt had hx of HIV, MDS. continue lab monitor pt has chronic anemia with HGB 7.3. it seems from pt's chronic multiple diseases. order anemia study, will followup. daily lab monitor (8) Elevated liver enzymes Conclusion/Plan: 06/22 significant improved. it is likely from acute distress from elevated CK continue lab monitor pt has significant elevated total bili, AST and ALT, unknown etiology. check acute hepatitis panel, lab monitor, will consider US of abdomen if continue high hold hepatic toxical agents (9) COPD (chronic obstructive pulmonary disease) Conclusion/Plan: stable, resume home PRN albuterol and DUONEB (10) Systolic heart failure Conclusion/Plan: 06/23 BP stable as his baseline, ECHO is pending. 06/22 pt still present hypotension, continue hold BP meds, order ECHO, but we do not have client technologies analyst to do it now. pt has hx of systolic HF with EF 45% on 2018, will order new ECHO precaution of IVF, tele, vital monitor. 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 De La Garza is his oncologist, tried to call but it is holiday, will call. [place] [id number], it is possible (13)pancytopenia 06/23 plt is 38, and HGB is 7.5, is slight better. continue monitor pt present HGB and plt low, and pt required for blood transfusion. pt had hx of MDS, and 22 yrs with HIV. pt report he is following with Dr. De La Garza, and had multiple of blood transfusion and plt transfusion before continue CBC monitor and bleeding monitor, will advise pt followup with Dr. De La Garza closely transfusion of one RBC (14)hypotension 06/23 resolved pt present low SBP at 86. it seem to be caused by his multiple chronic diseases, acute dehydration. will caution to use his Morphine pain meds continue caution IVF for his dehydration add Midodrine closely vital monitor (15)palliative care pt request palliative care, called Ana Pacheco, she will see pt in hospital. Qualifiers: Rhabdomyolysis type: non-traumatic Qualified Code(s): M62.82 - Rhabdomyolysis (7) Anemia Qualifiers: Anemia type: other cause Other causes of anemia: other cause, not classified Qualified Code(s): D64.89 - Other specified anemias - Current Meds Current Meds: Current Medications Generic Name Dose Route Start Last Admin Trade Name Freq PRN Reason Stop Dose Admin Acetaminophen 650 mg 06/21/19 13:55 06/22/19 20:42 Tylenol PO 650 mg Q4HR PRN Administration Pain 1 to 4 Dronabinol 2.5 mg 06/22/19 07:00 06/23/19 05:44 Marinol PO 2.5 mg BIDAC SAMIA Administration Piperacillin Sod/Tazobactam 100 mls @ 25 mls/hr 06/22/19 10:00 06/23/19 11:33 Sod 2.25 gm/ Sodium Chloride IV 25 mls/hr Q8H SAMIA Administration Clindamycin Phosphate 50 mls @ 100 mls/hr 06/22/19 11:00 06/23/19 10:12 Cleocin 600 Mg/50 Ml IV Infused Q8H SAMIA Infusion Sodium Chloride 1,000 mls @ 75 mls/hr 06/23/19 07:51 06/23/19 11:33 Normal Saline 0.9% IV 06/24/19 10:30 0 mls/hr .[id number] SAMIA Infusion Lidocaine 1 applic 06/22/19 21:00 06/23/19 09:42 Xylocaine Ointment 5% TOP 1 applic BID SAMIA Administration Lidocaine HCl 5 ml 06/22/19 13:12 06/23/19 09:33 Xylocaine Viscous 2% MM 5 ml Q4H PRN Administration Mouth Sore Pain Loperamide HCl 2 mg 06/23/19 10:28 06/23/19 11:32 Imodium PO 2 mg QID PRN Administration Diarrhea Midodrine 2.5 mg 06/22/19 12:13 06/23/19 11:33 PO 2.5 mg TIDWM SAMIA Administration Mirtazapine 15 mg 06/21/19 23:03 06/22/19 20:42 Remeron PO 15 mg QPM SAMIA Administration Morphine Sulfate 2 mg 06/21/19 13:55 06/23/19 11:33 Morphine (Carpuject) IVP 2 mg Q2HR PRN Administration Pain 8 to 10 Morphine Sulfate 7.5 mg 06/22/19 05:48 06/22/19 18:55 Ms Ir PO 7.5 mg BID PRN Administration PAIN Multivitamins/Minerals 1 tab 06/23/19 12:00 06/23/19 11:33 Theragran M PO 1 tab DAILY@1200 SAMIA Administration Nicotine 1 patch 06/21/19 17:19 06/23/19 09:39 Nicoderm TOP 1 patch DAILY SAMIA Administration Nystatin 5 ml 06/21/19 20:00 06/23/19 13:58 Mycostatin PO 5 ml Q6H SAMIA Administration Pantoprazole Sodium 40 mg 06/22/19 07:00 06/23/19 05:44 Protonix PO 40 mg QDAC SAMIA Administration Atovaquone 750mg/5ml 10 each 06/22/19 08:00 06/23/19 09:33 PO 10 each DAILYWM SAMIA Administration Biktarvy 50-200-25 1 each 06/22/19 09:00 06/23/19 09:34 Mg Tablet PO 1 each DAILY SAMIA Administration Prednisone 20 mg 06/22/19 12:15 06/23/19 09:32 Deltasone PO 20 mg DAILYWM SAMIA Administration Sodium Chloride 10 ml 06/21/19 13:55 06/22/19 10:35 Normal Saline Flush 0.9% IVP 10 ml PRN PRN Administration NEEDED PER PROVIDER ORDERS Sodium Chloride 10 ml 06/21/19 17:00 06/23/19 09:39 Normal Saline Flush 0.9% IVP Not Given 0100,0900,1700 SAMIA Trazodone HCl 50 mg 06/21/19 23:03 06/22/19 20:41 Desyrel PO 50 mg QPM SAMIA Administration - Lab Result Fish Bone Diagrams: 06/23/19 19:58 06/23/19 04:45 - Additional Planning My Orders: My Active Orders 06/23/19 07:51 Sodium Chloride 0.9% [Normal Saline 0.9%] 1,000 ml IV 75 mls/hr 06/23/19 10:28 Loperamide [Imodium] 2 mg PO QID PRN 06/23/19 12:00 Multivitamin W/Minerals [Theragran M] 1 tab PO DAILY@1200 06/23/19 17:00 Saccharomyces Boulardii [Florastor] 500 mg PO BIDWM 06/23/19 20:00 CBC - COMP BLD CT W/AUTO DIFF [HEME] Timed 06/23/19 Lunch Dysphagia Mechanically Altered Diet [DIET] 06/24/19 05:00 CBC - COMP BLD CT W/AUTO DIFF [HEME] DAILYLAB CK- CREATINE KINASE [CHEM] DAILYLAB CMP [COMPREHENSIVE METABOLIC PANEL] [CHEM] DAILYLAB 06/25/19 05:00 CBC - COMP BLD CT W/AUTO DIFF [HEME] DAILYLAB CK- CREATINE KINASE [CHEM] DAILYLAB CMP [COMPREHENSIVE METABOLIC PANEL] [CHEM] DAILYLAB 06/26/19 05:00 CBC - COMP BLD CT W/AUTO DIFF [HEME] DAILYLAB CK- CREATINE KINASE [CHEM] DAILYLAB CMP [COMPREHENSIVE METABOLIC PANEL] [CHEM] DAILYLAB 06/22/19 21:00 Lidocaine Ointment 5% [Xylocaine Ointment 5%] 1 applic TOP BID Subjective - Subjective Patient Reports: Feeling Better Nursing Reports: Other (nurse reported pt with caregiver and CONCRETE BATCH PLANT OPERATOR went to outside of hospital. CONCRETE BATCH PLANT OPERATOR reported pt had cigarette smoking. CONCRETE BATCH PLANT OPERATOR tried to stop but pt insisted for smoking.) Objective Vital Signs: Vital Signs - 24 hr 06/22/19 06/22/19 06/23/19 18:48 21:00 00:52 Temperature 36.6 C 36.4 C L Heart Rate [ 71 67 Brachial] Heart Rate [ Radial] Respiratory 18 16 Rate Blood Pressure 100/42 L [Left Brachial artery] Blood Pressure 95/52 L 86/50 L [Right Brachial artery] O2 Saturation 99 97 06/23/19 06/23/19 06/23/19 05:00 09:00 13:00 Temperature 36.6 C 36.9 C 37.3 C Heart Rate [ 74 83 Brachial] Heart Rate [ 104 H Radial] Respiratory 16 24 18 Rate Blood Pressure 103/51 L 97/34 L 134/67 H [Left Brachial artery] Blood Pressure [Right Brachial artery] O2 Saturation 97 99 100 06/23/19 16:00 Temperature 37.0 C Heart Rate [ 87 Brachial] Heart Rate [ Radial] Respiratory 18 Rate Blood Pressure 116/62 [Left Brachial artery] Blood Pressure [Right Brachial artery] O2 Saturation 95 Oxygen O2 Source Room air I&O (Last 24 Hrs): Intake and Output Totals x24h 06/21/19 06/22/19 06/23/19 23:59 23:59 23:59 Intake Total 5692.884 7653.867 1680.00 Output Total 0 1200 1125 Balance 1038.722 9467.867 555.00 General: Alert, No acute distress HEENT: Atraumatic Neck: Supple Lymphatic: no adenopathy Neuro: Alert, Non Focal, Oriented Times 3 Cardiovascular: Regular rate, Normal S1, Normal S2 Respiratory: Chest non-tender, No respiratory distress Abdomen: Normal bowel sounds, Soft Extremities: Normal pulses - Results Results: Laboratory Results WBC 7.7 x10^3/uL (4.8-10.8) 06/23/19 04:45 RBC 2.71 10^6/uL (4.70-6.10) L 06/23/19 04:45 Hgb 7.1 g/dL (14.0-18.0) L 06/23/19 04:45 Hct 24.2 % (42.0-52.0) L 06/23/19 04:45 MCV 89.3 fL (80.0-94.0) 06/23/19 04:45 MCH 26.2 pg (27.0-31.0) L 06/23/19 04:45 MCHC 29.3 g/dL (32.0-36.0) L 06/23/19 04:45 RDW 20.7 % (12.0-15.0) H 06/23/19 04:45 Plt Count 29 10^3/uL (130-450) L* 06/23/19 04:45 Reticulocyte % (Auto) 2.35 % (0.5-2.3) H 06/21/19 17:57 Neut # (Auto) Not Reportable 06/23/19 04:45 Lymph # (Auto) Not Reportable 06/23/19 04:45 Larue # (Auto) Not Reportable 06/23/19 04:45 Eos # (Auto) Not Reportable 06/23/19 04:45 Baso # (Auto) Not Reportable 06/23/19 04:45 Absolute Nucleated RBC Not Reportable 06/23/19 04:45 Total Counted 100 06/23/19 04:45 Band Neuts % (Manual) 8 % (0-10) 06/23/19 04:45 Abnorm Lymph % (Manual) 0 % 06/23/19 04:45 Metamyelocytes % 5 % (-0) H 06/23/19 04:45 Myelocytes % 5 % (-0) H 06/23/19 04:45 Promyelocytes % 1 % (-0) H 06/21/19 12:09 Nucleated RBC % Not Reportable 06/23/19 04:45 Neutrophils # (Manual) 6.5 10^3/uL (1.5-6.6) 06/23/19 04:45 Lymphocytes # (Manual) 0.2 10^3/uL (1.5-3.5) L 06/23/19 04:45 Monocytes # (Manual) 0.2 10^3/uL (0.0-1.0) 06/23/19 04:45 Eosinophils # (Manual) 0.0 10^3/uL (0-0.7) 06/23/19 04:45 Basophils # (Manual) 0.0 10^3/uL (0-0.1) 06/23/19 04:45 Nucleated RBCs 6 % 06/23/19 04:45 Differential Comment MANUAL DIFFERENTIAL 06/23/19 04:45 WBC Morphology NORMAL APPEARANCE (NORMAL) 06/22/19 05:31 Platelet Estimate DECREASED (<130,000) (NORMAL) 06/23/19 04:45 Platelet Morphology NORMAL APPEARANCE (NORMAL) 06/22/19 05:31 RBC Morph Micro Appear 2+ HYPOCHROMASIA (NORMAL) 2+ POLYCHROMASIA (NORMAL) 2+ ANISOCYTOSIS (NORMAL) 06/21/19 12:09 RBC Morph Micro Appear 1+ ANISOCYTOSIS (NORMAL) 2+ MICROCYTOSIS (NORMAL) 1+ HYPOCHROMASIA (NORMAL) 06/22/19 05:31 RBC Morph Micro Appear 1+ ANISOCYTOSIS (NORMAL) 2+ MICROCYTOSIS (NORMAL) 1+ HYPOCHROMASIA (NORMAL) 06/22/19 05:31 RBC Morph Micro Appear 1+ ANISOCYTOSIS (NORMAL) 2+ MICROCYTOSIS (NORMAL) 1+ HYPOCHROMASIA (NORMAL) 06/22/19 05:31 RBC Morph Micro Appear 1+ ANISOCYTOSIS (NORMAL) 1+ HYPOCHROMASIA (NORMAL) 1+ POLYCHROMASIA (NORMAL) 1+ OVALOCYTES (NORMAL) 06/23/19 04:45 RBC Morph Micro Appear 1+ ANISOCYTOSIS (NORMAL) 1+ HYPOCHROMASIA (NORMAL) 1+ POLYCHROMASIA (NORMAL) 1+ OVALOCYTES (NORMAL) 06/23/19 04:45 RBC Morph Micro Appear 1+ ANISOCYTOSIS (NORMAL) 1+ HYPOCHROMASIA (NORMAL) 1+ POLYCHROMASIA (NORMAL) 1+ OVALOCYTES (NORMAL) 06/23/19 04:45 RBC Morph Micro Appear 1+ ANISOCYTOSIS (NORMAL) 1+ HYPOCHROMASIA (NORMAL) 1+ POLYCHROMASIA (NORMAL) 1+ OVALOCYTES (NORMAL) 06/23/19 04:45 Absolute Retic 0.057 10^6/uL (0.020-0.110) 06/21/19 17:57 Sodium 138 mmol/L (135-145) 06/23/19 04:45 Potassium 4.2 mmol/L (3.5-5.0) 06/23/19 04:45 Chloride 111 mmol/L (101-111) 06/23/19 04:45 Carbon Dioxide 22 mmol/L (21-32) 06/23/19 04:45 Anion Gap 5.0 (6-13) L 06/23/19 04:45 BUN 23 mg/dL (6-20) H 06/23/19 04:45 Creatinine 1.0 mg/dL (0.6-1.2) 06/23/19 04:45 Estimated GFR (MDRD) 77 (>89) L 06/23/19 04:45 Glucose 74 mg/dL (70-100) 06/23/19 04:45 Calcium 6.9 mg/dL (8.5-10.3) L 06/23/19 04:45 Magnesium 2.2 mg/dL (1.7-2.8) 06/22/19 05:31 Iron 155 ug/dL (45-182) 06/21/19 17:57 TIBC 153 ug/dL (250-450) L 06/21/19 17:57 % Saturation 102 % (20-50) H 06/21/19 17:57 Transferrin 109 mg/dL (180-329) L 06/21/19 17:57 Ferritin > 85182.0 ng/mL (23.9-336.2) H 06/21/19 17:57 Total Bilirubin 1.0 mg/dL (0.2-1.0) 06/23/19 04:45 AST 49 IU/L (10-42) H 06/23/19 04:45 ALT 68 IU/L (10-60) H 06/23/19 04:45 Alkaline Phosphatase 44 IU/L (42-121) 06/23/19 04:45 Lactate Dehydrogenase 625 IU/L (91-225) H 06/21/19 17:57 Total Creatine Kinase 301 IU/L (22-269) H 06/23/19 04:45 Total Protein 4.7 g/dL (6.7-8.2) L 06/23/19 04:45 Albumin 2.0 g/dL (3.2-5.5) L 06/23/19 04:45 Globulin 2.7 g/dL (2.1-4.2) 06/23/19 04:45 Albumin/Globulin Ratio 0.7 (1.0-2.2) L 06/23/19 04:45 Triglycerides 240 mg/dL (-149) H 06/23/19 04:45 Lipase 19 U/L (22-51) L 06/21/19 12:09 Vitamin B12 1611 pg/mL (180-914) H 06/21/19 17:57 Urine Color DARK YELLOW 06/21/19 13:26 Urine Clarity CLEAR (CLEAR) 06/21/19 13:26 Urine pH 5.5 PH (5.0-7.5) 06/21/19 13:26 Ur Specific [place] >=1.030 (1.002-1.030) H 06/21/19 13:26 Urine Protein >=300 mg/dL (NEGATIVE) H 06/21/19 13:26 Urine Glucose (UA) NEGATIVE mg/dL (NEGATIVE) 06/21/19 13:26 Urine Ketones TRACE mg/dL (NEGATIVE) 06/21/19 13:26 Urine Occult Blood LARGE (NEGATIVE) H 06/21/19 13:26 Urine Nitrite NEGATIVE (NEGATIVE) 06/21/19 13:26 Urine Bilirubin NEGATIVE (NEGATIVE) 06/21/19 13:26 Urine Urobilinogen 0.2 (NORMAL) E.U./dL (NORMAL) 06/21/19 13:26 Ur Leukocyte Esterase NEGATIVE (NEGATIVE) 06/21/19 13:26 Urine RBC 11-25 /HPF (0-5) H 06/21/19 13:26 Urine WBC 4-5 /HPF (0-3) 06/21/19 13:26 Ur Squamous Epith Cells NONE SEEN (<= Few) 06/21/19 13:26 Amorphous Sediment Few /LPF 06/21/19 13:26 Urine Bacteria None Seen /HPF (None Seen) 06/21/19 13:26 Ur Microscopic Review INDICATED 06/21/19 13:26 Urine Culture Comments NOT INDICATED 06/21/19 13:26 Stl C. diff Tox B Gene NEGATIVE (NEGATIVE) 06/23/19 11:25 Blood Type A POSITIVE 06/22/19 07:06 Antibody Screen NEGATIVE 06/22/19 07:06 Crossmatch IS Only See Detail 06/22/19 07:06 - Procedures Procedures: Procedures EXCISION OF SIGMOID COLON, ENDO, DIAGN (10/20/17) INSPECTION OF UPPER INTESTINAL TRACT, ENDO (09/13/17) TRANSFUSE NONAUT RED BLOOD CELLS IN PERIPH VEIN, PERC (11/12/17) ABX Reporting Has patient been on IV antibiotics over the past 48 hours?: Yes Current Medications - Current Medications Current Medications: Active Medications Acetaminophen (Tylenol) 650 mg PO Q4HR PRN PRN Reason: Pain 1 to 4 Last Admin: 06/23/19 21:24 Dose: 650 mg Albuterol () 2.5 mg INH RTQ4H PRN PRN Reason: Wheezing Albuterol/Ipratropium (Duoneb) 3 ml INH RTQID PRN PRN Reason: Shortness of Air/Wheezing Dronabinol (Marinol) 2.5 mg PO BIDAC [facility] Last Admin: 06/23/19 18:57 Dose: Not Given Piperacillin Sod/Tazobactam (Sod 2.25 gm/ Sodium Chloride) 100 mls @ 25 mls/hr IV Q8H [facility] Last Infusion: 06/23/19 17:21 Dose: Infused Clindamycin Phosphate (Cleocin 600 Mg/50 Ml) 50 mls @ 100 mls/hr IV Q8H [facility] Last Infusion: 06/23/19 10:12 Dose: Infused Sodium Chloride (Normal Saline 0.9%) 1,000 mls @ 85 mls/hr IV .[id number] [facility] Stop: 06/24/19 21:11 Lidocaine (Xylocaine Ointment 5%) 1 applic TOP BID [facility] Last Admin: 06/23/19 21:25 Dose: Not Given Lidocaine HCl (Xylocaine Viscous 2%) 5 ml MM Q4H PRN PRN Reason: Mouth Sore Pain Last Admin: 06/23/19 09:33 Dose: 5 ml Loperamide HCl (Imodium) 2 mg PO QID PRN PRN Reason: Diarrhea Last Admin: 06/23/19 18:57 Dose: 2 mg Midodrine () 2.5 mg PO TIDWM [facility] Last Admin: 06/23/19 18:59 Dose: 2.5 mg Mineral Oil (Cavilon) 1 applic TOP PRN PRN PRN Reason: Skin Care Mirtazapine (Remeron) 15 mg PO QPM [facility] Last Admin: 06/23/19 21:23 Dose: 15 mg Morphine Sulfate (Morphine (Carpuject)) 2 mg IVP Q2HR PRN PRN Reason: Pain 8 to 10 Last Admin: 06/23/19 21:13 Dose: 2 mg Morphine Sulfate (Ms Ir) 7.5 mg PO BID PRN PRN Reason: PAIN Last Admin: 06/22/19 18:55 Dose: 7.5 mg Multivitamins/Minerals (Theragran M) 1 tab PO DAILY@1200 [facility] Last Admin: 06/23/19 11:33 Dose: 1 tab Nicotine (Nicoderm) 1 patch TOP DAILY [facility] Last Admin: 06/23/19 09:39 Dose: 1 patch Nystatin (Mycostatin) 5 ml PO Q6H [facility] Last Admin: 06/23/19 21:25 Dose: 5 ml Ondansetron HCl (Zofran Inj) 4 mg IVP Q6HR PRN PRN Reason: Nausea / Vomiting Pantoprazole Sodium (Protonix) 40 mg PO QDAC [facility] Last Admin: 06/23/19 05:44 Dose: 40 mg Atovaquone 750mg/5ml 10 each PO DAILYWM [facility] Last Admin: 06/23/19 09:33 Dose: 10 each Biktarvy 50-200-25 (Mg Tablet) 1 each PO DAILY [facility] Last Admin: 06/23/19 09:34 Dose: 1 each Prednisone (Deltasone) 20 mg PO DAILYWM [facility] Last Admin: 06/23/19 09:32 Dose: 20 mg Saccharomyces Boulardii (Florastor) 500 mg PO BIDWM [facility] Last Admin: 06/23/19 18:58 Dose: 500 mg Sodium Chloride (Normal Saline Flush 0.9%) 10 ml IVP PRN PRN PRN Reason: NEEDED PER PROVIDER ORDERS Last Admin: 06/23/19 21:14 Dose: 10 ml Sodium Chloride (Normal Saline Flush 0.9%) 10 ml IVP 0100,0900,1700 [facility] Last Admin: 06/23/19 17:21 Dose: Not Given Tizanidine HCl (Zanaflex) 8 mg PO Q8H PRN PRN Reason: muscle relaxant Trazodone HCl (Desyrel) 50 mg PO QPM [facility] Last Admin: 06/23/19 21:24 Dose: 50 mg Albuterol Sulfate [Proair Hfa Inhaler] 2 puffs INH Q4H PRN 09/13/17 Mirtazapine 15 mg PO QPM 09/13/17 Morphine Sulfate [Morphine Sulfate ER] 30 mg PO DAILY 09/13/17 Tiotropium [place] [Spiriva] 2 puffs INH DAILY MDD 18 mcg 09/13/17 Gabapentin 800 mg PO Q12H PRN 10/20/17 Lactose-Reduced Food [Ensure Compact] 1 ea PO TID 04/14/18 Prednisone 20 mg PO DAILY 11/10/18 Atovaquone/Proguanil HCl [Atovaquone-Proguanil 62.5-25] 1 tab PO DAILY 06/01/19 Omeprazole 20 mg PO DAILY 06/01/19 Atovaquone 10 ml PO DAILY 06/21/19 Bictegrav/Emtricit/Tenofov Ala [Biktarvy 50-200-25 mg Tablet] 1 tab PO DAILY 06/21/19 Dronabinol [Marinol] 2.5 mg PO TID 06/21/19 Levofloxacin [Levaquin] 750 mg PO DAILY 06/21/19 Morphine Sulfate 7.5 mg PO BID PRN 06/21/19 Nystatin 5 ml PO Q6H 06/21/19 Trazodone HCl 50 mg PO QPM 06/21/19 tiZANidine [Zanaflex] 8 mg PO Q8H PRN MDD 3 doses in 24 hours 06/21/19
[2019-06-23] MEDS: SACCHAROMYCES BOULARDII 250 MG CAPSULE PO SCH (18:58)
[2019-06-23 20:06] LABS: BASOPHILS % (AUTO) 0.4 %; EOSINOPHILS % (AUTO) 0.4 %; HGB - HEMOGLOBIN 7.5 g/dL (14.0-18.0); LYMPHOCYTES % (AUTO) 3.4 %; MEAN CORPUSCULAR HEMOGLOBIN 25.9 pg (27.0-31.0); MEAN CORPUSCULAR HGB CONC 29.5 g/dL (32.0-36.0); MEAN CORPUSCULAR VOLUME 87.6 fL (80.0-94.0); MONOCYTES % (AUTO) 3.5 %; NEUTROPHILS % (AUTO) 73.5 %; PLT - PLATELET COUNT 38 10^3/uL (130-450); RED CELL DISTRIBUTION WIDTH 20.8 % (12.0-15.0); WHITE BLOOD COUNT 11.4 x10^3/uL (4.8-10.8)
[2019-06-23 20:09] LABS: ABNORMAL LYMPHS % (MANUAL) 0 %
[2019-06-23 20:23] LABS: BAND NEUTROPHILS % (MANUAL) 10 %; BASOPHILS # (MANUAL) 0.1 10^3/uL (0-0.1); BASOPHILS % (MANUAL) 1 %; LYMPHOCYTES # (MANUAL) 0.3 10^3/uL (1.5-3.5); LYMPHOCYTES % (MANUAL) 3 %; METAMYELOCYTES % (MANUAL) 1 %; MYELOCYTES % (MANUAL) 4 %
[2019-06-23 20:24] LABS: DIFFERENTIAL COMMENT MANUAL DIFFERENTIAL; PLATELET ESTIMATE, MANUAL DECREASED (<130,000) (NORMAL); PLATELET MORPHOLOGY NORMAL APPEARANCE (NORMAL)
[2019-06-23] MEDS: SODIUM CHLORIDE FLUSH 0.9% 10 ML SYRINGE IVP PRN (21:14)
[2019-06-23] MEDS: MIRTAZAPINE 15 MG TABLET PO SCH (21:23)
[2019-06-23] MEDS: ACETAMINOPHEN 325 MG TABLET PO PRN (21:24)
[2019-06-23] MEDS: traZODone 50 MG TABLET PO SCH (21:24)
[2019-06-23] MEDS: SODIUM CHLORIDE 0.9% 1,000 ML IV SCH (22:24)
[2019-06-24] MEDS ORDERED: traZODone 50 MG TABLET PO STA (00:57)
[2019-06-24] MEDS ORDERED: MIRTAZAPINE 15 MG TABLET PO SCH (01:00)
[2019-06-24] MEDS: PIPERACILLIN/TAZOBACTAM 2.25 GM in SODIUM CHLORIDE 0.9% MINIBAG 100 ML IV SCH ×3 (01:01→17:52)
[2019-06-24] MEDS: NYSTATIN 500000 UNITS/5 ML UDC PO SCH ×4 (01:02→20:03)
[2019-06-24] MEDS: SODIUM CHLORIDE FLUSH 0.9% 10 ML SYRINGE IVP SCH ×3 (01:19→16:09)
[2019-06-24] MEDS: CLINDAMYCIN 600 MG/50 ML 50 ML IV SCH ×3 (02:11→17:52)
[2019-06-24] MEDS: MORPHINE 2 MG/ML CARPUJECT IVP PRN (05:36)
[2019-06-24 05:57] LABS: BASOPHILS % (AUTO) 0.7 %; EOSINOPHILS % (AUTO) 0.2 %; HGB - HEMOGLOBIN 7.7 g/dL (14.0-18.0); LYMPHOCYTES % (AUTO) 2.9 %; MEAN CORPUSCULAR HEMOGLOBIN 25.7 pg (27.0-31.0); MEAN CORPUSCULAR HGB CONC 29.7 g/dL (32.0-36.0); MEAN CORPUSCULAR VOLUME 86.3 fL (80.0-94.0); MONOCYTES % (AUTO) 3.9 %; NEUTROPHILS % (AUTO) 73.2 %; PLT - PLATELET COUNT 38 10^3/uL (130-450); WHITE BLOOD COUNT 10.3 x10^3/uL (4.8-10.8)
[2019-06-24 06:07] LABS: ALBUMIN 2.3 g/dL (3.2-5.5); ALBUMIN/GLOBULIN RATIO 0.8 (1.0-2.2); BILIRUBIN,TOTAL 0.9 mg/dL (0.2-1.0); CALCIUM 6.9 mg/dL (8.5-10.3); CREATININE 0.9 mg/dL (0.6-1.2); TOTAL PROTEIN 5.2 g/dL (6.7-8.2)
[2019-06-24 06:08] LABS: ABNORMAL LYMPHS % (MANUAL) 0 %
[2019-06-24] MEDS: PANTOPRAZOLE 40 MG TABLET PO SCH (06:11)
[2019-06-24] MEDS: SODIUM CHLORIDE 0.9% 1,000 ML IV SCH (06:25)
[2019-06-24 06:44] LABS: BAND NEUTROPHILS % (MANUAL) 12 %; DIFFERENTIAL COMMENT MANUAL DIFFERENTIAL; EOSINOPHILS # (MANUAL) 0.1 10^3/uL (0-0.7); LYMPHOCYTES # (MANUAL) 0.4 10^3/uL (1.5-3.5); LYMPHOCYTES % (MANUAL) 4 %; METAMYELOCYTES % (MANUAL) 5 %; MONOCYTES # (MANUAL) 0.1 10^3/uL (0.0-1.0); MYELOCYTES % (MANUAL) 5 %; PLATELET ESTIMATE, MANUAL DECREASED (<130,000) (NORMAL)
[2019-06-24] MEDS ORDERED: POTASSIUM CHLORIDE 20 MEQ TABLET PO SCH (07:37)
[2019-06-24] MEDS: NICOTINE 7 MG PATCH TOP SCH (09:26)
[2019-06-24] MEDS: MORPHINE IR 15 MG TABLET PO PRN ×2 (09:27→21:26)
[2019-06-24] MEDS: SACCHAROMYCES BOULARDII 250 MG CAPSULE PO SCH ×2 (09:28→16:17)
[2019-06-24] MEDS: MIDODRINE 2.5 MG TABLET PO SCH ×3 (09:29→16:18)
[2019-06-24] MEDS: LOPERAMIDE 2 MG CAPSULE PO PRN ×2 (09:29→20:03)
[2019-06-24] MEDS: predniSONE 20 MG TABLET PO SCH (09:29)
[2019-06-24] MEDS: LIDOCAINE OINTMENT 5% 35.44 GM TUBE TOP SCH ×2 (09:31→19:37)
[2019-06-24] MEDS: ATOVAQUONE 750 MG/5 ML PO SCH (09:31)
[2019-06-24] MEDS: MULTIVITAMIN W/MINERALS TABLET PO SCH (11:52)
[2019-06-24 12:46] LABS: HEPATITIS A IGM NON-REACTIVE (NON-REACTIVE); HEPATITIS B SURFACE ANTIGEN NON-REACTIVE (NON-REACTIVE); HEPATITIS C ANTIBODY NON-REACTIVE (NON-REACTIVE)
[2019-06-24] MEDS: LACTOBACILLUS RHAMNOSUS GG CAPSULE PO SCH (12:46)
[2019-06-24] MEDS ORDERED: SODIUM CHLORIDE 0.9% 500 ML IV ONE ×2 (13:40→15:51)
--- NOTE | 2019-06-24 14:26 | PROVIDER PROGRESS NOTE ---
Assessment/Plan - Problem List (1) Hypotension Assessment/Plan: 06/24 pt became hypotension again with SBP at 77. pt report he feel dizziness. pt had IV of morphine and PO morphine in this morning, the giving time was only two hours interval. This might be the cause of hypotension D/C IV of Morphine give 500 bolus IVF of NS recheck BP 06/23 resolved pt present low SBP at 86. it seem to be caused by his multiple chronic diseases, acute dehydration. will caution to use his Morphine pain meds continue caution IVF for his dehydration add Midodrine closely vital monitor (2) Rhabdomyolysis 06/24 CK is normal, resolved 06/23 improved. Ck is down to 300 from 1100 continue gently IVF and lab monitor 06/22 improved, CK is down to 600 from 1200. continue hydration appropriately, daily lab monitor pt sat in toilet for about 48 hours, pt has significant elevated CK plan: IVF, daily lab monitor and monitor kidney function. (3) CAT (acute kidney injury) Conclusion/Plan: 06/23 resolved 06/22 improved. continue IVF with slight decreased IVF of NS to 83cc/h continue lab monitor CK pt has elevated creatinine, anion gap, and elevated BUN, it appears from hypovolumia and dehydration IVF of NS, daily lab monitor (4) Stage 4 pressure ulcer with suspected deep tissue injury Conclusion/Plan: 06/24 continue dress change. pt decline to be d/c to nurse home. pt request keeping his same home wound care company and caregiver 06/23 continue dress change as wound care provider's recommendations nurse Q2H turn pt, pressure ulcer precaution 06/22 wound care came to see pt, followup for dress change continue antibiotics wound culture is pending pt has severe decubitus ulcer with around tissue erythema, warmth and elevated WBC, pt has hx of HIV culture of wound wound care consult start on antibiotics of Zosyn and Daptomycin. pt is sensitive to Vancomycin. (5) Cachexia Conclusion/Plan: 06/22 consult with air hose coupler, followup the recommendation for pt continue marinol pt report he has very poor appetite, he has only 38kg weight, muscle wasting. consult with nutrition, ensure per meal resume Marinol (6) Muscle wasting Conclusion/Plan: pt has HIV for 22 yrs, pt present severe muscle wasting, weight is 38 kig. resume marinol and consult with air hose coupler (7) HIV (human immunodeficiency virus infection) Conclusion/Plan: 06/22 resume pt's home HIV meds, pcp prophylaxis with anti-fungus.our hospital can not order CD4 and HIV RNA RT-PCR to check virus load volume and copies. we do not know pt's HIV infection stage. pt had 22 yrs with HIV pt has hx of HIV for 22 yrs, will resume home HIV after verified. pt has no fever, chill or cough, clinically pt does not present PCP. (8) Anemia Conclusion/Plan: 06/24 improved, HGB is 7.7 06/23 HGB improved, continue lab monitor 06/22 pt's HGB is down to 6.1, pt had one unit of blood transfusion. pt had hx of HIV, MDS. continue lab monitor pt has chronic anemia with HGB 7.3. it seems from pt's chronic multiple diseases. order anemia study, will followup. daily lab monitor (9) Elevated liver enzymes Conclusion/Plan: 06/22 significant improved. it is likely from acute distress from elevated CK continue lab monitor pt has significant elevated total bili, AST and ALT, unknown etiology. check acute hepatitis panel, lab monitor, will consider US of abdomen if continue high hold hepatic toxical agents (10) COPD (chronic obstructive pulmonary disease) Conclusion/Plan: stable, resume home PRN albuterol and DUONEB (11) Systolic heart failure Conclusion/Plan: 06/24 BP is runing down likely from pain meds given. hold PRN Morphine, Bolus of NS, continue vital monitor 06/23 BP stable as his baseline, ECHO is pending. 06/22 pt still present hypotension, continue hold BP meds, order ECHO, but we do not have consulting technical director to do it now. pt has hx of systolic HF with EF 45% on 2018, will order new ECHO precaution of IVF, tele, vital monitor. pt has slight lower BP, will hold BP meds (12) Current smoker Conclusion/Plan: 06/24 ot report he smoked for 40yrs, he will not change. 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 De La Garza is his oncologist, tried to call but it is holiday, will [place]. [place] [id number], it is possible (14)pancytopenia 06/24 improved both Plt and HGB, continue monitor 06/23 plt is 38, and HGB is 7.5, is slight better. continue monitor pt present HGB and plt low, and pt required for blood transfusion. pt had hx of MDS, and 22 yrs with HIV. pt report he is following with Dr. De La Garza, and had multiple of blood transfusion and plt transfusion before continue CBC monitor and bleeding monitor, will advise pt followup with Dr. De La Garza closely transfusion of one RBC (15)palliative care 06/24 ana will see him today, will followup pt request palliative care, called Ana Pacheco, she will see pt in hospital. (2) Rhabdomyolysis Qualifiers: Rhabdomyolysis type: non-traumatic Qualified Code(s): M62.82 - Rhabdomyoly sis (8) Anemia Qualifiers: Anemia type: other cause Other causes of anemia: other cause, not classified Qualified Code(s): D64.89 - Other specified anemias - Current Meds Current Meds: Current Medications Generic Name Dose Route Start Last Admin Trade Name Freq PRN Reason Stop Dose Admin Acetaminophen 650 mg 06/21/19 13:55 06/23/19 21:24 Tylenol PO 650 mg Q4HR PRN Administration Pain 1 to 4 Dronabinol 2.5 mg 06/22/19 07:00 06/24/19 06:11 Marinol PO Not Given BIDAC [facility]IA Piperacillin Sod/Tazobactam 100 mls @ 25 mls/hr 06/22/19 10:00 06/24/19 10:48 Sod 2.25 gm/ Sodium Chloride IV 25 mls/hr Q8H [facility] Administration Clindamycin Phosphate 50 mls @ 100 mls/hr 06/22/19 11:00 06/24/19 12:27 Cleocin 600 Mg/50 Ml IV Infused Q8H [facility]IA Infusion Sodium Chloride 1,000 mls @ 85 mls/hr 06/23/19 21:40 06/24/19 06:25 Normal Saline 0.9% IV 06/24/19 21:11 85 mls/hr .[id number] [facility]IA Administration Lactobacillus Rhamnosus 1 cap 06/24/19 12:00 06/24/19 12:46 Culturelle PO Not Given DAILY [facility]IA Lidocaine 1 applic 06/22/19 21:00 06/24/19 09:31 Xylocaine Ointment 5% TOP 1 applic BID [facility]IA Administration Lidocaine HCl 5 ml 06/22/19 13:12 06/23/19 09:33 Xylocaine Viscous 2% MM 5 ml Q4H PRN Administration Mouth Sore Pain Loperamide HCl 2 mg 06/23/19 10:28 06/24/19 09:29 Imodium PO 2 mg QID PRN Administration Diarrhea Midodrine 2.5 mg 06/22/19 12:13 06/24/19 11:52 PO 2.5 mg TIDWM [facility]IA Administration Mirtazapine 15 mg 06/21/19 23:03 06/23/19 21:23 Remeron PO 15 mg QPM [facility] Administration Mirtazapine 15 mg 06/24/19 01:00 06/24/19 01:01 Remeron PO 06/25/19 00:59 15 mg ONCE [facility] Administration Morphine Sulfate 2 mg 06/21/19 13:55 06/24/19 05:36 Morphine (Carpuject) IVP 2 mg Q2HR PRN Administration Pain 8 to 10 Morphine Sulfate 7.5 mg 06/22/19 05:48 06/24/19 09:27 Ms Ir PO 7.5 mg BID PRN Administration PAIN Multivitamins/Minerals 1 tab 06/23/19 12:00 06/24/19 11:52 Theragran M PO 1 tab DAILY@1200 [facility] Administration Nicotine 1 patch 06/21/19 17:19 06/24/19 09:26 Nicoderm TOP 1 patch DAILY [facility] Administration Nystatin 5 ml 06/21/19 20:00 06/24/19 13:57 Mycostatin PO 5 ml Q6H [facility] Administration Pantoprazole Sodium 40 mg 06/22/19 07:00 06/24/19 06:11 Protonix PO Not Given QDAC [facility] Atovaquone 750mg/5ml 10 each 06/22/19 08:00 06/24/19 09:31 PO Not Given DAILYWM [facility] Biktarvy 50-200-25 1 each 06/22/19 09:00 06/24/19 09:32 Mg Tablet PO 1 each DAILY [facility] Administration Prednisone 20 mg 06/22/19 12:15 06/24/19 09:29 Deltasone PO 20 mg DAILYWM [facility] Administration Saccharomyces Boulardii 500 mg 06/23/19 17:00 06/24/19 09:28 Florastor PO 500 mg BIDWM [facility] Administration Sodium Chloride 10 ml 06/21/19 13:55 06/23/19 21:14 Normal Saline Flush 0.9% IVP 10 ml PRN PRN Administration NEEDED PER PROVIDER ORDERS Sodium Chloride 10 ml 06/21/19 17:00 06/24/19 09:32 Normal Saline Flush 0.9% IVP Not Given 0100,0900,1700 [facility] Tizanidine HCl 8 mg 06/21/19 19:24 06/24/19 11:59 Zanaflex PO 8 mg Q8H PRN Administration muscle relaxant Trazodone HCl 50 mg 06/21/19 23:03 06/23/19 21:24 Desyrel PO 50 mg QPM [facility]IA Administration - Lab Result Fish Bone Diagrams: 06/24/19 05:30 06/24/19 05:30 - Additional Planning My Orders: My Active Orders 06/23/19 17:00 Saccharomyces Boulardii [Florastor] 500 mg PO BIDWM 06/23/19 21:40 Sodium Chloride 0.9% [Normal Saline 0.9%] 1,000 ml IV 85 mls/hr 06/24/19 12:00 Lactobacillus Rhamnosus GG [Culturelle] 1 cap PO DAILY 06/24/19 16:33 Echo Transthoracic Complete [ECHO] Routine 06/25/19 05:00 CBC - COMP BLD CT W/AUTO DIFF [HEME] DAILYLAB CK- CREATINE KINASE [CHEM] DAILYLAB CMP [COMPREHENSIVE METABOLIC PANEL] [CHEM] DAILYLAB 06/26/19 05:00 CBC - COMP BLD CT W/AUTO DIFF [HEME] DAILYLAB CK- CREATINE KINASE [CHEM] DAILYLAB CMP [COMPREHENSIVE METABOLIC PANEL] [CHEM] DAILYLAB Subjective - Subjective Patient Reports: Feeling Better Objective Vital Signs: Vital Signs - 24 hr 06/23/19 06/23/19 06/23/19 16:00 19:30 23:38 Temperature 37.0 C 37.1 C 37.0 C Heart Rate [ 87 99 95 Brachial] Respiratory 18 18 18 Rate Blood Pressure 116/62 127/46 L 134/71 H [Left Brachial artery] Blood Pressure [Right Brachial artery] O2 Saturation 95 99 98 06/24/19 06/24/19 06/24/19 05:30 08:12 13:00 Temperature 36.7 C 36.8 C 36.5 C Heart Rate [ 94 90 53 L Brachial] Respiratory 18 23 21 Rate Blood Pressure 136/61 H [Left Brachial artery] Blood Pressure 122/54 L 77/45 L [Right Brachial artery] O2 Saturation 98 100 94 Oxygen O2 Source Room air I&O (Last 24 Hrs): Intake and Output Totals x24h 06/22/19 06/23/19 06/24/19 23:59 23:59 23:59 Intake Total 4429.867 2230.00 1207.667 Output Total 1200 1375 925 Balance 3229.867 855.00 282.667 General: Alert, Oriented x3, No acute distress HEENT: Atraumatic Neck: Supple Lymphatic: no adenopathy Neuro: Alert, Non Focal, Oriented Times 3 Cardiovascular: Regular rate, Normal S1, Normal S2 Respiratory: Chest non-tender, No respiratory distress Abdomen: Normal bowel sounds, Soft Extremities: Normal pulses - Results Results: Laboratory Results WBC 10.3 x10^3/uL (4.8-10.8) 06/24/19 05:30 RBC 3.00 10^6/uL (4.70-6.10) L 06/24/19 05:30 Hgb 7.7 g/dL (14.0-18.0) L 06/24/19 05:30 Hct 25.9 % (42.0-52.0) L 06/24/19 05:30 MCV 86.3 fL (80.0-94.0) 06/24/19 05:30 MCH 25.7 pg (27.0-31.0) L 06/24/19 05:30 MCHC 29.7 g/dL (32.0-36.0) L 06/24/19 05:30 RDW 21.0 % (12.0-15.0) H 06/24/19 05:30 Plt Count 38 10^3/uL (130-450) L 06/24/19 05:30 Reticulocyte % (Auto) 2.35 % (0.5-2.3) H 06/21/19 17:57 Neut # (Auto) Not Reportable 06/24/19 05:30 Lymph # (Auto) Not Reportable 06/24/19 05:30 Wilkinson # (Auto) Not Reportable 06/24/19 05:30 Eos # (Auto) Not Reportable 06/24/19 05:30 Baso # (Auto) Not Reportable 06/24/19 05:30 Absolute Nucleated RBC Not Reportable 06/24/19 05:30 Total Counted 100 06/24/19 05:30 Band Neuts % (Manual) 12 % (0-10) H 06/24/19 05:30 Abnorm Lymph % (Manual) 0 % 06/24/19 05:30 Metamyelocytes % 5 % (-0) H 06/24/19 05:30 Myelocytes % 5 % (-0) H 06/24/19 05:30 Promyelocytes % 1 % (-0) H 06/21/19 12:09 Nucleated RBC % Not Reportable 06/24/19 05:30 Neutrophils # (Manual) 8.7 10^3/uL (1.5-6.6) H 06/24/19 05:30 Lymphocytes # (Manual) 0.4 10^3/uL (1.5-3.5) L 06/24/19 05:30 Monocytes # (Manual) 0.1 10^3/uL (0.0-1.0) 06/24/19 05:30 Eosinophils # (Manual) 0.1 10^3/uL (0-0.7) 06/24/19 05:30 Basophils # (Manual) 0.0 10^3/uL (0-0.1) 06/24/19 05:30 Nucleated RBCs 10 % 06/24/19 05:30 Differential Comment MANUAL DIFFERENTIAL 06/24/19 05:30 Manual Slide Review Indicated 06/23/19 19:58 WBC Morphology 1+ TOXIC GRANULATION (NORMAL) 06/24/19 05:30 Platelet Estimate DECREASED (<130,000) (NORMAL) 06/24/19 05:30 Platelet Morphology NORMAL APPEARANCE (NORMAL) 06/23/19 19:58 RBC Morph Micro Appear 1+ ANISOCYTOSIS (NORMAL) 2+ MICROCYTOSIS (NORMAL) 1+ HYPOCHROMASIA (NORMAL) 06/22/19 05:31 RBC Morph Micro Appear 1+ ANISOCYTOSIS (NORMAL) 2+ MICROCYTOSIS (NORMAL) 1+ HYPOCHROMASIA (NORMAL) 06/22/19 05:31 RBC Morph Micro Appear 1+ ANISOCYTOSIS (NORMAL) 1+ HYPOCHROMASIA (NORMAL) 1+ POLYCHROMASIA (NORMAL) 1+ OVALOCYTES (NORMAL) 06/23/19 04:45 RBC Morph Micro Appear 1+ ANISOCYTOSIS (NORMAL) 1+ HYPOCHROMASIA (NORMAL) 1+ POLYCHROMASIA (NORMAL) 1+ OVALOCYTES (NORMAL) 06/23/19 04:45 RBC Morph Micro Appear 1+ ANISOCYTOSIS (NORMAL) 1+ HYPOCHROMASIA (NORMAL) 1+ POLYCHROMASIA (NORMAL) 1+ OVALOCYTES (NORMAL) 06/23/19 04:45 RBC Morph Micro Appear 1+ ANISOCYTOSIS (NORMAL) 1+ HYPOCHROMASIA (NORMAL) 1+ POLYCHROMASIA (NORMAL) 1+ OVALOCYTES (NORMAL) 06/23/19 04:45 RBC Morph Micro Appear 2+ ANISOCYTOSIS (NORMAL) 1+ HYPOCHROMASIA (NORMAL) 1+ POLYCHROMASIA (NORMAL) 06/23/19 19:58 RBC Morph Micro Appear 2+ ANISOCYTOSIS (NORMAL) 1+ HYPOCHROMASIA (NORMAL) 1+ POLYCHROMASIA (NORMAL) 06/23/19 19:58 RBC Morph Micro Appear 2+ ANISOCYTOSIS (NORMAL) 1+ HYPOCHROMASIA (NORMAL) 1+ POLYCHROMASIA (NORMAL) 06/23/19 19:58 RBC Morph Micro Appear 2+ ANISOCYTOSIS (NORMAL) 1+ HYPOCHROMASIA (NORMAL) 1+ POLYCHROMASIA (NORMAL) 1+ OVALOCYTES (NORMAL) 06/24/19 05:30 RBC Morph Micro Appear 2+ ANISOCYTOSIS (NORMAL) 1+ HYPOCHROMASIA (NORMAL) 1+ POLYCHROMASIA (NORMAL) 1+ OVALOCYTES (NORMAL) 06/24/19 05:30 RBC Morph Micro Appear 2+ ANISOCYTOSIS (NORMAL) 1+ HYPOCHROMASIA (NORMAL) 1+ POLYCHROMASIA (NORMAL) 1+ OVALOCYTES (NORMAL) 06/24/19 05:30 RBC Morph Micro Appear 2+ ANISOCYTOSIS (NORMAL) 1+ HYPOCHROMASIA (NORMAL) 1+ POLYCHROMASIA (NORMAL) 1+ OVALOCYTES (NORMAL) 06/24/19 05:30 Absolute Retic 0.057 10^6/uL (0.020-0.110) 06/21/19 17:57 Sodium 138 mmol/L (135-145) 06/24/19 05:30 Potassium 3.3 mmol/L (3.5-5.0) L 06/24/19 05:30 Chloride 113 mmol/L (101-111) H 06/24/19 05:30 Carbon Dioxide 19 mmol/L (21-32) L 06/24/19 05:30 Anion Gap 6.0 (6-13) 06/24/19 05:30 BUN 12 mg/dL (6-20) 06/24/19 05:30 Creatinine 0.9 mg/dL (0.6-1.2) 06/24/19 05:30 Estimated GFR (MDRD) 87 (>89) L 06/24/19 05:30 Glucose 69 mg/dL (70-100) L 06/24/19 05:30 Calcium 6.9 mg/dL (8.5-10.3) L 06/24/19 05:30 Magnesium 2.2 mg/dL (1.7-2.8) 06/22/19 05:31 Iron 155 ug/dL (45-182) 06/21/19 17:57 TIBC 153 ug/dL (250-450) L 06/21/19 17:57 % Saturation 102 % (20-50) H 06/21/19 17:57 Transferrin 109 mg/dL (180-329) L 06/21/19 17:57 Ferritin > 62603.0 ng/mL (23.9-336.2) H 06/21/19 17:57 Total Bilirubin 0.9 mg/dL (0.2-1.0) 06/24/19 05:30 AST 48 IU/L (10-42) H 06/24/19 05:30 ALT 59 IU/L (10-60) 06/24/19 05:30 Alkaline Phosphatase 47 IU/L (42-121) 06/24/19 05:30 Lactate Dehydrogenase 625 IU/L (91-225) H 06/21/19 17:57 Total Creatine Kinase 269 IU/L (22-269) 06/24/19 05:30 Total Protein 5.2 g/dL (6.7-8.2) L 06/24/19 05:30 Albumin 2.3 g/dL (3.2-5.5) L 06/24/19 05:30 Globulin 2.9 g/dL (2.1-4.2) 01/02/20 05:30 Albumin/Globulin Ratio 0.8 (1.0-2.2) L 06/24/19 05:30 Triglycerides 240 mg/dL (-149) H 06/23/19 04:45 Lipase 19 U/L (22-51) L 06/21/19 12:09 Vitamin B12 1611 pg/mL (180-914) H 06/21/19 17:57 Urine Color DARK YELLOW 06/21/19 13:26 Urine Clarity CLEAR (CLEAR) 06/21/19 13:26 Urine pH 5.5 PH (5.0-7.5) 06/21/19 13:26 Ur Specific [place] >=1.030 (1.002-1.030) H 06/21/19 13:26 Urine Protein >=300 mg/dL (NEGATIVE) H 06/21/19 13:26 Urine Glucose (UA) NEGATIVE mg/dL (NEGATIVE) 06/21/19 13:26 Urine Ketones TRACE mg/dL (NEGATIVE) 06/21/19 13:26 Urine Occult Blood LARGE (NEGATIVE) H 06/21/19 13:26 Urine Nitrite NEGATIVE (NEGATIVE) 06/21/19 13:26 Urine Bilirubin NEGATIVE (NEGATIVE) 06/21/19 13:26 Urine Urobilinogen 0.2 (NORMAL) E.U./dL (NORMAL) 06/21/19 13:26 Ur Leukocyte Esterase NEGATIVE (NEGATIVE) 06/21/19 13:26 Urine RBC 11-25 /HPF (0-5) H 06/21/19 13:26 Urine WBC 4-5 /HPF (0-3) 06/21/19 13:26 Ur Squamous Epith Cells NONE SEEN (<= Few) 06/21/19 13:26 Amorphous Sediment Few /LPF 06/21/19 13:26 Urine Bacteria None Seen /HPF (None Seen) 06/21/19 13:26 Ur Microscopic Review INDICATED 06/21/19 13:26 Urine Culture Comments NOT INDICATED 06/21/19 13:26 Stl C. diff Tox B Gene NEGATIVE (NEGATIVE) 06/23/19 11:25 Hepatitis A IgM Ab NON-REACTIVE (NON-REACTIVE) 06/22/19 05:31 Hep Bs Antigen NON-REACTIVE (NON-REACTIVE) 06/22/19 05:31 Hep B Core IgM Ab NON-REACTIVE (NON-REACTIVE) 06/22/19 05:31 Hepatitis C Antibody NON-REACTIVE (NON-REACTIVE) 06/22/19 05:31 Hep C Ab Signal/Cutoff 0.80 (<1.00) 06/22/19 05:31 Blood Type A POSITIVE 06/22/19 07:06 Antibody Screen NEGATIVE 06/22/19 07:06 Crossmatch IS Only See Detail 06/22/19 07:06 - Procedures Procedures: Procedures EXCISION OF SIGMOID COLON, ENDO, DIAGN (10/20/17) INSPECTION OF UPPER INTESTINAL TRACT, ENDO (09/13/17) TRANSFUSE NONAUT RED BLOOD CELLS IN PERIPH VEIN, PERC (11/12/17) Sepsis Event Note (H) - Evaluation Current Stage of Sepsis: Ruled out ABX Reporting Has patient been on IV antibiotics over the past 48 hours?: Yes Current Medications - Current Medications Current Medications: Active Medications Acetaminophen (Tylenol) 650 mg PO Q4HR PRN PRN Reason: Pain 1 to 4 Last Admin: 06/23/19 21:24 Dose: 650 mg Albuterol () 2.5 mg INH RTQ4H PRN PRN Reason: Wheezing Albuterol/Ipratropium (Duoneb) 3 ml INH RTQID PRN PRN Reason: Shortness of Air/Wheezing Dronabinol (Marinol) 2.5 mg PO BIDAC [facility] Last Admin: 06/24/19 06:11 Dose: Not Given Piperacillin Sod/Tazobactam (Sod 2.25 gm/ Sodium Chloride) 100 mls @ 25 mls/hr IV Q8H [facility] Last Admin: 06/24/19 10:48 Dose: 25 mls/hr Clindamycin Phosphate (Cleocin 600 Mg/50 Ml) 50 mls @ 100 mls/hr IV Q8H [facility] Last Infusion: 06/24/19 12:27 Dose: Infused Sodium Chloride (Normal Saline 0.9%) 1,000 mls @ 85 mls/hr IV .[id number] [facility] Stop: 06/24/19 21:11 Last Admin: 06/24/19 06:25 Dose: 85 mls/hr Lactobacillus Rhamnosus (Culturelle) 1 cap PO DAILY [facility] Last Admin: 06/24/19 12:46 Dose: Not Given Lidocaine (Xylocaine Ointment 5%) 1 applic TOP BID [facility] Last Admin: 06/24/19 09:31 Dose: 1 applic Lidocaine HCl (Xylocaine Viscous 2%) 5 ml MM Q4H PRN PRN Reason: Mouth Sore Pain Last Admin: 06/23/19 09:33 Dose: 5 ml Loperamide HCl (Imodium) 2 mg PO QID PRN PRN Reason: Diarrhea Last Admin: 06/24/19 09:29 Dose: 2 mg Midodrine () 2.5 mg PO TIDWM [facility] Last Admin: 06/24/19 11:52 Dose: 2.5 mg Mineral Oil (Cavilon) 1 applic TOP PRN PRN PRN Reason: Skin Care Mirtazapine (Remeron) 15 mg PO QPM [facility] Last Admin: 06/23/19 21:23 Dose: 15 mg Mirtazapine (Remeron) 15 mg PO ONCE [facility] Stop: 06/25/19 00:59 Last Admin: 06/24/19 01:01 Dose: 15 mg Morphine Sulfate (Ms Ir) 7.5 mg PO BID PRN PRN Reason: PAIN Last Admin: 06/24/19 09:27 Dose: 7.5 mg Multivitamins/Minerals (Theragran M) 1 tab PO DAILY@1200 [facility] Last Admin: 06/24/19 11:52 Dose: 1 tab Nicotine (Nicoderm) 1 patch TOP DAILY [facility] Last Admin: 06/24/19 09:26 Dose: 1 patch Nystatin (Mycostatin) 5 ml PO Q6H [facility] Last Admin: 06/24/19 13:57 Dose: 5 ml Ondansetron HCl (Zofran Inj) 4 mg IVP Q6HR PRN PRN Reason: Nausea / Vomiting Pantoprazole Sodium (Protonix) 40 mg PO QDAC [facility] Last Admin: 06/24/19 06:11 Dose: Not Given Atovaquone 750mg/5ml 10 each PO DAILYWM [facility] Last Admin: 06/24/19 09:31 Dose: Not Given Biktarvy 50-200-25 (Mg Tablet) 1 each PO DAILY [facility] Last Admin: 06/24/19 09:32 Dose: 1 each Prednisone (Deltasone) 20 mg PO DAILYWM [facility] Last Admin: 06/24/19 09:29 Dose: 20 mg Saccharomyces Boulardii (Florastor) 500 mg PO BIDWM [facility] Last Admin: 06/24/19 09:28 Dose: 500 mg Sodium Chloride (Normal Saline Flush 0.9%) 10 ml IVP PRN PRN PRN Reason: NEEDED PER PROVIDER ORDERS Last Admin: 06/23/19 21:14 Dose: 10 ml Sodium Chloride (Normal Saline Flush 0.9%) 10 ml IVP 0100,0900,1700 [facility] Last Admin: 06/24/19 09:32 Dose: Not Given Tizanidine HCl (Zanaflex) 8 mg PO Q8H PRN PRN Reason: muscle relaxant Last Admin: 06/24/19 11:59 Dose: 8 mg Trazodone HCl (Desyrel) 50 mg PO QPM [facility] Last Admin: 06/23/19 21:24 Dose: 50 mg Albuterol Sulfate [Proair Hfa Inhaler] 2 puffs INH Q4H PRN 09/13/17 Mirtazapine 15 mg PO QPM 09/13/17 Morphine Sulfate [Morphine Sulfate ER] 30 mg PO DAILY 09/13/17 Tiotropium [place]ougar [Spiriva] 2 puffs INH DAILY MDD 18 mcg 09/13/17 Gabapentin 800 mg PO Q12H PRN 10/20/17 Lactose-Reduced Food [Ensure Compact] 1 ea PO TID 04/14/18 Prednisone 20 mg PO DAILY 11/10/18 Atovaquone/Proguanil HCl [Atovaquone-Proguanil 62.5-25] 1 tab PO DAILY 06/01/19 Omeprazole 20 mg PO DAILY 06/01/19 Atovaquone 10 ml PO DAILY 06/21/19 Bictegrav/Emtricit/Tenofov Ala [Biktarvy 50-200-25 mg Tablet] 1 tab PO DAILY 06/21/19 Dronabinol [Marinol] 2.5 mg PO TID 06/21/19 Levofloxacin [Levaquin] 750 mg PO DAILY 06/21/19 Morphine Sulfate 7.5 mg PO BID PRN 06/21/19 Nystatin 5 ml PO Q6H 06/21/19 Trazodone HCl 50 mg PO QPM 06/21/19 tiZANidine [Zanaflex] 8 mg PO Q8H PRN MDD 3 doses in 24 hours 06/21/19
--- NOTE | 2019-06-24 14:27 | CONSULTATION NOTE ---
Palliative Care Follow Up - Referral Referring Provider: Ezequiel HORTON Time of Visit: [id number] Referral setting: Hospitalized patient Referral Reason: Goals of Care/Anxiety - Information Sources Records reviewed: RN notes reviewed, Previous records reviewed History/Review of Systems obtained from: Patient Exam limitations: Clinical condition (patient with lethargy; had zanaflex at noon; reports slept poorly last night) - History of Present Illness Update Brief HPI Update: This is a feisty 57-year-old gentleman who is currently hospitalized, as a result of a series of unfortunate events. He had transferred to the toilet, and was in his apartment without any assistance, and was not found to 48 hours later. He presented with rhabdomyoloysis, CAT, worsening of his decub, and dehydration. Patient also has underlying pancytopenia related to his myeloproliferative disorder, Ralph 2 with myelofibrosis. Patient has recently been hospitalized at [facility], when he presented with worsening infection and sepsis in his decub on his buttocks, where he had a 13+ day stay. Did return home, at that point time home health was initiated, he is currently receiving from [email or web address] 3 times a week, Caregiving is supported through [place] [facility], he has a couple caregivers whom he is quite fond of, and feels obligated to return home. He is aware he has been offered SNF as a bridge, particular given his weakened state and the fact he does not have 24/7 care, he feels like he is not at a point he needs this at this point. Though he has been mostly bedbound, is quite weak, and would be required to manage his m edications and care on his own. Complex comorbidities including HIV since 1996, severe cachexia, GERD, COPD, asthma, CHF, hiatal hernia, current tobacco and marijuana use, PVD with claudication and status post AKA, history of CVA, CKD, hypertension, coronary stents, femoral bypass, hypogonadsim, skin CA on his scalp, still not healed. History of osteoarthritis, history of left humerus fracture, sinusitis, known osteomyelitis with positive MRSA, dental caries, depression, and anxiety. Of most significance actually is his history of severe peripheral vascular disease, as he had had his bilateral [id number] amputations almost to the hip at age 42 in 2003. Prior to this he had been battling wounds on both of his legs for three years, his brother and father had of peripheral vascular disease on the male side. Given patient's fragility, severe underlying acute on chronic illness, patient has expressed wishes for "full code", I do have some relationship with the patient, have seen him formally about a year ago, and have touched base multiple times in between. Patient reports "I am not ready yet" and has avoided palliative care consult follow-up. On our initial visit though he was quite clear he was a DNA R, discussion ensued regarding current goals. Social History - Living Situation Living arrangement: At home Living Situation: Alone Support System: Patient has a complicated social history, [place] 26 [place], who 8 years ago. He originally moved to [place] to participate in a disabled sports program of wheelchair rugby and hockey, though is acutely injured when he arrived, he lived in [place] for about 2 years. He did come to [facility] in 2013 at the request of some friends, unfortunately his friends essentially abandoned him. He does have a [employer] spring encaser and Stephane Garnica from [facility]. He has been living in senior housing at [facility], patient does not have any identified support or family. He reports most of his family has . Did identify this time though a friend from his youth Rosario Sorensen, she does live in [place], reports they have been trying to convince him to come live with him. He does feel like she might be willing to be his D POA. He was not able to supply me his phone number at this point, did agree to revisit tomorrow. Medications/Allergies - Medications Active Medication List: Active Medications Acetaminophen (Tylenol) 650 mg PO Q4HR PRN PRN Reason: Pain 1 to 4 Last Admin: 06/23/19 21:24 Dose: 650 mg Albuterol () 2.5 mg INH RTQ4H PRN PRN Reason: Wheezing Albuterol/Ipratropium (Duoneb) 3 ml INH RTQID PRN PRN Reason: Shortness of Air/Wheezing Dronabinol (Marinol) 2.5 mg PO BIDAC [facility] Last Admin: 06/24/19 06:11 Dose: Not Given Piperacillin Sod/Tazobactam (Sod 2.25 gm/ Sodium Chloride) 100 mls @ 25 mls/hr IV Q8H [facility] Last Admin: 06/24/19 10:48 Dose: 25 mls/hr Clindamycin Phosphate (Cleocin 600 Mg/50 Ml) 50 mls @ 100 mls/hr IV Q8H [facility] Last Infusion: 06/24/19 12:27 Dose: Infused Sodium Chloride (Normal Saline 0.9%) 1,000 mls @ 85 mls/hr IV .[id number] [facility] Stop: 06/24/19 21:11 Last Admin: 06/24/19 06:25 Dose: 85 mls/hr Lactobacillus Rhamnosus (Culturelle) 1 cap PO DAILY [facility] Last Admin: 06/24/19 12:46 Dose: Not Given Lidocaine (Xylocaine Ointment 5%) 1 applic TOP BID [facility] Last Admin: 06/24/19 09:31 Dose: 1 applic Lidocaine HCl (Xylocaine Viscous 2%) 5 ml MM Q4H PRN PRN Reason: Mouth Sore Pain Last Admin: 06/23/19 09:33 Dose: 5 ml Loperamide HCl (Imodium) 2 mg PO QID PRN PRN Reason: Diarrhea Last Admin: 06/24/19 09:29 Dose: 2 mg Midodrine () 2.5 mg PO TIDWM [facility] Last Admin: 06/24/19 11:52 Dose: 2.5 mg Mineral Oil (Cavilon) 1 applic TOP PRN PRN PRN Reason: Skin Care Mirtazapine (Remeron) 15 mg PO QPM [facility] Last Admin: 06/23/19 21:23 Dose: 15 mg Mirtazapine (Remeron) 15 mg PO ONCE [facility] Stop: 06/25/19 00:59 Last Admin: 06/24/19 01:01 Dose: 15 mg Morphine Sulfate (Morphine (Carpuject)) 2 mg IVP Q2HR PRN PRN Reason: Pain 8 to 10 Last Admin: 06/24/19 05:36 Dose: 2 mg Morphine Sulfate (Ms Ir) 7.5 mg PO BID PRN PRN Reason: PAIN Last Admin: 06/24/19 09:27 Dose: 7.5 mg Multivitamins/Minerals (Theragran M) 1 tab PO DAILY@1200 [facility] Last Admin: 06/24/19 11:52 Dose: 1 tab Nicotine (Nicoderm) 1 patch TOP DAILY [facility] Last Admin: 01/02/20 09:26 Dose: 1 patch Nystatin (Mycostatin) 5 ml PO Q6H [facility] Last Admin: 06/24/19 13:57 Dose: 5 ml Ondansetron HCl (Zofran Inj) 4 mg IVP Q6HR PRN PRN Reason: Nausea / Vomiting Pantoprazole Sodium (Protonix) 40 mg PO QDAC [facility] Last Admin: 06/24/19 06:11 Dose: Not Given Atovaquone 750mg/5ml 10 each PO DAILYWM [facility] Last Admin: 06/24/19 09:31 Dose: Not Given Biktarvy 50-200-25 (Mg Tablet) 1 each PO DAILY [facility] Last Admin: 06/24/19 09:32 Dose: 1 each Prednisone (Deltasone) 20 mg PO DAILYWM [facility] Last Admin: 06/24/19 09:29 Dose: 20 mg Saccharomyces Boulardii (Florastor) 500 mg PO BIDWM [facility] Last Admin: 06/24/19 09:28 Dose: 500 mg Sodium Chloride (Normal Saline Flush 0.9%) 10 ml IVP PRN PRN PRN Reason: NEEDED PER PROVIDER ORDERS Last Admin: 06/23/19 21:14 Dose: 10 ml Sodium Chloride (Normal Saline Flush 0.9%) 10 ml IVP 0100,0900,1700 [facility] Last Admin: 06/24/19 09:32 Dose: Not Given Tizanidine HCl (Zanaflex) 8 mg PO Q8H PRN PRN Reason: muscle relaxant Last Admin: 06/24/19 11:59 Dose: 8 mg Trazodone HCl (Desyrel) 50 mg PO QPM [facility] Last Admin: 06/23/19 21:24 Dose: 50 mg Albuterol Sulfate [Proair Hfa Inhaler] 2 puffs INH Q4H PRN 09/13/17 Mirtazapine 15 mg PO QPM 09/13/17 Morphine Sulfate [Morphine Sulfate ER] 30 mg PO DAILY 09/13/17 Tiotropium Merrill [Spiriva] 2 puffs INH DAILY MDD 18 mcg 09/13/17 Gabapentin 800 mg PO Q12H PRN 10/20/17 Lactose-Reduced Food [Ensure Compact] 1 ea PO TID 04/14/18 Prednisone 20 mg PO DAILY 11/10/18 Atovaquone/Proguanil HCl [Atovaquone-Proguanil 62.5-25] 1 tab PO DAILY 06/01/19 Omeprazole 20 mg PO DAILY 06/01/19 Atovaquone 10 ml PO DAILY 06/21/19 Bictegrav/Emtricit/Tenofov Ala [Biktarvy 50-200-25 mg Tablet] 1 tab PO DAILY 06/21/19 Dronabinol [Marinol] 2.5 mg PO TID 06/21/19 Levofloxacin [Levaquin] 750 mg PO DAILY 06/21/19 Morphine Sulfate 7.5 mg PO BID PRN 06/21/19 Nystatin 5 ml PO Q6H 06/21/19 Trazodone HCl 50 mg PO QPM 06/21/19 tiZANidine [Zanaflex] 8 mg PO Q8H PRN MDD 3 doses in 24 hours 06/21/19 - Allergies Allergies/Adverse Reactions: Allergies Allergy/AdvReac Type Severity Reaction Status Date / Time vancomycin Allergy Rash Verified 06/21/19 11:23 lenalidomide [From Revlimid] AdvReac Rash Verified 06/21/19 11:23 Review of Systems - Constitutional Constitutional: reports: Fatigue, Poor appetite, Weight loss. denies: Fever, Chills - Ears, Nose & Throat Ears, Nose & Throat: reports: Dental decay, Other (some diff) - Cardiovascular Cardiovascular: reports: Decr. exercise tolerance - Respiratory Respiratory: denies: SOB at rest - Gastrointestinal Gastrointestinal: reports: Diarrhea (reports diarrhea for several days;), Poor appetite, Early satiety. denies: Abdominal distention, Nausea - Musculoskeletal Musculoskeletal: reports: Back pain, Muscle aches, Stiffness, Muscle weakness, Transfer issues (has been able to transfer with UE in past; very weak currently; unclear how is going to manage at home) - Integumentary Integumentary: reports: Dryness, Other (stage IV left buttock; right unst ageable; multiple DTS'; graft on head slow healing) - Neurological Neurological: reports: General weakness, Memory problems, Slurred speech - Psychiatric Psychiatric: reports: Depression, Anxiety - Endocrine Endocrine: reports: Intolerance to heat - Hematologic/Lymphatic Hematologic/Lymphatic: reports: Anemia, Bruising, Petechiae, Bleeding te ndencies, Recurrent infections - All Other Systems All Other Systems: reports: Other (limited) Physical Exam - Vital Signs Vital Signs: Vital Signs x48h Temp Pulse Resp BP Pulse Ox 06/24/19 13:00 36.5 C 53 L 21 77/45 L 94 06/24/19 08:12 36.8 C 90 23 122/54 L 100 - Physical Exam General Appearance: positive: Lethargic Eyes Bilateral: positive: Normal inspection ENT: positive: Other (poor dentition) Neck: positive: Trachea midline Cardiovascular: positive: Regular rate & rhythm Respiratory: positive: No respiratory distress Abdomen: positive: Other (concave/flat) Skin: positive: Pallor, Pressure wound (not observed) Extremities: positive: Other (upper extremeties weak; poor bed mobility) Neurologic/Psychiatric: positive: Mood/affect nml, Disoriented to time, Weakness, Slurred/abnml speech, Flat affect Palliative Care - POLST Patient has POLST: No POLST Status: Full Code Pain: Pain unchanged, Location (reports 8/10 in buttocks;) Tiredness/Fatigue: Severe (7-10) Drowsiness/Sedation: Severe (7-10) (attributes to poor sleep; though just received zanaflex) Nausea: None Anorexia: Severe (7-10), Weight loss Dyspnea: Moderate (4-6) Depression: Mild (1-3) Anxiety: Moderate (4-6) Feelings of wellbeing/Perceived Quality of Life: Fair, Acceptable, Worsening Sleep: Sleeps poorly Performance Status: Patient has a power wheelchair, most often has to transfer with his own upper extremity strength. He does get some assistance from his caregivers, they are doing meal prep. He has had some increase in hours with his most recent hospitalization. He is there though by himself, reports he does have [employer], unfortunately did not have it on when he had his incident. Patient with poor insight or realistic evaluation of his current functional status, Recommend PT eval prior to discharge to make sure patient can transfer. - Palliative Care Discussion: Patient is known to me, though I have only seen him once couple years ago, as we have talked in the lobby multiple times, he has avoided any follow-up with palliative care because "he is not ready". We did discuss in the context of our last conversation, that he was a DNA R, and he was quite clear regarding that he did not want to be intubated, added to the complexity of his advanced care planning though has been he had no D POA. He actually does have a POLST he had filled out with Dr. Jaeger on 12/29/2017 with DNA R and limited additional interventions, But does reiterate he is a full code in our conversation. Today he is able to identify a friend Rosario Sorensen who lives in [place], who is a childhood friend who might be willing be a DPOA. He will get me her phone number and/or ask her about this role. He reports this was somewhat influenced his changing his plan from DNA R to full code when he was in [place]. He reports he has outlived all his family members, he does understand the hospital is concerned, regarding if patient were to did deteriorate and need resuscit ation. He is able to admit his decline in his health, he has lost more weight, more medical complexity with his most recent hospitalizations, needing more assistance and help but reports he has had glass half full versus a glass half empty kind of nikhil. Did review that there were actually 2 decisions regarding the POLST, that he could be a DNA R and still received the care he is currently receiving but that if he were to , we would not perform CPR which actually would be quite traumatic in his current fragile state. He does want to continue this conversation, but is not ready to make any decisions, he does report though when his time comes he would like to at home and not in a hospital. Given his lethargy, and sleep penis we agreed to meet again tomorrow.. Results - Lab Results Lab results reviewed: Yes Fish Bones: 06/24/19 05:30 06/24/19 05:30 Lab and Imaging Results: Lab Results x24hrs 06/24/19 06/24/19 06/23/19 Range/Units 05:30 05:30 19:58 WBC 10.3 11.4 H (4.8-10.8) x10^3/uL RBC 3.00 L 2.90 L (4.70-6.10) 10^6/uL Hgb 7.7 L 7.5 L (14.0-18.0) g/dL Hct 25.9 L 25.4 L (42.0-52.0) % MCV 86.3 87.6 (80.0-94.0) fL MCH 25.7 L 25.9 L (27.0-31.0) pg MCHC 29.7 L 29.5 L (32.0-36.0) g/dL RDW 21.0 H 20.8 H (12.0-15.0) % Plt Count 38 L 38 L (130-450) 10^3/uL Neut # (Auto) Not Reportable Not Reportable Lymph # (Auto) Not Reportable Not Reportable Dyer # (Auto) Not Reportable Not Reportable Eos # (Auto) Not Reportable Not Reportable Baso # (Auto) Not Reportable Not Reportable Absolute Nucleated RBC Not Reportable Not Reportable Total Counted 100 100 Band Neuts % (Manual) 12 H 10 (0 - 10) % Abnorm Lymph % (Manual) 0 0 % Metamyelocytes % 5 H 1 H ( - 0) % Myelocytes % 5 H 4 H ( - 0) % Nucleated RBC % Not Reportable Not Reportable Neutrophils # (Manual) 8.7 H 10.4 H (1.5-6.6) 10^3/uL Lymphocytes # (Manual) 0.4 L 0.3 L (1.5-3.5) 10^3/uL Monocytes # (Manual) 0.1 0.0 (0.0-1.0) 10^3/uL Eosinophils # (Manual) 0.1 0.0 (0-0.7) 10^3/uL Basophils # (Manual) 0.0 0.1 (0-0.1) 10^3/uL Nucleated RBCs 10 8 % Differential Comment MANUAL DIFFERENTIAL MANUAL DIFFERENTIAL Manual Slide Review Indicated WBC Morphology 1+ TOXIC GRANULATION 1+ TOXIC GRANULATION (NORMAL) Platelet Estimate DECREASED (<130,000) DECREASED (<130,000) (NORMAL) Platelet Morphology NORMAL APPEARANCE (NORMAL) RBC Morph Micro Appear 1+ OVALOCYTES 1+ POLYCHROMASIA (NORMAL) Sodium 138 (135-145) mmol/L Potassium 3.3 L (3.5-5.0) mmol/L Chloride 113 H (101-111) mmol/L Carbon Dioxide 19 L (21-32) mmol/L Anion Gap 6.0 (6-13) BUN 12 (6-20) mg/dL Creatinine 0.9 (0.6-1.2) mg/dL Estimated GFR (MDRD) 87 L (>89) Glucose 69 L (70-100) mg/dL Calcium 6.9 L (8.5-10.3) mg/dL Total Bilirubin 0.9 (0.2-1.0) mg/dL AST 48 H (10-42) IU/L ALT 59 (10-60) IU/L Alkaline Phosphatase 47 (42-121) IU/L Total Creatine Kinase 269 (22-269) IU/L Total Protein 5.2 L (6.7-8.2) g/dL Albumin 2.3 L (3.2-5.5) g/dL Globulin 2.9 (2.1-4.2) g/dL Albumin/Globulin Ratio 0.8 L (1.0-2.2) Stl C. diff Tox B Gene (NEGATIVE) Hepatitis A IgM Ab (NON-REACTIVE) Hep Bs Antigen (NON-REACTIVE) Hep B Core IgM Ab (NON-REACTIVE) Hepatitis C Antibody (NON-REACTIVE) Hep C Ab Signal/Cutoff (<1.00) 06/23/19 06/22/19 Range/Units 11:25 05:31 WBC (4.8-10.8) x10^3/uL RBC (4.70-6.10) 10^6/uL Hgb (14.0-18.0) g/dL Hct (42.0-52.0) % MCV (80.0-94.0) fL MCH (27.0-31.0) pg MCHC (32.0-36.0) g/dL RDW (12.0-15.0) % Plt Count (130-450) 10^3/uL Neut # (Auto) Lymph # (Auto) Dyer # (Auto) Eos # (Auto) Baso # (Auto) Absolute Nucleated RBC Total Counted Band Neuts % (Manual) (0 - 10) % Abnorm Lymph % (Manual) % Metamyelocytes % ( - 0) % Myelocytes % ( - 0) % Nucleated RBC % Neutrophils # (Manual) (1.5-6.6) 10^3/uL Lymphocytes # (Manual) (1.5-3.5) 10^3/uL Monocytes # (Manual) (0.0-1.0) 10^3/uL Eosinophils # (Manual) (0-0.7) 10^3/uL Basophils # (Manual) (0-0.1) 10^3/uL Nucleated RBCs % Differential Comment Manual Slide Review WBC Morphology (NORMAL) Platelet Estimate (NORMAL) Platelet Morphology (NORMAL) RBC Morph Micro Appear (NORMAL) Sodium (135-145) mmol/L Potassium (3.5-5.0) mmol/L Chloride (101-111) mmol/L Carbon Dioxide (21-32) mmol/L Anion Gap (6-13) BUN (6-20) mg/dL Creatinine (0.6-1.2) mg/dL Estimated GFR (MDRD) (>89) Glucose (70-100) mg/dL Calcium (8.5-10.3) mg/dL Total Bilirubin (0.2-1.0) mg/dL AST (10-42) IU/L ALT (10-60) IU/L Alkaline Phosphatase (42-121) IU/L Total Creatine Kinase (22-269) IU/L Total Protein (6.7-8.2) g/dL Albumin (3.2-5.5) g/dL Globulin (2.1-4.2) g/dL Albumin/Globulin Ratio (1.0-2.2) Stl C. diff Tox B Gene NEGATIVE (NEGATIVE) Hepatitis A IgM Ab NON-REACTIVE (NON-REACTIVE) Hep Bs Antigen NON-REACTIVE (NON-REACTIVE) Hep B Core IgM Ab NON-REACTIVE (NON-REACTIVE) Hepatitis C Antibody NON-REACTIVE (NON-REACTIVE) Hep C Ab Signal/Cutoff 0.80 (<1.00) Impression and Recommendations - Palliative Care Impression: This a 58-year-old gentleman with multiple comorbidities, and complex care needs. Patient has multiple social complexity as well, he has had both physical and mental deterioration over the last several weeks to months, and increasing care needs. Palliative care asked to follow-up with patient regarding goals of care, will continue to work with patient for long-term and short-term goals. Recommendations/Counseling Done: 1. Muscle weakness. This is been exacerbated by his rhabdomyolysis, patient does present with generalized functional decline. Patient already was somewhat compromised with his most recent hospitalization, he is fairly clear he does not want to go to a SNF. We did discuss though the benefits of bridging, also reviewed if got home and was not feasible given his extended stay, would still qualify for SNF placement up to 30 days. Patient feels most safe and has ma naged until this latest acute crisis, with increased taco hours and 3 times a week dressing changes by [facility]. Patient presents with poor insight into his current level of function and ability. Would recommend physical therapy evaluation to confirm patient does have safe discharge plan. 2. Goals of care. Patient presents with some lethargy today, was able to initiate conversation, short-term goals are to return back home, he does recognize his ongoing deterioration, but feels like his quality of life is still acceptable. We did discuss his long-term goals, as he does recognize the seriousness of his illness, and expected decline over time. He would like to have a at home, we did discuss in the context of this would need further advanced care planning, as well as to include support from his friends and assign a D POA. He did agree to continue the conversation tomorrow when he was feeling better. Time Spent: 3 minutes with greater than 50% of this done in counseling regarding POLST, goals of care, and short-term goals regarding safe transition home.
[2019-06-24] MEDS ORDERED: ALBUMIN 25% 12.5 GM/50 ML VIAL IV STA (14:43)
[2019-06-24] MEDS: LIDOCAINE VISCOUS 2% 15 ML UDC MM PRN ×3 (16:11→23:18)
[2019-06-24] MEDS: ACETAMINOPHEN 325 MG TABLET PO PRN ×2 (16:16→21:25)
[2019-06-24] MEDS: MIN OIL/DIMETHICON/COCONUT OIL 92 GM TUBE TOP PRN ×2 (17:51→23:18)
[2019-06-24] MEDS: SODIUM CHLORIDE FLUSH 0.9% 10 ML SYRINGE IVP PRN (23:18)
[2019-06-25] MEDS: SODIUM CHLORIDE FLUSH 0.9% 10 ML SYRINGE IVP SCH ×4 (01:15→23:50)
[2019-06-25] MEDS: NYSTATIN 500000 UNITS/5 ML UDC PO SCH ×4 (01:55→19:34)
[2019-06-25] MEDS: PIPERACILLIN/TAZOBACTAM 2.25 GM in SODIUM CHLORIDE 0.9% MINIBAG 100 ML IV SCH ×3 (01:55→19:29)
[2019-06-25] MEDS: CLINDAMYCIN 600 MG/50 ML 50 ML IV SCH ×3 (02:00→19:30)
[2019-06-25] MEDS: MIRTAZAPINE 15 MG TABLET PO SCH ×2 (02:32→21:31)
[2019-06-25] MEDS: traZODone 50 MG TABLET PO SCH ×2 (02:32→21:31)
[2019-06-25] MEDS: LOPERAMIDE 2 MG CAPSULE PO PRN ×2 (02:32→10:37)
[2019-06-25 05:49] LABS: BASOPHILS % (AUTO) 0.2 %; LYMPHOCYTES % (AUTO) 4.6 %; MEAN CORPUSCULAR HEMOGLOBIN 25.5 pg (27.0-31.0); MEAN CORPUSCULAR HGB CONC 28.9 g/dL (32.0-36.0); MONOCYTES % (AUTO) 2.9 %; RED BLOOD COUNT 2.75 10^6/uL (4.70-6.10); RED CELL DISTRIBUTION WIDTH 21.3 % (12.0-15.0); WHITE BLOOD COUNT 9.8 x10^3/uL (4.8-10.8)
[2019-06-25 06:01] LABS: ALBUMIN 2.1 g/dL (3.2-5.5); ALBUMIN/GLOBULIN RATIO 0.8 (1.0-2.2); BILIRUBIN,TOTAL 0.8 mg/dL (0.2-1.0); CREATININE 0.8 mg/dL (0.6-1.2); TOTAL PROTEIN 4.9 g/dL (6.7-8.2)
[2019-06-25 06:12] LABS: CALCIUM 6.4 mg/dL (8.5-10.3); PLT - PLATELET COUNT 32 10^3/uL (130-450)
[2019-06-25 06:13] LABS: ABNORMAL LYMPHS % (MANUAL) 0 %
[2019-06-25] MEDS ORDERED: POTASSIUM CHLORIDE 20 MEQ TABLET PO ONE (06:30)
[2019-06-25 06:34] LABS: BAND NEUTROPHILS % (MANUAL) 6 %; LYMPHOCYTES # (MANUAL) 0.4 10^3/uL (1.5-3.5); LYMPHOCYTES % (MANUAL) 4 %; METAMYELOCYTES % (MANUAL) 4 %; MONOCYTES # (MANUAL) 0.1 10^3/uL (0.0-1.0); MYELOCYTES % (MANUAL) 8 %
[2019-06-25 06:35] LABS: DIFFERENTIAL COMMENT MANUAL DIFFERENTIAL; PLATELET ESTIMATE, MANUAL DECREASED (<130,000) (NORMAL)
[2019-06-25] MEDS: PANTOPRAZOLE 40 MG TABLET PO SCH (06:48)
[2019-06-25] MEDS ORDERED: CALCIUM GLUCONATE 2,000 MG in SODIUM CHLORIDE 0.9% 100ML 100 ML IV ONE (08:15)
[2019-06-25] MEDS: MORPHINE IR 15 MG TABLET PO PRN ×2 (08:17→20:30)
[2019-06-25] MEDS: SACCHAROMYCES BOULARDII 250 MG CAPSULE PO SCH ×2 (10:37→19:26)
[2019-06-25] MEDS: MIDODRINE 2.5 MG TABLET PO SCH ×3 (10:38→19:29)
[2019-06-25] MEDS: LACTOBACILLUS RHAMNOSUS GG CAPSULE PO SCH (10:38)
[2019-06-25] MEDS: predniSONE 20 MG TABLET PO SCH (10:38)
[2019-06-25] MEDS: LIDOCAINE OINTMENT 5% 35.44 GM TUBE TOP SCH ×2 (10:46→20:29)
[2019-06-25] MEDS: NICOTINE 7 MG PATCH TOP SCH (10:47)
[2019-06-25] MEDS: ATOVAQUONE 750 MG/5 ML PO SCH (10:47)
[2019-06-25] MEDS ORDERED: LACTATED RINGERS 1,000 ML IV SCH (11:00)
--- NOTE | 2019-06-25 11:31 | PROVIDER PROGRESS NOTE ---
Assessment/Plan - Problem List (1) Hypotension Assessment/Plan: 06/25 resolved, hold midodrine 06/24 pt became hypotension again with SBP at 77. pt report he feel dizziness. pt had IV of morphine and PO morphine in this morning, the giving time was only two hours interval. This might be the cause of hypotension D/C IV of Morphine give 500 bolus IVF of NS recheck BP 06/23 resolved pt present low SBP at 86. it seem to be caused by his multiple chronic diseases, acute dehydration. will caution to use his Morphine pain meds continue caution IVF for his dehydration add Midodrine closely vital monitor (2)fever pt has fever at 38.7, pt has antibiotics clindymycin and zosyn for his ulcer infection. pt has diarrhea, C.diff test is pending. pt has no respiratory distress. continue antibiotics and probiotics, and HIV meds, and PCP prophylaxis meds order blood culture (3)diarrhea pt has diarrhea today, although pt has probiotics for his antibiotics treatment. order C.Diff (4) Rhabdomyolysis 06/24 CK is normal, resolved 06/23 improved. Ck is down to 300 from 1100 continue gently IVF and lab monitor 06/22 improved, CK is down to 600 from 1200. continue hydration appropriately, daily lab monitor pt sat in toilet for about 48 hours, pt has significant elevated CK plan: IVF, daily lab monitor and monitor kidney function. (5) CAT (acute kidney injury) Conclusion/Plan: 06/23 resolved 06/22 improved. continue IVF with slight decreased IVF of NS to 83cc/h continue lab monitor CK pt has elevated creatinine, anion gap, and elevated BUN, it appears from hypovolumia and dehydration IVF of NS, daily lab monitor (6) Stage 4 pressure ulcer with suspected deep tissue injury Conclusion/Plan: 06/25 continue dress change. 06/24 continue dress change. pt decline to be d/c to nurse home. pt request gucci dejesus his same home wound care company and caregiver 06/23 continue dress change as wound care provider's recommendations nurse Q2H turn pt, pressure ulcer precaution 06/22 wound care came to see pt, followup for dress change continue antibiotics wound culture is pending pt has severe decubitus ulcer with around tissue erythema, warmth and elevated WBC, pt has hx of HIV culture of wound wound care consult start on antibiotics of Zosyn and Daptomycin. pt is sensitive to Vancomycin. (7) Cachexia Conclusion/Plan: 06/22 consult with java technical manager, followup the recommendation for pt continue marinol pt report he has very poor appetite, he has only 38kg weight, muscle wasting. consult with nutrition, ensure per meal resume Marinol (8) Muscle wasting Conclusion/Plan: pt has HIV for 22 yrs, pt present severe muscle wasting, weight is 38 kig. resume marinol and consult with java technical manager (9) HIV (human immunodeficiency virus infection) Conclusion/Plan: 06/22 resume pt's home HIV meds, pcp prophylaxis with anti-fungus.our hospital can not order CD4 and HIV RNA RT-PCR to check virus load volume and copies. we do not know pt's HIV infection stage. pt had 22 yrs with HIV pt has hx of HIV for 22 yrs, will resume home HIV after verified. pt has no fever, chill or cough, clinically pt does not present PCP. (10) Anemia Conclusion/Plan: 06/25 improved HGB 8.2, and Plt 49, continue lab monitor 06/24 improved, HGB is 7.7 06/23 HGB improved, continue lab monitor 06/22 pt's HGB is down to 6.1, pt had one unit of blood transfusion. pt had hx of HIV, MDS. continue lab monitor pt has chronic anemia with HGB 7.3. it seems from pt's chronic multiple diseases. order anemia study, will followup. daily lab monitor 11) Elevated liver enzymes Conclusion/Plan: 06/22 significant improved. it is likely from acute distress from elevated CK continue lab monitor pt has significant elevated total bili, AST and ALT, unknown etiology. check acute hepatitis panel, lab monitor, will consider US of abdomen if continue high hold hepatic toxical agents (12) COPD (chronic obstructive pulmonary disease) Conclusion/Plan: stable, resume home PRN albuterol and DUONEB (13) Systolic heart failure Conclusion/Plan: 06/24 BP is runing down likely from pain meds given. hold PRN Morphine, Bolus of NS, continue vital monitor 06/23 BP stable as his baseline, ECHO is pending. 06/22 pt still present hypotension, continue hold BP meds, order ECHO, but we do not have natural resources technician to do it now. pt has hx of systolic HF with EF 45% on 2017, will order new ECHO precaution of IVF, tele, vital monitor. pt has slight lower BP, will hold BP meds (14) Current smoker Conclusion/Plan: 06/24 ot report he smoked for 40yrs, he will not change. 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 De La Garza is his oncologist, tried to call but it is holiday, will [place]. [place] [id number], it is possible (16)pancytopenia 06/25 improved HGB 8.2, and Plt 49, continue lab monitor 06/24 improved both Plt and HGB, continue monitor 06/23 plt is 38, and HGB is 7.5, is slight better. continue monitor pt present HGB and plt low, and pt required for blood transfusion. pt had hx of MDS, and 22 yrs with HIV. pt report he is following with Dr. De La Garza, and had multiple of blood transfusion and plt transfusion before continue CBC monitor and bleeding monitor, will advise pt followup with Dr. De La Garza closely transfusion of one RBC (17)palliative care 06/24 ana Pacheco will see him today, will followup pt request palliative care, called Ana Pacheco, she will see pt in hospital. (2) Rhabdomyolysis Qualifiers: Rhabdomyolysis type: non-traumatic Qualified Code(s): M62.82 - Rhabdomyol ysis (8) Anemia Qualifiers: Anemia type: other cause Other causes of anemia: other cause, not classified Qualified Code(s): D64.89 - Other specified anemias - Current Meds Current Meds: Current Medications Generic Name Dose Route Start Last Admin Trade Name Freq PRN Reason Stop Dose Admin Acetaminophen 650 mg 06/21/19 13:55 06/24/19 21:25 Tylenol PO 650 mg Q4HR PRN Administration Pain 1 to 4 Dronabinol 2.5 mg 06/22/19 07:00 06/25/19 06:48 Marinol PO Not Given BIDAC SAMIA Piperacillin Sod/Tazobactam 100 mls @ 25 mls/hr 06/22/19 10:00 06/25/19 10:57 Sod 2.25 gm/ Sodium Chloride IV 25 mls/hr Q8H SAMIA Administration Clindamycin Phosphate 50 mls @ 100 mls/hr 06/22/19 11:00 06/25/19 11:13 Cleocin 600 Mg/50 Ml IV 100 mls/hr Q8H ASMIA Administration Lactobacillus Rhamnosus 1 cap 06/24/19 12:00 06/25/19 10:38 Culturelle PO 1 cap DAILY SAMIA Administration Lidocaine 1 applic 06/22/19 21:00 06/25/19 10:46 Xylocaine Ointment 5% TOP 1 applic BID SAMIA Administration Lidocaine HCl 5 ml 06/22/19 13:12 06/24/19 23:18 Xylocaine Viscous 2% MM 5 ml Q4H PRN Administration Mouth Sore Pain Loperamide HCl 2 mg 06/23/19 10:28 06/25/19 10:37 Imodium PO 2 mg QID PRN Administration Diarrhea Midodrine 5 mg 06/24/19 16:00 06/25/19 10:38 PO 5 mg TIDWM SAMIA Administration Mineral Oil 1 applic 06/22/19 03:26 06/24/19 23:18 Cavilon TOP 1 applic PRN PRN Administration Skin Care Mirtazapine 15 mg 06/21/19 23:03 06/25/19 02:32 Remeron PO 15 mg QPM SAMIA Administration Morphine Sulfate 7.5 mg 06/22/19 05:48 06/25/19 08:17 Ms Ir PO 7.5 mg BID PRN Administration PAIN Multivitamins/Minerals 1 tab 06/23/19 12:00 06/24/19 11:52 Theragran M PO 1 tab DAILY@1200 SAMIA Administration Nicotine 1 patch 06/21/19 17:19 06/25/19 10:47 Nicoderm TOP 1 patch DAILY SAMIA Administration Nystatin 5 ml 06/21/19 20:00 06/25/19 10:40 Mycostatin PO 5 ml Q6H SAMIA Administration Pantoprazole Sodium 40 mg 06/22/19 07:00 06/25/19 06:48 Protonix PO Not Given QDAC SAMIA Atovaquone 750mg/5ml 10 each 06/22/19 08:00 06/25/19 10:47 PO 10 each DAILYWM SAMIA Administration Biktarvy 50-200-25 1 each 06/22/19 09:00 06/25/19 10:40 Mg Tablet PO 1 each DAILY SAMIA Administration Prednisone 20 mg 06/22/19 12:15 06/25/19 10:38 Deltasone PO 20 mg DAILYWM SAMIA Administration Saccharomyces Boulardii 500 mg 06/23/19 17:00 06/25/19 10:37 Florastor PO 500 mg BIDWM SAMIA Administration Sodium Chloride 10 ml 06/21/19 13:55 06/24/19 23:18 Normal Saline Flush 0.9% IVP 10 ml PRN PRN Administration NEEDED PER PROVIDER ORDERS Sodium Chloride 10 ml 06/21/19 17:00 06/25/19 11:08 Normal Saline Flush 0.9% IVP Not Given 0100,0900,1700 SAMIA Tizanidine HCl 8 mg 06/21/19 19:24 06/24/19 11:59 Zanaflex PO 8 mg Q8H PRN Administration muscle relaxant Trazodone HCl 50 mg 06/21/19 23:03 06/25/19 02:32 Desyrel PO 50 mg QPM SAMIA Administration - Lab Result Fish Bone Diagrams: 06/25/19 11:58 06/25/19 05:18 - Additional Planning My Orders: My Active Orders 06/24/19 12:00 Lactobacillus Rhamnosus GG [Culturelle] 1 cap PO DAILY 06/24/19 16:00 Midodrine 5 mg PO TIDWM 06/24/19 16:33 Echo Transthoracic Complete [ECHO] Routine 06/24/19 22:19 CUL,WOUND (AEROBIC) [RM] Urgent CUL,WOUND (AEROBIC) [RM] Urgent 06/25/19 C DIFF PCR Urgent 06/25/19 12:00 CALCIUM [CHEM] Timed CBC - COMP BLD CT W/AUTO DIFF [HEME] Timed Sodium Chloride 0.9% [Normal Saline 0.9%] 1,000 ml IV 83.333 mls/hr 06/25/19 Breakfast Dysphagia Mechanically Altered Diet [DIET] 06/26/19 05:00 CBC - COMP BLD CT W/AUTO DIFF [HEME] DAILYLAB CK- CREATINE KINASE [CHEM] DAILYLAB CMP [COMPREHENSIVE METABOLIC PANEL] [CHEM] DAILYLAB Subjective - Subjective Patient Reports: Resting Comfortably Objective Vital Signs: Vital Signs - 24 hr 06/24/19 06/24/19 06/24/19 13:00 14:46 15:07 Temperature 36.5 C Heart Rate [ 53 L Brachial] Respiratory 21 Rate Blood Pressure [Left Brachial artery] Blood Pressure 77/45 L 91/52 L 100/52 L [Right Brachial artery] O2 Saturation 94 06/24/19 06/24/19 06/24/19 15:44 16:43 20:22 Temperature 36.9 C 36.8 C Heart Rate [ 79 88 79 Brachial] Respiratory 18 18 Rate Blood Pressure 82/36 L 116/78 107/60 [Left Brachial artery] Blood Pressure [Right Brachial artery] O2 Saturation 98 93 06/24/19 06/25/19 06/25/19 23:40 05:00 07:28 Temperature 36.7 C 36.8 C 36.9 C Heart Rate [ 78 103 H 86 Brachial] Respiratory 18 18 18 Rate Blood Pressure 112/46 L 112/60 [Left Brachial artery] Blood Pressure 130/60 [Right Brachial artery] O2 Saturation 99 97 99 Oxygen O2 Source Room air I&O (Last 24 Hrs): Intake and Output Totals x24h 06/23/19 06/24/19 06/25/19 23:59 23:59 23:59 Intake Total 2230.00 3024.167 893.5 Output Total 1375 1465 575 Balance 855.00 1559.167 318.5 General: Alert, Oriented x3, No acute distress HEENT: Atraumatic Neck: Supple Lymphatic: no adenopathy Neuro: Alert, Non Focal, Oriented Times 3 Cardiovascular: Regular rate, Normal S1, Normal S2 Respiratory: Chest non-tender, No respiratory distress Abdomen: Normal bowel sounds, Soft Extremities: No edema, Normal pulses - Results Results: Laboratory Results WBC 9.8 x10^3/uL (4.8-10.8) 06/25/19 05:18 RBC 2.75 10^6/uL (4.70-6.10) L 06/25/19 05:18 Hgb 7.0 g/dL (14.0-18.0) L* 06/25/19 05:18 Hct 24.2 % (42.0-52.0) L 06/25/19 05:18 MCV 88.0 fL (80.0-94.0) 06/25/19 05:18 MCH 25.5 pg (27.0-31.0) L 06/25/19 05:18 MCHC 28.9 g/dL (32.0-36.0) L 06/25/19 05:18 RDW 21.3 % (12.0-15.0) H 06/25/19 05:18 Plt Count 32 10^3/uL (130-450) L* 06/25/19 05:18 Reticulocyte % (Auto) 2.35 % (0.5-2.3) H 06/21/19 17:57 Neut # (Auto) Not Reportable 06/25/19 05:18 Lymph # (Auto) Not Reportable 06/25/19 05:18 [place] # (Auto) Not Reportable 06/25/19 05:18 Eos # (Auto) Not Reportable 06/25/19 05:18 Baso # (Auto) Not Reportable 06/25/19 05:18 Absolute Nucleated RBC Not Reportable 06/25/19 05:18 Total Counted 100 06/25/19 05:18 Band Neuts % (Manual) 6 % (0-10) 06/25/19 05:18 Abnorm Lymph % (Manual) 0 % 06/25/19 05:18 Metamyelocytes % 4 % (-0) H 06/25/19 05:18 Myelocytes % 8 % (-0) H 06/25/19 05:18 Promyelocytes % 1 % (-0) H 06/21/19 12:09 Nucleated RBC % Not Reportable 06/25/19 05:18 Neutrophils # (Manual) 8.1 10^3/uL (1.5-6.6) H 06/25/19 05:18 Lymphocytes # (Manual) 0.4 10^3/uL (1.5-3.5) L 06/25/19 05:18 Monocytes # (Manual) 0.1 10^3/uL (0.0-1.0) 06/25/19 05:18 Eosinophils # (Manual) 0.0 10^3/uL (0-0.7) 06/25/19 05:18 Basophils # (Manual) 0.0 10^3/uL (0-0.1) 06/25/19 05:18 Nucleated RBCs 10 % 06/24/19 05:30 Differential Comment MANUAL DIFFERENTIAL 06/25/19 05:18 Manual Slide Review Indicated 06/23/19 19:58 WBC Morphology 1+ TOXIC GRANULATION (NORMAL) 06/25/19 05:18 Platelet Estimate DECREASED (<130,000) (NORMAL) 06/25/19 05:18 Platelet Morphology NORMAL APPEARANCE (NORMAL) 06/23/19 19:58 RBC Morph Micro Appear 1+ ANISOCYTOSIS (NORMAL) 2+ MICROCYTOSIS (NORMAL) 1+ HYPOCHROMASIA (NORMAL) 06/22/19 05:31 RBC Morph Micro Appear 1+ ANISOCYTOSIS (NORMAL) 1+ HYPOCHROMASIA (NORMAL) 1+ POLYCHROMASIA (NORMAL) 1+ OVALOCYTES (NORMAL) 06/23/19 04:45 RBC Morph Micro Appear 1+ ANISOCYTOSIS (NORMAL) 1+ HYPOCHROMASIA (NORMAL) 1+ POLYCHROMASIA (NORMAL) 1+ OVALOCYTES (NORMAL) 06/23/19 04:45 RBC Morph Micro Appear 1+ ANISOCYTOSIS (NORMAL) 1+ HYPOCHROMASIA (NORMAL) 1+ POLYCHROMASIA (NORMAL) 1+ OVALOCYTES (NORMAL) 06/23/19 04:45 RBC Morph Micro Appear 1+ ANISOCYTOSIS (NORMAL) 1+ HYPOCHROMASIA (NORMAL) 1+ POLYCHROMASIA (NORMAL) 1+ OVALOCYTES (NORMAL) 06/23/19 04:45 RBC Morph Micro Appear 2+ ANISOCYTOSIS (NORMAL) 1+ HYPOCHROMASIA (NORMAL) 1+ POLYCHROMASIA (NORMAL) 06/23/19 19:58 RBC Morph Micro Appear 2+ ANISOCYTOSIS (NORMAL) 1+ HYPOCHROMASIA (NORMAL) 1+ POLYCHROMASIA (NORMAL) 06/23/19 19:58 RBC Morph Micro Appear 2+ ANISOCYTOSIS (NORMAL) 1+ HYPOCHROMASIA (NORMAL) 1+ POLYCHROMASIA (NORMAL) 06/23/19 19:58 RBC Morph Micro Appear 2+ ANISOCYTOSIS (NORMAL) 1+ HYPOCHROMASIA (NORMAL) 1+ POLYCHROMASIA (NORMAL) 1+ OVALOCYTES (NORMAL) 06/24/19 05:30 RBC Morph Micro Appear 2+ ANISOCYTOSIS (NORMAL) 1+ HYPOCHROMASIA (NORMAL) 1+ POLYCHROMASIA (NORMAL) 1+ OVALOCYTES (NORMAL) 06/24/19 05:30 RBC Morph Micro Appear 2+ ANISOCYTOSIS (NORMAL) 1+ HYPOCHROMASIA (NORMAL) 1+ POLYCHROMASIA (NORMAL) 1+ OVALOCYTES (NORMAL) 06/24/19 05:30 RBC Morph Micro Appear 2+ ANISOCYTOSIS (NORMAL) 1+ HYPOCHROMASIA (NORMAL) 1+ POLYCHROMASIA (NORMAL) 1+ OVALOCYTES (NORMAL) 06/24/19 05:30 RBC Morph Micro Appear 2+ ANISOCYTOSIS (NORMAL) 1+ HYPOCHROMASIA (NORMAL) 1+ OVALOCYTES (NORMAL) 1+ POLYCHROMASIA (NORMAL) 06/25/19 05:18 RBC Morph Micro Appear 2+ ANISOCYTOSIS (NORMAL) 1+ HYPOCHROMASIA (NORMAL) 1+ OVALOCYTES (NORMAL) 1+ POLYCHROMASIA (NORMAL) 06/25/19 05:18 RBC Morph Micro Appear 2+ ANISOCYTOSIS (NORMAL) 1+ HYPOCHROMASIA (NORMAL) 1+ OVALOCYTES (NORMAL) 1+ POLYCHROMASIA (NORMAL) 06/25/19 05:18 RBC Morph Micro Appear 2+ ANISOCYTOSIS (NORMAL) 1+ HYPOCHROMASIA (NORMAL) 1+ OVALOCYTES (NORMAL) 1+ POLYCHROMASIA (NORMAL) 06/25/19 05:18 Absolute Retic 0.057 10^6/uL (0.020-0.110) 06/21/19 17:57 Sodium 139 mmol/L (135-145) 06/25/19 05:18 Potassium 3.1 mmol/L (3.5-5.0) L 06/25/19 05:18 Chloride 116 mmol/L (101-111) H 06/25/19 05:18 Carbon Dioxide 15 mmol/L (21-32) L 06/25/19 05:18 Anion Gap 8.0 (6-13) 06/25/19 05:18 BUN 12 mg/dL (6-20) 06/25/19 05:18 Creatinine 0.8 mg/dL (0.6-1.2) 06/25/19 05:18 Estimated GFR (MDRD) 100 (>89) 06/25/19 05:18 Glucose 66 mg/dL (70-100) L 06/25/19 05:18 Calcium 6.4 mg/dL (8.5-10.3) L* 06/25/19 05:18 Magnesium 2.2 mg/dL (1.7-2.8) 06/22/19 05:31 Iron 155 ug/dL (45-182) 06/21/19 17:57 TIBC 153 ug/dL (250-450) L 06/21/19 17:57 % Saturation 102 % (20-50) H 06/21/19 17:57 Transferrin 109 mg/dL (180-329) L 06/21/19 17:57 Ferritin > 72764.0 ng/mL (23.9-336.2) H 06/21/19 17:57 Total Bilirubin 0.8 mg/dL (0.2-1.0) 06/25/19 05:18 AST 28 IU/L (10-42) 06/25/19 05:18 ALT 39 IU/L (10-60) 06/25/19 05:18 Alkaline Phosphatase 40 IU/L (42-121) L 06/25/19 05:18 Lactate Dehydrogenase 625 IU/L (91-225) H 06/21/19 17:57 Total Creatine Kinase 126 IU/L (22-269) 06/25/19 05:18 Total Protein 4.9 g/dL (6.7-8.2) L 06/25/19 05:18 Albumin 2.1 g/dL (3.2-5.5) L 06/25/19 05:18 Globulin 2.8 g/dL (2.1-4.2) 06/25/19 05:18 Albumin/Globulin Ratio 0.8 (1.0-2.2) L 06/25/19 05:18 Triglycerides 240 mg/dL (-149) H 06/23/19 04:45 Lipase 19 U/L (22-51) L 06/21/19 12:09 Vitamin B12 1611 pg/mL (180-914) H 06/21/19 17:57 Urine Color DARK YELLOW 06/21/19 13:26 Urine Clarity CLEAR (CLEAR) 06/21/19 13:26 Urine pH 5.5 PH (5.0-7.5) 06/21/19 13:26 Ur Specific [place] >=1.030 (1.002-1.030) H 06/21/19 13:26 Urine Protein >=300 mg/dL (NEGATIVE) H 06/21/19 13:26 Urine Glucose (UA) NEGATIVE mg/dL (NEGATIVE) 06/21/19 13:26 Urine Ketones TRACE mg/dL (NEGATIVE) 06/21/19 13:26 Urine Occult Blood LARGE (NEGATIVE) H 06/21/19 13:26 Urine Nitrite NEGATIVE (NEGATIVE) 06/21/19 13:26 Urine Bilirubin NEGATIVE (NEGATIVE) 06/21/19 13:26 Urine Urobilinogen 0.2 (NORMAL) E.U./dL (NORMAL) 06/21/19 13:26 Ur Leukocyte Esterase NEGATIVE (NEGATIVE) 06/21/19 13:26 Urine RBC 11-25 /HPF (0-5) H 06/21/19 13:26 Urine WBC 4-5 /HPF (0-3) 06/21/19 13:26 Ur Squamous Epith Cells NONE SEEN (<= Few) 06/21/19 13:26 Amorphous Sediment Few /LPF 06/21/19 13:26 Urine Bacteria None Seen /HPF (None Seen) 06/21/19 13:26 Ur Microscopic Review INDICATED 06/21/19 13:26 Urine Culture Comments NOT INDICATED 06/21/19 13:26 Stl C. diff Tox B Gene NEGATIVE (NEGATIVE) 06/23/19 11:25 Hepatitis A IgM Ab NON-REACTIVE (NON-REACTIVE) 06/22/19 05:31 Hep Bs Antigen NON-REACTIVE (NON-REACTIVE) 06/22/19 05:31 Hep B Core IgM Ab NON-REACTIVE (NON-REACTIVE) 06/22/19 05:31 Hepatitis C Antibody NON-REACTIVE (NON-REACTIVE) 06/22/19 05:31 Hep C Ab Signal/Cutoff 0.80 (<1.00) 06/22/19 05:31 Blood Type A POSITIVE 06/22/19 07:06 Antibody Screen NEGATIVE 06/22/19 07:06 Crossmatch IS Only See Detail 06/22/19 07:06 - Procedures Procedures: Procedures EXCISION OF SIGMOID COLON, ENDO, DIAGN (10/20/17) INSPECTION OF UPPER INTESTINAL TRACT, ENDO (09/13/17) TRANSFUSE NONAUT RED BLOOD CELLS IN PERIPH VEIN, PERC (11/12/17) Sepsis Event Note (H) - Evaluation Current Stage of Sepsis: Ruled out ABX Reporting Has patient been on IV antibiotics over the past 48 hours?: Yes Current Medications - Current Medications Current Medications: Active Medications Acetaminophen (Tylenol) 650 mg PO Q4HR PRN PRN Reason: Pain 1 to 4 Last Admin: 06/25/19 12:52 Dose: 650 mg Albuterol () 2.5 mg INH RTQ4H PRN PRN Reason: Wheezing Albuterol/Ipratropium (Duoneb) 3 ml INH RTQID PRN PRN Reason: Shortness of Air/Wheezing Dronabinol (Marinol) 2.5 mg PO BIDAC [facility] Last Admin: 06/25/19 06:48 Dose: Not Given Piperacillin Sod/Tazobactam (Sod 2.25 gm/ Sodium Chloride) 100 mls @ 25 mls/hr IV Q8H [facility] Last Admin: 06/25/19 10:57 Dose: 25 mls/hr Clindamycin Phosphate (Cleocin 600 Mg/50 Ml) 50 mls @ 100 mls/hr IV Q8H [facility] Last Admin: 06/25/19 11:13 Dose: 100 mls/hr Sodium Chloride (Normal Saline 0.9%) 1,000 mls @ 83.333 mls/hr IV .Q12H [facility] Stop: 06/26/19 11:59 Last Admin: 06/25/19 11:43 Dose: 83.333 mls/hr Lactobacillus Rhamnosus (Culturelle) 1 cap PO DAILY [facility] Last Admin: 06/25/19 10:38 Dose: 1 cap Lidocaine (Xylocaine Ointment 5%) 1 applic TOP BID [facility] Last Admin: 06/25/19 10:46 Dose: 1 applic Lidocaine HCl (Xylocaine Viscous 2%) 5 ml MM Q4H PRN PRN Reason: Mouth Sore Pain Last Admin: 06/24/19 23:18 Dose: 5 ml Loperamide HCl (Imodium) 2 mg PO QID PRN PRN Reason: Diarrhea Last Admin: 06/25/19 10:37 Dose: 2 mg Midodrine () 5 mg PO TIDWM [facility] Last Admin: 06/25/19 13:43 Dose: Not Given Mineral Oil (Cavilon) 1 applic TOP PRN PRN PRN Reason: Skin Care Last Admin: 06/24/19 23:18 Dose: 1 applic Mirtazapine (Remeron) 15 mg PO QPM [facility] Last Admin: 06/25/19 02:32 Dose: 15 mg Morphine Sulfate (Ms Ir) 7.5 mg PO BID PRN PRN Reason: PAIN Last Admin: 06/25/19 08:17 Dose: 7.5 mg Multivitamins/Minerals (Theragran M) 1 tab PO DAILY@1200 [facility] Last Admin: 06/25/19 14:14 Dose: Not Given Nicotine (Nicoderm) 1 patch TOP DAILY [facility] Last Admin: 06/25/19 10:47 Dose: 1 patch Nystatin (Mycostatin) 5 ml PO Q6H [facility] Last Admin: 06/25/19 12:55 Dose: 5 ml Ondansetron HCl (Zofran Inj) 4 mg IVP Q6HR PRN PRN Reason: Nausea / Vomiting Pantoprazole Sodium (Protonix) 40 mg PO QDAC [facility] Last Admin: 06/25/19 06:48 Dose: Not Given Atovaquone 750mg/5ml 10 each PO DAILYWM [facility] Last Admin: 06/25/19 10:47 Dose: 10 each Biktarvy 50-200-25 (Mg Tablet) 1 each PO DAILY [facility] Last Admin: 06/25/19 10:40 Dose: 1 each Prednisone (Deltasone) 20 mg PO DAILYWM [facility] Last Admin: 06/25/19 10:38 Dose: 20 mg Saccharomyces Boulardii (Florastor) 500 mg PO BIDWM [facility] Last Admin: 06/25/19 10:37 Dose: 500 mg Sodium Chloride (Normal Saline Flush 0.9%) 10 ml IVP PRN PRN PRN Reason: NEEDED PER PROVIDER ORDERS Last Admin: 06/24/19 23:18 Dose: 10 ml Sodium Chloride (Normal Saline Flush 0.9%) 10 ml IVP 0100,0900,1700 [facility] Last Admin: 06/25/19 11:08 Dose: Not Given Tizanidine HCl (Zanaflex) 8 mg PO Q8H PRN PRN Reason: muscle relaxant Last Admin: 06/24/19 11:59 Dose: 8 mg Trazodone HCl (Desyrel) 50 mg PO QPM [facility] Last Admin: 06/25/19 02:32 Dose: 50 mg Albuterol Sulfate [Proair Hfa Inhaler] 2 puffs INH Q4H PRN 09/13/17 Mirtazapine 15 mg PO QPM 09/13/17 Morphine Sulfate [Morphine Sulfate ER] 30 mg PO DAILY 09/13/17 Tiotropium [place] [Spiriva] 2 puffs INH DAILY MDD 18 mcg 09/13/17 Gabapentin 800 mg PO Q12H PRN 10/20/17 Lactose-Reduced Food [Ensure Compact] 1 ea PO TID 04/14/18 Prednisone 20 mg PO DAILY 11/10/18 Atovaquone/Proguanil HCl [Atovaquone-Proguanil 62.5-25] 1 tab PO DAILY 06/01/19 Omeprazole 20 mg PO DAILY 06/01/19 Atovaquone 10 ml PO DAILY 06/21/19 Bictegrav/Emtricit/Tenofov Ala [Biktarvy 50-200-25 mg Tablet] 1 tab PO DAILY 06/21/19 Levofloxacin [Levaquin] 750 mg PO DAILY 06/21/19 Morphine Sulfate 7.5 mg PO BID PRN 06/21/19 Nystatin 5 ml PO Q6H 06/21/19 Trazodone HCl 50 mg PO QPM 06/21/19 dronabinoL [Marinol] 2.5 mg PO TID 06/21/19 tiZANidine [Zanaflex] 8 mg PO Q8H PRN MDD 3 doses in 24 hours 06/21/19
[2019-06-25] MEDS: SODIUM CHLORIDE 0.9% 1,000 ML IV SCH ×2 (11:43→23:49)
[2019-06-25 12:22] LABS: BASOPHILS % (AUTO) 0.5 %; HGB - HEMOGLOBIN 8.2 g/dL (14.0-18.0); LYMPHOCYTES % (AUTO) 2.5 %; MEAN CORPUSCULAR HEMOGLOBIN 25.9 pg (27.0-31.0); MEAN CORPUSCULAR HGB CONC 29.3 g/dL (32.0-36.0); MEAN CORPUSCULAR VOLUME 88.6 fL (80.0-94.0); MONOCYTES % (AUTO) 3.2 %; NEUTROPHILS % (AUTO) 76.4 %; PLT - PLATELET COUNT 49 10^3/uL (130-450); RED BLOOD COUNT 3.16 10^6/uL (4.70-6.10); RED CELL DISTRIBUTION WIDTH 21.3 % (12.0-15.0); WHITE BLOOD COUNT 15.5 x10^3/uL (4.8-10.8)
[2019-06-25 12:28] LABS: ABNORMAL LYMPHS % (MANUAL) 0 %
[2019-06-25 12:51] LABS: BAND NEUTROPHILS % (MANUAL) 4 %; LYMPHOCYTES # (MANUAL) 0.6 10^3/uL (1.5-3.5); LYMPHOCYTES % (MANUAL) 1 %; METAMYELOCYTES % (MANUAL) 4 %; MONOCYTES # (MANUAL) 0.2 10^3/uL (0.0-1.0); MYELOCYTES % (MANUAL) 3 %; RBC MORPHOLOGY (MULTIPLE) 3+ ANISOCYTOSIS (NORMAL)
[2019-06-25] MEDS: ACETAMINOPHEN 325 MG TABLET PO PRN ×2 (12:52→19:26)
[2019-06-25] MEDS: MULTIVITAMIN W/MINERALS TABLET PO SCH (14:14)
[2019-06-25] MEDS: SODIUM CHLORIDE FLUSH 0.9% 10 ML SYRINGE IVP PRN (20:30)
[2019-06-26] MEDS: ACETAMINOPHEN 325 MG TABLET PO PRN (00:22)
[2019-06-26] MEDS: PIPERACILLIN/TAZOBACTAM 2.25 GM in SODIUM CHLORIDE 0.9% MINIBAG 100 ML IV SCH ×2 (02:29→10:48)
[2019-06-26] MEDS: NYSTATIN 500000 UNITS/5 ML UDC PO SCH ×3 (02:29→13:09)
[2019-06-26] MEDS: CLINDAMYCIN 600 MG/50 ML 50 ML IV SCH ×2 (04:04→10:50)
[2019-06-26] MEDS: PANTOPRAZOLE 40 MG TABLET PO SCH (06:16)
[2019-06-26 06:45] LABS: BASOPHILS % (AUTO) 0.4 %; EOSINOPHILS % (AUTO) 0.4 %; HGB - HEMOGLOBIN 7.4 g/dL (14.0-18.0); LYMPHOCYTES % (AUTO) 4.8 %; MEAN CORPUSCULAR HEMOGLOBIN 25.9 pg (27.0-31.0); MEAN CORPUSCULAR HGB CONC 28.9 g/dL (32.0-36.0); MEAN CORPUSCULAR VOLUME 89.5 fL (80.0-94.0); NEUTROPHILS % (AUTO) 73.1 %; PLT - PLATELET COUNT 44 10^3/uL (130-450); RED BLOOD COUNT 2.86 10^6/uL (4.70-6.10); RED CELL DISTRIBUTION WIDTH 21.4 % (12.0-15.0); WHITE BLOOD COUNT 11.3 x10^3/uL (4.8-10.8)
[2019-06-26 06:52] LABS: ABNORMAL LYMPHS % (MANUAL) 0 %; BAND NEUTROPHILS % (MANUAL) 0 %
[2019-06-26 06:55] LABS: ALBUMIN 2.2 g/dL (3.2-5.5); ALBUMIN/GLOBULIN RATIO 0.8 (1.0-2.2); BILIRUBIN,TOTAL 0.9 mg/dL (0.2-1.0); CALCIUM 7.2 mg/dL (8.5-10.3); CREATININE 0.7 mg/dL (0.6-1.2); TOTAL PROTEIN 5.1 g/dL (6.7-8.2)
[2019-06-26 07:30] LABS: LYMPHOCYTES # (MANUAL) 0.8 10^3/uL (1.5-3.5); LYMPHOCYTES % (MANUAL) 7 %; METAMYELOCYTES % (MANUAL) 2 %; MYELOCYTES % (MANUAL) 12 %
[2019-06-26 07:32] LABS: DIFFERENTIAL COMMENT MANUAL DIFFERENTIAL; PLATELET ESTIMATE, MANUAL DECREASED (<130,000) (NORMAL); PLATELET MORPHOLOGY NORMAL APPEARANCE (NORMAL)
[2019-06-26] MEDS: SODIUM CHLORIDE FLUSH 0.9% 10 ML SYRINGE IVP SCH (08:23)
[2019-06-26] MEDS: NICOTINE 7 MG PATCH TOP SCH (08:35)
[2019-06-26 08:37] VITALS: BP 98/51
[2019-06-26] MEDS: ATOVAQUONE 750 MG/5 ML PO SCH (08:37)
[2019-06-26] MEDS: LACTOBACILLUS RHAMNOSUS GG CAPSULE PO SCH (08:40)
[2019-06-26] MEDS: MIDODRINE 2.5 MG TABLET PO SCH ×2 (08:40→12:09)
[2019-06-26] MEDS: SACCHAROMYCES BOULARDII 250 MG CAPSULE PO SCH (08:40)
[2019-06-26] MEDS: predniSONE 20 MG TABLET PO SCH (08:40)
[2019-06-26] MEDS: MULTIVITAMIN W/MINERALS TABLET PO SCH (12:09)
[2019-06-26] MEDS: MORPHINE IR 15 MG TABLET PO PRN (12:09)
[2019-06-26] MEDS: LIDOCAINE OINTMENT 5% 35.44 GM TUBE TOP SCH (12:11)
--- NOTE | 2019-06-26 13:17 | Discharge Plan ---
Discharge Plan Problem Reviewed?: Yes Disposition: Home, Self Care Condition: Good Prescriptions: Levofloxacin [Levaquin] 750 mg PO DAILY #45 tablet Diet: Regular Activity Restrictions: Activity as Tolerated Instruction Topics: Levofloxacin tablets, Rhabdomyolysis Health Concerns: Fevers Rhabdomyolysis Chronic wound Tobacco use Immobility Plan of Treatment: Continue Levofloxacin antibiotic for the next 6 weeks due to a bone biopsy which obtained at [place] See your Primary care provider in the next 1 week Restrict or stop smoking to enhance healing Follow wound care instructions Continue to accept home caregivers and human factors specialist Care Goals: Remain free of infection Prevent hospital stays Maintain independence Assessment: You have improved and your changes in mental status has cleared You will need someone to get the antibiotics from your pharmacy, ok to start in the AM to be taken daily x 6 weeks No Smoking: If you smoke, Please STOP! Call for help. Follow-up with: ASHISH ENGLAND [Primary Care Provider] -
--- NOTE | 2019-06-26 13:40 | DISCHARGE SUMMARY ---
"Discharge Summary Admit Date: 06/21/19 Discharge Date: 06/26/19 Discharging Provider: Natasha Gaviria Primary Care Provider: Paulina Mendieta Code Status: Attempt Resuscitation Condition at Discharge: Good Discharge Disposition: 01 Home, Self Care - DIAGNOSES Admission Diagnoses: Rhabdomyolysis CAT (acute kidney injury) Pressure ulcer of sacral region, stage 3 Cachexia Muscle wasting HIV carrier Elevated liver enzymes History of COPD; Systolic CHF, chronic Current every day smoker Full code status Discharge Diagnoses with Status of Each Condition: Rhabdomyolysis-resolved, CK levels normalized after treatment with IV fluids and treatment of underlying suspected infection Fever-No cultures grew out identifiable pathogens, suspect likely due to unresolved osteomyeltits from chronic coccyx wound CAT (acute kidney injury)-resolved Pressure ulcer of sacral region, stage 3-chronic, resumed previously prescribed levofloxacin for an additional 6 weeks Chronic recurrent osteomyelitis- Spoke with Dr. Clark, [facility] who confirmed a bone biopsy was completed and grew out staph epidermidis with sensitivities to levofloxacin which ended ~ May 07 Cachexia-Chronic, encouraged to stop smoking Muscle wasting-Chronic, encouraged to stop smoking, exacerbated by chronic wounds/infection HIV carrier-Chronic, stable Elevated liver enzymes-Resolved History of COPD-Chronic, patient continues to be tobacco dependent Systolic CHF, chronic-Stable Current every day smoker-Chronic, patient does not plan to stop smoking Pancytopenia-Chronic, stable, 1 unit of PRBCs were given while in the hospital Hypotension-Resolved Diarrhea-Chronic, formed stools so C-diff testing were cancelled Palliative care status-Chronic, ongoing - HPI History of Present Illness: Jonny Jang is 58-year old white male with a past medical history significant for protein calorie malnutrition, muscle wasting, cachexia, HIV since 1996, Leukemia, benign neoplasm of sigmoid colon, internal hemorrhoids, CHF with EF of 45%, asthma, COPD, GERD, hiatal hernia, depression, anxiety, panic disorder, insomnia, current tobacco dependence, marijuana use, vaping use, chronic opioid dependence, PVD with claudication and s/p bilateral AKA, CVA, CKD, hypertension, coronary stent, fem-pop bypass, skin cancer, osteoarthritis, status post left humerus fracture, bilateral carpal tunnel syndrome, sinusitis, chronic pain, osteomyelitis with +MRSA, hypogonadism, dental caries, severe decubitus ulcer, who presented to the ER with complaints of weakness. Since having his above the knee amputations, he has since been wheelchair-bound. The patient was brought in via ems for being left half between his wheelchair and the toilet. The patient states a new wound care nurse came out Friday, took his life alert and placed it out of reach along with his special cushion that he uses to self-transfer. Upon arrival to the ED, the patient was found to be covered in bruising including BUEs, torso and back. He was unkempt, and soiled with his own stool. He has a chronic, known tunneled, decubitus ulcer to his bilateral buttocks. The patient described that his first symptoms began on Friday when he claims he was attempting to get onto the toilet to have a bowel movement, and noticed that he was profoundly weak. This is when he became lodged between the toilet and his wheelchair as stated above. Since the patient does not have caregivers during the weekend, he believed that he was sitting on the toilet leaning his head forward against the wall for about 48 hours until today morning when his caregiver came to see him. Labs showed an elevated CK of 1168, an elevated creatinine of 1.6, an anion gap of 17.0, elevated liver enzymes, elevated WBC 14.5, HGB 7.3, low platelet count of 61 and no other significant lab abnormalities. On initial exam, the patient denied other injuries, fevers, chills, a new cough, chest pain, headaches, abdominal pain, nausea, vomiting or diarrhea. The patient was admitted for treatment of rhabdomyolysis. - CONSULTS | PROCEDURES Consultations: Telephone consult with [facility] (Dr. Altagracia Clark) - HOSPITAL COURSE Hospital Course: The patient's infection was suspected to be from his chronic, non-healing coccyx wound (tunnelled), so Levofloxacin was restarted upon discharge home. His rhabdomyolysis was treated using IV fluids, and his lab values normalized. His altered mental status returned to normal and he was discharged home after making a call to [facility] to confirm that a bone biopsy was obtained while he was hospitalized there. He was afebrile and had plans to meet caregivers after BLS transported him home. - ALLERGIES Allergies/Adverse Reactions: Allergies Allergy/AdvReac Type Severity Reaction Status Date / Time vancomycin Allergy Rash Verified 06/21/19 11:23 lenalidomide [From Revlimid] AdvReac Rash Verified 06/21/19 11:23 - MEDICATIONS Home Medications: Ambulatory Orders Medication Instructions Recorded Confirmed Albuterol Sulfate [Proair Hfa 2 puffs INH Q4H PRN 09/13/17 06/21/19 Inhaler] Mirtazapine 15 mg PO QPM 09/13/17 06/21/19 Morphine Sulfate [Morphine Sulfate 30 mg PO DAILY 09/13/17 06/21/19 ER] Tiotropium Bowie [Spiriva] 2 puffs INH DAILY MDD 18 mcg 09/13/17 06/21/19 Gabapentin 800 mg PO Q12H PRN 10/20/17 06/21/19 Lactose-Reduced Food [Ensure 1 ea PO TID 04/14/18 06/01/19 Compact] Prednisone 20 mg PO DAILY 11/10/18 06/21/19 Atovaquone/Proguanil HCl 1 tab PO DAILY 06/01/19 06/01/19 [Atovaquone-Proguanil 62.5-25] Omeprazole 20 mg PO DAILY 06/01/19 06/21/19 Atovaquone 10 ml PO DAILY 06/21/19 06/21/19 Bictegrav/Emtricit/Tenofov Ala 1 tab PO DAILY 06/21/19 06/21/19 [Biktarvy 50-200-25 mg Tablet] Morphine Sulfate 7.5 mg PO BID PRN 06/21/19 06/21/19 Nystatin 5 ml PO Q6H 06/21/19 06/21/19 Trazodone HCl 50 mg PO QPM 06/21/19 06/21/19 dronabinoL [Marinol] 2.5 mg PO TID 06/21/19 06/21/19 tiZANidine [Zanaflex] 8 mg PO Q8H PRN MDD 3 doses in 24 06/21/19 06/21/19 hours Levofloxacin [Levaquin] 750 mg PO DAILY #45 tablet 06/26/19 - PHYSICAL EXAM AT DISCHARGE General Appearance: positive: No acute distress, Alert Eyes Bilateral: positive: PERRL ENT: positive: Pharynx nml, No signs of dehydration Neck: positive: Thyroid nml, No JVD Respiratory: positive: Chest non-tender, Wheezes (expiratory ) Cardiovascular: positive: Regular rate & rhythm, No gallop, Systolic murmur Peripheral Pulses: positive: Other (+bilateral radial pulses) Abdomen: positive: Non-tender, Nml bowel sounds Back: positive: Nml inspection Skin: positive: No rash, Warm, Dry, Cyanosis (poor capillary refill, greater than 3 seconds, +discoloration-generalized), Other (coccyx wound-see chart for pictures) Extremities: positive: No pedal edema, Other (bilateral above the knee amp) Neurologic/Psychiatric: positive: Oriented x3, Depressed mood/affect Reflexes: Bicep (R): 2+, Bicep (L): 2+ - LABS Result Diagrams: 06/26/19 06:15 06/26/19 06:15 - DIAGNOSTIC IMAGING Diagnostic Imaging Results: Final report reviewed Diagnostic Imaging Results Comments: Echocardiogram 06/24/2019 Preliminary: Grade II diastolic dysfunction, mild to moderate LV impairment, false chordae tendineae in the LV, severe hypokinesis of the entire inferior and inferolateral wall, mild mitral regurg, RVSP at rest of 40 mmHg - SEPSIS Current Stage of Sepsis: Ruled out - TIME SPENT Time Spent in Discharge (Minutes): 60"
== END 2019-06-26 15:10 | disposition home or self-care (01) | DRG 557 ==
LOC: EDUNIT# → ED 10:58 → MS2 13:55
PROVIDERS: ADMIT Nurse Practitioner Gerontology; ATTEND Nurse Practitioner
PROC: 30233N1 Transfusion of Nonautologous Red Blood Cells into Peripheral Vein, Percutaneous Approach (ICD-10-PCS; principal; 2019-06-22)
DX: M62.82 Rhabdomyolysis (principal); S00.83XA Contusion of other part of head, initial encounter; S70.01XA Contusion of right hip, initial encounter; S70.11XA Contusion of right thigh, initial encounter; L89.324 Pressure ulcer of left buttock, stage 4; Y92.091 Bathroom in other non-institutional residence as the place of occurrence of the external cause; L89.329 Pressure ulcer of left buttock, unspecified stage; L89.319 Pressure ulcer of right buttock, unspecified stage; I11.0 Hypertensive heart disease with heart failure; I50.9 Heart failure, unspecified; L89.153 Pressure ulcer of sacral region, stage 3; N17.9 Acute kidney failure, unspecified; F17.200 Nicotine dependence, unspecified, uncomplicated; I50.22 Chronic systolic (congestive) heart failure; M86.68 Other chronic osteomyelitis, other site; E46 Unspecified protein-calorie malnutrition; F11.20 Opioid dependence, uncomplicated; I13.0 Hypertensive heart and chronic kidney disease with heart failure and stage 1 through stage 4 chronic kidney disease, or unspecified chronic kidney disease; Z99.3 Dependence on wheelchair; Z79.891 Long term (current) use of opiate analgesic; Z85.6 Personal history of leukemia; D47.1 Chronic myeloproliferative disease; L89.310 Pressure ulcer of right buttock, unstageable; J44.9 Chronic obstructive pulmonary disease, unspecified; S40.022A Contusion of left upper arm, initial encounter; S40.021A Contusion of right upper arm, initial encounter; X58.XXXA Exposure to other specified factors, initial encounter; Y92.031 Bathroom in apartment as the place of occurrence of the external cause; B95.7 Other staphylococcus as the cause of diseases classified elsewhere; E86.0 Dehydration; E86.1 Hypovolemia; I95.9 Hypotension, unspecified; K52.9 Noninfective gastroenteritis and colitis, unspecified; K21.9 Gastro-esophageal reflux disease without esophagitis; G47.00 Insomnia, unspecified; I73.9 Peripheral vascular disease, unspecified; N18.9 Chronic kidney disease, unspecified; K44.9 Diaphragmatic hernia without obstruction or gangrene; F17.210 Nicotine dependence, cigarettes, uncomplicated; T81.89XD Other complications of procedures, not elsewhere classified, subsequent encounter; F32.9 Major depressive disorder, single episode, unspecified; F41.0 Panic disorder [episodic paroxysmal anxiety]; Z51.5 Encounter for palliative care; Z21 Asymptomatic human immunodeficiency virus [HIV] infection status; Z68.30 Body mass index [BMI] 30.0-30.9, adult; Z95.5 Presence of coronary angioplasty implant and graft; Z86.14 Personal history of Methicillin resistant Staphylococcus aureus infection; Z79.899 Other long term (current) drug therapy; Z89.612 Acquired absence of left leg above knee; Z89.611 Acquired absence of right leg above knee; Z86.73 Personal history of transient ischemic attack (TIA), and cerebral infarction without residual deficits; Z79.52 Long term (current) use of systemic steroids; Z74.01 Bed confinement status; Z86.718 Personal history of other venous thrombosis and embolism; Z85.828 Personal history of other malignant neoplasm of skin
CPT/HCPCS: 36415; 51701; 80053; 80074; 81001; 82310; 82550; 82607; 82728; 83540; 83615; 83690; 83735; 84466; 84478; 85014; 85018; 85025; 85045; 86850; 86900; 86901; 86920; 87040; 87070; 87205; 87493; 93306; 96361; 96374; 99232; 99284; 99285; A6250; A9270; J7040; J7120; J7512; P9016; P9047; Q0167; 81003; 87086

== ENCOUNTER 2019-06-26 15:17 | Outpatient (CLI) | payer MEDICARE, MEDICAID | END 2019-06-26 15:18 | disposition home or self-care (01) | LOC: EMS 15:17 | PROVIDERS: ATTEND Surgery | DX: M54.5 Low back pain (principal); Z89.612 Acquired absence of left leg above knee; Z89.611 Acquired absence of right leg above knee | CPT/HCPCS: A0425; A0428 ==

== ENCOUNTER 2019-07-09 07:08 | Outpatient (CLI) | payer MEDICARE, MEDICAID | END 2019-07-09 07:09 | disposition E | LOC: EMS 07:08 | PROVIDERS: ATTEND Surgery ==